=== PATIENT | male | born 1970 | race Native Hawaiian/Other Pacific Islander ===

== ENCOUNTER → 2018-01-15 | Outpatient (CLI) | payer OTHER ==
--- NOTE | 2018-01-15 17:23 | XR ---
EXAMINATION TYPE: XR chest 2V DATE OF EXAM: 01/15/2018 COMPARISON: NONE HISTORY: Chest pain TECHNIQUE: Frontal and lateral views of the chest are obtained. FINDINGS: Heart and mediastinum are normal. Lungs are clear. Diaphragm is normal. Bony thorax is int act. IMPRESSION: Normal chest.
== END | disposition home or self-care (01) ==
LOC: RADXRMAIN 16:55
PROVIDERS: ATTEND Physician Assistant
DX: R07.9 Chest pain, unspecified (principal)
CPT/HCPCS: 71046

== ENCOUNTER 2018-02-02 15:13 | Emergency (ER) | payer OTHER ==
[2018-02-02 15:25] VITALS: RESP 18
[2018-02-02] MEDS ORDERED: NITROGLYCERIN OINT 1 INCH/GM PACKET TOPICAL STA (15:43)
[2018-02-02] MEDS ORDERED: ASPIRIN 81 MG PO STA (15:43)
[2018-02-02] MEDS ORDERED: ONDANSETRON 4 MG/2 ML VIAL IVP STA (15:44)
--- NOTE | 2018-02-02 15:47 | ED ---
Chest Pain HPI - General Chief Complaint: Chest Pain Stated Complaint: Chest pain Time Seen by Provider: 02/02/18 15:38 Source: patient Mode of arrival: wheelchair Limitations: no limitations - History of Present Illness Initial Comments: This 47-year-old white male presents with a complaint of some chest pain. This is a pressure-like in nature and at times sharp. It is worse on the left side of his chest but is also diffuse at times. It has been intermittent over the last 2 weeks. He states that he followed up with his primary care physician and they were going to schedule him for an echocardiogram. He states that he does have a history of having a heart attack while under surgery several years ago but has never received any heart stents. He denies any other known cardiac disease. He's had some mild dyspnea, a mild cough, as well as some nausea and vomiting. He denies any production with this cough. She denies any known fevers at home although his temperature here is 100.0. He denies any leg pain or swelling or history of DVT or PE. 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 He denies any other complaints or modifying factors. - Related Data Home Medications Medication Instructions Recorded Confirmed metFORMIN HCL 1,000 mg PO BID 02/02/18 02/02/18 Allergies Allergy/AdvReac Type Severity Reaction Status Date / Time peanut Allergy Swelling Verified 02/02/18 17:44 tree nut Allergy Swelling Verified 02/02/18 17:44 Review of Systems ROS Statement: Those systems with pertinent positive or pertinent negative responses have been documented in the HPI. ROS Other: All systems not noted in ROS Statement are negative. Past Medical History Past Medical History: Diabetes Mellitus Additional Past Medical History / Comment(s): lung ca - had chemo 2 yrs ago and went into remission in 2014 History of Any Multi-Drug Resistant Organisms: None Reported Past Surgical History: Cholecystectomy Past Psychological History: No Psychological Hx Reported Smoking Status: Current every day smoker Past Alcohol Use History: None Reported Past Drug Use History: None Reported General Exam - General Exam Comments Initial Comments: GENERAL: The patient is well nourished and well hydrated. VITAL SIGNS: Heart rate, blood pressure, respiratory rate reviewed as recorded in nurse's notes. EYES: Pupils are round and reactive. Extraocular movements are intact. No conjunctival / lid redness or swelling. ENT: No external evidence of injury, swelling, or ecchymosis. Airway is patent. Throat is clear. NECK: Nontender. No swelling or evidence of injury. No subcutaneous emphysema. Trachea is midline. No thyroid mass. HEART: Regular rate and rhythm. Good peripheral pulses. LUNGS/CHEST: Breath sounds clear and equal bilaterally. No rales, rhonchi, or wheezes. No ecchymosis, subcutaneous emphysema, or tenderness. ABDOMEN: Abdomen soft without tenderness. No palpable masses or organomegaly. No peritoneal signs. No abdominal wall swelling or ecchymosis. EXTREMITIES: No extremity tenderness. Normal muscle tone and function. No thoracolumbar tenderness. No leg swelling. NEUROLOGIC: Sensation is grossly intact. Cranial nerve exam reveals face is symmetrical, tongue is midline, speech is clear. SKIN: No abrasions or ecchymosis is noted. No induration or masses noted. PSYCHIATRIC: Alert and oriented. Appropriate behavior and judgment. 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 All diagnostics are reviewed. An IV is started and he does receive Zofran 8 mg IV, aspirin, and Nitropaste. The EKG shows a normal sinus rhythm at a rate of 90. There is no acute ST-T wave changes identified. The CO intervals 154, QRS duration is 90, and the QTC intervals 433. The patient is feeling remarkably improved on recheck. The chest x-ray does not show any acute processes. The laboratories all essentially within normal limits or negative. Admission was offered however the patient would prefer to just have his troponin rechecked to rule out acute coronary syndrome and then follow up closely with primary care physician to obtain a stress test on an outpatient basis. Disposition Clinical Impression: Chest pain, Dyspnea, Nausea and vomiting Disposition: HOME SELF-CARE Condition: Good Additional Instructions: Please take one aspirin daily. Please follow-up with physician closely to schedule a stress test. Is patient prescribed a controlled substance at d/c from ED?: No Referrals: Wagner Retana DO [Primary Care Provider] - 1-2 days Time of Disposition: 18:22
[2018-02-02 16:01] LABS: Basophils # (A) 0.1 k/uL (0-0.2); Basophils % (A) 1 %; Eosinophils # (A) 0.5 k/uL (0-0.7); Eosinophils % (A) 7 %; HCT 45.4 % (39.0-53.0); HGB 16.1 gm/dL (13.0-17.5); Lymphocytes % (A) 38 %; MCHC 35.3 g/dL (31.0-37.0); MCV 87.8 fL (80.0-100.0); Mean Platelet Volume 7.4; Monocytes # (A) 0.3 k/uL (0-1.0); Monocytes % (A) 4 %; Neutrophils # (A) 3.9 k/uL (1.3-7.7); Neutrophils % (A) 50 %; Platelet Count 217 k/uL (150-450); RBC 5.18 m/uL (4.30-5.90); RDW 14.3 % (11.5-15.5); WBC 7.9 k/uL (3.8-10.6)
--- NOTE | 2018-02-02 16:09 | XR ---
EXAMINATION TYPE: XR chest 2V DATE OF EXAM: 02/02/2018 COMPARISON: 01/15/2018 HISTORY: Chest pain with history of lung cancer TECHNIQUE: Frontal and lateral views of the chest are obtained. FINDINGS: There is no focal air space opacity, pleural effusion, or pneumothorax seen. The cardiac silhouette size is within normal limits. The osseous structures are intact. Cholecystectomy clips a re noted within the right upper cortical. Minimal degenerative changes of the thoracic spine are note d. IMPRESSION: No acute cardiopulmonary process. The patient's known lung cancer is not appreciated. Th is may be treated.
[2018-02-02 16:11] LABS: ALT 44 U/L (21-72); AST 27 U/L (17-59); Albumin 4.2 g/dL (3.5-5.0); Alkaline Phosphatase 76 U/L (38-126); Anion Gap 14 mmol/L; Blood Urea Nitrogen 12 mg/dL (9-20); Calcium 9.3 mg/dL (8.4-10.2); Carbon Dioxide 26 mmol/L (22-30); Chloride 102 mmol/L (98-107); Glucose 149 mg/dL (74-99); Magnesium 1.9 mg/dL (1.6-2.3); Sodium 142 mmol/L (137-145); Total Bilirubin 0.5 mg/dL (0.2-1.3); Total Protein 6.7 g/dL (6.3-8.2)
[2018-02-02 16:18] LABS: Creatine Kinase 80 U/L (55-170)
[2018-02-02 16:25] LABS: D-Dimer 0.35 mg/L FEU (<0.60); Partial Thromboplastin Time 22.6 sec (22.0-30.0); Prothrombin Time 9.8 sec (9.0-12.0)
[2018-02-02 16:31] LABS: Creatine Kinase MB 0.3 ng/mL (0.0-2.4); Troponin I <0.012 ng/mL (0.000-0.034)
[2018-02-02 17:01] VITALS: BP 118/71
--- NOTE | 2018-02-02 18:24 | ED ---
Medical Decision Making - Lab Data Result diagrams: 02/02/18 15:40 02/02/18 15:40 Lab Results 02/02/18 02/02/18 02/02/18 Range/Units 15:40 15:40 15:40 WBC 7.9 (3.8-10.6) k/uL RBC 5.18 (4.30-5.90) m/uL Hgb 16.1 (13.0-17.5) gm/dL Hct 45.4 (39.0-53.0) % MCV 87.8 (80.0-100.0) fL MCH 31.0 (25.0-35.0) pg MCHC 35.3 (31.0-37.0) g/dL RDW 14.3 (11.5-15.5) % Plt Count 217 (150-450) k/uL Neutrophils % 50 % Lymphocytes % 38 % Monocytes % 4 % Eosinophils % 7 % Basophils % 1 % Neutrophils # 3.9 (1.3-7.7) k/uL Lymphocytes # 3.0 (1.0-4.8) k/uL Monocytes # 0.3 (0-1.0) k/uL Eosinophils # 0.5 (0-0.7) k/uL Basophils # 0.1 (0-0.2) k/uL PT (9.0-12.0) sec INR (<1.2) APTT (22.0-30.0) sec D-Dimer (<0.60) mg/L FEU Sodium 142 (137-145) mmol/L Potassium 4.0 (3.5-5.1) mmol/L Chloride 102 (98-107) mmol/L Carbon Dioxide 26 (22-30) mmol/L Anion Gap 14 mmol/L BUN 12 (9-20) mg/dL Creatinine 0.94 (0.66-1.25) mg/dL Est GFR (CKD-EPI)AfAm >90 (>60 ml/min/1.73 sqM) Est GFR (CKD-EPI)NonAf >90 (>60 ml/min/1.73 sqM) Glucose 149 H (74-99) mg/dL Calcium 9.3 (8.4-10.2) mg/dL Magnesium 1.9 (1.6-2.3) mg/dL Total Bilirubin 0.5 (0.2-1.3) mg/dL AST 27 (17-59) U/L ALT 44 (21-72) U/L Alkaline Phosphatase 76 (38-126) U/L Total Creatine Kinase 80 (55-170) U/L CK-MB (CK-2) 0.3 (0.0-2.4) ng/mL CK-MB (CK-2) Rel Index 0.4 Troponin I <0.012 (0.000-0.034) ng/mL NT-Pro-B Natriuret Pep pg/mL Total Protein 6.7 (6.3-8.2) g/dL Albumin 4.2 (3.5-5.0) g/dL 02/02/18 02/02/18 02/02/18 Range/Units 15:40 15:40 17:40 WBC (3.8-10.6) k/uL RBC (4.30-5.90) m/uL Hgb (13.0-17.5) gm/dL Hct (39.0-53.0) % MCV (80.0-100.0) fL MCH (25.0-35.0) pg MCHC (31.0-37.0) g/dL RDW (11.5-15.5) % Plt Count (150-450) k/uL Neutrophils % % Lymphocytes % % Monocytes % % Eosinophils % % Basophils % % Neutrophils # (1.3-7.7) k/uL Lymphocytes # (1.0-4.8) k/uL Monocytes # (0-1.0) k/uL Eosinophils # (0-0.7) k/uL Basophils # (0-0.2) k/uL PT 9.8 (9.0-12.0) sec INR 1.0 (<1.2) APTT 22.6 (22.0-30.0) sec D-Dimer 0.35 (<0.60) mg/L FEU Sodium (137-145) mmol/L Potassium (3.5-5.1) mmol/L Chloride (98-107) mmol/L Carbon Dioxide (22-30) mmol/L Anion Gap mmol/L BUN (9-20) mg/dL Creatinine (0.66-1.25) mg/dL Est GFR (CKD-EPI)AfAm (>60 ml/min/1.73 sqM) Est GFR (CKD-EPI)NonAf (>60 ml/min/1.73 sqM) Glucose (74-99) mg/dL Calcium (8.4-10.2) mg/dL Magnesium (1.6-2.3) mg/dL Total Bilirubin (0.2-1.3) mg/dL AST (17-59) U/L ALT (21-72) U/L Alkaline Phosphatase (38-126) U/L Total Creatine Kinase (55-170) U/L CK-MB (CK-2) (0.0-2.4) ng/mL CK-MB (CK-2) Rel Index Troponin I <0.012 (0.000-0.034) ng/mL NT-Pro-B Natriuret Pep 72 pg/mL Total Protein (6.3-8.2) g/dL Albumin (3.5-5.0) g/dL Disposition Clinical Impression: Chest pain, Dyspnea, Nausea and vomiting Disposition: HOME SELF-CARE Condition: Good Instructions: Chest Pain (ED) Additional Instructions: Please take one aspirin daily. Please follow-up with physician closely to schedule a stress test. Is patient prescribed a controlled substance at d/c from ED?: No Referrals: Wagner Retana DO [Primary Care Provider] - 1-2 days Time of Disposition: 18:23
[2018-02-02 18:44] VITALS: PULSE 84; TEMP 98
== END 2018-02-02 18:44 | disposition home or self-care (01) ==
LOC: EC 15:13
DX: R07.9 Chest pain, unspecified (principal); R06.00 Dyspnea, unspecified; R11.2 Nausea with vomiting, unspecified; E11.9 Type 2 diabetes mellitus without complications; F17.200 Nicotine dependence, unspecified, uncomplicated; Z91.018 Allergy to other foods; Z79.84 Long term (current) use of oral hypoglycemic drugs
CPT/HCPCS: 36415; 71046; 80053; 82550; 82553; 83735; 83880; 84484; 85025; 85379; 85610; 85730; 87040; 93005; 99285

== ENCOUNTER 2018-02-03 20:06 | Observation (INO) | payer OTHER ==
[2018-02-03 21:06] LABS: Basophils # (A) 0.1 k/uL (0-0.2); Basophils % (A) 1 %; Eosinophils # (A) 0.5 k/uL (0-0.7); Eosinophils % (A) 6 %; HCT 43.6 % (39.0-53.0); HGB 15.2 gm/dL (13.0-17.5); Lymphocytes # (A) 3.2 k/uL (1.0-4.8); Lymphocytes % (A) 40 %; MCH 30.7 pg (25.0-35.0); MCHC 34.9 g/dL (31.0-37.0); MCV 87.7 fL (80.0-100.0); Mean Platelet Volume 7.6; Monocytes # (A) 0.4 k/uL (0-1.0); Monocytes % (A) 5 %; Neutrophils # (A) 3.8 k/uL (1.3-7.7); Neutrophils % (A) 47 %; Platelet Count 207 k/uL (150-450); RBC 4.96 m/uL (4.30-5.90); RDW 14.4 % (11.5-15.5); WBC 8.1 k/uL (3.8-10.6)
[2018-02-03 21:15] LABS: ALT 41 U/L (21-72); AST 25 U/L (17-59); Albumin 4.1 g/dL (3.5-5.0); Alkaline Phosphatase 76 U/L (38-126); Anion Gap 14 mmol/L; Blood Urea Nitrogen 16 mg/dL (9-20); Calcium 9.5 mg/dL (8.4-10.2); Carbon Dioxide 24 mmol/L (22-30); Chloride 103 mmol/L (98-107); Glucose 179 mg/dL (74-99); Lipase 143 U/L (23-300); Magnesium 1.8 mg/dL (1.6-2.3); Potassium 3.9 mmol/L (3.5-5.1); Sodium 141 mmol/L (137-145); Total Bilirubin 0.3 mg/dL (0.2-1.3); Total Protein 6.4 g/dL (6.3-8.2)
--- NOTE | 2018-02-03 21:15 | XR ---
EXAMINATION TYPE: XR chest 2V DATE OF EXAM: 02/03/2018 COMPARISON: 02/02/2018 INDICATION: Chest pain TECHNIQUE: Frontal and lateral views of the chest are obtained. FINDINGS: The heart size is normal. The pulmonary vasculature is normal. The lungs are clear. IMPRESSION: 1. No acute pulmonary process.
[2018-02-03] MEDS ORDERED: RX INFO: IV CONTRAST WAS GIVEN 1 EACH MISC MISCELLANE PRN (21:16)
[2018-02-03 21:17] LABS: Partial Thromboplastin Time 23.3 sec (22.0-30.0); Prothrombin Time 9.8 sec (9.0-12.0)
--- NOTE | 2018-02-03 21:26 | ED ---
General Adult HPI - General Chief complaint: Chest Pain Stated complaint: Chest Pain Time Seen by Provider: 02/03/18 20:33 Source: patient, RN notes reviewed, old records reviewed Mode of arrival: ambulatory Limitations: no limitations - History of Present Illness Initial comments: 47-year-old male presents for evaluation of chest pain. Patient was seen in the emergency department yesterday and offered observation for further evaluation of his chest pain. He declined and was discharged after 2 negative troponins. His pain has persisted today and even worsened. Describes it as a sharp left-sided chest pain which goes to his shoulder and back. He has history of hypertension diabetes and remote history of lung cancer. He was treated for his lung cancer but has been lost to follow-up. He is still smoking currently. Patient denies abdominal pain. Denies vomiting he has had some nausea and diaphoresis. No known history of coronary artery disease. - Related Data Home Medications Medication Instructions Recorded Confirmed metFORMIN HCL 1,000 mg PO BID 02/02/18 02/03/18 Allergies Allergy/AdvReac Type Severity Reaction Status Date / Time peanut Allergy Swelling Verified 02/03/18 20:28 tree nut Allergy Swelling Verified 02/03/18 20:28 Review of Systems ROS Statement: Those systems with pertinent positive or pertinent negative responses have been documented in the HPI. ROS Other: All systems not noted in ROS Statement are negative. Past Medical History Past Medical History: Diabetes Mellitus Additional Past Medical History / Comment(s): lung ca - had chemo 2 yrs ago and went into remission in 2014 History of Any Multi-Drug Resistant Organisms: None Reported Past Surgical History: Cholecystectomy Past Psychological History: No Psychological Hx Reported Smoking Status: Current every day smoker Past Alcohol Use History: None Reported Past Drug Use History: None Reported General Exam Limitations: no limitations General appearance: alert, in no apparent distress Head exam: Present: atraumatic, normocephalic Eye exam: Present: normal appearance, PERRL, EOMI ENT exam: Present: normal exam Neck exam: Present: normal inspection. Absent: tenderness, meningismus Respiratory exam: Present: normal lung sounds bilaterally. Absent: respiratory distress, wheezes Cardiovascular Exam: Present: regular rate, normal rhythm GI/Abdominal exam: Present: soft. Absent: distended, tenderness, guarding Extremities exam: Present: normal inspection, normal capillary refill, other ( Normal pulse exam). Absent: pedal edema Back exam: Present: normal inspection. Absent: full ROM, tenderness Neurological exam: Present: alert, oriented X3, CN II-XII intact. Absent: motor sensory deficit Psychiatric exam: Present: normal affect, normal mood Skin exam: Present: warm, dry, intact. Absent: cyanosis, diaphoretic Course Vital Signs 02/03/18 20:19 Temperature 99.3 F Pulse Rate 95 Respiratory 18 Rate Blood Pressure 128/80 O2 Sat by Pulse 97 Oximetry EKG Findings - EKG Comments: EKG Findings:: EKG: Normal sinus rhythm, rate of 86, LA interval 158 QRS duration 88, QTC 414, no definitive signs of ischemia. Medical Decision Making - Medical Decision Making 47-year-old male who presents for evaluation of chest pain. Patient was seen in the emergency department yesterday, had 2 cardiac enzymes which were negative. He has had worsening pain today. Pain is atypical, sharp in nature. Patient does have history of lung cancer status post chemo but has not followed up in recent years. Exam is unremarkable, stable vital signs. CBC and CMP are obtained which are within normal limits. EKG is nonischemic. Troponin is negative. Chest negative for focal pneumonia or acute findings. Given the patient's history of cancer and repeat ER visit in the setting of atypical chest pain, CT angiography is obtained. CT is negative for acute process, no PE, no mass or dissection elevated. - Lab Data Result diagrams: 02/03/18 Unknown 02/03/18 Unknown Lab Results 02/03/18 02/03/18 02/03/18 Range/Units Unknown Unknown Unknown WBC 8.1 (3.8-10.6) k/uL RBC 4.96 (4.30-5.90) m/uL Hgb 15.2 (13.0-17.5) gm/dL Hct 43.6 (39.0-53.0) % MCV 87.7 (80.0-100.0) fL MCH 30.7 (25.0-35.0) pg MCHC 34.9 (31.0-37.0) g/dL RDW 14.4 (11.5-15.5) % Plt Count 207 (150-450) k/uL Neutrophils % 47 % Lymphocytes % 40 % Monocytes % 5 % Eosinophils % 6 % Basophils % 1 % Neutrophils # 3.8 (1.3-7.7) k/uL Lymphocytes # 3.2 (1.0-4.8) k/uL Monocytes # 0.4 (0-1.0) k/uL Eosinophils # 0.5 (0-0.7) k/uL Basophils # 0.1 (0-0.2) k/uL PT (9.0-12.0) sec INR (<1.2) APTT (22.0-30.0) sec Sodium 141 (137-145) mmol/L Potassium 3.9 (3.5-5.1) mmol/L Chloride 103 (98-107) mmol/L Carbon Dioxide 24 (22-30) mmol/L Anion Gap 14 mmol/L BUN 16 (9-20) mg/dL Creatinine 0.90 (0.66-1.25) mg/dL Est GFR (CKD-EPI)AfAm >90 (>60 ml/min/1.73 sqM) Est GFR (CKD-EPI)NonAf >90 (>60 ml/min/1.73 sqM) Glucose 179 H (74-99) mg/dL Calcium 9.5 (8.4-10.2) mg/dL Magnesium 1.8 (1.6-2.3) mg/dL Total Bilirubin 0.3 (0.2-1.3) mg/dL AST 25 (17-59) U/L ALT 41 (21-72) U/L Alkaline Phosphatase 76 (38-126) U/L Total Creatine Kinase 99 (55-170) U/L CK-MB (CK-2) 0.4 (0.0-2.4) ng/mL CK-MB (CK-2) Rel Index 0.4 Troponin I <0.012 (0.000-0.034) ng/mL NT-Pro-B Natriuret Pep pg/mL Total Protein 6.4 (6.3-8.2) g/dL Albumin 4.1 (3.5-5.0) g/dL Lipase 143 (23-300) U/L 02/03/18 02/03/18 Range/Units Unknown Unknown WBC (3.8-10.6) k/uL RBC (4.30-5.90) m/uL Hgb (13.0-17.5) gm/dL Hct (39.0-53.0) % MCV (80.0-100.0) fL MCH (25.0-35.0) pg MCHC (31.0-37.0) g/dL RDW (11.5-15.5) % Plt Count (150-450) k/uL Neutrophils % % Lymphocytes % % Monocytes % % Eosinophils % % Basophils % % Neutrophils # (1.3-7.7) k/uL Lymphocytes # (1.0-4.8) k/uL Monocytes # (0-1.0) k/uL Eosinophils # (0-0.7) k/uL Basophils # (0-0.2) k/uL PT 9.8 (9.0-12.0) sec INR 1.0 (<1.2) APTT 23.3 (22.0-30.0) sec Sodium (137-145) mmol/L Potassium (3.5-5.1) mmol/L Chloride (98-107) mmol/L Carbon Dioxide (22-30) mmol/L Anion Gap mmol/L BUN (9-20) mg/dL Creatinine (0.66-1.25) mg/dL Est GFR (CKD-EPI)AfAm (>60 ml/min/1.73 sqM) Est GFR (CKD-EPI)NonAf (>60 ml/min/1.73 sqM) Glucose (74-99) mg/dL Calcium (8.4-10.2) mg/dL Magnesium (1.6-2.3) mg/dL Total Bilirubin (0.2-1.3) mg/dL AST (17-59) U/L ALT (21-72) U/L Alkaline Phosphatase (38-126) U/L Total Creatine Kinase (55-170) U/L CK-MB (CK-2) (0.0-2.4) ng/mL CK-MB (CK-2) Rel Index Troponin I (0.000-0.034) ng/mL NT-Pro-B Natriuret Pep 77 pg/mL Total Protein (6.3-8.2) g/dL Albumin (3.5-5.0) g/dL Lipase (23-300) U/L Disposition Clinical Impression: Atypical chest pain Disposition: ADMITTED IP TO THIS [facility] Condition: Stable Is patient prescribed a controlled substance at d/c from ED?: No Referrals: Wagner Retana DO [Primary Care Provider] - 1-2 days Decision to Admit Reason: Admit from [facility] Decision Date: 02/03/18 Decision Time: 22:04
[2018-02-03 21:29] LABS: Creatine Kinase 99 U/L (55-170)
[2018-02-03 21:40] LABS: Creatine Kinase MB 0.4 ng/mL (0.0-2.4); Troponin I <0.012 ng/mL (0.000-0.034)
--- NOTE | 2018-02-03 22:08 | CT ---
CT CHEST FOR PULMONARY EMBOLISM. EXAMINATION TYPE: CT angio chest DATE OF EXAM: 02/03/2018 INDICATION: Left side chest pain, SOB CT DLP: 393.3 mGycm, Automated exposure control for dose reduction was used. CONTRAST: Patient injected with 70 mL of Isovue 370. COMPARISON: NONE TECHNIQUE: CT of the chest is performed on a spiral scan at 2 mm thick sections. Study is performed with intravenous contrast timed for evaluation for pulmonary embolism. This will limit additional po rtions of the evaluation. 3-D MIP images reconstructed by the technologist are reviewed on the compu ter in the coronal and sagittal planes. FINDINGS: No persistent filling defects are evident to suggest an acute pulmonary embolism. No mediastinal or hilar adenopathy enlarged by CT criteria is evident. The ascending aorta diameter at the level of the main pulmonary artery is 3.1 cm. The main pulmonary artery diameter at the bifur cation is 2.1 cm. Lung windows are clear. Limited CT section through the upper abdomen are unremarkable. IMPRESSIONS: 1. No acute pulmonary embolism.
[2018-02-03] MEDS ORDERED: IBUPROFEN 400 MG TAB PO PRN (22:10)
[2018-02-03] MEDS ORDERED: ACETAMINOPHEN TAB 325 MG TAB PO PRN (22:10)
[2018-02-03] MEDS ORDERED: ONDANSETRON 4 MG/2 ML VIAL IVP PRN (22:10)
[2018-02-03] MEDS ORDERED: MORPHINE SULFATE 4 MG/ML SYRINGE IV PRN (22:10)
[2018-02-03] MEDS ORDERED: NALOXONE 0.4 MG/ML 1 ML VIAL IV PRN (22:10)
[2018-02-03] MEDS ORDERED: ASPIRIN 325 MG TAB PO STA (22:11)
[2018-02-03 23:22] VITALS: BMI 28.7
[2018-02-04 04:06] LABS: Creatine Kinase 79 U/L (55-170)
[2018-02-04 04:20] LABS: Creatine Kinase MB 0.4 ng/mL (0.0-2.4); Troponin I <0.012 ng/mL (0.000-0.034)
[2018-02-04 10:34] LABS: Creatine Kinase 67 U/L (55-170)
[2018-02-04 10:47] LABS: Creatine Kinase MB 0.3 ng/mL (0.0-2.4); Troponin I <0.012 ng/mL (0.000-0.034)
[2018-02-04 11:18] VITALS: RESP 16
[2018-02-04 12:13] LABS: Glucose,Whole Blood 101 mg/dL (75-99)
[2018-02-04] MEDS: HEPARIN SODIUM,PORCINE 5,000 UNIT/ML 1 ML VIAL SQ SCH ×2 (15:44→20:18)
[2018-02-04] MEDS: metFORMIN 500 MG TAB PO SCH ×2 (15:44→20:19)
[2018-02-04] MEDS: ASPIRIN 81 MG PO SCH (15:44)
[2018-02-04] MEDS ORDERED: ALPRAZolam 0.25 MG TAB PO PRN (16:40)
[2018-02-04] MEDS ORDERED: TEMAZEPAM 15 MG CAP PO PRN (16:40)
[2018-02-04 17:10] LABS: Glucose,Whole Blood 126 mg/dL (75-99)
[2018-02-04] MEDS: INSULIN ASPART 100 UNIT/ML 1 ML 10 ML VIAL SQ SCH ×2 (17:11→20:18)
[2018-02-04 20:09] LABS: Glucose,Whole Blood 113 mg/dL (75-99)
--- NOTE | 2018-02-04 20:12 | HP ---
HISTORY AND PHYSICAL CHIEF COMPLAINT: Chest pain. HISTORY OF PRESENT ILLNESS: This 47-year-old gentleman with a past medical history of diabetes mellitus, lung cancer, history of cholecystectomy being followed by Dr. Wagner Retana in the outpatient setting, was complaining of chest pain. The chest pain is mostly situated in the left side of the chest and radiating to the front of the chest and also left upper arm. The patient also complaining of pain going to the back. There is no history of sweating or palpitation. The patient was admitted for further evaluation and treatment. A chest x-ray was done on admission which showed no acute pulmonary process and a CT of the chest showed no acute pulmonary embolism also. There is no history of any fever, rigors or chills. No history of headache, loss of consciousness, seizures. PAST MEDICAL HISTORY: History of diabetes, lung cancer. MEDICATIONS: Prior to admission include home medications are: Metformin. ALLERGIES: PEANUTS and TREE NUTS. FAMILY HISTORY: History of AICD, pacemaker and diabetes mellitus. SOCIAL HISTORY: History of smoking. No history of alcohol intake. REVIEW OF SYSTEMS: ENT: No diminished vision. No diminished hearing. CARDIOVASCULAR: As mentioned earlier. Respiratory: As mentioned earlier. GI no nausea or vomiting. : No dysuria. Nervous system: No numbness or weakness. Allergy/Immunology: No asthma or hayfever. Musculoskeletal as mentioned earlier. Hematology/Oncology: As mentioned earlier. Endocrine: Diabetes mellitus. CONSTITUTIONAL: As mentioned earlier. Dermatology: Negative. Rheumatology: Negative. Psychiatry: As mentioned earlier. PHYSICAL EXAM: Alert, oriented times three. Pulse 76, blood pressure 116/64, respirations 16, temperature 99 degrees, pulse ox 97% on room air. HEENT is conjunctivae normal. Oral mucosa moist. NECK is no jugular venous distention. No carotid bruit. No thyroid enlargement. CARDIOVASCULAR system: S1, S2. No S3, no S4. RESPIRATORY: Breath sounds diminished in the bases. No rhonchi. No crackles. ABDOMEN: Soft, nontender. No mass palpable. LEGS no edema and no swelling. NERVOUS SYSTEM: Higher functions as mentioned earlier. Moves all 4 limbs. No focal motor or sensory deficits. LYMPHATICS: No lymph nodes palpable in the neck, axillae or groin. SKIN no ulcer, rash or bleeding. LABS: CBC within normal limits. Glucose 179. Troponins are negative. EKG on admission showed normal sinus rhythm, no acute changes. ASSESSMENT: 1. Chest pain possible unstable angina. 2. Rule out musculoskeletal pain. 3. Diabetes type 2. 4. History of lung cancer. 5. History of cholecystectomy. 6. History of continued ongoing nicotine dependence. RECOMMENDATIONS AND DISCUSSION: In this 47-year-old gentleman who presented with multiple complex medical issues, we will monitor the patient closely, continue the current medications, management and symptomatic treatment. I would recommend unstable angina protocol. Otherwise cardiology consultation. Possible stress test. I would also recommend Accu-Cheks a.c. and at bedtime and resume the home medications, symptomatic treatment. Repeat labs. Overall prognosis guarded because of multiple complex medical issues and further recommendations to follow. Copy of dictation being forwarded to Dr. Retana who is the primary physician. MMMARINA / ALLISONN: [id number] /
--- NOTE | 2018-02-04 21:27 | CONS ---
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 He was recently, about 3 weeks ago, diagnosed with type 2 diabetes mellitus. His primary care physician is Dr. Wagner Retana. He came into the hospital because of an episode of chest discomfort. He was apparently seen in the emergency room on the of this month, had some nondescript chest tightness, pressure and was discharged after 2 negative troponins when he refused to be hospitalized. However, he came back again when the pain got a little worse today. It is more on the left side. It sometimes goes to the shoulder, randomly occurs, does not occur with activity. He has a history of type 2 diabetes recently diagnosed. History of lung cancer for which he has had chemotherapy, details are unavailable. He still smokes a pack a day. Denies chest pain at the time of my evaluation, resting comfortably. He also had some nausea, which he does not have at this time. PAST MEDICAL HISTORY: 1. Lung cancer, details unclear, had chemo and this was in [place]. 2. Recent diagnosis of type 2 diabetes mellitus. 3. No evidence of any prior myocardial infarction or CVA. 4. Cholecystectomy. MEDICATIONS: Metformin 1000 mg b.i.d. No known drug allergies. SOCIAL HISTORY: Patient smokes a pack a day and does not use alcohol. REVIEW OF SYSTEMS: Remarkable for some nondescript chest tightness unrelated to exertion, occasional joint pains, but no hematemesis or melena. No fever, chills or cough with expectoration. EXAMINATION: Blood pressure is 130/70, pulse rate is about 70 per minute and regular. HEENT: Unremarkable. Fundus was not examined by me. NECK: Supple. No JVD. I do not hear a carotid bruit. There is no thyromegaly. HEART: Reveals S1, S2 heard normally without a rub, murmur or gallop. LUNGS: Clear. Abdomen is soft, nontender. Lower extremities with normal pulses, no edema. Central nervous system is normal. EKG revealed normal sinus rhythm, within normal limits. LABORATORY DATA: Revealed that all the 3 troponins are normal. IMPRESSION: 1. Atypical chest pain. 2. Recent diagnosis of diabetes mellitus. 3. Obesity. 4. History of lung cancer for which he had chemotherapy in the past and still smokes. RECOMMENDATION: I am recommending that we will resume his metformin and aspirin 81 mg daily. I will perform an echocardiogram and a stress echo tomorrow. If these are normal, he can be discharged. I spent a lot of time with the patient and counselled him regarding the importance of quitting smoking altogether. The patient does not seem very motivated at this time. He will have a stress echo and echo tomorrow and if these are normal, he can be discharged. Thank you very much for the consult. AMBER / IJN: [id number] /
[2018-02-05 06:39] LABS: Glucose,Whole Blood 109 mg/dL (75-99)
[2018-02-05 07:24] LABS: Basophils % (A) 1 %; Eosinophils # (A) 0.4 k/uL (0-0.7); Eosinophils % (A) 6 %; HCT 47.9 % (39.0-53.0); HGB 16.3 gm/dL (13.0-17.5); Lymphocytes # (A) 1.8 k/uL (1.0-4.8); Lymphocytes % (A) 26 %; MCH 30.5 pg (25.0-35.0); MCV 89.8 fL (80.0-100.0); Mean Platelet Volume 7.5; Monocytes # (A) 0.3 k/uL (0-1.0); Monocytes % (A) 4 %; Neutrophils # (A) 4.2 k/uL (1.3-7.7); Neutrophils % (A) 62 %; Platelet Count 186 k/uL (150-450); RBC 5.33 m/uL (4.30-5.90); RDW 14.7 % (11.5-15.5); WBC 6.9 k/uL (3.8-10.6)
[2018-02-05 07:30] LABS: Anion Gap 12 mmol/L; Blood Urea Nitrogen 22 mg/dL (9-20); Calcium 8.6 mg/dL (8.4-10.2); Carbon Dioxide 24 mmol/L (22-30); Chloride 103 mmol/L (98-107); Glucose 101 mg/dL (74-99); Potassium 4.4 mmol/L (3.5-5.1); Sodium 139 mmol/L (137-145)
--- NOTE | 2018-02-05 08:18 | P.PN ---
Subjective Mr. Dinero is a pleasant 47-year-old male past medical history significant for diabetes mellitus and lung cancer with chemotherapy in [place]. He presented to the hospital with chest pain. He continues to feel discomfort in his chest that is non-specific with no specific aggravating or alleviating factors. Telemetry tracings have been unremarkable. Laboratory reviewed, hgb 16.3, plt 186, sodium 139, potassium 4.4, creatinine 0.85, cardiac enzymes negative x3. Blood pressure 116/58 heart rate 87 afebrile and maintaining oxygen saturation on room air. Objective - Vital Signs Vital signs: Vital Signs Temp 98.1 F 02/05/18 07:25 Pulse 87 02/05/18 07:25 Resp 16 02/05/18 07:25 BP 116/58 02/05/18 07:25 Pulse Ox 97 02/05/18 07:25 Intake & Output 02/04/18 02/05/18 02/05/18 18:59 06:59 18:59 Intake Total 476 Balance 476 Intake: Oral 476 Other: Voiding Method Toilet Toilet # Voids 2 2 - Exam GENERAL: Well-appearing, well-nourished and in no acute distress. NECK: Supple without JVD or thyromegaly. LUNGS: Breath sounds clear to auscultation bilaterally. Respiration equal and unlabored. No wheezes, rales or rhonchi. HEART: Regular rate and rhythm without murmurs, rubs or gallops. S1 and S2 heard. EXTREMITIES: Normal range of motion, no edema. No clubbing or cyanosis. Peripheral pulses intact and strong. - Labs CBC & Chem 7: 02/05/18 06:21 02/05/18 06:21 Labs: Abnormal Lab Results - Last 24 Hours (Table) 02/04/18 02/04/18 02/04/18 Range/Units 12:10 17:08 20:04 BUN (9-20) mg/dL Glucose (74-99) mg/dL POC Glucose (mg/dL) 101 H 126 H 113 H (75-99) mg/dL 02/05/18 02/05/18 Range/Units 06:21 06:37 BUN 22 H (9-20) mg/dL Glucose 101 H (74-99) mg/dL POC Glucose (mg/dL) 109 H (75-99) mg/dL Assessment and Plan Assessment: ASSESSMENT 1. Chest pain, atypical 2. Diabetes mellitus, new diagnosis recently 3. Chronic tobacco dependence PLAN We will perform an echocardiogram and doppler study to assess cardiac structure and function. Perform stress echocardiogram to assess for stress induced reversible ischemia. If stress testing is normal, he is stable from a cardiac perspective. If abnormal we will consider coronary angiography. Smoking cessation discussed. The above impression and plan of care have been discussed and directed by the signing physician. Vicky Gonzalez, nurse practitioner, acting as scribe for signing physician.
[2018-02-05] MEDS: INSULIN ASPART 100 UNIT/ML 1 ML 10 ML VIAL SQ SCH ×2 (11:01→15:59)
[2018-02-05] MEDS: metFORMIN 500 MG TAB PO SCH (11:09)
[2018-02-05] MEDS: ASPIRIN 81 MG PO SCH (11:09)
[2018-02-05] MEDS: HEPARIN SODIUM,PORCINE 5,000 UNIT/ML 1 ML VIAL SQ SCH (11:10)
--- NOTE | 2018-02-05 12:01 | ECHOF ---
Referral Reason:CP MEASUREMENTS -------- HEIGHT: 180.3 cm WEIGHT: 90.7 kg BP: 131/70 IVSd: 1.1 cm (0.6 - 1.1) LVIDd: 3.8 cm (3.9 - 5.3) LVPWd: 1.3 cm (0.6 - 1.1) IVSs: 1.6 cm LVIDs: 1.8 cm LVPWs: 1.7 cm Ao Diam: 3.0 cm (2.0 - 3.7) AV Cusp: 1.3 cm (1.5 - 2.6) LA Diam: 2.6 cm (2.7 - 3.8) MV EXCURSION: 11.800 mm (> 18.000) MV EF SLOPE: 82 mm/s (70 - 150) EPSS: 0.8 cm MV E Rolf: 0.77 m/s MV DecT: 146 ms MV A Rolf: 0.59 m/s MV E/A Ratio: 1.30 RAP: 5.00 mmHg RVSP: 8.59 mmHg FINDINGS -------- Sinus rhythm. This was a technically good study. The left ventricular size is normal. There is mild concentric left ventricular hypertrophy. Overa ll left ventricular systolic function is normal with, an EF between 55 - 60 %. The right ventricle is normal in size and function. The left atrium is normal in size. The right atrium is normal in size. Aortic valve is trileaflet and is mildly thickened. Mild mitral regurgitation is present. Mild tricuspid regurgitation present. The right ventricular systolic pressure, as measured by Doppl er, is 8.59mmHg. Pulmonic valve appears structurally normal. The aortic root size is normal. Normal inferior vena cava with normal inspiratory collapse consistent with estimated right atrial pre ssure of 5 mmHg. The pericardium is normal. CONCLUSIONS -------- 1. Sinus rhythm. 2. This was a technically good study. 3. The left ventricular size is normal. 4. There is mild concentric left ventricular hypertrophy. 5. Overall left ventricular systolic function is normal with, an EF between 55 - 60 %. 6. The right ventricle is normal in size and function. 7. The left atrium is normal in size. 8. The right atrium is normal in size. 9. Aortic valve is trileaflet and is mildly thickened. 10. Mild mitral regurgitation is present. 11. Mild tricuspid regurgitation present. 12. The right ventricular systolic pressure, as measured by Doppler, is 8.59mmHg. 13. Pulmonic valve appears structurally normal. 14. The aortic root size is normal. 15. Normal inferior vena cava with normal inspiratory collapse consistent with estimated right atrial pressure of 5 mmHg. 16. The pericardium is normal. LINE MAINTAINER: Marcelina Soares RDCS
[2018-02-05 12:12] LABS: Glucose,Whole Blood 192 mg/dL (75-99)
--- NOTE | 2018-02-05 12:34 | ECHOS ---
STRESS ECHOCARDIOGRAM INDICATIONS: Chest pain. BASELINE HEART RATE: 74 BASELINE BLOOD PRESSURE: 78/40 MAXIMUM HEART RATE: 149 MAXIMUM BLOOD PRESSURE: 153/67 85% MPHR: 149 100% MPHR: 175 METS: 9.9 MAXIMUM STAGE REACHED: III TOTAL EXERCISE TIME: 9:00 CLINICAL INFORMATION: Baseline EKG shows sinus rhythm, normal axis, normal intervals. Patient exercised on Han protocol for a total of 9 minutes achieving 10 METS, 85% of predicted maximal heart rate without chest pain or diagnostic ST-segment depression baseline echo shows normal left ventricular size wall motion systolic function postexercise there is normal hyperdynamic response of all segments of myocardium noted. CONCLUSIONS: 1. Good exercise tolerance. 2. Negative stress test by EKG criteria. 3. Negative stress echo. MMODL / IJN: [id number] /
[2018-02-05 15:22] LABS: Hemoglobin A1C 6.9 % (4.0-6.0)
[2018-02-05] MEDS ORDERED: NAPROXEN 250 MG TAB PO STA (15:25)
[2018-02-05] MEDS ORDERED: PANTOPRAZOLE 40 MG TABLET PO STA (15:25)
[2018-02-05 15:32] VITALS: BP 114/68; PULSE 91; TEMP 98.1
--- NOTE | 2018-02-05 23:24 | DS ---
DISCHARGE SUMMARY FINAL DIAGNOSES: 1. Left chest wall pain, possibly musculoskeletal. 2. Gastroesophageal reflux disease, controlled. 3. Diabetes mellitus type 2 on oral hypoglycemic. 4. History of lung cancer, status post chemotherapy. HOSPITAL COURSE: This patient presents with left-sided chest pain present for quite some time, rather constant. Chest x-ray was unremarkable. Chest CT today was negative for PE. The patient's reflux has been bothering him. The patient did undergo a stress echocardiogram that was negative. 2D echo was unremarkable and did not show any wall motion abnormality. We will try a short course of NSAIDs and also put the patient on PPIs. EXAMINATION: LUNGS: Fair entry. CARDIOVASCULAR: First and second sounds normal. CONSULTATION: Dr. Isaiah Murillo from Cardiology. DISCHARGE MEDICATIONS: 1. Metformin 1000 mg p.o. b.i.d. 2. Naproxen 250 mg p.o. b.i.d. 3. Prilosec 20 mg b.i.d. Follow with Dr. Isaiah Murillo in [address] Wagner Retana in 3 days. MMODL / IJN: [id number] /
== END 2018-02-05 16:32 | disposition home or self-care (01) ==
LOC: EC 20:06 → 6SEL 22:11 → 3OBS 02-04 11:00
PROVIDERS: ADMIT Hospitalist; ATTEND Hospitalist
DX: R07.89 Other chest pain (principal); K21.9 Gastro-esophageal reflux disease without esophagitis; E11.9 Type 2 diabetes mellitus without complications; F17.210 Nicotine dependence, cigarettes, uncomplicated; E66.9 Obesity, unspecified; Z68.28 Body mass index [BMI] 28.0-28.9, adult; Z90.49 Acquired absence of other specified parts of digestive tract; Z79.84 Long term (current) use of oral hypoglycemic drugs; Z91.010 Allergy to peanuts; Z91.018 Allergy to other foods; Z92.21 Personal history of antineoplastic chemotherapy; Z85.118 Personal history of other malignant neoplasm of bronchus and lung; Z83.3 Family history of diabetes mellitus; Z82.49 Family history of ischemic heart disease and other diseases of the circulatory system
CPT/HCPCS: 99285 ×2; 96372; 96374; 36415; 93005; 93306; 93351; 83880; 80053; 80048; 82550 ×2; 82553 ×2; 83690; 83735; 84484 ×2; 85025 ×2; 85610; 85730; 83036; 71046; 71275; G0378 ×3; J2270; J1644; Q9967

== ENCOUNTER 2018-08-13 16:43 | Observation (INO) | payer BC, OTHER ==
[2018-08-13] MEDS ORDERED: KETOROLAC 30 MG/ML 1 ML VIAL IVP STA (17:13)
[2018-08-13] MEDS ORDERED: SODIUM CHLORIDE 0.9% 1,000 ML IV STA ×2 (17:13)
--- NOTE | 2018-08-13 17:23 | ED ---
Chest Pain HPI - General Chief Complaint: Chest Pain Stated Complaint: Chest Pain Time Seen by Provider: 08/13/18 16:52 Source: patient, RN notes reviewed, old records reviewed Mode of arrival: ambulatory Limitations: no limitations - History of Present Illness MD Complaint: chest pain -: hour(s) Onset: during rest Pain Location: left chest, epigastric Pain Radiation: back Severity: moderate Severity scale (1-10): 7 Quality: tightness, sharp Consistency: constant Improves With: nothing Worsens With: exertion Context: new medications Anginal Symptoms: dyspnea Other Symptoms: palpitations Treatments Prior to Arrival: none - Related Data Home Medications Medication Instructions Recorded Confirmed metFORMIN HCL 1,000 mg PO BID 02/02/18 08/13/18 Ibuprofen [Motrin Ib] 400 mg PO Q6HR PRN 08/13/18 08/13/18 Allergies Allergy/AdvReac Type Severity Reaction Status Date / Time peanut Allergy Swelling Verified 08/13/18 17:04 tree nut Allergy Swelling Verified 08/13/18 17:04 Review of Systems ROS Statement: Those systems with pertinent positive or pertinent negative responses have been documented in the HPI. ROS Other: All systems not noted in ROS Statement are negative. Past Medical History Past Medical History: Diabetes Mellitus Additional Past Medical History / Comment(s): lung ca - had chemo 2 yrs ago and went into remission in 2014 History of Any Multi-Drug Resistant Organisms: None Reported Past Surgical History: Cholecystectomy Past Psychological History: No Psychological Hx Reported Smoking Status: Current every day smoker Past Alcohol Use History: None Reported Past Drug Use History: None Reported - Past Family History Mother Additional Family Medical History / Comment(s): DM Father Family Medical History: AICD/Pacemaker General Exam Limitations: no limitations General appearance: alert, in no apparent distress Head exam: Present: atraumatic, normocephalic, normal inspection Eye exam: Present: normal appearance, PERRL, EOMI. Absent: scleral icterus, conjunctival injection, periorbital swelling ENT exam: Present: normal exam, mucous membranes moist Neck exam: Present: normal inspection. Absent: tenderness, meningismus, lymphadenopathy Respiratory exam: Present: normal lung sounds bilaterally. Absent: respiratory distress, wheezes, rales, rhonchi, stridor Cardiovascular Exam: Present: normal rhythm, tachycardia, normal heart sounds. Absent: systolic murmur, diastolic murmur, rubs, gallop, clicks GI/Abdominal exam: Present: soft, normal bowel sounds. Absent: distended, tenderness, guarding, rebound, rigid Extremities exam: Present: normal inspection, full ROM, normal capillary refill. Absent: tenderness, pedal edema, joint swelling, calf tenderness Back exam: Present: normal inspection Neurological exam: Present: alert, oriented X3, CN II-XII intact Psychiatric exam: Present: normal affect, normal mood Skin exam: Present: warm, dry, intact, normal color. Absent: rash Course Vital Signs 08/13/18 08/13/18 08/13/18 16:45 17:32 18:00 Temperature 97.2 F L Pulse Rate 102 H 90 86 Respiratory 20 18 16 Rate Blood Pressure 122/75 135/93 135/93 O2 Sat by Pulse 98 98 98 Oximetry 08/13/18 19:29 Temperature Pulse Rate 80 Respiratory 18 Rate Blood Pressure 101/71 O2 Sat by Pulse 99 Oximetry - Reevaluation(s) Reevaluation #1: 08/13/18 19:10 medical record is reviewed Reevaluation #2: 08/13/18 19:11 patient states history of same w Pericarditis Reevaluation #3: 08/13/18 19:59 No improvement in pain currently Reevaluation #5: 08/13/18 19:59 Studies Chest x-rays negative for acute disease Chest Pain MDM - MDM 48 male for evaluation of chest pain, patient has history of chest pain, history of what he thinks is pericarditis, patient be admitted for cardiac observation Critical Care Time Critical Care Time: Yes Total Critical Care Time: 31 Disposition Clinical Impression: Atypical chest pain, Chest pain Disposition: ADMITTED IP TO THIS HOSP Condition: Undetermined Instructions: Chest Pain (ED) Is patient prescribed a controlled substance at d/c from ED?: No Referrals: Wagner Retana DO [Primary Care Provider] - 1-2 days
--- NOTE | 2018-08-13 17:33 | XR ---
EXAMINATION TYPE: XR chest 2V DATE OF EXAM: 08/13/2018 COMPARISON: 01/27/1718 HISTORY: Lung cancer. Chest pain TECHNIQUE: Frontal and lateral views of the chest are obtained. FINDINGS: Heart and mediastinum are normal. Lungs are clear of consolidation. There are no hilar mas ses. Costophrenic angles are clear. Bony thorax is intact. There are chest leads. IMPRESSION: No active cardiopulmonary disease. No change.
[2018-08-13 17:35] LABS: Basophils # (A) 0.1 k/uL (0-0.2); Basophils % (A) 1 %; Eosinophils # (A) 0.5 k/uL (0-0.7); Eosinophils % (A) 5 %; HCT 47.5 % (39.0-53.0); HGB 16.5 gm/dL (13.0-17.5); Lymphocytes # (A) 3.2 k/uL (1.0-4.8); Lymphocytes % (A) 34 %; MCH 30.3 pg (25.0-35.0); MCHC 34.6 g/dL (31.0-37.0); MCV 87.7 fL (80.0-100.0); Mean Platelet Volume 7.9; Monocytes # (A) 0.4 k/uL (0-1.0); Monocytes % (A) 4 %; Neutrophils # (A) 5.3 k/uL (1.3-7.7); Neutrophils % (A) 55 %; Platelet Count 201 k/uL (150-450); RBC 5.42 m/uL (4.30-5.90); RDW 14.4 % (11.5-15.5); WBC 9.6 k/uL (3.8-10.6)
[2018-08-13 17:45] LABS: ALT 38 U/L (21-72); AST 24 U/L (17-59); Albumin 4.2 g/dL (3.5-5.0); Alkaline Phosphatase 92 U/L (38-126); Anion Gap 9 mmol/L; Blood Urea Nitrogen 13 mg/dL (9-20); Calcium 9.1 mg/dL (8.4-10.2); Carbon Dioxide 27 mmol/L (22-30); Chloride 103 mmol/L (98-107); Glucose 158 mg/dL (74-99); Lipase 136 U/L (23-300); Magnesium 1.6 mg/dL (1.6-2.3); Partial Thromboplastin Time 23.6 sec (22.0-30.0); Sodium 139 mmol/L (137-145); Total Bilirubin 0.4 mg/dL (0.2-1.3); Total Protein 6.9 g/dL (6.3-8.2)
[2018-08-13 17:55] LABS: Creatine Kinase 65 U/L (55-170)
[2018-08-13 18:06] LABS: Creatine Kinase MB 0.3 ng/mL (0.0-2.4); Troponin I <0.012 ng/mL (0.000-0.034)
[2018-08-13] MEDS ORDERED: MORPHINE SULFATE 4 MG/ML SYRINGE IVP STA (19:57)
[2018-08-13] MEDS ORDERED: ASPIRIN 81 MG PO STA (19:57)
[2018-08-13] MEDS ORDERED: NITROGLYCERIN SL TABS 0.4 MG TAB SUBLINGUAL PRN (19:57)
[2018-08-13] MEDS ORDERED: MORPHINE SULFATE 4 MG/ML SYRINGE IVP PRN (19:57)
[2018-08-13] MEDS ORDERED: SODIUM CHLORIDE 0.9% 1,000 ML IV SCH (20:00)
[2018-08-13 22:03] LABS: Glucose,Whole Blood 172 mg/dL (75-99)
[2018-08-13] MEDS: INSULIN ASPART 100 UNIT/ML 1 ML 10 ML VIAL SQ SCH (22:10)
[2018-08-13] MEDS: KETOROLAC 30 MG/ML 1 ML VIAL IVP PRN (23:45)
[2018-08-13 23:49] LABS: Creatine Kinase 60 U/L (55-170)
[2018-08-13 23:54] LABS: Creatine Kinase MB 0.2 ng/mL (0.0-2.4); Troponin I <0.012 ng/mL (0.000-0.034)
[2018-08-14 00:35] LABS: Appearance,Urine Cloudy (Clear); Bilirubin,Urine Negative (Negative); Blood,Urine Negative (Negative); Color,Urine Yellow; Glucose,Urine (UA) Negative (Negative); Ketones,Urine Negative (Negative); Leukocyte Esterase,Urine Negative (Negative); Mucus,Urine Many /hpf; Nitrite,Urine Negative (Negative); Protein,Urine 1+ (Negative); RBC,Urine 1 /hpf (0-5); Specific Gravity,Urine 1.032 (1.001-1.035); Squamous Epithelial Cell,Urine <1 /hpf (0-4); WBC,Urine 3 /hpf (0-5)
[2018-08-14 03:31] VITALS: RESP 18
[2018-08-14 05:53] LABS: Creatine Kinase 53 U/L (55-170)
[2018-08-14 06:00] LABS: Cholesterol 228 mg/dL (<200); HDL Cholesterol 23 mg/dL (40-60)
[2018-08-14 06:06] LABS: Creatine Kinase MB 0.2 ng/mL (0.0-2.4); Troponin I <0.012 ng/mL (0.000-0.034)
[2018-08-14 06:14] LABS: Triglycerides 929 mg/dL (<150)
[2018-08-14 06:32] LABS: Glucose,Whole Blood 180 mg/dL (75-99)
[2018-08-14] MEDS ORDERED: INSULIN ASPART 100 UNIT/ML 1 ML 10 ML VIAL SQ SCH (07:30)
[2018-08-14 08:35] LABS: Hemoglobin A1C 7.2 % (4.0-6.0)
[2018-08-14] MEDS: INSULIN ASPART 100 UNIT/ML 1 ML 10 ML VIAL SQ SCH ×3 (08:55→17:37)
[2018-08-14] MEDS ORDERED: ASPIRIN 81 MG PO SCH (09:00)
[2018-08-14] MEDS ORDERED: metFORMIN 500 MG TAB PO SCH (09:00)
[2018-08-14] MEDS ORDERED: ATORVASTATIN 40 MG TAB PO SCH (09:00)
[2018-08-14] MEDS ORDERED: ASPIRIN 325 MG TAB PO SCH (09:00)
[2018-08-14] MEDS: KETOROLAC 30 MG/ML 1 ML VIAL IVP PRN (09:04)
--- NOTE | 2018-08-14 09:30 | CONS ---
CONSULTATION Mr. Dinero is a 48-year-old male with a history of chronic tobacco use, history of diabetes mellitus, who presented with symptoms of chest discomfort. The patient was in the hospital in January with symptoms of chest pain. At that time underwent a stress echocardiogram revealed no evidence of inducible ischemia. He is not very active physically. He had discomfort yesterday that persisted for few hours, worse with deep breathing or coughing. He continues to smoke on a regular basis in spite of the fact that he had diagnosis of lung cancer 3 years ago treated with chemotherapy while in [place]. The patient has a history of diabetes diagnosed in January. He has no history of documented hypertension or hyperlipidemia in the past. There is a history of coronary artery disease in his brother at young age. His father had a pacemaker. His coronary risk factors are remarkable for the smoking and diabetes. MEDICATIONS: His medications include metformin 1 gram twice a day and ibuprofen. REVIEW OF SYSTEMS: RESPIRATORY SYSTEM: He has a history of wheezing. He has a history of cough and dyspnea on exertion. GI SYSTEM: Remote history of ulcer. No GI bleeding. SYSTEM: No dysuria or hematuria. NERVOUS SYSTEM: No history of stroke or seizure. PHYSICAL EXAMINATION: He is a 48-year-old male, alert, oriented, in no apparent distress. Blood pressure 112/60 with the heart rate in the 70s. HEAD: Normocephalic. EYES: Sclerae anicteric. NECK: Good carotid upstroke. No bruit. No jugular venous distention. LUNGS: Decreased air exchange, no wheezes. HEART: Regular rate and rhythm. S1, S2. No S3. No rub or gallop. Chest wall with chest wall tenderness. ABDOMEN: Soft, nontender. Positive bowel sounds. No organomegaly. EXTREMITIES: No edema. Intact distal pulses. LAB DATA: Lab data revealed troponin less than 0.012. Triglycerides 929, cholesterol 228. BUN and creatinine 13 and 0.83. Potassium 4.0. Hemoglobin 16.5, white blood cell of 9.6. EKG revealed a sinus mechanism, normal axis with minor nonspecific ST-T wave changes. IMPRESSION: 1. Chest discomfort atypical for ischemic heart disease appears to be musculoskeletal in etiology. The patient had a stress test done in January and that was unremarkable. 2. Chronic tobacco use in spite of the history of lung cancer. 3. Diabetes. 4. Hyperlipidemia with significant hypertriglyceridemia. RECOMMENDATION: From the cardiac standpoint, I see no indication for further cardiac workup. I will add a statin to his regimen. I will check his hemoglobin A1c and TSH because of the significant elevation of his triglycerides. The patient denies any alcohol intake. Depending on his progress, further recommendation will be made. Thank you for this consult. I would expect that the patient should be able to be discharged home soon. AMBER / HERNANDEZ: [id number] /
--- NOTE | 2018-08-14 09:57 | ECHOF ---
Referral Reason:pericarditis MEASUREMENTS -------- HEIGHT: 180.3 cm WEIGHT: 90.7 kg BP: 112/67 RVIDd: 2.8 cm (< 3.3) IVSd: 1.2 cm (0.6 - 1.1) LVIDd: 4.3 cm (3.9 - 5.3) LVPWd: 1.1 cm (0.6 - 1.1) IVSs: 1.5 cm LVIDs: 1.7 cm LVPWs: 1.6 cm LAESV Index (A-L): 19.87 ml/m Ao Diam: 3.0 cm (2.0 - 3.7) AV Cusp: 2.1 cm (1.5 - 2.6) LA Diam: 3.4 cm (2.7 - 3.8) MV EXCURSION: 17.354 mm (> 18.000) MV EF SLOPE: 122 mm/s (70 - 150) EPSS: 1.2 cm MV E Rolf: 0.97 m/s MV DecT: 161 ms MV A Rolf: 0.68 m/s MV E/A Ratio: 1.42 RAP: 5.00 mmHg RVSP: 11.59 mmHg FINDINGS -------- Sinus rhythm. This was a technically good study. The left ventricular size is normal. There is borderline concentric left ventricular hypertrophy. Overall left ventricular systolic function is normal with, an EF between 55 - 60 %. The right ventricle is normal in size and function. Normal LA size by volume 22+/-6 ml/m2. The right atrial size is normal. The aortic valve is trileaflet, and appears structurally normal. No aortic stenosis or regurgitation. The mitral valve is normal. There is trace mitral regurgitation. Trace tricuspid regurgitation present. There is no evidence of pulmonary hypertension. The right ventricular systolic pressure, as measured by Doppler, is 11.59mmHg. Trace/mild (physiologic) pulmonic regurgitation. The aortic root size is normal. Normal inferior vena cava with normal inspiratory collapse consistent with estimated right atrial pre ssure of 5 mmHg. There is no pericardial effusion. CONCLUSIONS -------- 1. Sinus rhythm. 2. This was a technically good study. 3. The left ventricular size is normal. 4. There is borderline concentric left ventricular hypertrophy. 5. Overall left ventricular systolic function is normal with, an EF between 55 - 60 %. 6. Normal LA size by volume 22+/-6 ml/m2. 7. The right atrial size is normal. 8. The aortic valve is trileaflet, and appears structurally normal. No aortic stenosis or regurgitati on. 9. There is trace mitral regurgitation. 10. Trace tricuspid regurgitation present. 11. There is no evidence of pulmonary hypertension. 12. Trace/mild (physiologic) pulmonic regurgitation. 13. The aortic root size is normal. 14. Normal inferior vena cava with normal inspiratory collapse consistent with estimated right atrial pressure of 5 mmHg. 15. There is no pericardial effusion. CONSTRUCTION TRADES CONTRACTOR: Marcelina Soares RDCS
[2018-08-14 11:49] LABS: Glucose,Whole Blood 170 mg/dL (75-99)
[2018-08-14 15:36] VITALS: BP 139/80; PULSE 72; TEMP 97.8
--- NOTE | 2018-08-14 16:16 | CT ---
EXAMINATION TYPE: CT chest angio for PE DATE OF EXAM: 08/14/2018 COMPARISON: 02/03/2018 HISTORY: 48-year-old male Diffuse chest pain. TECHNIQUE: Contiguous axial scanning of the chest performed with IV Contrast, patient injected with 1 00 mL of Isovue 300. Coronal/sagittal MIP reconstructions performed. CT DLP: 349.8 mGycm Automated exposure control for dose reduction was used. FINDINGS: Heart normal size with trace anterior basilar pericardial fluid. Aorta normal caliber with a tortuous origin anatomy. There is heterogeneity of the pulmonary vasculature due to mixing. No definite pulmonary embolus is i dentified. No thoracic lymphadenopathy by CT size criteria. Mild diffuse bronchial wall thickening. Mild scattered centrilobular emphysema. There is a 5 mm right upper lobe pulmonary nodule, centrally, axial image 34. Additional right lower lobe nodularity measuring 6 mm and 4 mm, axial image 75 and 76. 4 mm peripheral subpleural left upper lobe pulmonary nodule, axial image 44. No consolidation or pleural effusion. Visualized upper abdomen shows cholecystectomy clips. Calcified granulomas within the spleen. Bones: No osseous destructive process. Endplate spondylosis lower thoracic spine. IMPRESSION: 1. SOME MIXING ARTIFACTS. NO DEFINITE PULMONARY EMBOLUS. 2. A FEW SCATTERED PULMONARY NODULES MEASURING UP TO 6 MM ARE STABLE FOR 6 MONTHS. ADDITIONAL 6-12 MO NTH FOLLOW-UP IS RECOMMENDED. 3. COPD WITH VERY MILD EMPHYSEMA.
[2018-08-14 16:49] LABS: Glucose,Whole Blood 126 mg/dL (75-99)
--- NOTE | 2018-08-14 17:19 | HP ---
HISTORY AND PHYSICAL DATE OF ADMISSION: 08/13/2018 DATE OF SERVICE: 08/14/2018 PRESENTING COMPLAINT: Chest pain. HISTORY OF PRESENTING COMPLAINT: Pleasant 48-year-old patient who was here in January of this year. The patient's chronic stable medical conditions include GERD, diabetes mellitus type 2, history of lung cancer, status post chemotherapy. 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 After driving all day towards later part of the evening, patient felt pain in the left part of the chest laterally, sharp stabbing, did go up to the neck and also into the jaw. The patient was slightly short of breath, did break out in a sweat, a bit clammy. There was no leg swelling. Because of these symptoms, decided to come in to rule out a cardiac cause. The patient in January of this year did have a negative stress test. The patient is a smoker. The patient occasionally does get anxious. The patient's initial troponin was negative. REVIEW OF SYSTEMS: CONSTITUTIONAL: None. HEENT none. RESPIRATORY: As above. CARDIOVASCULAR: As above. GASTROINTESTINAL: None. GENITOURINARY: None. MUSCULOSKELETAL: None. DERMATOLOGIC, HEMATOLOGIC AND LYMPHATIC: None. PSYCHIATRY: Occasionally anxious. NEUROLOGICAL none. PAST MEDICAL HISTORY: Past medical history of GERD, diabetes type 2, lung cancer, chemotherapy 2 years ago, viral meningitis. PAST SURGICAL HISTORY: Cholecystectomy, piece of metal removed from the right eye. 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 FAMILY HISTORY: Diabetes. MEDICATIONS: Home medications are: 1. Metformin 1000 mg b.i.d. 2. Motrin 400 mg q.6h p.r.n. ALLERGIES: TO PEANUT AND TREE NUTS. PHYSICAL EXAMINATION: VITAL SIGNS: Temperature 97.8, pulse 72, respiratory 18, blood pressure 139/80, pulse ox 96 percent on room air. GENERAL APPEARANCE: Average built, sitting up, not in distress. EYES: Pupils are equal. Conjunctivae normal. HEENT: External appearance of nose and ears normal. Oral cavity normal. NECK: JVD not raised. Mass not palpable. RESPIRATORY: Effort normal. LUNGS: Slightly decreased breath sounds. CARDIOVASCULAR: 1st and 2nd sounds normal. No edema. ABDOMEN: Soft, nontender. Liver and spleen not palpable. LYMPHATICS: No lymph nodes palpable in the neck and axilla. PSYCHIATRY: Alert and oriented x3. Mood and affect slightly anxious. NEUROLOGICAL: Pupils equal. Cranial nerves grossly intact. Power and sensation grossly intact. INVESTIGATIONS: White count 9.6, hemoglobin 16.5, potassium 4.0. BUN and creatinine is normal. Troponin times three is negative. Triglycerides 929. TSH normal. EKG tracing personally reviewed by me shows some nonspecific T-wave changes. Chest x-ray film personally reviewed by me shows some elevation of the right diaphragm. No obvious infiltrates. Chest x-ray report was also reviewed. No infiltrates reported. ASSESSMENT: 1. Left-sided chest pain sharp with associated shortness of breath perspiration, clammy, could be psychosomatic from attack of anxiety, rule out a cardiac cause. 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 2. Gastroesophageal reflux disease. 3. Diabetes mellitus type 2 on oral hypoglycemics. 4. Chronic nicotine dependence, patient is a cigarette smoker. PLAN: Cardiology was consulted who did order 2D echocardiogram. We will also order a chest angio to rule out a PE. Also give patient a nicotine patch. Care was discussed with the patient. Copy to Dr. Retana. MMODL / IJN: [id number] /
--- NOTE | 2018-08-15 01:06 | DS ---
DISCHARGE SUMMARY DATE OF ADMISSION: 08/13/2018 DATE OF DISCHARGE: 08/14/2018 FINAL DIAGNOSES: 1. Chest pain could be psychosomatic from anxiety episode. 2. Gastroesophageal reflux disease. 3. Diabetes mellitus type 2 on oral hypoglycemic. 4. Chronic nicotine dependence. Patient is a cigarette smoker. 5. Hypertriglyceridemia. HOSPITAL COURSE: This patient presented with left-sided chest pain. Troponins were negative. Chest CT was negative for PE. 2D echocardiogram was unremarkable. Patient did have a stress test about 6 months ago that was negative, felt to be possibly psychosomatic. On examination, temperature 97.8, pulse 72, respiratory 18, blood pressure 129/80. Chest CTA was negative. Triglycerides 929, cholesterol 228. CONSULTATION: Dr. Barnes from Cardiology. DISCHARGE MEDICATIONS: 1. Metformin 1000 mg b.i.d. 2. Ibuprofen 400 mg q.6 p.r.n. 3. Aspirin 81 mg a day. 4. Lipitor 40 mg a day. FOLLOWUP: Follow up with Dr. Retana in 1 week. Follow up with Dr. Florian in [address] scan of the chest. Copy to Dr. Retana. MMODL / IJN: [id number] /
== END 2018-08-14 17:33 | disposition home or self-care (01) ==
LOC: EC 16:43 → 1SOBS 19:57
PROVIDERS: ADMIT Hospitalist; ATTEND Hospitalist
DX: R07.89 Other chest pain (principal); R00.2 Palpitations; R06.02 Shortness of breath; R61 Generalized hyperhidrosis; K21.9 Gastro-esophageal reflux disease without esophagitis; E11.9 Type 2 diabetes mellitus without complications; Z79.84 Long term (current) use of oral hypoglycemic drugs; F17.210 Nicotine dependence, cigarettes, uncomplicated; E78.1 Pure hyperglyceridemia; Z86.79 Personal history of other diseases of the circulatory system; Z85.118 Personal history of other malignant neoplasm of bronchus and lung; Z92.21 Personal history of antineoplastic chemotherapy; Z82.49 Family history of ischemic heart disease and other diseases of the circulatory system; R05 Cough; R06.09 Other forms of dyspnea; E78.5 Hyperlipidemia, unspecified; Z86.61 Personal history of infections of the central nervous system; Z83.3 Family history of diabetes mellitus; Z91.018 Allergy to other foods; Z91.010 Allergy to peanuts
CPT/HCPCS: 99291 ×2; 96374 ×2; 96375 ×2; 96361 ×2; 96376 ×2; 36415; 93005; 93306; 80061; 80053; 84443; 82550 ×2; 82553 ×2; 83690; 83735; 84484 ×2; 85025; 85610; 85730; 81001; 83036; 71046; 71275; G0378 ×2; J2270; J1885 ×2; Q9967

== ENCOUNTER → 2019-03-06 | Outpatient (CLI) | payer BC, OTHER ==
[2019-03-06 14:26] LABS: HCT 47.5 % (39.0-53.0); HGB 15.7 gm/dL (13.0-17.5); MCH 29.6 pg (25.0-35.0); MCHC 33.1 g/dL (31.0-37.0); MCV 89.4 fL (80.0-100.0); Mean Platelet Volume 7.7; Platelet Count 200 k/uL (150-450); RBC 5.31 m/uL (4.30-5.90); RDW 14.4 % (11.5-15.5); WBC 8.8 k/uL (3.8-10.6)
== END | disposition home or self-care (01) ==
LOC: LABPAT 13:24
PROVIDERS: ATTEND Anesthesiology
DX: Z01.818 Encounter for other preprocedural examination (principal)
CPT/HCPCS: 36415; 85027

== ENCOUNTER → 2019-03-07 | Day surgery (SDC) | payer BC, OTHER ==
[2019-03-03 12:04] VITALS: BMI 29.8
[~2019-03-07] MED LIST: DEXAMETHASONE SOD PHOSPHATE 4 MG/ML 1 ML VIAL IVP ONE; GLYCOPYRROLATE 0.2 MG/ML 2 ML VIAL ONE; HEPARIN SODIUM,PORCINE 5,000 UNIT/ML 1 ML VIAL SQ ONE; HYDROcodone/APAP 7.5-325MG 1 EACH TAB PO ONE; INSULIN ASPART (NovoLOG) 100 UNIT/ML VIAL SQ ONE; KETOROLAC 30 MG/ML 1 ML VIAL ONE; LACTATED RINGERS 1,000 ML IV ONE; LACTATED RINGERS 1,000 ML IV SCH; LIDOCAINE 1% 20 ML VIAL (10MG/ML) FOR IV START INTRADERMA ONE; LIDOCAINE 1% INJ 10MG/ML (20 ML MDV) ONE; LIDOCAINE 1%-EPI 1:100,000 20 ML VIAL SQ ONE; MIDAZOLAM (PF) 2 MG/2 ML VIAL IVP ONE; NEOSTIGMINE 1 MG/ML 10 ML VIAL ONE; ONDANSETRON 4 MG/2 ML VIAL IVP ONE; PHENYLEPHRINE-0.9% NACL SYG 1 MG/10 ML SYRINGE ONE; PROPOFOL 10 MG/ML 20 ML VIAL IV ONE; ROCURONIUM BROMIDE 10 MG/ML 10 ML VIAL IV ONE; ROPIVACAINE 5 MG/ML 30 ML VIAL ONE; SUCCINYLCHOLINE CHLORIDE 100 MG/5 ML SYR IV ONE; ceFAZolin IN SWFI 2 GM/20 ML SYRINGE IVP ONE; fentaNYL (PF) 50 MCG/ML 2 ML AMP IVP ONE; fentaNYL (PF) 50 MCG/ML 2 ML AMP ONE
--- NOTE | 2019-03-07 06:19 | P.GSHP ---
History of Present Illness H&P Date: 03/07/19 CHIEF COMPLAINT: Ventral hernia HISTORY OF PRESENT ILLNESS: The patient is a 48-year-old male who presents with a history of swelling and pain along the abdomen from a hernia. Now he presents for surgical intervention. PAST MEDICAL HISTORY: Please see list. PAST SURGICAL HISTORY: Please see list. MEDICATIONS: Please see list. ALLERGIES: Please see list. SOCIAL HISTORY: No illicit drug use FAMILY HISTORY: No reports of Crohn disease or ulcerative colitis. REVIEW OF ORGAN SYSTEMS: CONSTITUTIONAL: No reports of fevers or chills. No reports of weight loss despite prior attempts. GI: Denies any blood in stools or constipation. PHYSICAL EXAM: VITAL SIGNS: Stable GENERAL: Well-developed pleasant male in no acute distress. HEENT: No scleral icterus. Extraocular movements grossly intact. Moist buccal mucosa. NECK: Supple without lymphadenopathy. CHEST: Unlabored respirations. Equal bilateral excursions. CARDIOVASCULAR: Regular rate and rhythm. Distal 2+ pulses. ABDOMEN: Soft, nondistended. Palpable defect of the abdomen. No peritoneal signs. MUSCULOSKELETAL: No clubbing, cyanosis, or edema. ASSESSMENT: 1. Ventral hernia PLAN: 1. Recommend proceeding with robotic ventral hernia repair with mesh. 2. Benefits and risks of surgical intervention was discussed including possibility of open technique. 3. DVT prophylaxis. 4. Antibiotic prophylaxis. Past Medical History Past Medical History: Chest Pain / Angina, Diabetes Mellitus, GERD/Reflux, Hyperlipidemia, Skin Disorder Additional Past Medical History / Comment(s): Eczema. Hx ulcers, viral mennigitis. "Chest cold with phlegm since Jul 2018, have been to Dr many times about it, but nothings been done about it." "Chronic chest pain, that Dr relates to acid reflux." States hx kidney problems but not sure what. History of Any Multi-Drug Resistant Organisms: None Reported Past Surgical History: Cholecystectomy Additional Past Surgical History / Comment(s): Piece of metal removed from right eye. Past Anesthesia/Blood Transfusion Reactions: Previous Problems w/ Anesthesia Additional Past Anesthesia/Blood Transfusion Reaction / Comment(s): Combative. Past Psychological History: Anxiety Additional Psychological History / Comment(s): Hx panic attacks. Smoking Status: Current every day smoker Past Alcohol Use History: None Reported Additional Past Alcohol Use History / Comment(s): Started smoking at age 15, smoked between 3/4 to 1.5 ppd, currently down to 6 cigarettes per day. Past Drug Use History: None Reported - Past Family History Mother Family Medical History: Diabetes Mellitus Additional Family Medical History / Comment(s): DM Father Family Medical History: AICD/Pacemaker Medications and Allergies Home Medications Medication Instructions Recorded Confirmed Type Cholestrol Medication 1 tab PO DAILY 03/03/19 03/03/19 History Prilosec (Unknown Dose) 1 tab PO HS 03/03/19 03/03/19 History Sertraline HCl [Zoloft] 100 mg PO HS 03/03/19 03/03/19 History Trulicity 1 dose SQ WEEKLY 03/03/19 03/03/19 History Allergies Allergy/AdvReac Type Severity Reaction Status Date / Time peanut Allergy Swelling Verified 03/03/19 12:04 Surgical Tape Allergy Rash/Hives Uncoded 03/03/19 12:04
[2019-03-07 06:37] LABS: Glucose,Whole Blood 164 mg/dL (75-99)
--- NOTE | 2019-03-07 07:16 | P.ANPRN ---
Procedure Note - Anesthesia - Nerve Block Performed Bilateral Rectus Abdominis Single Time Out Performed: Yes Date of Procedure: 03/07/19 Procedure Start Time: 06:52 Procedure Stop Time: 07:00 Location of Patient Procedure: PreOp Indication: Requested by physician Specifically requested for management of pain by DrLandry: Pinky Mathews Sedation Type: Sedate with meaningful contact maintained Preparation: Sterile Prep Position: Supine Needle Types: Pajunk Needle Gauge: 21 Technique: Ultrasound Injectate: 0.5% Ropivacaine (see comment for volume) (15+15) Blood Aspirated: No Pain Paresthesia on Injection Noted: No Resistance on Injection: Normal Events: Uneventful and Well Tolerated
[2019-03-07 09:20] VITALS: TEMP 97
--- NOTE | 2019-03-07 09:21 | P.PCN ---
Date of Procedure: 03/07/19 Description of Procedure: SURGEON: PINKY MATHEWS MD PREOPERATIVE DIAGNOSES: 1. Initial umbilical hernia with incarceration 2. Diabetes type 2, [id number] 3. Hyperlipidemia 4. Tobacco use 5. Depressive disorder POSTOPERATIVE DIAGNOSES: 1. Initial umbilical hernia with incarceration, 3 cm 2. Diabetes type 2, [id number] 3. Hyperlipidemia 4. Tobacco use 5. Depressive disorder OPERATION: 1. Robotic-assisted da Lexi Xi laparoscopic repair of initial incarcerated ventral hernia 3-cm with mesh, ventralight ST mesh 11.4 cm ANESTHESIA: General with local ESTIMATED BLOOD LOSS: 5 mL. SPECIMENS: None COMPLICATIONS: None. INDICATIONS: The patient is a 48-year-old male who presents ventral hernia of the umbilicus. Surgical intervention with laparoscopic versus robotic and open techniques were reviewed. Should tobacco cessation was counseled prior to surgery. Placement of mesh was also reviewed. Benefits and risks were thoroughly described. Informed consent was obtained. DESCRIPTION OF PROCEDURE: The patient was brought into the operating room and laid in supine position. After general induction, the abdomen had been prepped and draped in standard sterile fashion. Ioban draping was also placed. Prior to incision, a timeout protocol was confirmed with surgical team regarding the patient's name including procedures to be performed. The robot was primed prior to the procedure. A field block using local anesthetic was placed along hernia site including the proposed port sites. Initial incision was made with an #11 blade along the left upper quadrant. A 0 degree 5 mm laparoscopic trocar entry was performed and insufflated. An 8 mm ports x 3 were placed along the right lateral abdominal wall. Placements of the ports were 15 cm from the target anatomy and 10 cm apart. The da Lexi Xi robot was previously primed, prepped and draped then docked along the right side of the patient. I then sat at the robot Da Lexi Xi console where working arms of the robot including Bovie cautery connected to robotic scissors, vessel sealer, needle bobcat driver/labor, and graspers placed by the server service assistant. Fascial defect of 3 cm of the umbilicus was identified after cleaning the peritoneal fat of the abdominal wall and reducing an incarcerated omentum. A 12 mm port was placed along the left upper quadrant for placement of the mesh and for sutures. The incarcerated contents was reduced as the peritoneal fat was cleaned from the abdominal wall. Next, hemostasis was checked with cautery. The hernia defect was oversewn using #1 Stratafix with fascial imbrication. Next, ventralight ST mesh 11.4 cm was placed with the rough side towards the abdominal wall. 2-0 VLOC 9 inch sutures were used to fixate the mesh. A final endoscopic imaging was obtained. All instruments and pneumoperitoneum were evacuated from the abdominal cavity. The da Lexi Xi robot was undocked from the patient. I re-scrubbed into the case for closure of incisions. The fascia of the 12-mm port was probed and less than 8-mm in size. The incisions were reapproximated using 4-0 Monocryl in an interrupted subcuticular fashion. Liquid glue was applied to the skin after cleansing the skin with normal saline and dilute hydrogen peroxide. An abdominal binder was placed. An umbilical dressing was placed prior. At the end of the procedure, needle, sponge, and instrument count had been verified correct by regional vice president surgical sales. The patient was taken to the postanesthesia care unit in stable condition. FINDINGS: 1. Initial incarcerated umbilical 3-cm hernia Plan - Discharge Summary Discharge Rx Participant: No New Discharge Prescriptions: New Ibuprofen [Motrin] 600 mg PO Q8HR PRN #30 tab PRN Reason: Pain Acetaminophen [Tylenol] 325 mg PO Q4H #30 tab Continue Trulicity 1 dose SQ WEEKLY Sertraline HCl [Zoloft] 100 mg PO HS Cholestrol Medication 1 tab PO DAILY Prilosec (Unknown Dose) 1 tab PO HS Discharge Medication List Cholestrol Medication 1 tab PO DAILY 03/03/19 [History] Prilosec (Unknown Dose) 1 tab PO HS 03/03/19 [History] Sertraline HCl [Zoloft] 100 mg PO HS 03/03/19 [History] Trulicity 1 dose SQ WEEKLY 03/03/19 [History] Acetaminophen [Tylenol] 325 mg PO Q4H #30 tab 03/07/19 [Rx] Ibuprofen [Motrin] 600 mg PO Q8HR PRN #30 tab 03/07/19 [Rx] Follow up Appointment(s)/Referral(s): Pinky Mathews MD [STAFF PHYSICIAN] - 03/18/19 Patient Instructions/Handouts: Laparoscopic Herniorrhaphy (DC), Abdominal Binder (DC), How to Stop Smoking (ED) Activity/Diet/Wound Care/Special Instructions: May shower. No bath tub soaks until March 18. No lifting more than 4 pounds until March 18. Do not remove dressing at umbilicus until seen by surgeon. Wear abdominal binder for comfort. Please avoid tobacco smoking for the next 2 weeks for optimal healing. Please use ice for incisions. Discharge Disposition: HOME SELF-CARE
[2019-03-07 09:27] LABS: Glucose,Whole Blood 235 mg/dL (75-99)
[2019-03-07] MEDS: HYDROmorphone 1 MG/ML 1 ML SYRINGE IVP ONE ×2 (09:53→09:58)
[2019-03-07 09:55] VITALS: RESP 16
[2019-03-07 10:05] VITALS: PULSE 86
[2019-03-07 10:27] VITALS: BP 121/78
== END | disposition home or self-care (01) ==
LOC: OR 06:03
PROVIDERS: ATTEND Surgery Plastic and Reconstructive Surgery
DX: K42.0 Umbilical hernia with obstruction, without gangrene (principal); K43.6 Other and unspecified ventral hernia with obstruction, without gangrene; E11.9 Type 2 diabetes mellitus without complications; E78.5 Hyperlipidemia, unspecified; F41.9 Anxiety disorder, unspecified; F17.210 Nicotine dependence, cigarettes, uncomplicated; K21.9 Gastro-esophageal reflux disease without esophagitis; F32.9 Major depressive disorder, single episode, unspecified; Z83.3 Family history of diabetes mellitus; Z79.84 Long term (current) use of oral hypoglycemic drugs; Z79.899 Other long term (current) drug therapy; Z88.9 Allergy status to unspecified drugs, medicaments and biological substances; Z91.010 Allergy to peanuts
CPT/HCPCS: 49653; 64488; C1781; J1644; J1100; J2710; J2405; J2001; J3010; J1885; J1170; J2795; J2370; J0330; J2704; J0690; J2250

== ENCOUNTER 2020-07-04 15:36 | Emergency (ER) | payer BC, OTHER ==
[2020-07-04] MEDS ORDERED: SODIUM CHLORIDE 0.9% 500 ML 500 ML IV STA (15:58)
--- NOTE | 2020-07-04 16:06 | ED ---
General Adult HPI - General Chief complaint: Shortness of Breath Stated complaint: Weakness, TERRENCE Time Seen by Provider: 07/04/20 15:53 Source: patient, RN notes reviewed, old records reviewed Mode of arrival: ambulatory Limitations: no limitations - History of Present Illness Initial comments: 49-year-old male history of diabetes hypertension, hyperlipidemia presenting with chief complaint of abdominal pain. Patient patient has had abdominal pain for the past several days. He states he found a mass in his epigastrium which is tender. Additionally he states that he has had some dyspnea. Denies cough. He does also report myalgias. He states he is a known diabetic but has been off of his medication for several months because of insurance issues.he denies diarrhea. Denies fever. Denies sore throat. - Related Data Home Medications Medication Instructions Recorded Confirmed Cholestrol Medication 1 tab PO DAILY 03/03/19 03/07/19 Prilosec (Unknown Dose) 1 tab PO HS 03/03/19 03/07/19 Sertraline HCl [Zoloft] 100 mg PO HS 03/03/19 03/03/19 Trulicity 1 dose SQ WEEKLY 03/03/19 03/07/19 Previous Rx's Medication Instructions Recorded Acetaminophen [Tylenol] 325 mg PO Q4H #30 tab 03/07/19 Ibuprofen [Motrin] 600 mg PO Q8HR PRN #30 tab 03/07/19 Allergies Allergy/AdvReac Type Severity Reaction Status Date / Time peanut Allergy Swelling Verified 07/04/20 15:40 Surgical Tape Allergy Rash/Hives Uncoded 07/04/20 15:40 Review of Systems ROS Statement: Those systems with pertinent positive or pertinent negative responses have been documented in the HPI. ROS Other: All systems not noted in ROS Statement are negative. Past Medical History Past Medical History: Chest Pain / Angina, Diabetes Mellitus, GERD/Reflux, Hype rlipidemia, Skin Disorder Additional Past Medical History / Comment(s): Eczema. Hx ulcers, viral mennigitis. "Chest cold with phlegm since Jul 2018, have been to Dr many times about it, but nothings been done about it." "Chronic chest pain, that Dr relates to acid reflux." States hx kidney problems but not sure what. History of Any Multi-Drug Resistant Organisms: None Reported Past Surgical History: Cholecystectomy Additional Past Surgical History / Comment(s): Piece of metal removed from right eye. Past Anesthesia/Blood Transfusion Reactions: Previous Problems w/ Anesthesia Additional Past Anesthesia/Blood Transfusion Reaction / Comment(s): Combative. Past Psychological History: Anxiety Smoking Status: Current every day smoker Past Alcohol Use History: None Reported Past Drug Use History: None Reported - Past Family History Mother Family Medical History: Diabetes Mellitus Additional Family Medical History / Comment(s): DM Father Family Medical History: AICD/Pacemaker General Exam Limitations: no limitations General appearance: alert, in no apparent distress Head exam: Present: atraumatic, normocephalic Eye exam: Present: normal appearance, PERRL ENT exam: Present: normal exam Neck exam: Present: normal inspection. Absent: tenderness, meningismus Respiratory exam: Present: normal lung sounds bilaterally. Absent: respiratory distress, wheezes Cardiovascular Exam: Present: normal rhythm, tachycardia GI/Abdominal exam: Present: soft, tenderness (tenderness in epigastrium, suspect small mass.). Absent: distended Extremities exam: Present: normal inspection, normal capillary refill. Absent: pedal edema Neurological exam: Present: alert, oriented X3, CN II-XII intact. Absent: motor sensory deficit Psychiatric exam: Present: normal affect, normal mood Skin exam: Present: warm Course Vital Signs 07/04/20 07/04/20 07/04/20 15:37 16:28 16:40 Temperature 99.5 F Pulse Rate 122 H 87 Respiratory 26 H 18 18 Rate Blood Pressure 147/82 122/81 O2 Sat by Pulse 100 100 Oximetry 07/04/20 17:00 Temperature Pulse Rate 87 Respiratory 18 Rate Blood Pressure O2 Sat by Pulse 100 Oximetry EKG Findings - EKG Comments: EKG Findings:: JJ: Normal sinus rhythm, rate of 93, NJ interval 142, QRS duration 88, QTC 427, no ST segment elevation Medical Decision Making - Medical Decision Making 49-year-old malepresenting for evaluation of abdominal pain, and mild dyspnea. Patient does not appear dyspneic on exam. Hehas normal oxygenation. Chest x- ray performed negative for acute cardiopulmonary disease. Patient has EKG showing sinus rhythm without ST segment elevation. His CBC shows likely some hemoconcentration from dehydration as hemoglobin 17. Normal white blood cell count, normal x-rays, elevated blood glucose of 200 with a history of diabetes. Negative troponin I did perform CT as this patient has is epigastric abdominal pain which is negative for any acute intra-abdominal process, no mass, no specific findings. I discussed this patient as outpatient follow-up. He is feeling better with no complaints. He will follow-up with gastroenterology as an outpatient. He will follow with his primary regarding his elevated blood sugar. He was concerned that his symptoms could be related to coronavirus. I did perform a nasal swab is results are pending and will take 24-48 hours. He will quarantine himself until test results are available. - Lab Data Result diagrams: 07/04/20 16:15 07/04/20 16:15 Lab Results 07/04/20 07/04/20 07/04/20 Range/Units 16:06 16:15 16:15 WBC 8.4 (3.8-10.6) k/uL RBC 5.96 H (4.30-5.90) m/uL Hgb 17.7 H (13.0-17.5) gm/dL Hct 54.9 H (39.0-53.0) % MCV 92.1 (80.0-100.0) fL MCH 29.8 (25.0-35.0) pg MCHC 32.3 (31.0-37.0) g/dL RDW 14.7 (11.5-15.5) % Plt Count 207 (150-450) k/uL Neutrophils % 59 % Lymphocytes % 33 % Monocytes % 2 % Eosinophils % 4 % Basophils % 1 % Neutrophils # 4.9 (1.3-7.7) k/uL Lymphocytes # 2.7 (1.0-4.8) k/uL Monocytes # 0.2 (0-1.0) k/uL Eosinophils # 0.3 (0-0.7) k/uL Basophils # 0.1 (0-0.2) k/uL PT (9.0-12.0) sec INR (<1.2) APTT (22.0-30.0) sec D-Dimer (<0.60) mg/L FEU VBG pH 7.38 (7.31-7.41) VBG pCO2 45 (37-51) mmHg VBG HCO3 26 (24-28) mmol/L Sodium (137-145) mmol/L Potassium (3.5-5.1) mmol/L Chloride (98-107) mmol/L Carbon Dioxide (22-30) mmol/L Anion Gap mmol/L BUN (9-20) mg/dL Creatinine (0.66-1.25) mg/dL Est GFR (CKD-EPI)AfAm (>60 ml/min/1.73 sqM) Est GFR (CKD-EPI)NonAf (>60 ml/min/1.73 sqM) Glucose (74-99) mg/dL POC Glucose (mg/dL) 210 H (75-99) mg/dL POC Glu Medical Care Evaluation Specialist ID Renae Diaz Plasma Lactic Acid Osbaldo (0.7-2.0) mmol/L Calcium (8.4-10.2) mg/dL Total Bilirubin (0.2-1.3) mg/dL AST (17-59) U/L ALT (4-49) U/L Alkaline Phosphatase (38-126) U/L Creatine Kinase (55-170) U/L Troponin I (0.000-0.034) ng/mL NT-Pro-B Natriuret Pep pg/mL Total Protein (6.3-8.2) g/dL Albumin (3.5-5.0) g/dL Amylase (30-110) U/L Lipase (23-300) U/L Urine Color Urine Appearance (Clear) Urine pH (5.0-8.0) Ur Specific [place] (1.001-1.035) Urine Protein (Negative) Urine Glucose (UA) (Negative) Urine Ketones (Negative) Urine Blood (Negative) Urine Nitrite (Negative) Urine Bilirubin (Negative) Urine Urobilinogen (<2.0) mg/dL Ur Leukocyte Esterase (Negative) 07/04/20 07/04/20 07/04/20 Range/Units 16:15 16:15 16:15 WBC (3.8-10.6) k/uL RBC (4.30-5.90) m/uL Hgb (13.0-17.5) gm/dL Hct (39.0-53.0) % MCV (80.0-100.0) fL MCH (25.0-35.0) pg MCHC (31.0-37.0) g/dL RDW (11.5-15.5) % Plt Count (150-450) k/uL Neutrophils % % Lymphocytes % % Monocytes % % Eosinophils % % Basophils % % Neutrophils # (1.3-7.7) k/uL Lymphocytes # (1.0-4.8) k/uL Monocytes # (0-1.0) k/uL Eosinophils # (0-0.7) k/uL Basophils # (0-0.2) k/uL PT 10.7 (9.0-12.0) sec INR 1.0 (<1.2) APTT 25.3 (22.0-30.0) sec D-Dimer 0.25 (<0.60) mg/L FEU VBG pH (7.31-7.41) VBG pCO2 (37-51) mmHg VBG HCO3 (24-28) mmol/L Sodium 137 (137-145) mmol/L Potassium 3.9 (3.5-5.1) mmol/L Chloride 102 (98-107) mmol/L Carbon Dioxide 26 (22-30) mmol/L Anion Gap 9 mmol/L BUN 17 (9-20) mg/dL Creatinine 1.11 (0.66-1.25) mg/dL Est GFR (CKD-EPI)AfAm >90 (>60 ml/min/1.73 sqM) Est GFR (CKD-EPI)NonAf 79 (>60 ml/min/1.73 sqM) Glucose 211 H (74-99) mg/dL POC Glucose (mg/dL) (75-99) mg/dL POC Glu Medical Care Evaluation Specialist ID Plasma Lactic Acid Osbaldo 1.7 (0.7-2.0) mmol/L Calcium 9.5 (8.4-10.2) mg/dL Total Bilirubin 0.7 (0.2-1.3) mg/dL AST 25 (17-59) U/L ALT 24 (4-49) U/L Alkaline Phosphatase 91 (38-126) U/L Creatine Kinase 50 L (55-170) U/L Troponin I (0.000-0.034) ng/mL NT-Pro-B Natriuret Pep pg/mL Total Protein 8.0 (6.3-8.2) g/dL Albumin 4.8 (3.5-5.0) g/dL Amylase 67 (30-110) U/L Lipase 115 (23-300) U/L Urine Color Urine Appearance (Clear) Urine pH (5.0-8.0) Ur Specific [place] (1.001-1.035) Urine Protein (Negative) Urine Glucose (UA) (Negative) Urine Ketones (Negative) Urine Blood (Negative) Urine Nitrite (Negative) Urine Bilirubin (Negative) Urine Urobilinogen (<2.0) mg/dL Ur Leukocyte Esterase (Negative) 07/04/20 07/04/20 07/04/20 Range/Units 16:15 16:15 17:32 WBC (3.8-10.6) k/uL RBC (4.30-5.90) m/uL Hgb (13.0-17.5) gm/dL Hct (39.0-53.0) % MCV (80.0-100.0) fL MCH (25.0-35.0) pg MCHC (31.0-37.0) g/dL RDW (11.5-15.5) % Plt Count (150-450) k/uL Neutrophils % % Lymphocytes % % Monocytes % % Eosinophils % % Basophils % % Neutrophils # (1.3-7.7) k/uL Lymphocytes # (1.0-4.8) k/uL Monocytes # (0-1.0) k/uL Eosinophils # (0-0.7) k/uL Basophils # (0-0.2) k/uL PT (9.0-12.0) sec INR (<1.2) APTT (22.0-30.0) sec D-Dimer (<0.60) mg/L FEU VBG pH (7.31-7.41) VBG pCO2 (37-51) mmHg VBG HCO3 (24-28) mmol/L Sodium (137-145) mmol/L Potassium (3.5-5.1) mmol/L Chloride (98-107) mmol/L Carbon Dioxide (22-30) mmol/L Anion Gap mmol/L BUN (9-20) mg/dL Creatinine (0.66-1.25) mg/dL Est GFR (CKD-EPI)AfAm (>60 ml/min/1.73 sqM) Est GFR (CKD-EPI)NonAf (>60 ml/min/1.73 sqM) Glucose (74-99) mg/dL POC Glucose (mg/dL) (75-99) mg/dL POC Glu Medical Care Evaluation Specialist ID Plasma Lactic Acid Osbaldo (0.7-2.0) mmol/L Calcium (8.4-10.2) mg/dL Total Bilirubin (0.2-1.3) mg/dL AST (17-59) U/L ALT (4-49) U/L Alkaline Phosphatase (38-126) U/L Creatine Kinase (55-170) U/L Troponin I <0.012 (0.000-0.034) ng/mL NT-Pro-B Natriuret Pep 34 pg/mL Total Protein (6.3-8.2) g/dL Albumin (3.5-5.0) g/dL Amylase (30-110) U/L Lipase (23-300) U/L Urine Color Yellow Urine Appearance Clear (Clear) Urine pH 6.0 (5.0-8.0) Ur Specific [place] 1.032 (1.001-1.035) Urine Protein Trace H (Negative) Urine Glucose (UA) 1+ H (Negative) Urine Ketones Trace H (Negative) Urine Blood Negative (Negative) Urine Nitrite Negative (Negative) Urine Bilirubin Negative (Negative) Urine Urobilinogen <2.0 (<2.0) mg/dL Ur Leukocyte Esterase Negative (Negative) Disposition Clinical Impression: Abdominal pain Disposition: HOME SELF-CARE Condition: Fair Instructions (If sedation given, give patient instructions): Abdominal Pain (ED) Additional Instructions: please return with worsening or changing symptoms. Please follow up with gastroenterology. Please quarantine herself until coronavirus test results are available Is patient prescribed a controlled substance at d/c from ED?: No Referrals: Wagner Retana DO [Primary Care Provider] - 1-2 days Virgie Conley MD [STAFF PHYSICIAN] - 1-2 days Time of Disposition: 18:59
[2020-07-04 16:10] LABS: Glucose,Whole Blood 210 mg/dL (75-99)
[2020-07-04 16:29] VITALS: RESP 18
[2020-07-04 16:29] LABS: Basophils # (A) 0.1 k/uL (0-0.2); Basophils % (A) 1 %; Eosinophils # (A) 0.3 k/uL (0-0.7); Eosinophils % (A) 4 %; HCT 54.9 % (39.0-53.0); HGB 17.7 gm/dL (13.0-17.5); Lymphocytes # (A) 2.7 k/uL (1.0-4.8); Lymphocytes % (A) 33 %; MCH 29.8 pg (25.0-35.0); MCHC 32.3 g/dL (31.0-37.0); MCV 92.1 fL (80.0-100.0); Mean Platelet Volume 8.9; Monocytes # (A) 0.2 k/uL (0-1.0); Monocytes % (A) 2 %; Neutrophils # (A) 4.9 k/uL (1.3-7.7); Neutrophils % (A) 59 %; Platelet Count 207 k/uL (150-450); RBC 5.96 m/uL (4.30-5.90); RDW 14.7 % (11.5-15.5); WBC 8.4 k/uL (3.8-10.6)
[2020-07-04 16:30] LABS: VBG PH 7.38 (7.31-7.41)
[2020-07-04 16:40] LABS: ALT 24 U/L (4-49); AST 25 U/L (17-59); African American GFR (CKD) >90 (>60 ml/min/1.73 sqM); Albumin 4.8 g/dL (3.5-5.0); Alkaline Phosphatase 91 U/L (38-126); Amylase 67 U/L (30-110); Anion Gap 9 mmol/L; Blood Urea Nitrogen 17 mg/dL (9-20); Calcium 9.5 mg/dL (8.4-10.2); Carbon Dioxide 26 mmol/L (22-30); Chloride 102 mmol/L (98-107); Creatine Kinase 50 U/L (55-170); Glucose 211 mg/dL (74-99); Non-African American GFR(CKD) 79 (>60 ml/min/1.73 sqM); Potassium 3.9 mmol/L (3.5-5.1); Sodium 137 mmol/L (137-145); Total Bilirubin 0.7 mg/dL (0.2-1.3)
--- NOTE | 2020-07-04 16:40 | XR ---
EXAMINATION TYPE: XR chest 1V portable DATE OF EXAM: 07/04/2020 COMPARISON: 08/13/2018 HISTORY: Difficulty breathing. Lung cancer. TECHNIQUE: Single view FINDINGS: There is no heart failure nor confluent pneumonic infiltrate. Costophrenic angles are clear . There are chest leads. There are no hilar masses. IMPRESSION: No active cardiopulmonary disease. Normal heart. No change.
[2020-07-04 16:46] LABS: D-Dimer 0.25 mg/L FEU (<0.60); Partial Thromboplastin Time 25.3 sec (22.0-30.0); Prothrombin Time 10.7 sec (9.0-12.0)
[2020-07-04 18:02] LABS: Appearance,Urine Clear (Clear); Bilirubin,Urine Negative (Negative); Blood,Urine Negative (Negative); Color,Urine Yellow; Glucose,Urine (UA) 1+ (Negative); Ketones,Urine Trace (Negative); Leukocyte Esterase,Urine Negative (Negative); Nitrite,Urine Negative (Negative); Protein,Urine Trace (Negative); Specific Gravity,Urine 1.032 (1.001-1.035); Urobilinogen,Urine <2.0 mg/dL (<2.0)
--- NOTE | 2020-07-04 18:46 | CT ---
EXAMINATION TYPE: CT abdomen pelvis w con DATE OF EXAM: 07/04/2020 COMPARISON: None HISTORY: Epigastric abdominal pain. CT DLP: 931.3 mGycm Automated exposure control for dose reduction was used. CONTRAST: Performed with IV Contrast, patient injected with 100ml mL of Isovue 300. Lung bases are clear of consolidation. There is no pleural effusion. Heart size is normal. There is n o pericardial effusion. There is 5 mm low-density nodule lateral aspect right lower lobe. Nodule unch anged compared to chest CT scan 08/14/2018 and therefore benign. There are clips from cholecystectomy. Liver appears intact. Spleen is intact. There are small calcified splenic granulomata. Stomach appea rs normal. There is no pancreatic mass. The bile ducts are not dilated. There is no adrenal mass. Kidneys show satisfactory contrast opacification. There is no hydronephrosi s. Ureters are not dilated. Delayed images show normal renal excretion. There is no retroperitoneal a denopathy. Bladder distends smoothly. There is no inguinal hernia. There is no evidence of a pelvic mass. Appendix is inferior and appears normal. There is no mesenteri c edema. There is no ascites or free air. There is no bowel obstruction. Lumbar vertebra have normal alignment. Disc spaces are fairly normal. The posterior elements are inta ct. There is no compression fracture. Bony pelvis is intact. Hip joints appear normal. IMPRESSION: Negative CT scan abdomen and pelvis. Normal appendix. Old granulomatous disease.
[2020-07-04 19:14] VITALS: BP 115/70; PULSE 75
[2020-07-04 19:15] VITALS: TEMP 99.3
== END 2020-07-04 19:15 | disposition home or self-care (01) ==
LOC: EC 15:36
DX: R10.13 Epigastric pain (principal); R06.02 Shortness of breath; R53.1 Weakness; R10.816 Epigastric abdominal tenderness; E11.65 Type 2 diabetes mellitus with hyperglycemia; K21.9 Gastro-esophageal reflux disease without esophagitis; F41.9 Anxiety disorder, unspecified; E78.5 Hyperlipidemia, unspecified; I10 Essential (primary) hypertension; Z91.14 Patient's other noncompliance with medication regimen; F17.200 Nicotine dependence, unspecified, uncomplicated; Z79.899 Other long term (current) drug therapy; Z91.048 Other nonmedicinal substance allergy status; Z91.010 Allergy to peanuts
CPT/HCPCS: 99285; 36415; 93005; 85379; 83880; 80053; 82150; 82550; 82803; 83605; 83690; 84484; 85025; 85610; 85730; 81003; 71045; 74177; U0003; Q9967

== ENCOUNTER 2020-08-12 15:06 | Emergency (ER) | payer BC, OTHER ==
[2020-08-12] MEDS ORDERED: SODIUM CHLORIDE 0.9% 1,000 ML IV STA (15:51)
[2020-08-12] MEDS ORDERED: HYDROmorphone 0.5 MG/0.5 ML SYRINGE IVP STA (15:51)
[2020-08-12] MEDS ORDERED: ONDANSETRON 4 MG/2 ML VIAL IVP STA (15:51)
[2020-08-12] MEDS ORDERED: PANTOPRAZOLE 40 MG/10 ML VIAL IVP STA (15:51)
--- NOTE | 2020-08-12 15:52 | ED ---
Abdominal Pain HPI - General Chief Complaint: Abdominal Pain Stated Complaint: abn labs, abd pain Time Seen by Provider: 08/12/20 15:36 Source: patient Mode of arrival: ambulatory Limitations: no limitations - History of Present Illness Initial Comments: 50-year-old male presenting to emergency Department with a chief complaint of abdominal pain. Patient reports the pain started approximately one month ago but he has been evaluated in the emergency department with no significant findings. Patient states about 2 weeks ago he went to his primary care physician and had laboratory work performed. States several days ago he was contacted with the laboratory results by her primary care physician who diagnosed her with pancreatitis and she advised him to come to the emergency department for further evaluation. Patient states that he has not been able to come to the ED because he does not have medical insurance. He states that over the last few days he's had nausea with multiple episodes of nonbilious and nonbloody vomiting. States he is not able to keep anything down and feels dehydrated. He does report epigastric abdominal pain along with lower abdominal pain. Denies any night sweats fevers or chills. - Related Data Previous Rx's Medication Instructions Recorded Ondansetron Odt [Zofran Odt] 4 mg PO Q8HR PRN #20 tab 08/12/20 Allergies Allergy/AdvReac Type Severity Reaction Status Date / Time peanut Allergy Swelling Verified 08/12/20 15:34 Surgical Tape Allergy Rash/Hives Uncoded 07/04/20 15:40 Review of Systems ROS Statement: Those systems with pertinent positive or pertinent negative responses have been documented in the HPI. ROS Other: All systems not noted in ROS Statement are negative. Past Medical History Past Medical History: Chest Pain / Angina, Diabetes Mellitus, GERD/Reflux, Hyperlipidemia, Skin Disorder Additional Past Medical History / Comment(s): Eczema. Hx ulcers, viral mennigitis. "Chest cold with phlegm since Jul 2018, have been to Dr many times about it, but nothings been done about it." "Chronic chest pain, that Dr relates to acid reflux." States hx kidney problems but not sure what. History of Any Multi-Drug Resistant Organisms: None Reported Past Surgical History: Cholecystectomy Additional Past Surgical History / Comment(s): Piece of metal removed from right eye. Past Anesthesia/Blood Transfusion Reactions: Previous Problems w/ Anesthesia Additional Past Anesthesia/Blood Transfusion Reaction / Comment(s): Combative. Past Psychological History: Anxiety, Depression Smoking Status: Current every day smoker Past Alcohol Use History: None Reported Past Drug Use History: Marijuana - Past Family History Mother Family Medical History: Diabetes Mellitus Additional Family Medical History / Comment(s): DM Father Family Medical History: AICD/Pacemaker General Exam Limitations: no limitations General appearance: alert, in no apparent distress Head exam: Present: atraumatic, normocephalic, normal inspection Eye exam: Present: normal appearance, PERRL, EOMI Pupils: Present: normal accommodation ENT exam: Present: normal exam, normal oropharynx, mucous membranes dry, TM's normal bilaterally, normal external ear exam Neck exam: Present: normal inspection, full ROM. Absent: tenderness, lymphadenopathy, thyromegaly Respiratory exam: Present: normal lung sounds bilaterally. Absent: respiratory distress, wheezes, rales Cardiovascular Exam: Present: regular rate, normal rhythm, normal heart sounds. Absent: systolic murmur, diastolic murmur GI/Abdominal exam: Present: soft, tenderness (Epigastric and lower abdominal pain.), normal bowel sounds. Absent: distended, guarding, rebound, rigid Extremities exam: Present: normal inspection, full ROM, normal capillary refill. Absent: tenderness, pedal edema, joint swelling Back exam: Present: normal inspection, full ROM. Absent: tenderness, CVA tenderness (R), CVA tenderness (L) Neurological exam: Present: alert, oriented X3 Psychiatric exam: Present: normal affect, normal mood Skin exam: Present: warm, dry, intact, normal color Course Vital Signs 08/12/20 08/12/20 15:28 17:35 Temperature 99.0 F 98 F Pulse Rate 111 H 69 Respiratory 19 16 Rate Blood Pressure 126/83 128/74 O2 Sat by Pulse 97 97 Oximetry - Reevaluation(s) Reevaluation #1: 08/13/20 10:21 Medical records reviewed Medical Decision Making - Medical Decision Making 50-year-old male presenting to the emergency department with chief complaint of abdominal pain. On physical examination, patient has right upper quadrant epigastric abdominal tenderness. CBC reveals mild hemoconcentration. Patient had a CT of the abdomen and pelvis performed less than 1 month ago with no significant findings. At this time, a decision was made not to have a repeat CT. CMP is also unremarkable. Patient was not able to give a urine sample. Patient was given fluids antiemetics and analgesia. On reevaluation, patient does report improvement in symptoms. No signs of pancreatitis as he suggested. Patient did also mention that she could possibly of Crohn's as she was told that by the primary care physician. However, he has never been evaluated for. I gave the patient contact information for a GI specialist. Patient will be discharged with Tylenol 3 starter pack and Zofran. He was advised not to drive or operate heavy machinery when taking the medication. Strict return parameters were thoroughly discussed the patient was understanding and agreeable. Case discussed with physician. - Lab Data Result diagrams: 08/12/20 16:29 08/12/20 16:29 Lab Results 08/12/20 08/12/20 Range/Units 16:29 16:29 WBC 9.6 (3.8-10.6) k/uL RBC 5.93 H (4.30-5.90) m/uL Hgb 17.9 H (13.0-17.5) gm/dL Hct 52.0 (39.0-53.0) % MCV 87.7 (80.0-100.0) fL MCH 30.2 (25.0-35.0) pg MCHC 34.4 (31.0-37.0) g/dL RDW 14.6 (11.5-15.5) % Plt Count 206 (150-450) k/uL MPV 8.2 Neutrophils % 49 % Lymphocytes % 38 % Monocytes % 5 % Eosinophils % 6 % Basophils % 1 % Neutrophils # 4.7 (1.3-7.7) k/uL Lymphocytes # 3.6 (1.0-4.8) k/uL Monocytes # 0.5 (0-1.0) k/uL Eosinophils # 0.5 (0-0.7) k/uL Basophils # 0.1 (0-0.2) k/uL Sodium 138 (137-145) mmol/L Potassium 4.0 (3.5-5.1) mmol/L Chloride 103 (98-107) mmol/L Carbon Dioxide 28 (22-30) mmol/L Anion Gap 7 mmol/L BUN 24 H (9-20) mg/dL Creatinine 1.20 (0.66-1.25) mg/dL Est GFR (CKD-EPI)AfAm 82 (>60 ml/min/1.73 sqM) Est GFR (CKD-EPI)NonAf 71 (>60 ml/min/1.73 sqM) Glucose 101 H (74-99) mg/dL Calcium 9.9 (8.4-10.2) mg/dL Total Bilirubin 0.5 (0.2-1.3) mg/dL AST 23 (17-59) U/L ALT 18 (4-49) U/L Alkaline Phosphatase 83 (38-126) U/L Total Protein 7.7 (6.3-8.2) g/dL Albumin 4.6 (3.5-5.0) g/dL Amylase 64 (30-110) U/L Lipase 131 (23-300) U/L - EKG Data EKG Comments: Sinus rhythm no ST or T-wave changes Ventricular rate 74, MI 150, QRS 80, QTC 419. Disposition Clinical Impression: Abdominal pain, Nausea & vomiting Disposition: HOME SELF-CARE Condition: Stable Instructions (If sedation given, give patient instructions): Crohn Disease (ED), Abdominal Pain (ED) Additional Instructions: Take prescribed medication as directed. Follow up with a GI specialist. Return to emergency department if symptoms worsen. Prescriptions: Ondansetron Odt [Zofran Odt] 4 mg PO Q8HR PRN #20 tab PRN Reason: Nausea Is patient prescribed a controlled substance at d/c from ED?: No Referrals: Wagner Retana DO [Primary Care Provider] - 1-2 days Virgie Conley MD [STAFF PHYSICIAN] - 1-2 days Time of Disposition: 17:21
[2020-08-12 16:36] LABS: Basophils # (A) 0.1 k/uL (0-0.2); Basophils % (A) 1 %; Eosinophils # (A) 0.5 k/uL (0-0.7); Eosinophils % (A) 6 %; HGB 17.9 gm/dL (13.0-17.5); Lymphocytes # (A) 3.6 k/uL (1.0-4.8); Lymphocytes % (A) 38 %; MCH 30.2 pg (25.0-35.0); MCHC 34.4 g/dL (31.0-37.0); MCV 87.7 fL (80.0-100.0); Mean Platelet Volume 8.2; Monocytes # (A) 0.5 k/uL (0-1.0); Monocytes % (A) 5 %; Neutrophils # (A) 4.7 k/uL (1.3-7.7); Neutrophils % (A) 49 %; Platelet Count 206 k/uL (150-450); RBC 5.93 m/uL (4.30-5.90); RDW 14.6 % (11.5-15.5); WBC 9.6 k/uL (3.8-10.6)
[2020-08-12 16:45] LABS: Albumin 4.6 g/dL (3.5-5.0); Calcium 9.9 mg/dL (8.4-10.2); Total Bilirubin 0.5 mg/dL (0.2-1.3); Total Protein 7.7 g/dL (6.3-8.2)
[2020-08-12] MEDS ORDERED: ACET/COD 300 MG/30 MG STARTER PACK 6 TAB BTL PO STA (17:22)
[2020-08-12 17:36] VITALS: BP 128/74; PULSE 69; RESP 16; TEMP 98
== END 2020-08-12 17:35 | disposition home or self-care (01) ==
LOC: EC 15:06
DX: R10.13 Epigastric pain (principal); R10.30 Lower abdominal pain, unspecified; R11.2 Nausea with vomiting, unspecified; R10.816 Epigastric abdominal tenderness; F17.200 Nicotine dependence, unspecified, uncomplicated; Z88.8 Allergy status to other drugs, medicaments and biological substances; Z91.010 Allergy to peanuts; Z90.49 Acquired absence of other specified parts of digestive tract
CPT/HCPCS: 93005; 80053; 82150; 83690; 85025; 99284; 96374; 96375 ×2; 96361; J2405; C9113; J1170

== ENCOUNTER 2020-09-29 08:09 | Day surgery (SDC) | payer OTHER ==
[2020-09-28 10:49] VITALS: BMI 24.3
[~2020-09-29 08:09] MED LIST changes: -DEXAMETHASONE SOD PHOSPHATE 4 MG/ML 1 ML VIAL IVP ONE; -GLYCOPYRROLATE 0.2 MG/ML 2 ML VIAL ONE; -HEPARIN SODIUM,PORCINE 5,000 UNIT/ML 1 ML VIAL SQ ONE; -HYDROcodone/APAP 7.5-325MG 1 EACH TAB PO ONE; -INSULIN ASPART (NovoLOG) 100 UNIT/ML VIAL SQ ONE; -KETOROLAC 30 MG/ML 1 ML VIAL ONE; -LACTATED RINGERS 1,000 ML IV ONE; +LIDOCAINE 1% (10MG/ML) FOR IV START INTRADERMA PRN; -LIDOCAINE 1% 20 ML VIAL (10MG/ML) FOR IV START INTRADERMA ONE; -LIDOCAINE 1% INJ 10MG/ML (20 ML MDV) ONE; -LIDOCAINE 1%-EPI 1:100,000 20 ML VIAL SQ ONE; -MIDAZOLAM (PF) 2 MG/2 ML VIAL IVP ONE; -NEOSTIGMINE 1 MG/ML 10 ML VIAL ONE; -ONDANSETRON 4 MG/2 ML VIAL IVP ONE; -PHENYLEPHRINE-0.9% NACL SYG 1 MG/10 ML SYRINGE ONE; -PROPOFOL 10 MG/ML 20 ML VIAL IV ONE; -ROCURONIUM BROMIDE 10 MG/ML 10 ML VIAL IV ONE; -ROPIVACAINE 5 MG/ML 30 ML VIAL ONE; -SUCCINYLCHOLINE CHLORIDE 100 MG/5 ML SYR IV ONE; -ceFAZolin IN SWFI 2 GM/20 ML SYRINGE IVP ONE; -fentaNYL (PF) 50 MCG/ML 2 ML AMP IVP ONE; -fentaNYL (PF) 50 MCG/ML 2 ML AMP ONE
[2020-09-29 08:34] VITALS: TEMP 97.3
[2020-09-29 08:51] LABS: Glucose,Whole Blood 122 mg/dL (75-99)
[2020-09-29] MEDS ORDERED: PROPOFOL 10 MG/ML 20 ML VIAL IV ONE (08:58)
[2020-09-29] MEDS ORDERED: LIDOCAINE 1% INJ 10MG/ML (20 ML MDV) ONE (08:58)
[2020-09-29] MEDS ORDERED: MIDAZOLAM 2 MG/2 ML VIAL ONE (08:58)
[2020-09-29] MEDS ORDERED: fentaNYL (PF) 50 MCG/ML 2 ML AMP ONE (08:58)
--- NOTE | 2020-09-29 09:19 | P.PCN ---
Date of Procedure: 09/29/20 Procedure(s) Performed: Brief history: Patient is a pleasant 50-year-old white male scheduled for an elective upper endoscopy as well as colonoscopy as a part of evaluation of severe epigastric pain, nausea vomiting and altered bowel movements for the last 30 years duration. His symptoms have been progressively getting worse lately. He has been on omeprazole 40 mg daily with no change in his symptoms. Procedure performed: Esophagogastroduodenoscopy with biopsy Colonoscopy with biopsy and snare polypectomy Preoperative diagnosis: Severe epigastric pain/nausea vomiting Altered bowel movements Anesthesia: MAC Procedure: After informed consent was obtained from the patient was brought into the en doscopy unit and IV sedation was administered by anesthesia under continuous monitoring. Initially upper endoscopy was done. The Olympus GF 160 video endoscope was inserted inserted into the mouth and esophagus intubated without any difficulty and was gradually advanced into the stomach and duodenum and carefully examined. The bulb and second part of the duodenum appeared normal. Biopsies were done from the duodenum to rule out celiac disease. The scope was then withdrawn into the stomach adequately insufflated with air and upon careful examination the antrum had very mild gastritis and biopsies were done from this area. The body, cardia and fundus appeared normal. The scope was then withdrawn into the esophagus. The GE junction was located at 40 cm to the incisors. It appeared regular with no erythema erosions or ulcerations. Rest of the esophagus appeared normal. biopsies were done from the distal esophagus. Patient tolerated the procedure well. At this time the patient continued to remain sedation. Initial digital rectal examination was normal. Olympus CF 160 video colonoscope was then inserted into the rectum and gradually advanced to the cecum without any difficulty. Careful examination was performed as the scope was gradually being withdrawn. The prep was excellent. The cecum, ascending colon, transverse colon, descending colon, sigmoid colon and rectum appeared normal. In the distal sigmoid colon there was a 5 mm polyp that was removed by snare polypectomy. Also random biopsies were done from ascending and descending colon to rule out metastatic/collagenous colitis. Retroflexion was performed in the rectum and and small internal hemorrhoidse noted. Patient tolerated the procedure well. Impression: 1. Upper endoscopy revealed mild antral gastritis but no evidence of esophagitis or peptic ulcer disease 2. Colonoscopy revealed 5 mm distal sigmoid colon polyp status post polypectomy and small internal hemorrhoids. Recommendations: Findings of this examination were discussed with the patient as well as his family. He was advised to follow with the biopsy results and he'll be seen in office in one to 2 weeks. In the meantime he will continue with her current medications.
[2020-09-29 09:27] VITALS: RESP 16
[2020-09-29 09:38] VITALS: BP 127/86; PULSE 86
== END 2020-09-29 10:00 | disposition home or self-care (01) ==
LOC: ORWHC2ENDO 08:09
PROVIDERS: ATTEND Internal Medicine Gastroenterology
DX: K63.5 Polyp of colon (principal); K64.8 Other hemorrhoids; K29.50 Unspecified chronic gastritis without bleeding; K21.00 Gastro-esophageal reflux disease with esophagitis, without bleeding; K22.8 Other specified diseases of esophagus; K08.89 Other specified disorders of teeth and supporting structures; K08.409 Partial loss of teeth, unspecified cause, unspecified class; G89.29 Other chronic pain; R07.9 Chest pain, unspecified; F17.210 Nicotine dependence, cigarettes, uncomplicated; K44.9 Diaphragmatic hernia without obstruction or gangrene; F41.9 Anxiety disorder, unspecified; F32.9 Major depressive disorder, single episode, unspecified; Z79.899 Other long term (current) drug therapy; Z91.010 Allergy to peanuts; Z91.09 Other allergy status, other than to drugs and biological substances; Z87.19 Personal history of other diseases of the digestive system; Z90.49 Acquired absence of other specified parts of digestive tract; Z98.890 Other specified postprocedural states; Z87.898 Personal history of other specified conditions
CPT/HCPCS: 88305; 45380; 45385; 43239; J2250; J2001; J3010; J2704

== ENCOUNTER 2020-11-14 16:25 | Inpatient (IN) | payer MEDICAID, OTHER ==
--- NOTE | 2020-11-14 16:44 | ED ---
General Adult HPI - General Chief complaint: Psychiatric Symptoms Stated complaint: EPS eval Time Seen by Provider: 11/14/20 16:41 Source: patient Mode of arrival: ambulatory Limitations: no limitations - History of Present Illness Initial comments: Patient presents to the ED complaining of having suicidal ideations and requesting help. Patient states that he found out 2 days ago that his brother and have been having an affair, and he states that it is "tearing my family apart". Patient states that he has not drank in years, but he states that he had a lot of beers to drink yesterday in attempt to help him cope. Patient denies any alcohol use today, but he states that he did smoke some marijuana today. Patient denies any other illicit drug use. Patient states that he has had thoughts of slitting his wrists, but he denies doing so. Patient denies suicidal attempt. Patient states that he has also had thoughts of hurting his brother and . Patient denies trauma or injury, any pain, medication abuse or overdose, hallucinations, fever or chills, headache, focal neuro deficit, chest pain, dyspnea, dizziness, abdominal pain, nausea or vomiting, or any other symptoms or complaints. Patient states that he has been compliant with all of his psychiatric medications. - Related Data Home Medications Medication Instructions Recorded Confirmed Dulaglutide [Trulicity] 0.75 mg SQ Q7D 09/28/20 09/29/20 Gemfibrozil [Lopid] 600 mg PO BID 09/28/20 09/29/20 Omeprazole 40 mg PO DAILY 09/28/20 09/29/20 Sertraline HCl [Zoloft] 150 mg PO QAM 09/28/20 09/29/20 cloNIDine HCL [Catapres] 0.2 mg PO BID PRN 09/28/20 09/29/20 Allergies Allergy/AdvReac Type Severity Reaction Status Date / Time peanut Allergy Swelling Verified 11/14/20 16:30 Surgical Tape Allergy hernandez Uncoded 09/29/20 08:34 skin,paper tape is ok Review of Systems ROS Statement: Those systems with pertinent positive or pertinent negative responses have been documented in the HPI. ROS Other: All systems not noted in ROS Statement are negative. Past Medical History Past Medical History: Chest Pain / Angina, Diabetes Mellitus, GERD/Reflux, Hyperlipidemia, Skin Disorder Additional Past Medical History / Comment(s): had diagestive issues all my life, pain epigastric area after eating,constipaiton, hx pancreatitis,Eczema. Hx ulcers, viral mennigitis. "Chronic chest pain, that Dr relates to acid reflux." States hx kidney problems but not sure what. History of Any Multi-Drug Resistant Organisms: None Reported Past Surgical History: Cholecystectomy, Hernia Repair Additional Past Surgical History / Comment(s): Piece of metal removed from right eye,umbilical hernia repair Past Anesthesia/Blood Transfusion Reactions: Previous Problems w/ Anesthesia Additional Past Anesthesia/Blood Transfusion Reaction / Comment(s): Combative with anesthesia and has woken up twice during surgeries Past Psychological History: Anxiety, Depression Smoking Status: Current every day smoker Past Alcohol Use History: None Reported Past Drug Use History: None Reported - Past Family History Mother Family Medical History: Diabetes Mellitus Additional Family Medical History / Comment(s): DM Father Family Medical History: AICD/Pacemaker General Exam Limitations: no limitations General appearance: alert, in no apparent distress Head exam: Present: atraumatic, normocephalic Eye exam: Present: normal appearance, PERRL, EOMI ENT exam: Present: mucous membranes moist Neck exam: Present: other (Trachea is in midline) Respiratory exam: Present: normal lung sounds bilaterally. Absent: respiratory distress, wheezes, rales, rhonchi, stridor Cardiovascular Exam: Present: normal rhythm, tachycardia, normal heart sounds, other (Normal radial pulses bilaterally) GI/Abdominal exam: Present: soft. Absent: distended, tenderness, guarding Extremities exam: Present: normal inspection Neurological exam: Present: alert, oriented X3. Absent: motor sensory deficit Psychiatric exam: Present: anxious Skin exam: Present: warm, dry, intact, normal color Course Vital Signs 11/14/20 16:30 Temperature 99 F Pulse Rate 117 H Respiratory 18 Rate Blood Pressure 137/74 O2 Sat by Pulse 96 Oximetry Medical Decision Making - Medical Decision Making Patient was evaluated by EPS nurse in the ED, and she states that he will be admitted to the psychiatric unit and he will check himself in. Disposition Clinical Impression: Suicidal ideation Disposition: ADMITTED IP TO THIS [facility] Condition: Stable Is patient prescribed a controlled substance at d/c from ED?: No Referrals: Wagner Retana DO [Primary Care Provider] - 1-2 days Time of Disposition: 18:33
[2020-11-14 18:46] LABS: Amphetamine Screen,Urine Not Detected (NotDetected); Barbiturate Screen,Urine Not Detected (NotDetected); Benzodiazepines Screen,Urine Not Detected (NotDetected); Cocaine Screen,Urine Not Detected (NotDetected); Methadone Screen, Urine Not Detected (NotDetected); Opiate Screen,Urine Not Detected (NotDetected); Oxycodone Screen, Urine Not Detected (NotDetected); Phencyclidine Screen,Urine Not Detected (NotDetected); Tricyclic Antidepressant,Urine Not Detected (NotDetected); Urn Cannabinoid Scrn Detected (NotDetected)
[2020-11-14] MEDS ORDERED: ACETAMINOPHEN TAB 325 MG TAB PO PRN (19:35)
[2020-11-14] MEDS ORDERED: LORazepam 1 MG TAB PO PRN (19:35)
[2020-11-14] MEDS ORDERED: MAG HYDROX/AL HYDROX/SIMETH 30 ML CUP PO PRN (19:35)
[2020-11-14] MEDS ORDERED: MAGNESIUM HYDROXIDE 2,400 MG/10 ML CUP PO PRN (19:35)
[2020-11-14] MEDS ORDERED: cloNIDine HCL 0.2 MG TAB PO PRN (19:38)
[2020-11-14] MEDS ORDERED: LORazepam 2 MG/ML INJ IM PRN (19:39)
[2020-11-14] MEDS ORDERED: HALOPERIDOL LACTATE 5 MG/ML 1 ML VIAL IM PRN (19:39)
[2020-11-14] MEDS ORDERED: haloperidoL 5 MG TAB PO PRN (19:40)
[2020-11-14] MEDS: FENOFIBRATE 160 MG TAB PO SCH (21:20)
[2020-11-15 07:45] LABS: Basophils # (A) 0.1 k/uL (0-0.2); Basophils % (A) 1 %; Eosinophils # (A) 0.5 k/uL (0-0.7); Eosinophils % (A) 5 %; HCT 53.4 % (39.0-53.0); HGB 18.1 gm/dL (13.0-17.5); Lymphocytes # (A) 3.3 k/uL (1.0-4.8); Lymphocytes % (A) 31 %; MCH 31.5 pg (25.0-35.0); MCHC 33.9 g/dL (31.0-37.0); MCV 92.9 fL (80.0-100.0); Mean Platelet Volume 8.2; Monocytes # (A) 0.5 k/uL (0-1.0); Monocytes % (A) 5 %; Neutrophils # (A) 5.9 k/uL (1.3-7.7); Neutrophils % (A) 56 %; Platelet Count 193 k/uL (150-450); RBC 5.75 m/uL (4.30-5.90); RDW 14.8 % (11.5-15.5); WBC 10.4 k/uL (3.8-10.6)
[2020-11-15 07:58] LABS: ALT 37 U/L (4-49); AST 33 U/L (17-59); African American GFR (CKD) >90 (>60 ml/min/1.73 sqM); Albumin 4.8 g/dL (3.5-5.0); Alkaline Phosphatase 92 U/L (38-126); Anion Gap 9 mmol/L; Blood Urea Nitrogen 17 mg/dL (9-20); Calcium 9.9 mg/dL (8.4-10.2); Carbon Dioxide 31 mmol/L (22-30); Chloride 102 mmol/L (98-107); Cholesterol 298 mg/dL (<200); Glucose 128 mg/dL (74-99); HDL Cholesterol 43 mg/dL (40-60); LDL Cholesterol,Calculated 207 mg/dL (0-99); Non-African American GFR(CKD) >90 (>60 ml/min/1.73 sqM); Potassium 4.6 mmol/L (3.5-5.1); Sodium 142 mmol/L (137-145); Total Bilirubin 0.6 mg/dL (0.2-1.3); Triglycerides 241 mg/dL (<150)
[2020-11-15] MEDS: NICOTINE 14MG/24HR PATCH TRANSDERM SCH (09:07)
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
[2020-11-15] MEDS ORDERED: QUEtiapine 25 MG TAB PO PRN (15:37)
[2020-11-15 16:40] LABS: Hemoglobin A1C 5.4 % (4.0-6.0)
[2020-11-15] MEDS: SERTRALINE 50 MG TAB PO SCH (16:46)
[2020-11-15] MEDS: FENOFIBRATE 160 MG TAB PO SCH (21:26)
[2020-11-15] MEDS: QUEtiapine 50 MG TAB PO SCH (21:26)
--- NOTE | 2020-11-15 22:35 | P.CONS ---
History of Present Illness - Reason for Consult Consult date: 11/15/20 Medical management Requesting physician: Kt Fowler - Chief Complaint Upset - History of Present Illness Consultation: This is a pleasant 50-year-old patient who follows with Dr. Yazmin Retana. Chronic stable medical conditions include diabetes, GERD, hyperlipidemia severe GERD peptic ulcer disease. Patient been laid off at the [employer] for last 1 year. Patient discovered through his that she's been having an affair with his brother. Patient became extremely distraught and got very upset. He went on to say that he wanted to hurt his brother but late he did not meen the same. He was other depressive was suicidal and had called for help. His patient brought to the ER. Patient does smoke cigarettes. And does variable amount of marijuana every day. He does get wheezing sometimes short of breath. From his smoking. Has trouble sleeping. Has lost weight over a period of time. 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 The laid off for about a year. . Smokes anywhere from a pack to pack and a half a day since the age of 15. Now down to a few cigarettes a day. Denies alcohol. Does smoke marijuana anywhere from 1-10 joints a day. Physical examination: VITAL SIGNS: 97.4, 72, 16, 120/67, 97% room air GENERAL: BMI 25.1, sitting up in a chair, slightly anxious. EYES: Pupils equal. Conjunctiva normal. HEENT: External appearance of nose and ears normal, oral cavity grossly normal. NECK: JVD not raised; masses not palpable. HEART: First and second heart sounds are normal; no edema. LUNGS: Respiratory rate normal; clear to auscultation. ABDOMEN: Soft, nontender, liver spleen not palpable, no masses palpable. PSYCH: Alert and oriented x3; mood and affect anxiousl. NEUROLOGICAL: Cranial nerves grossly intact; no facial asymmetry, power and sensation grossly intact. LYMPHATICS: No lymph nodes palpable in the axilla and neck INVESTIGATIONS, reviewed in the clinical context: White count 10.4 hemoglobin 18.1 platelets 193 potassium 4.6 creatinine 0.98 LDL 207 Urine drug screen positive for marijuana Coronavirus [PCR]-not detected Assessment and plan: -Diabetes mellitus type 2, patient on Trulicity. Follow Accu-Cheks -Severe GERD continue with omeprazole. -Hyperlipidemia, patient on Lopid. Low-fat diet. -Chronic idiopathic insomnia. Probably multifactorial. -Chronic nicotine dependence patient cigarette smoker. Nicotine patch Patient to follow with PCP upon discharg Thank you Dr. Fowler. Smoke cessation counseling: This was done with the patient. Nicotine patch is being given. More than 3 minutes was spent for this Past Medical History Past Medical History: Chest Pain / Angina, Diabetes Mellitus, GERD/Reflux, Hyperlipidemia, Skin Disorder Additional Past Medical History / Comment(s): had diagestive issues all my life, pain epigastric area after eating,constipaiton, hx pancreatitis,Eczema. Hx ulcers, viral mennigitis. "Chronic chest pain, that Dr relates to acid reflux." States hx kidney problems but not sure what. History of Any Multi-Drug Resistant Organisms: None Reported Past Surgical History: Cholecystectomy, Hernia Repair Additional Past Surgical History / Comment(s): Piece of metal removed from right eye,umbilical hernia repair Past Anesthesia/Blood Transfusion Reactions: Previous Problems w/ Anesthesia Additional Past Anesthesia/Blood Transfusion Reaction / Comm: Combative with anesthesia and has woken up twice during surgeries Past Psychological History: Anxiety, Depression Additional Psychological History / Comment(s): Hx panic attacks. Smoking Status: Current every day smoker Past Alcohol Use History: None Reported Additional Past Alcohol Use History / Comment(s): Started smoking at age 15, smoked between 3/4 to 1.5 ppd, currently down to 6 cigarettes per day. Past Drug Use History: None Reported Additional Drug Use History / Comment(s): uses marijuana daily - Past Family History Mother Family Medical History: Diabetes Mellitus Additional Family Medical History / Comment(s): DM Father Family Medical History: AICD/Pacemaker Medications and Allergies Home Medications Medication Instructions Recorded Confirmed Type Dulaglutide [Trulicity] 0.75 mg SQ TH 09/28/20 11/14/20 History Gemfibrozil [Lopid] 600 mg PO BID 09/28/20 11/14/20 History Omeprazole 40 mg PO DAILY 09/28/20 11/14/20 History cloNIDine HCL [Catapres] 0.2 mg PO BID PRN 09/28/20 11/14/20 History Sertraline [Zoloft] 150 mg PO DAILY 11/14/20 11/14/20 History hydrOXYzine HCL [Atarax] 25 - 50 mg PO HS PRN 11/14/20 11/14/20 History Allergies Allergy/AdvReac Type Severity Reaction Status Date / Time peanut Allergy Swelling Verified 11/14/20 19:08 Surgical Tape Allergy hernandez Uncoded 11/14/20 19:08 skin,paper tape is ok Physical Exam Vitals: Vital Signs Temp Pulse Pulse Resp BP BP Pulse Ox 11/15/20 06:39 97.4 F L 72 16 120/67 11/14/20 20:13 97.5 F L 95 18 129/74 97 11/14/20 16:30 99 F 117 H 18 137/74 96 Intake and Output 11/14/20 11/15/20 11/15/20 22:59 06:59 14:59 Other: Weight 77.2 kg Results CBC & Chem 7: 11/15/20 06:59 11/15/20 06:59 Labs: Abnormal Lab Results - Last 24 Hours (Table) 11/14/20 11/15/20 11/15/20 Range/Units 18:00 06:59 06:59 Hgb 18.1 H (13.0-17.5) gm/dL Hct 53.4 H (39.0-53.0) % Carbon Dioxide 31 H (22-30) mmol/L Glucose 128 H (74-99) mg/dL Triglycerides 241 H (<150) mg/dL Cholesterol 298 H (<200) mg/dL LDL Cholesterol, Calc 207 H (0-99) mg/dL U Marijuana (THC) Screen Detected H (NotDetected)
[2020-11-15 23:42] LABS: Urine Alcohol Negative (Negative); Urine Barbiturate Negative (Negative); Urine Cocaine Negative (Negative); Urine Methadone Negative (Negative); Urine Opiates Negative (Negative); Urine Phencyclidine Negative (Negative)
[2020-11-16] MEDS: ATORVASTATIN 40 MG TAB PO SCH ×2 (00:12→20:55)
[2020-11-16] MEDS: INSULIN ASPART (NovoLOG) 100 UNIT/ML VIAL SQ SCH ×4 (00:12→17:54)
[2020-11-16] MEDS: PANTOPRAZOLE 40 MG TABLET PO SCH ×3 (00:13→17:53)
[2020-11-16 07:09] VITALS: TEMP 97.9
[2020-11-16 07:55] LABS: Glucose,Whole Blood 122 mg/dL (75-99)
[2020-11-16] MEDS: SERTRALINE 50 MG TAB PO SCH (08:36)
[2020-11-16] MEDS: NICOTINE 14MG/24HR PATCH TRANSDERM SCH (08:58)
--- NOTE | 2020-11-16 09:12 | P.PN ---
Progress Note - Text Progress Note Date: 11/16/20 Interval History: Patient was seen wandering the hallways and was directable and agreeable to sp nitak with ad copy writer in the office. Patient appears to have improvement in his irritability today. He appeared to be more cooperative with ad copy writer. He states that he was able to sleep "much better" last night and states that he wants to remain on the same dose of Seroquel. He claims that he feels more optimistic today about his future. He spoke about his children and missing them. He also spoke about wanting to quit using cigarettes once he leaves the hospital. He states that he has been talking with his and his brother over the phone who are being very supportive of him. He claims of a fair appetite. States that yesterday one of the patient's said some rude things to him in group and he "just walked away". At this time patient denies any suicidal or homical ideations, intent or plan. Patient denies any auditory, visual hallucinations and denies any paranoia or delusions. Patient denies any side effects from the medications and has been compliant with meds. Mental Status Exam: General Appearance: Patient appears to be normal stature, stated age is alert, appears to be less irritable today and attempts to cooperate. Patient appears to have improving hygiene and grooming. Behavior: Patient is seated without any agitated behavior. Less irritable today Speech: Patient's speech is fluent and nonpressured. Mood/Affect: Patient reports their mood is "better" however denies any depression or anxiety, affect is congruent Suicidality/Homicidality: Patient denies having any homicidal ideation intent or plan. Denies any suicidal ideations intent or plan Perceptions: Patient denies any visual hallucinations and denies any auditory hallucinations Though content/process: logical. Goal oriented. More future oriented today. Memory and concentration: AOX3, grossly intact for the purposes of this session Judgment and insight: Improving mildly Assessment Major depressive disorder, recurrent, without psychotic features History of PTSD Cannabis use disorder Alcohol abuse Nicotine dependence Plan: -Patient continues to meet criteria for inpatient psychiatric admission for symptom stabilization and safety. Patient has signed adult voluntary form and medication consent and was placed in patient's chart. -Medications: Continue Zoloft 150 mg daily for mood/anxiety, Seroquel 50 mg daily at bedtime for agitation/mood stabilization/insomnia. Continue with Seroquel 25 mg twice a day for agitation/irritability. -When necessary Ativan and Haldol for agitation/aggression. -NRT - nicotine patch -SW on board for discharge planning. Encouraged the patient to participate in milieu. campaign worker to get in touch with patient's brother and to ensure safety upon discharge and arrange for potential discharge tomorrow if patient does well overnight.
[2020-11-16 12:56] LABS: Glucose,Whole Blood 127 mg/dL (75-99)
[2020-11-16] MEDS: QUEtiapine 50 MG TAB PO SCH (20:55)
[2020-11-16] MEDS: FENOFIBRATE 160 MG TAB PO SCH (21:35)
[2020-11-17 07:18] VITALS: BP 135/82; PULSE 78; RESP 16
[2020-11-17] MEDS: NICOTINE 14MG/24HR PATCH TRANSDERM SCH (08:39)
[2020-11-17] MEDS: SERTRALINE 50 MG TAB PO SCH (08:40)
[2020-11-17] MEDS: PANTOPRAZOLE 40 MG TABLET PO SCH (08:40)
--- NOTE | 2020-11-17 08:56 | P.DS ---
Providers Date of admission: 11/14/20 19:32 Expected date of discharge: 11/17/20 Attending physician: Kt Fowler MD Consults: 11/14/20 19:35 Consult Physician Routine Consulting Provider: Oscar Physician Consult Reason/Comments: medical management Do you want consulting provider notified?: Yes Primary care physician: Wagner Retana - Discharge Diagnosis(es) (1) Major depressive disorder without psychotic features Current Visit: Yes Status: Acute Priority: High (2) History of posttraumatic stress disorder (PTSD) Current Visit: Yes Status: Acute Priority: Low (3) Cannabis use disorder, mild, abuse Current Visit: Yes Status: Acute Priority: Low (4) Alcohol abuse Current Visit: Yes Status: Acute Priority: Medium (5) Nicotine dependence Current Visit: Yes Status: Acute Priority: Low Hospital Course: Admission HPI: Admission note was completed by copy writer "Patient is a 50-year-old male, lives with his currently and 2 children in a house and is currently laid off and 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 Patient presented to the hospital yesterday with suicidal ideations after apparently he found out 2 days ago that his brother and were having an affair. Patient had reported in the ER that he had been drinking excessively yesterday to cope. He also mentioned thoughts of wanting to slit his wrist before coming into the hospital. Patient was seen today by copy writer and agreeable to speak in the office. Patient appeared to be fairly frustrated in the interview and irritable. She claims that he came in the hospital after him and his brother went to [place] for a night out however when he came back he states that his told him that she has been having an affair with his younger brother. He claims that he was very angry at that time and went over to his brother's house and got "very intoxicated and "drinking approximately 12 beers in less than one hour. He states that he has not drank alcohol for over 23 years. He states that he "couldn't handle anything emotionally" and claims that he was also acting "very irrational". He states that his brother who slept with his is "a big manipulator" and states that she was having homicidal thoughts towards him however not any longer. He claims that his called 911 on the patient and he states that he came with police as he needed help. He claims that today his mood is "okay" however continues to state that he feels frustrated and angry. He did mention ongoing irritability. He denies any anxiety today. He states that he has not talked to his brother for quite some time now. He states that his sleep has been poor at night. Patient denies any suicidal or homicidal ideations intent or plan. At this time patient denies any auditory or visual hallucinations. Patient admits to using cigarettes daily and marijuana daily. He claims that he recently had drank several beers in less than an hour." Hospital course: Upon admission to the unit patient was initially irritable and upset and depressed. Patient was however directable and agreeable to commence treatment and signed adult voluntary form. Patient got along well with other patients on the unit and followed unit protocol. Patient was compliant with the medications and denied any side effects throughout hospital course. Patient was started on Zoloft and titrated up to dose of 200 mg daily for mood/anxiety, Seroquel titrated to a dose of 50 mg daily at bedtime for agitation/mood stabilization/insomnia.. Patient spoke of his stressors and engaged in therapy both group and individual. Patient was also seen by medical team for history and physical exam. Throughout the course of the hospitalization patient gradually improved with regards to mood, anxiety, irritability, sleep and became more future oriented with improved insight and judgment. On the day of discharge patient denied any suicidal or homicidal ideations intent or plan denied any auditory or visual hallucinations. Patient endorsed wanting to live for his kids and family. The patient denied any access to guns or weapons. Patient denied any paranoia and did not endorse any delusions. Patient does have a significant history of substance abuse and was counseled on abstaining from all substances including alcohol and marijuana. Patient elected to do outpatient substance use treatment program through [facility]. Patient was also counseled on the medications and need for regular compliance and was encouraged to follow-up with their outpatient appointment for mental health and also for primary care. Prior to discharge a family meeting will be arranged by renal social worker with patients and brother to answer any questions and ensure safety upon discharge and ensure that there are no guns or weapons in the house. Mental status exam: General Appearance: Patient appears to be stated age is alert, pleasant, and cooperative. Patient is in no acute distress and has improved hygiene and grooming Behavior: Patient is calmly seated without any agitated behavior. Speech: Patient's speech is fluent and nonpressured. Mood/Affect: Patient reports their mood is "better", affect is congruent and euthymic. Suicidality/Homicidality: Patient denies having any suicidal or homicidal ideation intent or plan. Perceptions: Patient denies any auditory or visual hallucinations. Though content/process: There is no evidence of any delusional thought content and thought process is linear and goal-directed. more future oriented Memory and concentration: AOX3, grossly intact for the purposes of this session. Can spell "WORLD" backwards correctly. Judgment and insight: improved with guarded prognosis Impression: Major depressive disorder, recurrent, without psychotic features History of PTSD Cannabis use disorder Alcohol abuse Nicotine dependence Plan: -Continue with discharge today as patient has improved and stabilized psychiatrically and is not currently an imminent threat to himself and/or others. Patient will remain at chronically elevated risk for harm to self and/or others due to his impulsivity. -Continue medications: Zoloft 200 mg daily for mood/anxiety, Seroquel 50 mg daily at bedtime for agitation/mood stabilization/insomnia. -Patient was counseled on the need for medication compliance and appropriate follow-up at mental health and also primary care for medical issues. Patient verbalized understanding and agreed. -Social work to arrange for and conduct family meeting with patient's brother and to ensure safety upon discharge and answer any questions/concerns. Social work also to arrange for patients follow up appointments with [facility] for psychiatric care along with follow up with primary care provider. Patient will be continuing on with individual therapy at [facility]. -Patient counseled on abstaining from recreational drugs and marijuana and alcohol. Was informed/educated on the adverse effects on their physical and mental health. Patient verbally agreed and understood. Patient was offered substance abuse treatment however declined at this time. -Patient was instructed to return to the hospital or seek immediate medical care if their psychiatric or medical symptoms do worsen or reoccur. Allergies Allergy/AdvReac Type Severity Reaction Status Date / Time peanut Allergy Swelling Verified 11/14/20 19:08 Surgical Tape Allergy hernandez Uncoded 11/14/20 19:08 skin,paper tape is ok Laboratory Results WBC 10.4 k/uL (3.8-10.6) 11/15/20 06:59 RBC 5.75 m/uL (4.30-5.90) 11/15/20 06:59 Hgb 18.1 gm/dL (13.0-17.5) H 11/15/20 06:59 Hct 53.4 % (39.0-53.0) H 11/15/20 06:59 MCV 92.9 fL (80.0-100.0) 11/15/20 06:59 MCH 31.5 pg (25.0-35.0) 11/15/20 06:59 MCHC 33.9 g/dL (31.0-37.0) 11/15/20 06:59 RDW 14.8 % (11.5-15.5) 11/15/20 06:59 Plt Count 193 k/uL (150-450) 11/15/20 06:59 MPV 8.2 11/15/20 06:59 Neutrophils % 56 % 11/15/20 06:59 Lymphocytes % 31 % 11/15/20 06:59 Monocytes % 5 % 11/15/20 06:59 Eosinophils % 5 % 11/15/20 06:59 Basophils % 1 % 11/15/20 06:59 Neutrophils # 5.9 k/uL (1.3-7.7) 11/15/20 06:59 Lymphocytes # 3.3 k/uL (1.0-4.8) 11/15/20 06:59 Monocytes # 0.5 k/uL (0-1.0) 11/15/20 06:59 Eosinophils # 0.5 k/uL (0-0.7) 11/15/20 06:59 Basophils # 0.1 k/uL (0-0.2) 11/15/20 06:59 Sodium 142 mmol/L (137-145) 11/15/20 06:59 Potassium 4.6 mmol/L (3.5-5.1) 11/15/20 06:59 Chloride 102 mmol/L (98-107) 11/15/20 06:59 Carbon Dioxide 31 mmol/L (22-30) H 11/15/20 06:59 Anion Gap 9 mmol/L 11/15/20 06:59 BUN 17 mg/dL (9-20) 11/15/20 06:59 Creatinine 0.98 mg/dL (0.66-1.25) 11/15/20 06:59 Est GFR (CKD-EPI)AfAm >90 (>60 ml/min/1.73 sqM) 11/15/20 06:59 Est GFR (CKD-EPI)NonAf >90 (>60 ml/min/1.73 sqM) 11/15/20 06:59 Glucose 128 mg/dL (74-99) H 11/15/20 06:59 POC Glucose (mg/dL) 127 mg/dL (75-99) H 11/16/20 12:53 POC Glu [employer] Supervisor ID Chang Dykes 11/16/20 12:[address] Glu mg/dL 108 11/15/20 06:59 Hemoglobin A1c 5.4 % (4.0-6.0) 11/15/20 06:59 Calcium 9.9 mg/dL (8.4-10.2) 11/15/20 06:59 Total Bilirubin 0.6 mg/dL (0.2-1.3) 11/15/20 06:59 AST 33 U/L (17-59) 11/15/20 06:59 ALT 37 U/L (4-49) 11/15/20 06:59 Alkaline Phosphatase 92 U/L (38-126) 11/15/20 06:59 Total Protein 8.0 g/dL (6.3-8.2) 11/15/20 06:59 Albumin 4.8 g/dL (3.5-5.0) 11/15/20 06:59 Triglycerides 241 mg/dL (<150) H 11/15/20 06:59 Cholesterol 298 mg/dL (<200) H 11/15/20 06:59 LDL Cholesterol, Calc 207 mg/dL (0-99) H 11/15/20 06:59 HDL Cholesterol 43 mg/dL (40-60) 11/15/20 06:59 TSH 1.730 mIU/L (0.465-4.680) 11/15/20 06:59 Urine Opiates Screen Negative ng/mL (Negative) 11/15/20 17:23 Ur Oxycodone Screen Not Detected (NotDetected) 11/14/20 18:00 Urine Methadone Screen Negative ng/mL (Negative) 11/15/20 17:23 Ur Propoxyphene Screen Negative ng/mL (Negative) 11/15/20 17:23 Ur Barbiturates Screen Not Detected (NotDetected) 11/14/20 18:00 Urine Barbiturates Negative ng/mL (Negative) 11/15/20 17:23 U Tricyclic Antidepress Not Detected (NotDetected) 11/14/20 18:00 Ur Phencyclidine Scrn Negative ng/mL (Negative) 11/15/20 17:23 Ur Amphetamine Screen Negative ng/mL (Negative) 11/15/20 17:23 Ur Amphetamines Screen Not Detected (NotDetected) 11/14/20 18:00 U Methamphetamines Scrn Not Detected (NotDetected) 11/14/20 18:00 U Benzodiazepines Scrn Negative ng/mL (Negative) 11/15/20 17:23 Urine Cocaine Screen Negative ng/mL (Negative) 11/15/20 17:23 U Cannabinoids Screen Positive ng/mL (Negative) A 11/15/20 17:23 U Marijuana (THC) Screen Detected (NotDetected) H 11/14/20 18:00 Urine Alcohol Negative mg/dL (Negative) 11/15/20 17:23 Coronavirus (PCR) Not Detected (Not Detectd) 11/14/20 18:56 Vital Signs Temp 97.9 F 11/17/20 07:00 Pulse 78 11/17/20 07:00 Resp 16 11/17/20 07:00 BP 135/82 11/17/20 07:00 Pulse Ox 96 11/16/20 07:08 Patient Condition at Discharge: Stable Plan - Discharge Summary Discharge Rx Participant: No New Discharge Prescriptions: New Nicotine 14Mg/24Hr Patch [Habitrol] 1 patch TRANSDERM DAILY 14 Days patch Atorvastatin [Lipitor] 40 mg PO HS #0 tab Fenofibrate [Lofibra] 160 mg PO HS 30 Days tab QUEtiapine [SEROquel] 50 mg PO HS 30 Days tab Acetaminophen Tab [Tylenol] 650 mg PO Q4HR PRN tab PRN Reason: Pain/Discomfort Sertraline [Zoloft] 200 mg PO DAILY 30 Days tab Continue Dulaglutide [Trulicity] 0.75 mg SQ TH Discontinued cloNIDine HCL [Catapres] 0.2 mg PO BID PRN PRN Reason: panic attacks Omeprazole 40 mg PO DAILY Gemfibrozil [Lopid] 600 mg PO BID Sertraline [Zoloft] 150 mg PO DAILY hydrOXYzine HCL [Atarax] 25 - 50 mg PO HS PRN PRN Reason: Insomnia Discharge Medication List Dulaglutide [Trulicity] 0.75 mg SQ TH 09/28/20 [History] Acetaminophen Tab [Tylenol] 650 mg PO Q4HR PRN tab 11/17/20 [Rx] Atorvastatin [Lipitor] 40 mg PO HS #0 tab 11/17/20 [Rx] Fenofibrate [Lofibra] 160 mg PO HS 30 Days tab 11/17/20 [Rx] Nicotine 14Mg/24Hr Patch [Habitrol] 1 patch TRANSDERM DAILY 14 Days patch 11/17/20 [Rx] QUEtiapine [SEROquel] 50 mg PO HS 30 Days tab 11/17/20 [Rx] Sertraline [Zoloft] 200 mg PO DAILY 30 Days tab 11/17/20 [Rx] Follow up Appointment(s)/Referral(s): [facility] [Outside] - 11/18/20 8:00 pm (11-18-20 @ 8:00 with CONSTRUCTION EQUIPMENT OVERHAULER Enedina Drummond at [facility] office 11-18-20 @ 9:00 with Meena Fragoso at [facility] office) Wagner Retana DO [Primary Care Provider] - 1-2 days Activity/Diet/Wound Care/Special Instructions: Activity and diet as tolerated. Avoid the use of street drugs and alcohol. Take all medications as prescribed. When you are in need of refills on your medications please contact your medical provider and/or outpatient psychiatrist to have this done. Please go to scheduled outpatient appointment for aftercare treatment. If symptoms return or become worse, call the crisis line at and/or go to the nearest emergency room for evaluation. Discharge Disposition: HOME SELF-CARE
[2020-11-18] MEDS ORDERED: NON FORMULARY DRUG (Dulaglutide [Trulicity] 0.75 MG/0.5 ML Pen.Injctr) SQ SCH (09:00)
== END 2020-11-17 12:42 | disposition home or self-care (01) | DRG 885 ==
LOC: EC 16:25 → 3MHU 19:32
PROVIDERS: ADMIT Psychiatry & Neurology Psychiatry; ATTEND Psychiatry & Neurology Psychiatry
DX: F33.9 Major depressive disorder, recurrent, unspecified (principal); R45.851 Suicidal ideations; Z20.822 Contact with and (suspected) exposure to COVID-19; E78.5 Hyperlipidemia, unspecified; F10.10 Alcohol abuse, uncomplicated; F12.10 Cannabis abuse, uncomplicated; F17.210 Nicotine dependence, cigarettes, uncomplicated; F41.0 Panic disorder [episodic paroxysmal anxiety]; F43.10 Post-traumatic stress disorder, unspecified; F51.01 Primary insomnia; E11.9 Type 2 diabetes mellitus without complications; K21.9 Gastro-esophageal reflux disease without esophagitis; K27.9 Peptic ulcer, site unspecified, unspecified as acute or chronic, without hemorrhage or perforation; Z79.899 Other long term (current) drug therapy; Z83.3 Family history of diabetes mellitus; Z91.010 Allergy to peanuts; Z79.84 Long term (current) use of oral hypoglycemic drugs
CPT/HCPCS: 80053; 80061; 80306; 82075; 83036; 84443; 85025; 87635; 99285

== ENCOUNTER 2021-01-20 17:49 | Observation (INO) | payer OTHER ==
[2021-01-20] MEDS ORDERED: ONDANSETRON 4 MG/2 ML VIAL IVP STA (18:14)
[2021-01-20] MEDS ORDERED: MORPHINE SULFATE 4 MG/ML SYRINGE IV STA (18:14)
[2021-01-20] MEDS ORDERED: SODIUM CHLORIDE 0.9% 1,000 ML IV STA (18:14)
[2021-01-20] MEDS ORDERED: PANTOPRAZOLE 40 MG/10 ML VIAL IVP STA (18:18)
--- NOTE | 2021-01-20 18:22 | ED ---
Abdominal Pain HPI - General Chief Complaint: Abdominal Pain Stated Complaint: Abd/Back Pain Time Seen by Provider: 01/20/21 18:01 Source: patient, RN notes reviewed Mode of arrival: ambulatory Limitations: no limitations - History of Present Illness Initial Comments: Patient is a 50-year-old male that presents to emergency room complaining of abdominal pain for the last 2-3 days. He notes that he does have a history of chronic heartburn that is severe it causes him to be nauseous and vomiting. He notes that his recently got discharged with a urinary tract infection and was wondering. Possible that was passed on him. He was in no apparent distress or pain while sitting up in bed during exam and interview. He did note that his urine was a little bit concentrated he tries to drink 3-4 Gatorade rains per day. Patient did report a history of a kidney infection many years ago but no recent issues with kidney stones. He does have his appendix still. He denied any chest pain shortness breath headache diarrhea constipation fever fatigue chills. Patient does report history of pancreatitis. - Related Data Home Medications Medication Instructions Recorded Confirmed Dulaglutide [Trulicity] 0.75 mg SQ TH 09/28/20 11/14/20 Previous Rx's Medication Instructions Recorded Acetaminophen Tab [Tylenol] 650 mg PO Q4HR PRN tab 11/17/20 Atorvastatin [Lipitor] 40 mg PO HS #0 tab 11/17/20 Fenofibrate [Lofibra] 160 mg PO HS 30 Days tab 11/17/20 Nicotine 14Mg/24Hr Patch [Habitrol] 1 patch TRANSDERM DAILY 14 Days 11/17/20 patch QUEtiapine [SEROquel] 50 mg PO HS 30 Days tab 11/17/20 Sertraline [Zoloft] 200 mg PO DAILY 30 Days tab 11/17/20 Allergies Allergy/AdvReac Type Severity Reaction Status Date / Time peanut Allergy Swelling Verified 01/20/21 17:52 Surgical Tape Allergy hernandez Uncoded 01/20/21 17:52 skin,paper tape is ok Review of Systems ROS Statement: Those systems with pertinent positive or pertinent negative responses have been documented in the HPI. ROS Other: All systems not noted in ROS Statement are negative. Past Medical History Past Medical History: Chest Pain / Angina, Diabetes Mellitus, GERD/Reflux, Hyperlipidemia, Skin Disorder Additional Past Medical History / Comment(s): had diagestive issues all my life, pain epigastric area after eating,constipaiton, hx pancreatitis,Eczema. Hx ulcers, viral mennigitis. "Chronic chest pain, that Dr relates to acid reflux." States hx kidney problems but not sure what. History of Any Multi-Drug Resistant Organisms: None Reported Past Surgical History: Cholecystectomy, Hernia Repair Additional Past Surgical History / Comment(s): Piece of metal removed from right eye,umbilical hernia repair Past Anesthesia/Blood Transfusion Reactions: Previous Problems w/ Anesthesia Additional Past Anesthesia/Blood Transfusion Reaction / Comment(s): Combative with anesthesia and has woken up twice during surgeries Past Psychological History: Anxiety, Depression Smoking Status: Current every day smoker Past Alcohol Use History: None Reported Past Drug Use History: None Reported - Past Family History Mother Family Medical History: Diabetes Mellitus Additional Family Medical History / Comment(s): DM Father Family Medical History: AICD/Pacemaker General Exam Limitations: no limitations General appearance: alert, in no apparent distress Head exam: Present: atraumatic, normocephalic, normal inspection Eye exam: Present: normal appearance, PERRL, EOMI. Absent: scleral icterus, conjunctival injection, periorbital swelling Neck exam: Present: normal inspection Respiratory exam: Present: normal lung sounds bilaterally. Absent: respiratory distress, wheezes, rales, rhonchi, stridor Cardiovascular Exam: Present: regular rate, normal rhythm, normal heart sounds. Absent: systolic murmur, diastolic murmur, rubs, gallop, clicks GI/Abdominal exam: Present: soft, tenderness (Right lower quadrant right upper quadrant and suprapubic), normal bowel sounds. Absent: distended, guarding, rebound, rigid Extremities exam: Present: normal inspection, full ROM, normal capillary refill. Absent: tenderness, pedal edema, joint swelling, calf tenderness Neurological exam: Present: alert, oriented X3, CN II-XII intact Psychiatric exam: Present: normal affect, normal mood Skin exam: Present: warm, dry, intact, normal color. Absent: rash Course Vital Signs 01/20/21 01/20/21 17:50 18:52 Temperature 97.6 F 98.1 F Pulse Rate 117 H 107 H Respiratory 18 18 Rate Blood Pressure 129/76 115/84 O2 Sat by Pulse 97 97 Oximetry Medical Decision Making - Medical Decision Making 40-year-old male complaining of abdominal pain. Labs, 1 L normal saline, 4 g morphine, 4 mg of Zofran, 40 mg of Protonix, CT of abdomen and pelvis ordered. Labs: Lipase 880, rest of labs unremarkable. Case discussed with Dr. Cordero, wants to keep patient for observation Dr. Perry will accept the admit. - Lab Data Result diagrams: 01/20/21 18:40 01/20/21 18:40 Lab Results 01/20/21 01/20/21 01/20/21 Range/Units 18:40 18:40 18:40 WBC 9.3 (3.8-10.6) k/uL RBC 5.29 (4.30-5.90) m/uL Hgb 17.2 (13.0-17.5) gm/dL Hct 47.3 (39.0-53.0) % MCV 89.4 (80.0-100.0) fL MCH 32.4 (25.0-35.0) pg MCHC 36.3 (31.0-37.0) g/dL RDW 14.3 (11.5-15.5) % Plt Count 173 (150-450) k/uL MPV 8.0 Neutrophils % 61 % Lymphocytes % 26 % Monocytes % 5 % Eosinophils % 6 % Basophils % 1 % Neutrophils # 5.7 (1.3-7.7) k/uL Lymphocytes # 2.4 (1.0-4.8) k/uL Monocytes # 0.4 (0-1.0) k/uL Eosinophils # 0.6 (0-0.7) k/uL Basophils # 0.1 (0-0.2) k/uL Sodium 138 (137-145) mmol/L Potassium 3.8 (3.5-5.1) mmol/L Chloride 103 (98-107) mmol/L Carbon Dioxide 24 (22-30) mmol/L Anion Gap 11 mmol/L BUN 24 H (9-20) mg/dL Creatinine 1.16 (0.66-1.25) mg/dL Est GFR (CKD-EPI)AfAm 86 (>60 ml/min/1.73 sqM) Est GFR (CKD-EPI)NonAf 75 (>60 ml/min/1.73 sqM) Glucose 112 H (74-99) mg/dL Plasma Lactic Acid Osbaldo (0.7-2.0) mmol/L Calcium 9.7 (8.4-10.2) mg/dL Total Bilirubin 0.8 (0.2-1.3) mg/dL AST 38 (17-59) U/L ALT 50 H (4-49) U/L Alkaline Phosphatase 92 (38-126) U/L Total Protein 8.0 (6.3-8.2) g/dL Albumin 4.9 (3.5-5.0) g/dL Amylase 183 H (30-110) U/L Lipase 880 H (23-300) U/L Urine Color Dark Yellow Urine Appearance Cloudy (Clear) Urine pH 5.5 (5.0-8.0) Ur Specific [place] 1.027 (1.001-1.035) Urine Protein 2+ H (Negative) Urine Glucose (UA) Trace H (Negative) Urine Ketones Trace H (Negative) Urine Blood Small H (Negative) Urine Nitrite Negative (Negative) Urine Bilirubin 1+ H (Negative) Urine Urobilinogen 4.0 (<2.0) mg/dL Ur Leukocyte Esterase Trace H (Negative) Urine RBC 4 (0-5) /hpf Urine WBC 7 H (0-5) /hpf Ur Squamous Epith Cells 2 (0-4) /hpf Hyaline Casts 6 H (0-2) /lpf Urine Mucus Many H (None) /hpf 01/20/21 Range/Units 18:40 WBC (3.8-10.6) k/uL RBC (4.30-5.90) m/uL Hgb (13.0-17.5) gm/dL Hct (39.0-53.0) % MCV (80.0-100.0) fL MCH (25.0-35.0) pg MCHC (31.0-37.0) g/dL RDW (11.5-15.5) % Plt Count (150-450) k/uL MPV Neutrophils % % Lymphocytes % % Monocytes % % Eosinophils % % Basophils % % Neutrophils # (1.3-7.7) k/uL Lymphocytes # (1.0-4.8) k/uL Monocytes # (0-1.0) k/uL Eosinophils # (0-0.7) k/uL Basophils # (0-0.2) k/uL Sodium (137-145) mmol/L Potassium (3.5-5.1) mmol/L Chloride (98-107) mmol/L Carbon Dioxide (22-30) mmol/L Anion Gap mmol/L BUN (9-20) mg/dL Creatinine (0.66-1.25) mg/dL Est GFR (CKD-EPI)AfAm (>60 ml/min/1.73 sqM) Est GFR (CKD-EPI)NonAf (>60 ml/min/1.73 sqM) Glucose (74-99) mg/dL Plasma Lactic Acid Osbaldo 0.9 (0.7-2.0) mmol/L Calcium (8.4-10.2) mg/dL Total Bilirubin (0.2-1.3) mg/dL AST (17-59) U/L ALT (4-49) U/L Alkaline Phosphatase (38-126) U/L Total Protein (6.3-8.2) g/dL Albumin (3.5-5.0) g/dL Amylase (30-110) U/L Lipase (23-300) U/L Urine Color Urine Appearance (Clear) Urine pH (5.0-8.0) Ur Specific [place] (1.001-1.035) Urine Protein (Negative) Urine Glucose (UA) (Negative) Urine Ketones (Negative) Urine Blood (Negative) Urine Nitrite (Negative) Urine Bilirubin (Negative) Urine Urobilinogen (<2.0) mg/dL Ur Leukocyte Esterase (Negative) Urine RBC (0-5) /hpf Urine WBC (0-5) /hpf Ur Squamous Epith Cells (0-4) /hpf Hyaline Casts (0-2) /lpf Urine Mucus (None) /hpf - Radiology Data Radiology results: report reviewed, image reviewed CT of the abdomen and pelvis: No acute process. Disposition Clinical Impression: Pancreatitis Disposition: ADMITTED IP TO THIS [facility] Condition: Stable Is patient prescribed a controlled substance at d/c from ED?: No Referrals: Wagner Retana DO [Primary Care Provider] - 1-2 days Time of Disposition: 20:44
[2021-01-20 18:55] LABS: Basophils # (A) 0.1 k/uL (0-0.2); Basophils % (A) 1 %; Eosinophils # (A) 0.6 k/uL (0-0.7); Eosinophils % (A) 6 %; HCT 47.3 % (39.0-53.0); HGB 17.2 gm/dL (13.0-17.5); Lymphocytes # (A) 2.4 k/uL (1.0-4.8); Lymphocytes % (A) 26 %; MCH 32.4 pg (25.0-35.0); MCHC 36.3 g/dL (31.0-37.0); MCV 89.4 fL (80.0-100.0); Monocytes # (A) 0.4 k/uL (0-1.0); Monocytes % (A) 5 %; Neutrophils # (A) 5.7 k/uL (1.3-7.7); Neutrophils % (A) 61 %; Platelet Count 173 k/uL (150-450); RBC 5.29 m/uL (4.30-5.90); RDW 14.3 % (11.5-15.5); WBC 9.3 k/uL (3.8-10.6)
[2021-01-20 19:05] LABS: Albumin 4.9 g/dL (3.5-5.0); Calcium 9.7 mg/dL (8.4-10.2); Potassium 3.8 mmol/L (3.5-5.1); Total Bilirubin 0.8 mg/dL (0.2-1.3)
[2021-01-20 19:20] LABS: Appearance,Urine Cloudy (Clear); Bilirubin,Urine 1+ (Negative); Blood,Urine Small (Negative); Color,Urine Dark Yellow; Glucose,Urine (UA) Trace (Negative); Hyaline Casts,Urine 6 /lpf (0-2); Ketones,Urine Trace (Negative); Leukocyte Esterase,Urine Trace (Negative); Mucus,Urine Many /hpf; Nitrite,Urine Negative (Negative); PH, Urine 5.5 (5.0-8.0); Protein,Urine 2+ (Negative); RBC,Urine 4 /hpf (0-5); Specific Gravity,Urine 1.027 (1.001-1.035); Squamous Epithelial Cell,Urine 2 /hpf (0-4); WBC,Urine 7 /hpf (0-5)
--- NOTE | 2021-01-20 19:45 | CT ---
EXAMINATION TYPE: CT abdomen pelvis wo con DATE OF EXAM: 01/20/2021 COMPARISON: 07/04/2020 HISTORY: flank pain CT DLP: 554.7 mGycm Automated exposure control for dose reduction was used. TECHNIQUE: Helical acquisition of images was performed from the lung bases through the pelvis. FINDINGS: LUNG BASES: No acute findings. LIVER/GB: No significant abnormality is appreciated. PANCREAS: No significant abnormality is seen. SPLEEN: No significant abnormality is seen. ADRENALS: No significant abnormality is seen. KIDNEYS: No hydronephrosis or hydroureter. No calcifications. PERITONEAL CAVITY: No fluid or pneumoperitoneum. RETROPERITONEAL ADENOPATHY: None visualized REPRODUCTIVE ORGANS: No significant abnormality is seen URINARY BLADDER: No significant abnormality is seen. Distal ureters are unremarkable. PELVIC ADENOPATHY: None visualized. OSSEOUS STRUCTURES: No significant abnormality is seen. BOWEL: No significant abnormality is seen. Decubitus located at the level of the superior iliac renée t, with the appendix coursing caudally and medially, related to the anterior margin of the right psoa s IMPRESSION: No acute process.
[2021-01-20] MEDS ORDERED: NALOXONE 0.4 MG/ML 1 ML VIAL IV PRN (20:44)
[2021-01-20] MEDS ORDERED: ONDANSETRON 4 MG/2 ML VIAL IVP PRN (20:45)
[2021-01-20] MEDS ORDERED: MORPHINE SULFATE 4 MG/ML SYRINGE IV PRN (20:45)
[2021-01-20] MEDS: SODIUM CHLORIDE 0.9% 1,000 ML IV SCH (21:40)
[2021-01-20] MEDS ORDERED: QUEtiapine 50 MG TAB PO PRN (22:43)
[2021-01-20 22:54] LABS: Glucose,Whole Blood 81 mg/dL (75-99)
[2021-01-20] MEDS: QUEtiapine 100 MG TAB PO SCH (23:37)
[2021-01-21 07:08] LABS: Glucose,Whole Blood 87 mg/dL (75-99)
[2021-01-21] MEDS: INSULIN ASPART (NovoLOG) 100 UNIT/ML VIAL SQ SCH ×4 (08:13→20:26)
[2021-01-21] MEDS: SODIUM CHLORIDE 0.9% 1,000 ML IV SCH (10:34)
[2021-01-21 11:22] LABS: Glucose,Whole Blood 80 mg/dL (75-99)
[2021-01-21] MEDS ORDERED: FLUTICASONE 50MCG/SPRAY NASAL 16GM EA NOSTRIL PRN (15:50)
[2021-01-21] MEDS: PANTOPRAZOLE 40 MG/10 ML VIAL IVP SCH ×2 (16:09→21:00)
[2021-01-21] MEDS: VORTIOXETINE HYDROBROMIDE 20 MG TABLET PO SCH (16:19)
[2021-01-21 17:23] LABS: Glucose,Whole Blood 71 mg/dL (75-99)
--- NOTE | 2021-01-21 18:19 | HP ---
HISTORY AND PHYSICAL DATE OF SERVICE: 01/21/2021 CHIEF COMPLAINT: Abdominal pain. HISTORY OF PRESENT ILLNESS: This 50-year-old gentleman with a past medical history of previous pancreatitis, history of diabetes mellitus, GERD, hyperlipidemia, being followed by Dr. Wagner Retana in the outpatient setting, was admitted with abdominal pain. The patient was previously admitted to Inpatient [facility] for major depressive disorder without any psychotic features. There is no history of any fever, rigor or chills at this time. Patient is complaining of some abdominal pain which is mostly situated in the front of the abdomen, for the last 2-3 days. The patient also had chronic heartburn. The patient also had some UTI recently. The patient was found to have concentrated urine, and because of the abdominal pain the patient came to [facility] and was admitted for evaluation and treatment. Amylase was found to be 183, lipase 880. The patient was admitted for further evaluation and treatment. CT scan of the abdomen and pelvis was also done which showed no acute process at this time. There is no history of any fever, rigor or chills. No history of headache, loss of consciousness, seizures. The patient was taking Trulicity and Trintellix along with multiple other medications. PAST MEDICAL HISTORY: History of diabetes mellitus, GERD, hyperlipidemia, history of anxiety and depression. HOME MEDICATIONS: Vortioxetine, fluticasone, Lipitor, Seroquel, Remeron, doxepin, Seroquel, omeprazole, Trulicity. ALLERGIES: PEANUTS AND SURGICAL TAPE. FAMILY HISTORY: History of diabetes mellitus in the family. SOCIAL HISTORY: History of smoking. History of THC. REVIEW OF SYSTEMS: ENT: No diminished hearing. No diminished vision. CARDIOVASCULAR SYSTEM: No angina, palpitations. RESPIRATORY SYSTEM: No cough, hemoptysis. GI: As mentioned earlier. : No dysuria or retention. NERVOUS SYSTEM: No numbness, weakness. ALLERGY/IMMUNOLOGY: No asthma, hayfever. MUSCULOSKELETAL: As mentioned earlier. HEMATOLOGY/ONCOLOGY: No history of anemia. ENDOCRINE: No history of diabetes, hypothyroidism. CONSTITUTIONAL: As mentioned earlier. DERMATOLOGY: Negative. RHEUMATOLOGY: Negative. PSYCHIATRY: As mentioned earlier. PHYSICAL EXAMINATION: Patient alert and oriented x3. Pulse 74, blood pressure 126/77, respirations 16, temperature 97.7, pulse ox 97% on room air. HEENT: Conjunctivae normal. NECK: No jugular venous distention. NAUSEA CARDIOVASCULAR SYSTEM: S1, S2 muffled. RESPIRATORY SYSTEM: Breath sounds diminished at the bases. No rhonchi. No crackles. ABDOMEN: Soft. Mild diffuse tenderness present. LEGS: No edema. No swelling. NERVOUS SYSTEM: No focal deficit. LABS: CBC within normal limits. Glucose 112. Amylase 183, lipase 880. UA noted. ASSESSMENT: 1. Abdominal pain with possible acute pancreatitis. 2. History of previous acute pancreatitis. 3. History of urinary tract infection. 4. Diabetes mellitus, type 2. 5. Gastroesophageal reflux disease. 6. Hyperlipidemia. 7. History of constipation. 8. History of eczema. 9. History of cholecystectomy. 10.History of anxiety, depression. 11.History of panic attacks. 12.History of nicotine dependence. 13.History of tetrahydrocannabinol. 14.FULL CODE. RECOMMENDATIONS AND DISCUSSION: In this 50-year-old gentleman who presented with multiple complex medical issues, we will monitor the patient closely, continue the current medications, continue with symptomatic treatment. Keep the patient n.p.o. until the patient has some pain relief. Gastroenterology consultation. Resume the home medications. Guarded prognosis because of the multiple complex medical issues. Further recommendations to follow. A copy of this dictation is being forwarded to Dr. Wagner Retana, who is the primary physician. The Trulicity may be put on hold at this time and we will monitor the blood sugars closely. Further recommendations to follow. Trulicity has not been studied in patients with history of pancreatitis. MMODL / IJN: [id number] /
[2021-01-21 20:08] LABS: Glucose,Whole Blood 66 mg/dL (75-99)
[2021-01-21 20:48] LABS: Glucose,Whole Blood 73 mg/dL (75-99)
[2021-01-21] MEDS: QUEtiapine 100 MG TAB PO SCH (21:00)
[2021-01-21] MEDS ORDERED: MIRTAZAPINE 15 MG TAB PO SCH (21:00)
[2021-01-21] MEDS: DEXTROSE 5%-0.9% NACL 1,000 ML IV SCH (21:00)
[2021-01-21 22:37] LABS: Glucose,Whole Blood 85 mg/dL (75-99)
[2021-01-22 01:12] LABS: Glucose,Whole Blood 85 mg/dL (75-99)
[2021-01-22 01:50] LABS: African American GFR (CKD) 122.4 (60.0-200.0); Albumin 4.3 g/dL (3.80-4.90); Albumin/Globulin Ratio 2.15 (1.60-3.17); Anion Gap 12.6 mmol/L (4.00-12.00); BUN/Creat Ratio 23.75 Ratio (12.00-20.00); Calcium 8.3 mg/dL (8.7-10.3); Carbon Dioxide 17.4 mmol/L (21.6-31.8); Non-African American GFR(CKD) 105.6 (60.0-200.0); Total Bilirubin 0.6 mg/dL (0.2-1.2); Total Protein 6.3 g/dL (6.2-8.2)
[2021-01-22 03:11] VITALS: RESP 16
[2021-01-22 07:42] LABS: Glucose,Whole Blood 96 mg/dL (75-99)
[2021-01-22 08:02] VITALS: BP 137/82; PULSE 77; TEMP 98
[2021-01-22] MEDS: INSULIN ASPART (NovoLOG) 100 UNIT/ML VIAL SQ SCH ×2 (08:12→12:20)
[2021-01-22] MEDS: VORTIOXETINE HYDROBROMIDE 20 MG TABLET PO SCH (08:15)
[2021-01-22] MEDS: PANTOPRAZOLE 40 MG/10 ML VIAL IVP SCH (08:15)
[2021-01-22] MEDS: DEXTROSE 5%-0.9% NACL 1,000 ML IV SCH (08:16)
[2021-01-22 09:00] LABS: Basophils # (A) 0.07 X 10*3/uL (0.00-0.10); Eosinophils # (A) 0.32 X 10*3/uL (0.04-0.35); Eosinophils % (A) 4.5 %; HCT 44.7 % (39.6-50.0); HGB 14.9 g/dL (13.0-17.0); Lymphocytes # (A) 1.98 X 10*3/uL (0.90-5.00); Lymphocytes % (A) 27.8 %; MCH 30.6 pg (27.0-32.0); MCHC 33.3 g/dL (32.0-37.0); MCV 91.8 fL (80.0-97.0); Mean Platelet Volume 10.8 fL (9.5-12.2); Monocytes # (A) 0.47 X 10*3/uL (0.20-1.00); Monocytes % (A) 6.6 %; Neutrophils # (A) 4.23 X 10*3/uL (1.80-7.70); Neutrophils % (A) 59.4 %; Platelet Count 173 X 10*3/uL (140-440); RBC 4.87 X 10*6/uL (4.40-5.60); RDW 13.9 % (11.5-14.5); WBC 7.12 X 10*3/uL (4.50-10.00)
[2021-01-22 11:43] LABS: Glucose,Whole Blood 120 mg/dL (75-99)
--- NOTE | 2021-01-23 08:02 | DS ---
DISCHARGE SUMMARY DATE OF SERVICE: 01/22/2021 FINAL DIAGNOSES: 1. Abdominal pain with acute pancreatitis. 2. History of previous pancreatitis. 3. History of urinary tract infection. 4. Diabetes mellitus type 2. 5. History of gastroesophageal reflux disease. 6. Hyperlipidemia. 7. History of constipation. 8. History of eczema. 9. History of alopecia. 10.History of cholecystectomy. 11.History of anxiety, depression. 12.History of panic attacks. 13.History of nicotine dependence. 14.History of THC. 15.FULL CODE. DISCHARGE DISPOSITION: The patient will be discharged in stable condition with guarded prognosis. Total time 35 minutes. HISTORY OF PRESENT ILLNESS: This 50-year-old gentleman with a past medical history of multiple medical problems, being for Dr. Wagner Retana in the outpatient setting presented with features of acute pancreatitis. The patient treated symptomatically. Amylase land lipase normalized. CT scan of the abdomen and pelvis did not show any acute abnormality. The patient is able to tolerate p.o. fluids. The patient discharged in stable condition. Guarded prognosis On exam, vitals are stable. Cardiovascular system S1, S2. Abdomen soft, nontender. The patient also has some alopecia which for which I recommended Dermatology evaluation. Discharge diet is cardiac diet. Home medications are: 1. Fluticasone nasal spray as before. 2. Lipitor 20 mg daily. 3. Remeron 15 mg q.h.s. 4. Omeprazole 40 mg. 5. Seroquel 50 mg q.h.s. p.r.n. 6. Seroquel 100 mg q.h.s. 7. Doxepin 10 mg q.h.s. p.r.n. 8. Vortioxetine 20 mg p.o. daily. 9. Hold Trulicity. Accu-Cheks before meals and at bedtime. Follow up with Dr. Wagner Retana closely. Follow up with GI as recommended. Once again, the patient will be discharged in stable condition. Guarded prognosis. MMODL / IJN: [id number] /
== END 2021-01-22 13:20 ==
LOC: EC 17:49 → 6NMEDSUR 20:25
PROVIDERS: ADMIT Hospitalist; ATTEND Hospitalist
DX: K85.90 Acute pancreatitis without necrosis or infection, unspecified (principal); K21.9 Gastro-esophageal reflux disease without esophagitis; E11.9 Type 2 diabetes mellitus without complications; G89.29 Other chronic pain; R07.9 Chest pain, unspecified; L30.9 Dermatitis, unspecified; F32.9 Major depressive disorder, single episode, unspecified; F41.9 Anxiety disorder, unspecified; E78.5 Hyperlipidemia, unspecified; F17.200 Nicotine dependence, unspecified, uncomplicated; K59.00 Constipation, unspecified; F41.0 Panic disorder [episodic paroxysmal anxiety]; L65.9 Nonscarring hair loss, unspecified; Z20.822 Contact with and (suspected) exposure to COVID-19; Z79.899 Other long term (current) drug therapy; Z91.010 Allergy to peanuts; Z91.048 Other nonmedicinal substance allergy status; Z87.440 Personal history of urinary (tract) infections; Z90.49 Acquired absence of other specified parts of digestive tract; Z86.61 Personal history of infections of the central nervous system; Z86.59 Personal history of other mental and behavioral disorders; Z98.890 Other specified postprocedural states; Z83.3 Family history of diabetes mellitus; Z82.49 Family history of ischemic heart disease and other diseases of the circulatory system
CPT/HCPCS: 96376 ×2; 96361; 96374; 96375; 99285; 36415; 80053 ×2; 82150 ×2; 83605; 83690 ×2; 85025 ×2; 81001; 87040; 87086; 87635; 74176; G0378 ×3; J2270 ×2; J2405; C9113 ×3

== ENCOUNTER 2022-07-30 19:10 | Emergency (ER) | payer OTHER ==
[2022-07-30 19:40] VITALS: RESP 18; TEMP 97.6
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
[2022-07-30 20:32] VITALS: BP 127/77; PULSE 96
== END 2022-07-30 22:23 | disposition home or self-care (01) ==
LOC: EC 19:10
DX: R45.851 Suicidal ideations (principal); Z00.8 Encounter for other general examination; E11.9 Type 2 diabetes mellitus without complications; K21.9 Gastro-esophageal reflux disease without esophagitis; E78.5 Hyperlipidemia, unspecified; F17.200 Nicotine dependence, unspecified, uncomplicated; F32.A Depression, unspecified; L23.1 Allergic contact dermatitis due to adhesives; F41.9 Anxiety disorder, unspecified; Z79.02 Long term (current) use of antithrombotics/antiplatelets; Z79.810 Long term (current) use of selective estrogen receptor modulators (SERMs); Z79.83 Long term (current) use of bisphosphonates; Z91.010 Allergy to peanuts; Z79.899 Other long term (current) drug therapy
CPT/HCPCS: 82075; 99285

== ENCOUNTER 2023-04-20 15:16 | Inpatient (IN) | payer OTHER ==
[2023-04-20] MEDS ORDERED: SODIUM CHLORIDE 0.9% 1,000 ML IV ONE (16:37)
[2023-04-20] MEDS ORDERED: ONDANSETRON 4 MG/2 ML VIAL IVP STA (16:38)
[2023-04-20] MEDS ORDERED: DICYCLOMINE 10 MG/ML 2 ML AMP IM STA (16:56)
[2023-04-20 17:13] LABS: ALT 31 U/L (4-49); AST 28 U/L (17-59); African American GFR (CKD) 73 (>60 ml/min/1.73 sqM); Albumin 4.9 g/dL (3.5-5.0); Alkaline Phosphatase 121 U/L (38-126); Anion Gap 15 mmol/L; Blood Urea Nitrogen 28 mg/dL (9-20); Calcium 9.7 mg/dL (8.4-10.2); Carbon Dioxide 24 mmol/L (22-30); Chloride 100 mmol/L (98-107); Glucose 190 mg/dL (74-99); Non-African American GFR(CKD) 63 (>60 ml/min/1.73 sqM); Potassium 3.6 mmol/L (3.5-5.1); Sodium 139 mmol/L (137-145); Total Bilirubin 0.7 mg/dL (0.2-1.3); Total Protein 8.3 g/dL (6.3-8.2)
[2023-04-20 17:16] LABS: Basophils # (A) 0.1 k/uL (0-0.2); Basophils % (A) 1 %; Eosinophils # (A) 0.4 k/uL (0-0.7); Eosinophils % (A) 4 %; HCT 44.3 % (39.0-53.0); HGB 15.7 gm/dL (13.0-17.5); Lymphocytes # (A) 2.8 k/uL (1.0-4.8); Lymphocytes % (A) 25 %; MCH 30.9 pg (25.0-35.0); MCHC 35.5 g/dL (31.0-37.0); Mean Platelet Volume 8.6; Monocytes # (A) 0.6 k/uL (0-1.0); Monocytes % (A) 5 %; Neutrophils # (A) 7.3 k/uL (1.3-7.7); Neutrophils % (A) 64 %; Platelet Count 248 k/uL (150-450); Poikilocytosis Slight; WBC 11.3 k/uL (3.8-10.6)
--- NOTE | 2023-04-20 18:42 | CT ---
EXAMINATION TYPE: CT abdomen pelvis w con DATE OF EXAM: 04/20/2023 COMPARISON: 01/20/2021 HISTORY: 52-year-old male abdominal pain TECHNIQUE: Contiguous axial scanning of the abdomen and pelvis following administration of 100 ml Iso andra 300 IV contrast. Delayed images through the kidneys and coronal/sagittal reconstructions perform ed. CT DLP: 1118.5 mGycm Automated exposure control for dose reduction was used. FINDINGS: LUNG BASES: No significant abnormality is appreciated. LIVER/GB: Liver borderline enlarged at 17.8 cm with diminished attenuation. Portal venous system is p atent. No biliary ductal dilatation. Cholecystectomy clips. PANCREAS: No significant abnormality is seen. SPLEEN: Small calcified granulomas. ADRENALS: No significant abnormality is seen. KIDNEYS: No significant abnormality is seen. BOWEL: Small bowel loops are mildly distended and fluid-filled measuring up to 2.7 cm. There is a foc al area of equalization of small bowel content in the right mid abdomen, axial images 60 and correlat es 30. Possible transition point coronal image 33 and 34 very distal small bowel loops are relatively collapsed. No significant stool burden. Mild sigmoid diverticulosis. No pericolonic inflammatory matilda nge. Normal appendix. LYMPH NODES: No greater than 1cm abdominal or pelvic lymph nodes are appreciated. PELVIS: Mild circumferential bladder wall thickening. Left-sided pelvic phlebolith. No abnormal fluid collection in the pelvis or pelvic lymphadenopathy. OSSEOUS STRUCTURES: No significant abnormality is seen. Prominent anterior endplate spondylosis lowe r thoracic spine. OTHER: Mild atherosclerotic changes infrarenal abdominal aorta and common iliac arteries with fusifor m dilatation of the 2.4 cm but no oneida aneurysm. IMPRESSION: 1. POSSIBLE SMALL BOWEL TRANSITION POINT AT THE RIGHT MID ABDOMEN. DISTAL SMALL BOWEL LOOPS ARE RELAT IVELY COLLAPSED AND THERE IS MILD PROXIMAL FLUID DISTENTION UP TO 2.7 CM. UNABLE TO EXCLUDE EARLY DEV ELOPING SMALL BOWEL OBSTRUCTION. 2. BORDERLINE HEPATOMEGALY AT 17.8 CM WITH MILD TO MODERATE HEPATIC STEATOSIS. CORRELATE WITH LFT's, LIPID PROFILE, AND PATIENT RISK FACTORS. 3. Sigmoid diverticulosis without acute diverticulitis. 4. Mild circumferential bladder wall thickening could represent chronic bladder wall hypertrophy or c ystitis. Clinically correlate.
[2023-04-20] MEDS ORDERED: ONDANSETRON 4 MG/2 ML VIAL IVP PRN (19:09)
[2023-04-20] MEDS ORDERED: NALOXONE 0.4 MG/ML 1 ML VIAL IV PRN (19:09)
--- NOTE | 2023-04-20 19:09 | ED ---
General Adult HPI - General Chief complaint: Nausea/Vomiting/Diarrhea Stated complaint: vomiting Time Seen by Provider: 04/20/23 16:24 Source: patient, RN notes reviewed Mode of arrival: ambulatory Limitations: no limitations - History of Present Illness Initial comments: 52-year-old male with no significant past medical history presents to the emergency department with chief complaint of nausea and vomiting. He is also complaining of generalized abdominal pain that started on Sunday. He reports he recently Discharged from senior living on Sunday in his symptoms started. He denies any known sick contacts. He denies any known fevers, chills, sore throat, cough, chest pain, shortness of breath. Last bowel movement was this morning and diarrhea. He denies any melena, hematochezia. Denies any recent alcohol use or illicit drug use. Patient has a half a pack a day per smoker. - Related Data Home Medications Medication Instructions Recorded Confirmed Mirtazapine 15 mg PO HS 01/20/21 04/20/23 Atorvastatin Calcium [Lipitor] 80 mg PO HS 04/20/23 04/20/23 Omeprazole [PriLOSEC] 40 mg PO DAILY 04/20/23 04/20/23 Venlafaxine HCl ER [Effexor Xr] 150 mg PO DAILY 04/20/23 04/20/23 glipiZIDE [Glucotrol] 10 mg PO AC-BID 04/20/23 04/20/23 rOPINIRole HCL [Requip] 0.5 mg PO HS 04/20/23 04/20/23 Allergies Allergy/AdvReac Type Severity Reaction Status Date / Time peanut Allergy Swelling Verified 04/20/23 17:53 Surgical Tape Allergy hernandez Uncoded 04/20/23 17:53 skin,paper tape is ok Review of Systems ROS Statement: Those systems with pertinent positive or pertinent negative responses have been documented in the HPI. ROS Other: All systems not noted in ROS Statement are negative. Past Medical History Past Medical History: Chest Pain / Angina, Diabetes Mellitus, GERD/Reflux, Hyperlipidemia, Skin Disorder Additional Past Medical History / Comment(s): had diagestive issues all my life, pain epigastric area after eating,constipaiton, hx pancreatitis,Eczema. Hx ulcers, viral mennigitis. "Chronic chest pain, that Dr relates to acid reflux." States hx kidney problems but not sure what. History of Any Multi-Drug Resistant Organisms: None Reported Past Surgical History: Cholecystectomy, Hernia Repair Additional Past Surgical History / Comment(s): Piece of metal removed from right eye,umbilical hernia repair Past Anesthesia/Blood Transfusion Reactions: Previous Problems w/ Anesthesia Additional Past Anesthesia/Blood Transfusion Reaction / Comment(s): Combative with anesthesia and has woken up twice during surgeries Past Psychological History: Anxiety, Depression Smoking Status: Current every day smoker Past Alcohol Use History: None Reported Past Drug Use History: None Reported - Past Family History Mother Family Medical History: Diabetes Mellitus Additional Family Medical History / Comment(s): DM Father Family Medical History: AICD/Pacemaker General Exam - General Exam Comments Initial Comments: General: Alert, in no acute distress Head: atraumatic normocephalic. Eyes PERRL, EOMI intact, mucous membranes moist Respiratory: Lungs clear to auscultation bilaterally Cardiovascular: Heart rate regular rate and rhythm Abdominal: Soft without guarding or rebound, lysed abdominal tenderness Extremities: Normal inspection with full range of motion and normal capillary refill Neuroogic: alert and oriented 3, CN II-XII intact, able to ambulate with steady gait Skin: warm dry and intact with normal color Limitations: no limitations Course Vital Signs 04/20/23 15:25 Temperature 98.3 F Pulse Rate 122 H Respiratory 24 Rate Blood Pressure 123/72 O2 Sat by Pulse 98 Oximetry Medical Decision Making - Medical Decision Making Was pt. sent in by a medical professional or institution ([facility], DENIAL MANAGEMENT REPRESENTATIVE, urgent care, hospital, or senior living...) When possible be specific @ -[No] Did you speak to anyone other than the patient for history (EMS, parent, family, police, friend...)? What history was obtained from this source @ -[No] Did you review nursing and triage notes (agree or disagree)? Why? @ -[I reviewed and agree with nursing and triage notes] Were old charts reviewed (outside hosp., previous admission, EMS record, old EKG, old radiological studies, urgent care reports/EKG's, senior living records)? Report findings @ -[No old charts were reviewed] Differential Diagnosis (chest pain, altered mental status, abdominal pain women, abdominal pain men, vaginal bleeding, weakness, fever, dyspnea, syncope, headache, dizziness, GI bleed, back pain, seizure, CVA, palpatations, mental health, musculoskeletal)? @ -[not applicable] EKG interpreted by me (3pts min.). @ -[As above] X-rays interpreted by me (1pt min.). @ -[None done] CT interpreted by me (1pt min.). @ -CT reveals possible small bowel transition point at the right to mid abdomen there are distal small bowel loop that are relatively collapsed and mild fluid distention up to 2.7 cm. It is unable to exclude early small bowel obstruction. There is borderline hepatomegaly@17.8 cm Sigmoid diverticulosis without acute diverticulitis. U/S interpreted by me (1pt. min.). @ -[None done] What testing was considered but not performed or refused? (CT, X-rays, U/S, labs)? Why? @ -[None] What meds were considered but not given or refused? Why? @ -[None] Did you discuss the management of the patient with other professionals (p rofessionals i.e. , PA, DENIAL MANAGEMENT REPRESENTATIVE, lab, RT, psych nurse, hospice social worker, inpatient pharmacist, teacher, transport corps officer, protective services case worker)? Give summary @ -[No] Was smoking cessation discussed for >3mins.? @ -[No] Was critical care preformed (if so, how long)? @ -[No] Were there social determinants of health that impacted care today? How? (Homelessness, low income, unemployed, alcoholism, drug addiction, tr ansportation, low edu. Level, literacy, decrease access to med. care, senior living, rehab)? @ -[No] Was there de-escalation of care discussed even if they declined (Discuss DNR or withdrawal of care, Hospice)? DNR status @ -[No] What co-morbidities impacted this encounter? (DM, HTN, Smoking, COPD, CAD, Cancer, CVA, ARF, Chemo, Hep., AIDS, mental health diagnosis, sleep apnea, morbid obesity)? @ -[None] Was patient admitted / discharged? Hospital course, mention meds given and route, prescriptions, significant lab abnormalities, going to OR and other pertinent info. @ -Admission. This is a pleasant 52-year-old male with no significant past medical history who presents to the emergency department with nausea and vomiting. Patient had a thorough history and physical exam performed while in the emergency department. Heart rate regular rate and rhythm, lungs clear to auscultation bilaterally, abdomen generally tender. Patient had lab work and imaging performed which revealed possible small bowel obstruction. Patient updated on results and is agreeable with the plan for admission. NG tube will be placed. Patient will be admitted for fluid resuscitation to [facility] with consult to general surgery. He is discussed with Dr. King [facility] who agrees with plan of care Undiagnosed new problem with uncertain prognosis? @ -[No] Drug Therapy requiring intensive monitoring for toxicity (Heparin, Nitro, Insulin, Cardizem)? @ -[No] Were any procedures done? @ -[No] Diagnosis/symptom? @ -Nausea and vomiting - Small Bowel Obstruction Acute, or Chronic, or Acute on Chronic? @ -Acute Uncomplicated (without systemic symptoms) or Complicated (systemic symptoms)? @ -Uncomplicated Side effects of treatment? @ -[No] Exacerbation, Progression, or Severe Exacerbation? @ -[No] Poses a threat to life or bodily function? How? (Chest pain, USA, MD, pneumonia, PE, COPD, DKA, ARF, appy, cholecystitis, CVA, Diverticulitis, Homicidal, Layne cidal, threat to staff... and all critical care pts) @ -Moderate likelihood, increased risk for bowel perforation - Lab Data Result diagrams: 04/20/23 16:45 04/20/23 16:45 Lab Results 04/20/23 04/20/23 04/20/23 Range/Units 16:45 16:45 16:45 WBC 11.3 H (3.8-10.6) k/uL RBC 5.10 (4.30-5.90) m/uL Hgb 15.7 (13.0-17.5) gm/dL Hct 44.3 (39.0-53.0) % MCV 87.0 (80.0-100.0) fL MCH 30.9 (25.0-35.0) pg MCHC 35.5 (31.0-37.0) g/dL RDW 15.0 (11.5-15.5) % Plt Count 248 (150-450) k/uL MPV 8.6 Neutrophils % 64 % Lymphocytes % 25 % Monocytes % 5 % Eosinophils % 4 % Basophils % 1 % Neutrophils # 7.3 (1.3-7.7) k/uL Lymphocytes # 2.8 (1.0-4.8) k/uL Monocytes # 0.6 (0-1.0) k/uL Eosinophils # 0.4 (0-0.7) k/uL Basophils # 0.1 (0-0.2) k/uL Poikilocytosis Slight Sodium 139 (137-145) mmol/L Potassium 3.6 (3.5-5.1) mmol/L Chloride 100 (98-107) mmol/L Carbon Dioxide 24 (22-30) mmol/L Anion Gap 15 mmol/L BUN 28 H (9-20) mg/dL Creatinine 1.31 H (0.66-1.25) mg/dL Est GFR (CKD-EPI)AfAm 73 (>60 ml/min/1.73 sqM) Est GFR (CKD-EPI)NonAf 63 (>60 ml/min/1.73 sqM) Glucose 190 H (74-99) mg/dL Calcium 9.7 (8.4-10.2) mg/dL Total Bilirubin 0.7 (0.2-1.3) mg/dL AST 28 (17-59) U/L ALT 31 (4-49) U/L Alkaline Phosphatase 121 (38-126) U/L Total Protein 8.3 H (6.3-8.2) g/dL Albumin 4.9 (3.5-5.0) g/dL Influenza Type A (PCR) Not Detected (Not Detectd) Influenza Type B (PCR) Not Detected (Not Detectd) RSV (PCR) Not Detected (Not Detectd) SARS-CoV-2 (PCR) Not Detected (Not Detectd) Disposition Clinical Impression: Nausea and vomiting, Small bowel obstruction Disposition: ADMITTED IP TO THIS HOSP Referrals: Wagner Retana DO [Primary Care Provider] - 1-2 days Time of Disposition: 19:09
[2023-04-20] MEDS: SODIUM CHLORIDE 0.9% 1,000 ML IV SCH (19:23)
[2023-04-20] MEDS: NICOTINE 21MG/24HR PATCH TRANSDERM SCH (19:24)
--- NOTE | 2023-04-20 21:16 | XR ---
EXAMINATION TYPE: XR chest 1V DATE OF EXAM: 04/20/2023 COMPARISON: 07/04/2020 HISTORY: 52-year-old male NG tube placement check TECHNIQUE: Single frontal view of the chest is obtained. FINDINGS: The heart is normal size. Aorta and pulmonary vasculature within normal limits. No consoli dation or pleural effusion. NG tube courses below the diaphragm, satisfactorily. IMPRESSION: Satisfactory NG tube. No acute process seen.
[2023-04-21 07:10] LABS: Glucose,Whole Blood 173 mg/dL (70-110)
[2023-04-21] MEDS: NICOTINE 21MG/24HR PATCH TRANSDERM SCH (09:38)
[2023-04-21] MEDS: SODIUM CHLORIDE 0.9% 1,000 ML IV SCH (09:39)
[2023-04-21 10:17] LABS: Basophils # (A) 0.09 X 10*3/uL (0.00-0.10); Basophils % (A) 1.2 %; Eosinophils % (A) 5.5 %; HCT 41.5 % (39.6-50.0); HGB 13.7 d/dL (13.0-17.0); Lymphocytes # (A) 2.36 X 10*3/uL (0.90-5.00); Lymphocytes % (A) 32.4 %; MCH 29.8 pg (27.0-32.0); MCV 90.2 FL (80.0-97.0); Mean Platelet Volume 11.2 FL (9.5-12.2); Monocytes # (A) 0.59 X 10*3/uL (0.20-1.00); Monocytes % (A) 8.1 %; NRBC Per 100 WBC 0 X 10*3/uL (0.00-0.01); Neutrophils # (A) 3.78 X 10*3/uL (1.80-7.70); Platelet Count 227 X 10*3/uL (140-440); RDW 14.7 % (11.5-14.5); WBC 7.28 X 10*3/uL (4.50-10.00)
--- NOTE | 2023-04-21 10:27 | P.GSCN ---
History of Present Illness Consult date: 04/21/23 Reason for Consult: Abdominal pain History of present illness: 52-year-old male came to the hospital with complaints of nausea vomiting, diarrh ea, and sharp abdominal pain. Symptoms began on Sunday with diarrhea only. On Sunday the patient had episodes of diarrhea associated with numerous episodes of vomiting. He started been having some abdominal cramps and stabbing pains. This persisted on and Sunday morning and he came to the ER on Sunday for this. Since he is been here he has had no further diarrhea. He only had 1 episode of vomiting in the ER after arrival. Patient had a CAT scan performed showing mild small bowel dilation. Possible transition point described on CAT scan. Patient says his pain is improved today. He is afebrile. Creatinine and white blood cell slightly elevated on admission. White blood cell count normal today. He is hungry. History of EGD and colonoscopy by Dr. Francis 2 years ago. History of laparoscopic ventral hernia repair by Dr. Holman four years ago. Review of Systems The patient denies any acute changes in vision or hearing, no dysphagia or o dynophagia, no chest pain or shortness of breath, no dysuria or hematuria, no headache, no runny nose, no rectal bleeding or melena, no unexplained weight loss Past Medical History Past Medical History: Chest Pain / Angina, Diabetes Mellitus, GERD/Reflux, Hyp erlipidemia, Skin Disorder Additional Past Medical History / Comment(s): had diagestive issues all my life, pain epigastric area after eating,constipaiton, hx pancreatitis,Eczema. Hx ulcers, viral mennigitis. "Chronic chest pain, that relates to acid reflux." States hx kidney problems but not sure what. History of Any Multi-Drug Resistant Organisms: None Reported Past Surgical History: Cholecystectomy, Hernia Repair Additional Past Surgical History / Comment(s): Piece of metal removed from right eye,umbilical hernia repair Past Anesthesia/Blood Transfusion Reactions: Previous Problems w/ Anesthesia Additional Past Anesthesia/Blood Transfusion Reaction / Comm: Combative with anesthesia and has woken up twice during surgeries Past Psychological History: Anxiety, Depression Additional Psychological History / Comment(s): Hx panic attacks. Smoking Status: Current every day smoker Past Alcohol Use History: None Reported Additional Past Alcohol Use History / Comment(s): Started smoking at age 15, smoked between 3/4 to 1.5 ppd, currently down to 6 cigarettes per day. Past Drug Use History: None Reported Additional Drug Use History / Comment(s): . - Past Family History Mother Family Medical History: Diabetes Mellitus Additional Family Medical History / Comment(s): DM Father Family Medical History: AICD/Pacemaker Medications and Allergies Home Medications Medication Instructions Recorded Confirmed Type Mirtazapine 15 mg PO HS 01/20/21 04/20/23 History Atorvastatin Calcium [Lipitor] 80 mg PO HS 04/20/23 04/20/23 History Omeprazole [PriLOSEC] 40 mg PO DAILY 04/20/23 04/20/23 History Venlafaxine HCl ER [Effexor Xr] 150 mg PO DAILY 04/20/23 04/20/23 History glipiZIDE [Glucotrol] 10 mg PO AC-BID 04/20/23 04/20/23 History rOPINIRole HCL [Requip] 0.5 mg PO HS 04/20/23 04/20/23 History Allergies Allergy/AdvReac Type Severity Reaction Status Date / Time peanut Allergy Swelling Verified 04/20/23 17:53 Surgical Tape Allergy hernandez Uncoded 04/20/23 17:53 skin,paper tape is ok Surgical - Exam Vital Signs Temp Pulse Resp BP Pulse Ox 98.3 F 122 H 24 123/72 98 04/20/23 15:25 04/20/23 15:25 04/20/23 15:25 04/20/23 15:25 04/20/23 15:25 Physical exam: General: Well-developed, well-nourished HEENT: Normocephalic, sclerae nonicteric Abdomen: Mild diffuse tenderness, nondistended Extremities: No edema Neuro: Alert and oriented Results - Labs 04/21/23 05:26 04/20/23 16:45 Abnormal Lab Results - Last 24 Hours (Table) 04/20/23 04/20/23 04/21/23 Range/Units 16:45 16:45 05:26 WBC 11.3 H (3.8-10.6) k/uL RDW 14.7 H (11.5-14.5) % Eosinophils # 0.40 H (0.04-0.35) X 10*3/uL BUN 28 H (9-20) mg/dL Creatinine 1.31 H (0.66-1.25) mg/dL Glucose 190 H (74-99) mg/dL POC Glucose (mg/dL) (70-110) mg/dL Total Protein 8.3 H (6.3-8.2) g/dL 04/21/23 Range/Units 07:09 WBC (3.8-10.6) k/uL RDW (11.5-14.5) % Eosinophils # (0.04-0.35) X 10*3/uL BUN (9-20) mg/dL Creatinine (0.66-1.25) mg/dL Glucose (74-99) mg/dL POC Glucose (mg/dL) 173 H (70-110) mg/dL Total Protein (6.3-8.2) g/dL Diabetes panel 04/20/23 Range/Units 16:45 Sodium 139 (137-145) mmol/L Potassium 3.6 (3.5-5.1) mmol/L Chloride 100 (98-107) mmol/L Carbon Dioxide 24 (22-30) mmol/L BUN 28 H (9-20) mg/dL Creatinine 1.31 H (0.66-1.25) mg/dL Glucose 190 H (74-99) mg/dL Calcium 9.7 (8.4-10.2) mg/dL AST 28 (17-59) U/L ALT 31 (4-49) U/L Alkaline Phosphatase 121 (38-126) U/L Total Protein 8.3 H (6.3-8.2) g/dL Albumin 4.9 (3.5-5.0) g/dL Calcium panel 04/20/23 Range/Units 16:45 Calcium 9.7 (8.4-10.2) mg/dL Albumin 4.9 (3.5-5.0) g/dL Pituitary panel 04/20/23 Range/Units 16:45 Sodium 139 (137-145) mmol/L Potassium 3.6 (3.5-5.1) mmol/L Chloride 100 (98-107) mmol/L Carbon Dioxide 24 (22-30) mmol/L BUN 28 H (9-20) mg/dL Creatinine 1.31 H (0.66-1.25) mg/dL Glucose 190 H (74-99) mg/dL Calcium 9.7 (8.4-10.2) mg/dL Adrenal panel 04/20/23 Range/Units 16:45 Sodium 139 (137-145) mmol/L Potassium 3.6 (3.5-5.1) mmol/L Chloride 100 (98-107) mmol/L Carbon Dioxide 24 (22-30) mmol/L BUN 28 H (9-20) mg/dL Creatinine 1.31 H (0.66-1.25) mg/dL Glucose 190 H (74-99) mg/dL Calcium 9.7 (8.4-10.2) mg/dL Total Bilirubin 0.7 (0.2-1.3) mg/dL AST 28 (17-59) U/L ALT 31 (4-49) U/L Alkaline Phosphatase 121 (38-126) U/L Total Protein 8.3 H (6.3-8.2) g/dL Albumin 4.9 (3.5-5.0) g/dL Assessment and Plan (1) Nausea and vomiting Narrative/Plan: 52-year-old male with presentation regarding nausea vomiting, abdominal pain, and diarrhea. Suspect possible gastroenteritis. Check stool studies. Begin clear liquids. Repeat abdominal x-rays tomorrow. Will follow. Current Visit: Yes Status: Acute Code(s): R11.2 - NAUSEA WITH VOMITING, UNSPECIFIED SNOMED Code(s): 14881155
[2023-04-21 11:44] LABS: Glucose,Whole Blood 200 mg/dL (70-110)
[2023-04-21 11:51] LABS: BUN/Creat Ratio 21.44 Ratio (12.00-20.00); Blood Urea Nitrogen 19.3 mg/dL (9.0-27.0); Carbon Dioxide 25.4 mmol/L (21.6-31.8); Chloride 105 mmol/L (96-109); Glucose 174 mg/dL (70-110); Potassium 4.2 mmol/L (3.5-5.5); Sodium 142 mmol/L (135-145)
[2023-04-21] MEDS: HEPARIN SODIUM,PORCINE 5,000 UNIT/ML 1 ML VIAL SQ SCH ×2 (13:18→20:57)
--- NOTE | 2023-04-21 13:22 | HP ---
HISTORY AND PHYSICAL CHIEF COMPLAINT: Nausea, vomiting, and generalized abdominal pain. HISTORY OF PRESENT ILLNESS: This is a 52-year-old gentleman with a past medical history of diabetes mellitus type 2 and hyperlipidemia, being followed by Dr. Yazmin Retana in the outpatient, complaining of nausea, vomiting, and diffuse abdominal pain. The patient came to [facility] and CT scan of the abdomen and pelvis showed suspicious small bowel obstruction. He is being evaluated by Surgery at this time. The patient also had a laparoscopic ventral hernia repair by Dr. Mathews. There is no history of any fever, rigors, or chills. The patient also has some diarrhea. PAST MEDICAL HISTORY: Reviewed include diabetes mellitus type 2, hyperlipidemia, GERD. Rest of the history and rest of the chart is also reviewed. HOME MEDICATIONS: Reviewed include Requip. Dose and rest of medications reviewed. ALLERGIES: Peanuts and surgical tape. FAMILY HISTORY: History of diabetes mellitus. SOCIAL HISTORY: History of smoking continued ongoing. REVIEW OF SYSTEMS: Fourteen-point review is negative except as mentioned earlier. PHYSICAL EXAMINATION: VITAL SIGNS: Pulse 96, blood pressure 130/70, respirations 18. CHEST: Clear to auscultation. CARDIOVASCULAR: S1, S2. ABDOMEN: Soft, distended. Mild diffuse discomfort. LEGS: No edema. NERVOUS SYSTEM: Nonfocal. LABORATORY DATA: Accu-Cheks 200. Rest of the labs are noted. ASSESSMENT: 1. Abdominal pain, nausea, vomiting, diarrhea, possible partial small bowel obstruction. 2. Possible acute gastroenteritis. 3. Diabetes mellitus, type 2. 4. Gastroesophageal reflux disease. 5. Hyperlipidemia. RECOMMENDATIONS: Recommend to continue current management and continue symptomatic treatment. Otherwise, continue with symptomatic plan of treatment and closely follow with surgery. Resume the home medications once they are confirmed. Prognosis guarded. Further recommendations to follow. See orders for further details. MMODL / IJN: [id number] /
[2023-04-21] MEDS ORDERED: HYDROmorphone 0.5 MG/0.5 ML SYRINGE IVP PRN (15:31)
[2023-04-21] MEDS: HYDROcodone/APAP 5-325MG 1 EACH TAB PO PRN ×2 (15:43→19:52)
[2023-04-21 17:12] LABS: Glucose,Whole Blood 132 mg/dL (70-110)
[2023-04-21 20:03] LABS: Glucose,Whole Blood 152 mg/dL (70-110)
[2023-04-21] MEDS: MIRTAZAPINE 15 MG TAB PO SCH (20:57)
[2023-04-21] MEDS: ATORVASTATIN 80 MG TAB PO SCH (20:57)
[2023-04-22] MEDS: SODIUM CHLORIDE 0.9% 1,000 ML IV SCH ×3 (01:49→15:01)
[2023-04-22 07:10] LABS: Glucose,Whole Blood 134 mg/dL (70-110)
[2023-04-22] MEDS: PANTOPRAZOLE 40 MG TABLET PO SCH (08:17)
[2023-04-22] MEDS: VENLAFAXINE HCL ER 150 MG CAP PO SCH (08:17)
[2023-04-22] MEDS: HEPARIN SODIUM,PORCINE 5,000 UNIT/ML 1 ML VIAL SQ SCH ×2 (08:17→21:11)
[2023-04-22] MEDS: NICOTINE 21MG/24HR PATCH TRANSDERM SCH (08:21)
--- NOTE | 2023-04-22 08:29 | XR ---
EXAMINATION TYPE: XR abdomen 2V DATE OF EXAM: 04/22/2023 HISTORY: Pain. Technique: 3 views of the abdomen are submitted. Comparison: None. Findings: There is no convincing evidence of pneumoperitoneum. The Bowel gas pattern is nonspecific and nonobstructive. No sizable air-fluid levels are seen. No mass effects are noted. No renal calcifications are identified. IMPRESSION: 1. Nonspecific nonobstructive bowel gas pattern
--- NOTE | 2023-04-22 08:54 | P.PN ---
Subjective Progress Note Date: 04/22/23 Principal diagnosis: Abdominal pain Patient says his abdominal pain is improved today. He has not had any stools since admission. No further vomiting. Tolerating clear liquids. Today's x- rays show a nonspecific gas pattern. He is complaining more of left-sided back pain today. Says he has had pain in the kidneys in the past no dysuria or hematuria. Objective - Vital Signs Vital signs: Vital Signs Temp 97.6 F 04/22/23 07:10 Pulse 72 04/22/23 07:10 Resp 18 04/22/23 07:10 BP 138/81 04/22/23 07:10 Pulse Ox 99 04/22/23 07:10 FiO2 Intake & Output 04/21/23 04/22/23 04/22/23 18:59 06:59 18:59 Output Total 300 Balance -300 Output: Urine 300 Other: Voiding Method Toilet - Exam Abdomen: Soft, nondistended, mild mid abdominal tenderness - Labs CBC & Chem 7: 04/21/23 05:26 04/21/23 05:26 Labs: Abnormal Lab Results - Last 24 Hours (Table) 04/21/23 04/21/23 04/21/23 Range/Units 05:26 05:26 11:42 RDW 14.7 H (11.5-14.5) % Eosinophils # 0.40 H (0.04-0.35) X 10*3/uL BUN/Creatinine Ratio 21.44 H (12.00-20.00) Ratio Glucose 174 H (70-110) mg/dL POC Glucose (mg/dL) 200 H (70-110) mg/dL 04/21/23 04/21/23 04/22/23 Range/Units 17:11 20:02 07:09 RDW (11.5-14.5) % Eosinophils # (0.04-0.35) X 10*3/uL BUN/Creatinine Ratio (12.00-20.00) Ratio Glucose (70-110) mg/dL POC Glucose (mg/dL) 132 H 152 H 134 H (70-110) mg/dL Assessment and Plan (1) Nausea and vomiting Narrative/Plan: 52-year-old male with abdominal pain nausea vomiting and diarrhea. The symptoms have improved since admission. No further diarrhea. Advance to full liquid diet. Possible discharge tolerates and pain improves. Current Visit: Yes Status: Acute Code(s): R11.2 - NAUSEA WITH VOMITING, UNSPECIFIED SNOMED Code(s): 77040169
[2023-04-22 10:45] LABS: Basophils # (A) 0.03 X 10*3/uL (0.00-0.10); Basophils % (A) 0.7 %; Eosinophils # (A) 0.24 X 10*3/uL (0.04-0.35); Eosinophils % (A) 5.6 %; HCT 36.2 % (39.6-50.0); Lymphocytes # (A) 2.11 X 10*3/uL (0.90-5.00); Lymphocytes % (A) 49.4 %; MCH 29.6 pg (27.0-32.0); MCHC 33.1 d/dL (32.0-37.0); MCV 89.4 FL (80.0-97.0); Monocytes # (A) 0.31 X 10*3/uL (0.20-1.00); Monocytes % (A) 7.3 %; NRBC Per 100 WBC 0 X 10*3/uL (0.00-0.01); Neutrophils # (A) 1.55 X 10*3/uL (1.80-7.70); Neutrophils % (A) 36.3 %; Platelet Count 184 X 10*3/uL (140-440); RBC 4.05 X 10*6/uL (4.40-5.60); RDW 14.2 % (11.5-14.5); WBC 4.27 X 10*3/uL (4.50-10.00)
[2023-04-22 11:18] LABS: Glucose,Whole Blood 165 mg/dL (70-110)
[2023-04-22 11:50] LABS: BUN/Creat Ratio 12.25 Ratio (12.00-20.00); Blood Urea Nitrogen 9.8 mg/dL (9.0-27.0); Calcium 8.3 mg/dL (8.7-10.3); Carbon Dioxide 26.2 mmol/L (21.6-31.8); Chloride 107 mmol/L (96-109); Glucose 134 mg/dL (70-110); Potassium 3.7 mmol/L (3.5-5.5); Sodium 142 mmol/L (135-145)
[2023-04-22 17:03] LABS: Glucose,Whole Blood 125 mg/dL (70-110)
[2023-04-22 20:49] LABS: Glucose,Whole Blood 160 mg/dL (70-110)
[2023-04-22] MEDS: MIRTAZAPINE 15 MG TAB PO SCH (21:11)
[2023-04-22] MEDS: ATORVASTATIN 80 MG TAB PO SCH (21:11)
--- NOTE | 2023-04-22 23:29 | PN ---
PROGRESS NOTE DATE OF SERVICE: 04/22/2023 SUBJECTIVE: This is a 52-year-old gentleman, who was admitted with acute gastroenteritis versus acute small-bowel obstruction, is complaining of abdominal pain. No chest pain. No palpitations. No fever. The abdominal x-ray, which I reviewed showed nonspecific pattern. OBJECTIVE: VITAL SIGNS: Pulse is 72, blood pressure 130/81, respirations 18. CHEST: Clear to auscultation. CARDIOVASCULAR: S1, S2. ABDOMEN: Soft, obese. Mild diffuse disease. No guarding. No rigidity. NERVOUS SYSTEM: Nonfocal. LABORATORY DATA: Reviewed. ASSESSMENT: 1. Abdominal pain, nausea, vomiting, diarrhea, possibly acute gastroenteritis versus partial small bowel obstruction. 2. Diabetes mellitus, type 2. 3. Continued abdominal pain. 4. Gastroesophageal reflux disease. 5. Hyperlipidemia. RECOMMENDATIONS: Recommend to continue current management and continue symptomatic treatment. Continue with pain management. Otherwise advance diet per Surgery. I would recommend repeat labs. Further recommendations to follow. C diff also has been requested. MMODL / IJN: [id number] /
[2023-04-23 07:32] LABS: Glucose,Whole Blood 137 mg/dL (70-110)
[2023-04-23] MEDS: HEPARIN SODIUM,PORCINE 5,000 UNIT/ML 1 ML VIAL SQ SCH ×2 (08:52→21:35)
[2023-04-23] MEDS: PANTOPRAZOLE 40 MG TABLET PO SCH (08:52)
[2023-04-23] MEDS: NICOTINE 21MG/24HR PATCH TRANSDERM SCH (08:52)
[2023-04-23] MEDS: VENLAFAXINE HCL ER 150 MG CAP PO SCH (08:53)
--- NOTE | 2023-04-23 09:12 | P.PN ---
Subjective Progress Note Date: 04/23/23 Principal diagnosis: Abdominal pain Patient doing well today. Tolerated regular diet for dinner last night. No significant pain at this time. He says he is planning to go home today. No diarrhea. Objective - Vital Signs Vital signs: Vital Signs Temp 97.7 F 04/23/23 07:25 Pulse 74 04/23/23 07:25 Resp 18 04/23/23 07:25 BP 138/84 04/23/23 07:25 Pulse Ox 98 04/23/23 07:25 FiO2 Intake & Output 04/22/23 04/23/23 04/23/23 18:59 06:59 18:59 Intake Total 440 Output Total 800 Balance -800 440 Intake: Oral 440 Output: Urine 800 Other: Voiding Method Toilet Toilet # Voids 2 - Exam Abdomen: Soft, nondistended, nontender - Labs CBC & Chem 7: 04/22/23 05:45 04/22/23 05:45 Labs: Abnormal Lab Results - Last 24 Hours (Table) 04/22/23 04/22/23 04/22/23 Range/Units 05:45 05:45 11:17 WBC 4.27 L (4.50-10.00) X 10*3/uL RBC 4.05 L (4.40-5.60) X 10*6/uL Hgb 12.0 L (13.0-17.0) d/dL Hct 36.2 L (39.6-50.0) % Neutrophils # 1.55 L (1.80-7.70) X 10*3/uL Glucose 134 H (70-110) mg/dL POC Glucose (mg/dL) 165 H (70-110) mg/dL Calcium 8.3 L (8.7-10.3) mg/dL 04/22/23 04/22/23 04/23/23 Range/Units 17:02 20:46 07:30 WBC (4.50-10.00) X 10*3/uL RBC (4.40-5.60) X 10*6/uL Hgb (13.0-17.0) d/dL Hct (39.6-50.0) % Neutrophils # (1.80-7.70) X 10*3/uL Glucose (70-110) mg/dL POC Glucose (mg/dL) 125 H 160 H 137 H (70-110) mg/dL Calcium (8.7-10.3) mg/dL Assessment and Plan (1) Nausea and vomiting Narrative/Plan: Patient doing well at this time. Continue advancing diet. Discharge. Current Visit: Yes Status: Acute Code(s): R11.2 - NAUSEA WITH VOMITING, UNSPECIFIED SNOMED Code(s): 77328942
[2023-04-23 12:00] LABS: Glucose,Whole Blood 162 mg/dL (70-110)
[2023-04-23 14:40] LABS: BUN/Creat Ratio 11.29 Ratio (12.00-20.00); Blood Urea Nitrogen 7.9 mg/dL (9.0-27.0); Calcium 8.6 mg/dL (8.7-10.3); Carbon Dioxide 24.5 mmol/L (21.6-31.8); Chloride 108 mmol/L (96-109); Glucose 151 mg/dL (70-110); Potassium 3.6 mmol/L (3.5-5.5); Sodium 142 mmol/L (135-145)
[2023-04-23 15:01] LABS: Basophils # (A) 0.06 X 10*3/uL (0.00-0.10); Basophils % (A) 1.4 %; Eosinophils # (A) 0.19 X 10*3/uL (0.04-0.35); Eosinophils % (A) 4.3 %; HCT 36.4 % (39.6-50.0); HGB 12.6 d/dL (13.0-17.0); Lymphocytes # (A) 1.79 X 10*3/uL (0.90-5.00); Lymphocytes % (A) 40.3 %; MCH 30.3 pg (27.0-32.0); MCHC 34.6 d/dL (32.0-37.0); MCV 87.5 FL (80.0-97.0); Mean Platelet Volume 11.4 FL (9.5-12.2); Monocytes # (A) 0.23 X 10*3/uL (0.20-1.00); Monocytes % (A) 5.2 %; NRBC Per 100 WBC 0 X 10*3/uL (0.00-0.01); Neutrophils # (A) 2.14 X 10*3/uL (1.80-7.70); Neutrophils % (A) 48.1 %; Platelet Count 185 X 10*3/uL (140-440); RBC 4.16 X 10*6/uL (4.40-5.60); RDW 13.8 % (11.5-14.5); WBC 4.44 X 10*3/uL (4.50-10.00)
[2023-04-23] MEDS: SODIUM CHLORIDE 0.9% 1,000 ML IV SCH (17:07)
[2023-04-23 17:14] LABS: Glucose,Whole Blood 152 mg/dL (70-110)
[2023-04-23 20:30] LABS: Glucose,Whole Blood 224 mg/dL (70-110)
[2023-04-23] MEDS: MIRTAZAPINE 15 MG TAB PO SCH (21:34)
[2023-04-23] MEDS: ATORVASTATIN 80 MG TAB PO SCH (21:34)
--- NOTE | 2023-04-23 23:24 | P.PN ---
Subjective This is a pleasant 52 years old male with multiple medical problems He presents with signs symptoms of small bowel obstruction seen on CAT scan of t he abdomen and pelvis. Also he has some evidence with mild hepatomegaly with hepatic steatosis (patient informed with this problem and he agrees to follow up with GI as an outpatient) and urinary bladder wall thickening (patient informed with this problem as well and recommended follow-up with urologist Dr. Abdullahi as an outpatient and he agrees). He was treated symptomatically with IV fluids and bowel rest and pain management This morning he states that he tolerates diet well he still have some abdominal pain about 5/10 and he does not have bowel movement Vitals REVIEWED and looks stable Possible discharge in 24-48 hours Objective - Vital Signs Vital signs: Vital Signs Temp 98.0 F 04/23/23 11:17 Pulse 76 04/23/23 11:17 Resp 18 04/23/23 11:17 BP 123/71 04/23/23 11:17 Pulse Ox 99 04/23/23 11:17 FiO2 Intake & Output 04/22/23 04/23/23 04/23/23 18:59 06:59 18:59 Intake Total 440 Output Total 800 Balance -800 440 Intake: Oral 440 Output: Urine 800 Other: Voiding Method Toilet Toilet # Voids 2 - Exam GENERAL: The patient is alert and oriented x3, not in any acute distress. Well developed, well nourished. HEENT: Pupils are round and equally reacting to light. EOMI. No scleral icterus. No conjunctival pallor. Normocephalic, atraumatic. No pharyngeal erythema. No thyromegaly. CARDIOVASCULAR: S1 and S2 present. No murmurs, rubs, or gallops. PULMONARY: Chest is clear to auscultation, no wheezing , no crackles. ABDOMEN: Soft, nontender, nondistended, normoactive bowel sounds. No palpable organomegaly. MUSCULOSKELETAL: No joint swelling or deformity. EXTREMITIES: No cyanosis, clubbing, or pedal edema. NEUROLOGICAL: Gross neurological examination did not reveal any focal deficits. SKIN: No rashes. no petechiae. - Labs CBC & Chem 7: 04/23/23 06:30 04/23/23 06:30 Labs: Abnormal Lab Results - Last 24 Hours (Table) 04/22/23 04/22/23 04/23/23 Range/Units 17:02 20:46 07:30 POC Glucose (mg/dL) 125 H 160 H 137 H (70-110) mg/dL 04/23/23 Range/Units 11:57 POC Glucose (mg/dL) 162 H (70-110) mg/dL Assessment and Plan Assessment: Small bowel obstruction Abdominal no nausea vomiting and diarrhea most likely acute gastroenteritis, resolved Diabetes mellitus type 2 History of gastroesophageal reflux disease Hyperlipidemia Plan: Continue with normal saline Advance diet as tolerated Surgery team on the case Labs and medication were reviewed.. Continue same treatment. Continue with symptomatic treatment. Resume home medication. Monitor labs and vitals. DVT and GI prophylaxis. Further recommendations as per clinical course of the patient DVT prophylaxis: Subcutaneous heparin GI Prophylaxis: Ppi Possible discharge in 24-48
[2023-04-24] MEDS: SODIUM CHLORIDE 0.9% 1,000 ML IV SCH (04:32)
[2023-04-24 07:27] LABS: Glucose,Whole Blood 159 mg/dL (70-110)
[2023-04-24 08:47] VITALS: BP 160/90; PULSE 80; RESP 20; TEMP 97.8
[2023-04-24] MEDS: NICOTINE 21MG/24HR PATCH TRANSDERM SCH (09:13)
[2023-04-24] MEDS: PANTOPRAZOLE 40 MG TABLET PO SCH (09:13)
[2023-04-24] MEDS: VENLAFAXINE HCL ER 150 MG CAP PO SCH (09:13)
[2023-04-24] MEDS: HEPARIN SODIUM,PORCINE 5,000 UNIT/ML 1 ML VIAL SQ SCH (09:14)
[2023-04-24 12:55] LABS: Glucose,Whole Blood 144 mg/dL (70-110)
--- NOTE | 2023-04-24 21:25 | P.DS ---
Providers Date of admission: 04/20/23 19:10 Attending physician: Matt Perry Consults: 04/20/23 19:09 Consult Physician Routine Consulting Provider: Boo Flower Consult Reason/Comments: SBO Do you want consulting provider notified?: Yes Primary care physician: Wagner [facility] Course: Diagnoses: Small bowel obstruction, resolved Abdominal nausea vomiting and diarrhea most likely acute gastroenteritis, resolved Diabetes mellitus type 2 History of gastroesophageal reflux disease Hyperlipidemia Hospital course: This is a pleasant 52 years old male with multiple medical problems He presents with signs symptoms of small bowel obstruction seen on CAT scan of the abdomen and pelvis. Also he has some evidence with mild hepatomegaly with hepatic steatosis (patient informed with this problem and he agrees to follow up with GI as an outpatient) and urinary bladder wall thickening (patient informed with this problem as well and recommended follow-up with urologist Dr. Abdullahi as an outpatient and he agrees). He was treated symptomatically with IV fluids and bowel rest and pain management Patient showed interval improvement since yesterday his abdominal pain significantly improved, he had regular bowel movements, he tolerates diet well and no more nausea vomiting. Yesterday surgery team. Her for discharge and they confirmed with surgery team today who also cleared him for discharge today Patient agrees to go home today as he feels improved significantly. Patient denies any other new symptom Problems and management plan were discussed with the patient and he verbalized understanding and acceptance Patient was found stable and can be discharged home in guarded prognosis however he needs follow-up as an outpatient. Patient was instructed to follow up with PCP Dr. Retana within one week and patient agrees Patient instructed to follow-up with the surgeon Dr. Flower in 1-2 weeks after discharge and he agrees Physical exam Gen: patient is a AAOx3, no distress CVS: S1-S2, RRR, no murmur Lungs: B/L CTA, no wheezing Abdomen: soft, no distention, no tenderness, positive bowel sounds Extremity: no leg edema or induration Time spent more than 35 minutes Plan - Discharge Summary Discharge Rx Participant: No New Discharge Prescriptions: New Nicotine 21Mg/24Hr Patch [Habitrol] 1 patch TRANSDERM DAILY #3 patch Continue Mirtazapine 15 mg PO HS rOPINIRole HCL [Requip] 0.5 mg PO HS Venlafaxine HCl ER [Effexor XR] 150 mg PO DAILY Atorvastatin Calcium [Lipitor] 80 mg PO HS Omeprazole [PriLOSEC] 40 mg PO DAILY Discontinued glipiZIDE [Glucotrol] 10 mg PO AC-BID Discharge Medication List Mirtazapine 15 mg PO HS 01/20/21 [History] Atorvastatin Calcium [Lipitor] 80 mg PO HS 04/20/23 [History] Omeprazole [PriLOSEC] 40 mg PO DAILY 04/20/23 [History] Venlafaxine HCl ER [Effexor XR] 150 mg PO DAILY 04/20/23 [History] rOPINIRole HCL [Requip] 0.5 mg PO HS 04/20/23 [History] Nicotine 21Mg/24Hr Patch [Habitrol] 1 patch TRANSDERM DAILY #3 patch 04/24/23 [Rx] Follow up Appointment(s)/Referral(s): Boo Flower MD [Medical Doctor] - 1 Week (we recommend possible colonoscopy as outpatient) Virgie Conley MD [STAFF PHYSICIAN] - 2 Weeks (hepatic statosis, liver doctor ) Wagner Reatna DO [Primary Care Provider] - 1-2 days Igor Potter MD [STAFF PHYSICIAN] - 2 Weeks (urinary bladder wall thickeninig ) Patient Instructions/Handouts: Nicotine (Absorbed through the skin), Bowel Obstruction (DC) Activity/Diet/Wound Care/Special Instructions: Heart healthy diet, low carbohydrate diet 1600 k khris per day activity is restricted till you see your doctor Check your glucose 4 times a day before each meal and at bedtime, keep the results in a log book and bring it to your doctor on your appointment date If you have glucose less than 70 or more than 400 and call 911 and come to emergency room Discharge Disposition: HOME SELF-CARE
== END 2023-04-24 16:35 | disposition home or self-care (01) | DRG 249 ==
LOC: EC 15:16 → 5NMEDONC 19:10
PROVIDERS: ADMIT Hospitalist; ATTEND Hospitalist
DX: K52.9 Noninfective gastroenteritis and colitis, unspecified (principal); K56.609 Unspecified intestinal obstruction, unspecified as to partial versus complete obstruction; K57.32 Diverticulitis of large intestine without perforation or abscess without bleeding; R11.2 Nausea with vomiting, unspecified; E11.9 Type 2 diabetes mellitus without complications; Z20.822 Contact with and (suspected) exposure to COVID-19; F17.210 Nicotine dependence, cigarettes, uncomplicated; E78.5 Hyperlipidemia, unspecified; K21.9 Gastro-esophageal reflux disease without esophagitis; R16.0 Hepatomegaly, not elsewhere classified; L30.9 Dermatitis, unspecified; K76.0 Fatty (change of) liver, not elsewhere classified; Z87.11 Personal history of peptic ulcer disease; Z79.84 Long term (current) use of oral hypoglycemic drugs; Z79.899 Other long term (current) drug therapy; Z87.19 Personal history of other diseases of the digestive system; Z91.010 Allergy to peanuts; Z91.048 Other nonmedicinal substance allergy status; Z90.49 Acquired absence of other specified parts of digestive tract
CPT/HCPCS: 36415; 71045; 74019; 74177; 80048; 80053; 85025; 87045; 87046; 87636; 96361; 96372; 96374; 99285

== ENCOUNTER 2023-10-24 08:42 | Inpatient (IN) | payer OTHER ==
--- NOTE | 2023-10-24 09:22 | ED ---
General Adult HPI <Francisco J Watt - Last Filed: 10/24/23 09:57> - General Source: patient, RN notes reviewed Mode of arrival: ambulatory Limitations: no limitations <Anton Griggs - Last Filed: 10/24/23 10:23> - General Chief complaint: Abdominal Pain Stated complaint: Absesses tooth, burning in chest and throat Time Seen by Provider: 10/24/23 08:54 - History of Present Illness Initial comments: 53-year-old male presents emergency department chief complaint of abdominal pain, dental infection. He states has been dealing with abdominal flexion last week he has an appointment tomorrow with his dentist he states he has been taken Motrin frequently because of discomfort in which he states he has epigastric pain states he has a burning sensation radiates up into his chest he states he has a hiatal hernia and is on some sort of stomach protecting med. He states that he has been taking more Motrin as pain is stomachs been worsening which he then states he has been taking Motrin to control back pain. Patient denies any fevers or chills no change in bowel habits no dysuria (Anton Griggs) - Related Data Home Medications Medication Instructions Recorded Confirmed Atorvastatin Calcium [Lipitor] 80 mg PO HS 04/20/23 10/24/23 Albuterol Sulfate [Ventolin HFA] 2 puff INHALATION RT-Q4H PRN 10/24/23 10/24/23 Loratadine 10 mg PO DAILY 10/24/23 10/24/23 Venlafaxine HCl [Effexor XR] 225 mg PO DAILY 10/24/23 10/24/23 Allergies Allergy/AdvReac Type Severity Reaction Status Date / Time peanut Allergy Swelling Verified 10/24/23 08:51 Surgical Tape Allergy hernandez Uncoded 10/24/23 08:51 skin,paper tape is ok Review of Systems ROS Other: All systems not noted in ROS Statement are negative. <Francisco J Watt - Last Filed: 10/24/23 09:57> ROS Other: All systems not noted in ROS Statement are negative. <Anton Griggs - Last Filed: 10/24/23 10:23> ROS Statement: Those systems with pertinent positive or pertinent negative responses have been documented in the HPI. Past Medical History Past Medical History: Chest Pain / Angina, Diabetes Mellitus, GERD/Reflux, Hyperlipidemia, Skin Disorder Additional Past Medical History / Comment(s): had diagestive issues all my life, pain epigastric area after eating,constipaiton, hx pancreatitis,Eczema. Hx ulcers, viral mennigitis. "Chronic chest pain, that Dr relates to acid reflux." States hx kidney problems but not sure what. History of Any Multi-Drug Resistant Organisms: None Reported Past Surgical History: Cholecystectomy, Hernia Repair Additional Past Surgical History / Comment(s): Piece of metal removed from right eye,umbilical hernia repair Past Anesthesia/Blood Transfusion Reactions: Previous Problems w/ Anesthesia Additional Past Anesthesia/Blood Transfusion Reaction / Comment(s): Combative with anesthesia and has woken up twice during surgeries Past Psychological History: Anxiety, Depression Smoking Status: Current every day smoker Past Alcohol Use History: None Reported Past Drug Use History: None Reported - Past Family History Mother Family Medical History: Diabetes Mellitus Additional Family Medical History / Comment(s): DM Father Family Medical History: AICD/Pacemaker <Anton Griggs M - Last Filed: 10/24/23 10:23> General Exam Limitations: no limitations General appearance: alert, in no apparent distress Head exam: Present: atraumatic, normocephalic, normal inspection Eye exam: Present: normal appearance, PERRL, EOMI. Absent: scleral icterus, conjunctival injection, periorbital swelling ENT exam: Present: mucous membranes moist. Absent: normal oropharynx (No drainable abscess multiple missing teeth, dental fracture left lower) Neck exam: Present: normal inspection. Absent: tenderness, meningismus, lymphadenopathy Respiratory exam: Present: normal lung sounds bilaterally. Absent: respiratory distress, wheezes, rales, rhonchi, stridor Cardiovascular Exam: Present: normal rhythm, tachycardia, normal heart sounds. Absent: systolic murmur, diastolic murmur, rubs, gallop, clicks GI/Abdominal exam: Present: soft, tenderness (Epigastric), normal bowel sounds. Absent: distended, guarding, rebound, rigid Neurological exam: Present: alert Skin exam: Present: warm, dry, intact, normal color. Absent: rash <Anton Griggs M - Last Filed: 10/24/23 10:23> Course Vital Signs 10/24/23 08:47 Temperature 97.9 F Pulse Rate 115 H Respiratory 18 Rate Blood Pressure 123/73 O2 Sat by Pulse 98 Oximetry EKG Findings - EKG Results: EKG: interpreted by ERMD (Inferior ST elevation. There is some Q wave.), sinus rhythm, normal axis <Francisco J Watt - Last Filed: 10/24/23 09:57> Medical Decision Making - Lab Data Result diagrams: 10/24/23 09:27 <Francisco J Watt - Last Filed: 10/24/23 09:57> - Lab Data Result diagrams: 10/24/23 09:27 10/24/23 09:27 <Anton Griggs - Last Filed: 10/24/23 10:23> - Medical Decision Making 53-year-old male presents emergency department with epigastric and dental pain. Patient did have EKG done showing inferior ST elevation. Patient evaluated by myself. Patient admits to having some burning in his chest however mild. Patient does have history of diabetes and hypercholesterolemia. Patient has not been on his medication recently secondary to financial reasons. STEMI alert has been called at 9:55 AM. Patient will be admitted for heart catheterization. Radial and pedal pulses 2/4 throughout. (Francisco J Watt) Was pt. sent in by a medical professional or institution (, PA, STRATEGIES ANALYST, urgent care, hospital, or senior living...) When possible be specific @ -No Did you speak to anyone other than the patient for history (EMS, parent, family, police, friend...)? What history was obtained from this source @ -No Did you review nursing and triage notes (agree or disagree)? Why? @ -I reviewed and agree with nursing and triage notes Were old charts reviewed (outside hosp., previous admission, EMS record, old EKG, old radiological studies, urgent care reports/EKG's, senior living records)? Report findings @ -No old charts were reviewed Differential Diagnosis (chest pain, altered mental status, abdominal pain women, abdominal pain men, vaginal bleeding, weakness, fever, dyspnea, syncope, headache, dizziness, GI bleed, back pain, seizure, CVA, palpatations, mental health, musculoskeletal)? @ -Differential Abdominal Pain Men: Appendicitis, cholecystitis, diverticulosis, ischemic bowel, pancreatitis, hepatitis, UTI, gastroenteritis, AAA, incarcerated hernia, bowel obstruction, constipation, inflammatory bowel, hepatitis, peptic ulcer disease, splenic infarction, perforated viscus, testicular torsion, this is not meant to be an all-inclusive list EKG interpreted by me (3pts min.). @ -As above X-rays interpreted by me (1pt min.). @ -[Chest x-ray was ordered, was taken but was lost when sending to PACS system, x-ray tech went back to repeat x-ray and patient was in the dairy and food laboratory assistant [employer] Packer was notified that he needed an x-ray they stated that they were completed after his heart cath. CT interpreted by me (1pt min.). @ -None done U/S interpreted by me (1pt. min.). @ -None done What testing was considered but not performed or refused? (CT, X-rays, U/S, labs)? Why? @ -None What meds were considered but not given or refused? Why? @ -None Did you discuss the management of the patient with other professionals (professionals i.e. , PA, STRATEGIES ANALYST, lab, RT, psych nurse, nephrology social worker, risk lead, teacher, chief sales officer, case finisher)? Give summary @ -[Cardiology and EMH regarding EKG changes, STEMI and admission Was smoking cessation discussed for >3mins.? @ -No Was critical care preformed (if so, how long)? @ -No Were there social determinants of health that impacted care today? How? (Homelessness, low income, unemployed, alcoholism, drug addiction, transportation, low edu. Level, literacy, decrease access to med. care, skilled nursing, rehab)? @ -No Was there de-escalation of care discussed even if they declined (Discuss DNR or withdrawal of care, Hospice)? DNR status @ -No What co-morbidities impacted this encounter? (DM, HTN, Smoking, COPD, CAD, Cancer, CVA, ARF, Chemo, Hep., AIDS, mental health diagnosis, sleep apnea, morbid obesity)? @ -Diabetes, hypertension Was patient admitted / discharged? Hospital course, mention meds given and rout e, prescriptions, significant lab abnormalities, going to OR and other pertinent info. @ -[Admitted patient is a 53-year-old gentleman that presents emerged part for epigastric pain, dental infection. Patient had full set of labs, EKG ordered. Patient was complaining epigastric pain and EKG was ordered to rule out any other causes of symptoms for his epigastric pain EKG showed ST elevation with reciprocal changes. Patient states that he he does have some radiating symptoms from the stomach up. Denies any back pain. EKG was completed at 943 and handed to me at [address] elevation STEMI was called at this time. Awaiting callback from cardiology from cardiology. Dr. Conley was notified Undiagnosed new problem with uncertain prognosis? @ -No Drug Therapy requiring intensive monitoring for toxicity (Heparin, Nitro, Insulin, Cardizem)? @ -No Were any procedures done? @ -No Diagnosis/symptom? @ -[STEMI, epigastric pain, dental infection Acute, or Chronic, or Acute on Chronic? @ -Acute Uncomplicated (without systemic symptoms) or Complicated (systemic symptoms)? @ -[Complicated Side effects of treatment? @ -[No Exacerbation, Progression, or Severe Exacerbation? @ -No Poses a threat to life or bodily function? How? (Chest pain, USA, LA, pneumonia, PE, COPD, DKA, ARF, appy, cholecystitis, CVA, Diverticulitis, Homicidal, Suicidal, threat to staff... and all critical care pts) @ -[Yes ACS (Anton Griggs) - Lab Data Lab Results 10/24/23 10/24/23 10/24/23 Range/Units 09:27 09:27 09:27 WBC 13.3 H (3.8-10.6) k/uL RBC 5.46 (4.30-5.90) m/uL Hgb 16.2 (13.0-17.5) gm/dL Hct 47.2 (39.0-53.0) % MCV 86.4 (80.0-100.0) fL MCH 29.7 (25.0-35.0) pg MCHC 34.4 (31.0-37.0) g/dL RDW 14.9 (11.5-15.5) % Plt Count 207 (150-450) k/uL MPV 8.7 Neutrophils % 77 % Lymphocytes % 15 % Monocytes % 5 % Eosinophils % 1 % Basophils % 1 % Neutrophils # 10.3 H (1.3-7.7) k/uL Lymphocytes # 2.0 (1.0-4.8) k/uL Monocytes # 0.7 (0-1.0) k/uL Eosinophils # 0.1 (0-0.7) k/uL Basophils # 0.1 (0-0.2) k/uL Sodium 134 L (137-145) mmol/L Potassium 3.8 (3.5-5.1) mmol/L Chloride 102 (98-107) mmol/L Carbon Dioxide 26 (22-30) mmol/L Anion Gap 6 mmol/L BUN 14 (9-20) mg/dL Creatinine 0.74 (0.66-1.25) mg/dL Est GFR (CKD-EPI)AfAm >90 (>60 ml/min/1.73 sqM) Est GFR (CKD-EPI)NonAf >90 (>60 ml/min/1.73 sqM) Glucose 294 H (74-99) mg/dL Plasma Lactic Acid Osbaldo 1.2 (0.7-2.0) mmol/L Calcium 8.9 (8.4-10.2) mg/dL Total Bilirubin 0.9 (0.2-1.3) mg/dL AST 244 H (17-59) U/L ALT 48 (4-49) U/L Alkaline Phosphatase 117 (38-126) U/L Total Protein 6.5 (6.3-8.2) g/dL Albumin 3.8 (3.5-5.0) g/dL Lipase 51 (23-300) U/L Disposition <Francisco J Watt - Last Filed: 10/24/23 09:57> Time of Disposition: 09:49 <Anton Griggs - Last Filed: 10/24/23 10:23> Clinical Impression: STEMI (ST elevation myocardial infarction), Dental infection, Epigastric pain Disposition: ADMITTED IP TO THIS HOSP Condition: Serious
[2023-10-24] MEDS: FAMOTIDINE 20 MG/2 ML VIAL IV STA (09:31)
[2023-10-24] MEDS: SODIUM CHLORIDE 0.9% 2,000 ML IV STA (09:31)
[2023-10-24] MEDS: MAG HYDROX/AL HYDROX/SIMETH 30 ML, HYOSCYAMINE ELIXIR 10 ML PO STA (09:32)
[2023-10-24] MEDS: METOCLOPRAMIDE 5 MG/ML 2 ML VIAL IVP STA (09:33)
[2023-10-24 09:46] LABS: Basophils # (A) 0.1 k/uL (0-0.2); Basophils % (A) 1 %; Eosinophils # (A) 0.1 k/uL (0-0.7); Eosinophils % (A) 1 %; HCT 47.2 % (39.0-53.0); HGB 16.2 gm/dL (13.0-17.5); Lymphocytes % (A) 15 %; MCH 29.7 pg (25.0-35.0); MCHC 34.4 g/dL (31.0-37.0); MCV 86.4 fL (80.0-100.0); Mean Platelet Volume 8.7; Monocytes # (A) 0.7 k/uL (0-1.0); Monocytes % (A) 5 %; Neutrophils # (A) 10.3 k/uL (1.3-7.7); Neutrophils % (A) 77 %; Platelet Count 207 k/uL (150-450); RBC 5.46 m/uL (4.30-5.90); RDW 14.9 % (11.5-15.5); WBC 13.3 k/uL (3.8-10.6)
[2023-10-24] MEDS: HEPARIN SODIUM 1,000 UN/ML (10ML VL) IVP STA (10:01)
[2023-10-24] MEDS ORDERED: NITROGLYCERIN SL TABS 0.4 MG TAB SUBLINGUAL PRN (10:02)
[2023-10-24 10:03] LABS: ALT 48 U/L (4-49); AST 244 U/L (17-59); African American GFR (CKD) >90 (>60 ml/min/1.73 sqM); Albumin 3.8 g/dL (3.5-5.0); Alkaline Phosphatase 117 U/L (38-126); Anion Gap 6 mmol/L; Blood Urea Nitrogen 14 mg/dL (9-20); Calcium 8.9 mg/dL (8.4-10.2); Carbon Dioxide 26 mmol/L (22-30); Chloride 102 mmol/L (98-107); Glucose 294 mg/dL (74-99); Lipase 51 U/L (23-300); Non-African American GFR(CKD) >90 (>60 ml/min/1.73 sqM); Potassium 3.8 mmol/L (3.5-5.1); Sodium 134 mmol/L (137-145); Total Bilirubin 0.9 mg/dL (0.2-1.3); Total Protein 6.5 g/dL (6.3-8.2)
[2023-10-24] MEDS: ASPIRIN 81 MG PO STA (10:03)
[2023-10-24] MEDS: ATORVASTATIN 80 MG TAB PO STA (10:03)
[2023-10-24] MEDS: IV FLUID CONTINUATION 1,000 ML IV ONE (10:13)
[2023-10-24] MEDS ORDERED: fentaNYL (PF) 50 MCG/ML 2 ML AMP ONE (10:17)
[2023-10-24] MEDS: MIDAZOLAM 2 MG/2 ML VIAL IVP ONE (10:19)
[2023-10-24] MEDS: fentaNYL (PF) 50 MCG/ML 2 ML AMP IVP ONE (10:20)
[2023-10-24] MEDS: LIDOCAINE 1% INJ 10MG/ML (20 ML MDV) SQ ONE (10:22)
[2023-10-24] MEDS: VERAPAMIL SYRINGE (5 MG/10 ML) INTRAARTER ONE (10:29)
[2023-10-24] MEDS ORDERED: TICAGRELOR 90 MG TAB ONE (10:31)
[2023-10-24] MEDS: TICAGRELOR 90 MG TAB PO ONE (10:32)
--- NOTE | 2023-10-24 10:34 | P.CRDCN ---
History of Present Illness Consult date: 10/24/23 Reason for Consult (text): STEMI History of present illness: History of present illness: This is a 53-year-old male with no previous cardiac history, does not follow with a airplane woodworker. He denies having any cardiac testing done in the past. Patient presented to the hospital with midsternal type pain. He states he has had the pain ever since he was a child but yesterday brought him to his knees. He does state he has pain off to the left side of his chest. In general he has had chest pain for the past 7 days. He also has a dental infection that apparently is being addressed outpatient. He has a past medical history of hyperlipidemia, tobacco use and dependence, listed as diabetes but not on medication. Patient apparently has not been taking his medications recently due to financial reasons. He was blood pressure 123/73, heart rate 115, pulse ox 90% on room air. EKG ST elevation in inferior leads WBC 13.3, hemoglobin 16.2. Sodium 134, potassium 3.8, creatinine 0.74. Troponin 29.2. AST 244 other liver function test are normal. Glucose 294. Review Of Systems: At the time of my exam: CONSTITUTIONAL: Denies fever or chills. HEENT: Denies blurred vision, vision changes, or eye pain. Denies hemoptysis CARDIOVASCULAR: + chest pain. Denies orthopnea. Denies PND. Denies palpitations RESPIRATORY: Denies shortness of breath. GASTROINTESTINAL: Denies abdominal pain. Denies nausea or vomiting. HEMATOLOGIC: Denies bleeding disorders. GENITOURINARY: Denies any blood in urine. SKIN: Denies pruitis. Denies rash. Physical examination: Gen: This is a 53-year-old male appears to be uncomfortable. VS: reviewed HEENT: Head is atraumatic, normocephalic. Pupils equal, round. Sclerae is anicteric. NECK: Supple. No JVD. LUNGS: Clear to auscultation. No wheezes or rhonchi. No intercostal retractions. HEART: Regular rate and rhythm. No murmur. ABDOMEN: Soft No tenderness. EXTREMITIES: No pedal edema. No calf tenderness. Tether on right ankle. NEUROLOGICAL: Patient is awake, alert and oriented x3. Assessment: Acute inferior ST elevated myocardial infarction Hyperlipidemia Diabetes mellitus type 2 Tobacco use and dependence Noncompliance with medication Plan: Patient taken directly to the Digital Designer per protocol Obtain lipid panel, TSH, A1c and repeat troponins Patient will be started on daily aspirin 81 mg daily and Lipitor 80 mg daily. Patient will be started on the medications following cardiac catheterization Obtain 2-D echocardiogram and Doppler study to assess cardiac structure and function Further recommendations to follow based upon clinical course Thank you kindly for this consultation. Nurse practitioner note has been reviewed, I agree with documented findings and plan of care. Patient was seen and examined. Past Medical History Past Medical History: Chest Pain / Angina, Diabetes Mellitus, GERD/Reflux, Hyperlipidemia, Skin Disorder Additional Past Medical History / Comment(s): had diagestive issues all my life, pain epigastric area after eating,constipaiton, hx pancreatitis,Eczema. Hx ulcers, viral mennigitis. "Chronic chest pain, that Dr relates to acid reflux." States hx kidney problems but not sure what. History of Any Multi-Drug Resistant Organisms: None Reported Past Surgical History: Cholecystectomy, Hernia Repair Additional Past Surgical History / Comment(s): Piece of metal removed from right eye,umbilical hernia repair Past Anesthesia/Blood Transfusion Reactions: Previous Problems w/ Anesthesia Additional Past Anesthesia/Blood Transfusion Reaction / Comment(s): Combative with anesthesia and has woken up twice during surgeries Past Psychological History: Anxiety, Depression Smoking Status: Current every day smoker Past Alcohol Use History: None Reported Past Drug Use History: None Reported - Past Family History Mother Family Medical History: Diabetes Mellitus Additional Family Medical History / Comment(s): DM Father Family Medical History: AICD/Pacemaker Medications and Allergies Home Medications Medication Instructions Recorded Confirmed Type Atorvastatin Calcium [Lipitor] 80 mg PO HS 04/20/23 10/24/23 History Albuterol Sulfate [Ventolin HFA] 2 puff INHALATION RT-Q4H PRN 10/24/23 10/24/23 History Loratadine 10 mg PO DAILY 10/24/23 10/24/23 History Venlafaxine HCl [Effexor XR] 225 mg PO DAILY 10/24/23 10/24/23 History Allergies Allergy/AdvReac Type Severity Reaction Status Date / Time peanut Allergy Swelling Verified 10/24/23 08:51 Surgical Tape Allergy hernandez Uncoded 10/24/23 08:51 skin,paper tape is ok Physical Exam Vitals: Vital Signs Temp Pulse Resp BP Pulse Ox 10/24/23 08:47 97.9 F 115 H 18 123/73 98 Intake and Output 10/23/23 10/24/23 10/24/23 22:59 06:59 14:59 Other: Weight 86.183 kg Results 10/24/23 09:27 10/24/23 09:27 CBC 10/24/23 Range/Units 09:27 WBC 13.3 H (3.8-10.6) k/uL RBC 5.46 (4.30-5.90) m/uL Hgb 16.2 (13.0-17.5) gm/dL Hct 47.2 (39.0-53.0) % Plt Count 207 (150-450) k/uL Current Medications Generic Name Dose Route Start Last Admin Trade Name Freq PRN Reason Stop Dose Admin Sodium Chloride 2,000 mls @ 999 mls/hr 10/24/23 09:14 10/24/23 09:31 Saline 0.9% IV 10/24/23 11:14 999 mls/hr .Q2H1M STA Administration Intake and Output 10/23/23 10/24/23 10/24/23 22:59 06:59 14:59 Other: Weight 86.183 kg Patient Weight 10/25/23 06:59 Weight 86.183 kg 10/24/23 09:27
[2023-10-24] MEDS ORDERED: HEPARIN SODIUM 1,000 UN/ML (10ML VL) ONE (10:37)
[2023-10-24] MEDS: HEPARIN SODIUM 1,000 UN/ML (10ML VL) IV ONE ×2 (10:37→11:07)
[2023-10-24] MEDS: HEPARIN SODIUM 1,000 UN/ML (10ML VL) IVP ONE (10:53)
[2023-10-24] MEDS: SODIUM CHLORIDE 0.9% 1,000 ML IV ONE (10:58)
[2023-10-24] MEDS: IOPAMIDOL-370 100ML BTL INJ ONE ×2 (11:05→11:21)
[2023-10-24 11:48] LABS: Glucose,Whole Blood 216 mg/dL (70-110)
--- NOTE | 2023-10-24 11:49 | LTR ---
Dear Wagner: I performed cardiac catheterization on Ian Dinero, 1970. Ian presented to us as an acute inferior wall myocardial infarction, and underwent emergent cardiac catheterization that revealed a totally occluded proximal right coronary artery and will undergo angioplasty with stent placement of the same. [id number] / IJN: [id number] /
--- NOTE | 2023-10-24 11:55 | CC ---
CARDIAC CATHETERIZATION REPORT INDICATION: Acute inferior wall myocardial infarction. This is a 53-year-old gentleman with history of dyslipidemia, who presented to hospital with chest pain around 8:42 this morning. The EKG was done around 9:43 and a STEMI alert was paged around 9:54. The patient was evaluated in the emergency room expeditiously by my nurse practitioner and the patient arrived in the phlebotomy lab assistant around 10:13. There, he seemed comfortable at rest, stable hemodynamically, but still having chest discomfort, and his EKG showed evidence of prior inferior wall myocardial infarction. I was scrubbed in and proceeded to perform the cardiac catheterization. PROCEDURE NOTE: After obtaining informed consent, left heart catheterization and coronary angiogram were performed via the right radial artery using standard Alesha catheters. The patient received moderate conscious sedation. Total sedation time was 14 minutes. Right radial artery access was obtained using Seldinger technique, 6-Macedonian sheath was placed. Catheters and wires were floated into the ascending aorta under fluoroscopic guidance. The patient received verapamil and had already received heparin in the emergency room. FINDINGS: 1. Hemodynamics: Central aortic pressure is 100/60 mm. 2. Right coronary artery: Right coronary artery is totally occluded proximally. 3. Left main coronary artery is a normal-sized vessel and is free of stenosis, divides into left anterior descending coronary artery and circumflex coronary artery. LAD and its branches, circumflex coronary artery and its branches are free of significant stenosis. There are [id number] collaterals to the distal RCA. CONCLUSIONS: Acutely occluded right coronary artery, which is responsible for the acute inferior wall myocardial infarction. PLAN: Dr. Hunt was already scrubbed in, will proceed as expeditiously as possible with the right coronary stenting. MMODL / IJN: [id number] /
[2023-10-24] MEDS ORDERED: DEXTROSE 50% SYRINGE 50 ML IVP PRN ×4 (12:37→12:59)
[2023-10-24] MEDS ORDERED: ALBUTEROL NEBULIZED 2.5 MG/3 ML INHALATION PRN (12:54)
--- NOTE | 2023-10-24 13:00 | P.HPIM ---
History of Present Illness H&P Date: 10/24/23 History of present illness; patient is a 53-year-old gentleman past medical history significant for hyperlipidemia who presented to ER for chest pain. Patient stated that he was all right last night when he started experiencing chest pain that was central in location. Chest pain was burning in sensation, intermittent, nonradiating, no aggravating or relieving factors associated with this chest pain. Patient denies any nausea or vomiting associated with this chest pain. Patient did not seek any medical help last night but this morning this chest pain became worse and was much more severe in intensity. There was no complaint shortness of breath. No complaint of palpitation. There was no complaint of orthopnea or PND. Because of this chest pain, patient came to the ED Initial lab work done in the ER showed lab work done showed WBC 13.3, hemoglobin 16.2, platelet count 207, sodium 134, potassium 3.8, BUN 14, creatinine 0.74, glucose 294, troponin 29.2 EKG done in the ER showed ST segment elevation in inferior leads Patient was taken for emergent cardiac cath, patient underwent stenting in the RCA Patient admitted to internal medicine service in ICU REVIEW OF SYSTEMS: CONSTITUTIONAL: No fever, no malaise, no fatigue. HEENT: No recent visual problems or hearing problems. Denied any sore throat. CARDIOVASCULAR: As mentioned above PULMONARY: As mentioned above GASTROINTESTINAL: No diarrhea, no nausea, no vomiting, no abdominal pain. NEUROLOGICAL: No headaches, no weakness, no numbness. HEMATOLOGICAL: Denies any bleeding or petechiae. GENITOURINARY: Denies any burning micturition, frequency, or urgency. MUSCULOSKELETAL/RHEUMATOLOGICAL: Denies any joint pain, swelling, or any muscle pain. ENDOCRINE: Denies any polyuria or polydipsia. The rest of the 14-point review of systems is negative. PHYSICAL EXAMINATION: GENERAL: The patient is alert and oriented x3, not in any acute distress. Well developed, well nourished. HEENT: Pupils are round and equally reacting to light. EOMI. No scleral icterus. No conjunctival pallor. Normocephalic, atraumatic. No pharyngeal erythema. No thyromegaly. CARDIOVASCULAR: S1 and S2 present. No murmurs, rubs, or gallops. PULMONARY: Chest is clear to auscultation, no wheezing or crackles. ABDOMEN: Soft, nontender, nondistended, normoactive bowel sounds. No palpable organomegaly. MUSCULOSKELETAL: No joint swelling or deformity. EXTREMITIES: No cyanosis, clubbing, or pedal edema. NEUROLOGICAL: Gross neurological examination did not reveal any focal deficits. SKIN: No rashes. Assessment and plan Acute ST elevation [place] Hyperlipidemia Diabetes mellitus type 2 Tobacco use and dependence Noncompliance with medication Monitor vital signs Monitor CBC Monitor CMP Continue telemetry monitoring Status post cardiac cath with stenting of RCA Ordered TSH level check HbA1c level check lipid panel Ordered 2D echo Monitor blood sugar levels, continue sliding-scale insulin Continue postcardiac cath care per cardiology Continue aspirin, Lipitor Cardiology following Labs and medication were reviewed.. Continue same treatment. Continue with symptomatic treatment. Resume home medication. Monitor labs and vitals. DVT and GI prophylaxis. Further recommendations as per clinical course of the patient Dictation was produced using [employer] dictation software. please excuse any grammatical, word or spelling errors. Past Medical History Past Medical History: Chest Pain / Angina, Diabetes Mellitus, GERD/Reflux, Hyperlipidemia, Skin Disorder Additional Past Medical History / Comment(s): had diagestive issues all my life, pain epigastric area after eating,constipaiton, hx pancreatitis,Eczema. Hx ulcers, viral mennigitis. "Chronic chest pain, that Dr relates to acid reflux." States hx kidney problems but not sure what. History of Any Multi-Drug Resistant Organisms: None Reported Past Surgical History: Cholecystectomy, Hernia Repair Additional Past Surgical History / Comment(s): Piece of metal removed from right eye,umbilical hernia repair Past Anesthesia/Blood Transfusion Reactions: Previous Problems w/ Anesthesia Additional Past Anesthesia/Blood Transfusion Reaction / Comment(s): Combative with anesthesia and has woken up twice during surgeries Past Psychological History: Anxiety, Depression Smoking Status: Current every day smoker Past Alcohol Use History: None Reported Past Drug Use History: None Reported - Past Family History Mother Family Medical History: Diabetes Mellitus Additional Family Medical History / Comment(s): DM Father Family Medical History: AICD/Pacemaker Medications and Allergies Home Medications Medication Instructions Recorded Confirmed Type Atorvastatin Calcium [Lipitor] 80 mg PO HS 04/20/23 10/24/23 History Albuterol Sulfate [Ventolin HFA] 2 puff INHALATION RT-Q4H PRN 10/24/23 10/24/23 History Loratadine 10 mg PO DAILY 10/24/23 10/24/23 History Venlafaxine HCl [Effexor XR] 225 mg PO DAILY 10/24/23 10/24/23 History Allergies Allergy/AdvReac Type Severity Reaction Status Date / Time peanut Allergy Swelling Verified 10/24/23 08:51 Surgical Tape Allergy hernandez Uncoded 10/24/23 08:51 skin,paper tape is ok Physical Exam Vitals: Vital Signs Temp Pulse Resp BP Pulse Ox 10/24/23 10:07 106 H 18 131/89 97 10/24/23 10:00 105 H 18 120/84 98 10/24/23 09:55 114 H 18 123/83 97 10/24/23 09:45 108 H 18 123/79 98 10/24/23 08:47 97.9 F 115 H 18 123/73 98 Intake and Output 10/23/23 10/24/23 10/24/23 22:59 06:59 14:59 Intake Total 625 Balance 625 Intake: IV 550 Intake, IV Titration 75 Amount Sodium Chloride 0.9% 1, 75 000 ml @ 0 mls/hr IV .Issue -[facility] Rx#:[id number] Other: Weight 86.183 kg Results CBC & Chem 7: 10/24/23 09:27 10/24/23 09:27 Labs: Abnormal Lab Results - Last 24 Hours (Table) 10/24/23 10/24/23 10/24/23 Range/Units 09:27 09:27 09:27 WBC 13.3 H (3.8-10.6) k/uL Neutrophils # 10.3 H (1.3-7.7) k/uL Sodium 134 L (137-145) mmol/L Glucose 294 H (74-99) mg/dL POC Glucose (mg/dL) (70-110) mg/dL AST 244 H (17-59) U/L Troponin I 29.200 H* (0.000-0.034) ng/mL 10/24/23 10/24/23 Range/Units 11:47 12:08 WBC (3.8-10.6) k/uL Neutrophils # (1.3-7.7) k/uL Sodium (137-145) mmol/L Glucose (74-99) mg/dL POC Glucose (mg/dL) 216 H (70-110) mg/dL AST (17-59) U/L Troponin I 65.300 H* (0.000-0.034) ng/mL
[2023-10-24] MEDS ORDERED: RX INFO: IV CONTRAST WAS GIVEN 1 EACH MISC MISCELLANE PRN (13:22)
[2023-10-24] MEDS ORDERED: MAG HYDROX/AL HYDROX/SIMETH 30 ML CUP PO PRN (13:22)
[2023-10-24] MEDS ORDERED: ATROPINE SULFATE 0.1 MG/ML 10ML SYRINGE IV PRN (13:22)
[2023-10-24 16:38] LABS: Glucose,Whole Blood 256 mg/dL (70-110)
[2023-10-24] MEDS: INSULIN ASPART (NovoLOG) 100 UNIT/ML VIAL SQ SCH (17:03)
[2023-10-24] MEDS: PANTOPRAZOLE 40 MG TABLET PO SCH (17:03)
[2023-10-24] MEDS: SODIUM CHLORIDE 0.9% 1,000 ML in EMPTY BAG 1 BAG IV SCH (17:05)
[2023-10-24] MEDS: METOPROLOL TARTRATE 25 MG TAB PO SCH (18:34)
[2023-10-24] MEDS: TICAGRELOR 90 MG TAB PO SCH (20:03)
[2023-10-24 21:27] LABS: Glucose,Whole Blood 303 mg/dL (70-110)
[2023-10-24] MEDS: INSULIN DETEMIR (LEVEMIR) 100 UNIT/ML SYR SQ ONE (22:17)
--- NOTE | 2023-10-24 22:30 | P.PRCINT ---
Percutaneous Coronary Int. - Percutaneous Coronary Intervention Percutaneous Coronary Intervention: Procedures performed: Right coronary angiography, Penumbra aspiration thrombectomy IVUS RCA, PCI proximal to mid RCA with a 3.5 x 38mm XIence KEISHA, post dilated with a 4.5mm NC balloon, balloon angioplasty PDA, PLV with a 2.5mm balloon Procedure performed by: Dr Robby Hunt DO Indications: Late presenting inferior IA HPI: Patient is a pleasant 53 male with history of tobacco abuse who presented with a few weeks of chest pain and worsened this morning. EKG showed inferior STEMI. A diagnostic heart catheterization was performed by my partner to further assess, please see separate dictation for full details. I was asked to perform intervention to the RCA. There were some left to right collaterals with somewhat of an acute on chronic subacute presentation suspected. Conscious sedation: Conscious sedation was performed under the direct supervion of myself using Versed and Fentanyl for a total of 52 mins. Description of procedure: The risks, benefits and alternatives of heart catheterization and PCI were explained in detail to the patient before the procedure and informed consent was obtained. Patient had diagnostic coronary angiography performed by my partner and was left on the catheterization table. Patient had been prepped and draped in the usual fashion and a 6Fr sheath had been placed in the right radial artery previously. A decision was made to intervene on the RCA. Heparin was given for an ACT greater than 250. A 6Fr AL 0.75 guide was used to engage the RCA. A 0.014 BMW wire was initially attempted then a 0.014 whisper wire was able to be placed in the distal vessel. Given large thrombus burden, Penumbra aspiration thrombectomy was performed for 2 runs without much improvement. Therefore a 3.0 x 12mm balloon was used to predilate the lesion. Next predilation was performed with a 3.5mm NC balloon. Next IVUS showed more proximal diameter 4.5mm as well as IVUS catheter being intraluminal in the PDA and diffuse thrombus. Therefore additional attempts were made at Penumbra aspiration thrombectomy. Predilation of the PDA was performed with a 2.5mm balloon. There was shifting clot going into the PLV and therefore PLV was also dilated A 3.5 x 38mm Xience KEISHA stent was then placed from the proximal to mid RCA. The proximal and mid portion of the stent were post dilated with a 4.5 NC balloon. Repeat IVUS showed excellent stent apposition with no dissection. Angiograms were obtained in multiple views. Pre intervention there was 100% stenosis and TORSTEN 0 flow and post intervention there was 0% residual stenosis and TORSTEN 3 flow and no evidence of any dissection. The wire was then removed and final angiograms were obtained. The radial sheath was pulled and a TR band was placed with hemostasis achieved. The patient tolerated the procedure well. The patient was transferred to the post catheterization holding area in stable condition. SELECTIVE CORONARY ARTERIOGRAPHY: LEFT MAIN: Not imaged, see separate report LEFT ANTERIOR DESCENDING CORONARY ARTERY: Not imaged, see separate report, however left to right collateral previously noted to the PDA LEFT CIRCUMFLEX CORONARY ARTERY: Not imaged, see separate report RIGHT CORONARY ARTERY: The right coronary artery is a large caliber vessel which gives off a PDA and PLV branch and is the dominant vessel. There is 100% proximal RCA stenosis. Conclusions: 1. CAD as described above including 100% RCA stenosis 2. S/p PCI proximal to mid RCA with a 3.5 x 38mm XIence KEISHA, post dilated with a 4.5mm NC balloon, balloon angioplasty PDA, PLV with a 2.5mm balloon Plan: 1. Aggressive risk factor modifications per most recent ACC/AHA guidelines. 2. Continue dual antiplatelets for 12 months with aspirin and Brillinta. 3. Add Protonix given reports of black stools/ melena off and on in the past as well as GERD symptoms.
[2023-10-25 05:26] LABS: ALT 43 U/L (4-49); AST 165 U/L (17-59); African American GFR (CKD) >90 (>60 ml/min/1.73 sqM); Albumin 3.3 g/dL (3.5-5.0); Alkaline Phosphatase 89 U/L (38-126); Anion Gap 3 mmol/L; Blood Urea Nitrogen 15 mg/dL (9-20); Calcium 8.4 mg/dL (8.4-10.2); Carbon Dioxide 25 mmol/L (22-30); Chloride 107 mmol/L (98-107); Glucose 119 mg/dL (74-99); Magnesium 1.8 mg/dL (1.6-2.3); Non-African American GFR(CKD) >90 (>60 ml/min/1.73 sqM); Potassium 3.5 mmol/L (3.5-5.1); Sodium 135 mmol/L (137-145); Total Bilirubin 0.8 mg/dL (0.2-1.3); Total Protein 5.7 g/dL (6.3-8.2)
[2023-10-25 06:16] LABS: Glucose,Whole Blood 156 mg/dL (70-110)
[2023-10-25] MEDS ORDERED: ASPIRIN 81 MG PO SCH (09:00)
[2023-10-25] MEDS ORDERED: ASPIRIN 325 MG TAB PO SCH (09:00)
[2023-10-25] MEDS: ATORVASTATIN 80 MG TAB PO SCH (09:05)
[2023-10-25] MEDS: ASPIRIN 81 MG PO SCH (09:05)
[2023-10-25] MEDS: VENLAFAXINE HCL ER 75 MG CAP PO SCH (09:06)
[2023-10-25] MEDS: LORATADINE 10 MG TAB PO SCH (09:06)
[2023-10-25] MEDS ORDERED: DEXTROSE 50% SYRINGE 50 ML IVP PRN ×2 (10:20)
[2023-10-25 10:40] LABS: Chol/HDL Ratio 3.62 Ratio; LDL Cholesterol,Calculated 78.8 mg/dL (0.0-131.0)
--- NOTE | 2023-10-25 10:55 | PN ---
PROGRESS NOTE HISTORY OF PRESENT ILLNESS: Ian is a 53-year-old gentleman, who presented to hospital with acute inferior wall myocardial infarction, and underwent emergent cardiac catheterization and angioplasty of the right coronary artery. This morning, he is doing well and is free of symptoms. His peak troponin was 77. He is free of chest pain or difficulty in breathing. MEDICATIONS: Currently on: 1. Aspirin. 2. Lipitor. 3. Lopressor 25. 4. Brilinta. 5. Protonix. PHYSICAL EXAMINATION: GENERAL: Comfortable at rest. VITAL SIGNS: Stable. NECK: There is no jugular venous distention. Carotid upstroke is normal. There is no bruit. CHEST: Reveals good air entry bilaterally. HEART: Reveals first and second heart sounds. No gallop. No murmur. ABDOMEN: Soft. EXTREMITIES: Did not reveal any edema. Peripheral pulses are felt. ASSESSMENT AND PLAN: Acute inferior wall myocardial infarction, status post catheterization and angioplasty of right coronary artery. The patient is doing well. I will transfer him out of ICU, add Zestril, and I will obtain a 2D echo on him. MMODL / IJN: [id number] /
--- NOTE | 2023-10-25 11:23 | CA ---
Transthoracic Echo Report Name: Ian Dinero Age: 53 Gender: M : 1970 Exam Date: 10/25/2023 09:25 Exam Location: [facility] Ht (in): 69 Wt (lb): 190 Ordering Physician: Trena Gomez Attending/Referring Phys: [employer] Inspector Yash King RD Procedure CPT: Indications: LVF Cardiac Hx: Technical Quality: Fair Contrast 1: Definity Total Dose (mL): 2 Contrast 2: Total Dose (mL): MEASUREMENTS (Male / Female) Normal Values 2D ECHO LV Diastolic Diameter PLAX 4.4 cm 4.2 - 5.9 / 3.9 - 5.3 cm LV Systolic Diameter PLAX 3.4 cm IVS Diastolic Thickness 0.9 cm 0.6 - 1.0 / 0.6 - 0.9 cm LVPW Diastolic Thickness 1.1 cm 0.6 - 1.0 / 0.6 - 0.9 cm LV Relative Wall Thickness 0.5 RV Internal Dim ED PLAX 3.3 cm LVOT Diameter 2.2 cm Aortic Root Diameter 2.7 cm LA Systolic Diameter LX 2.2 cm 3.0 - 4.0 / 2.7 - 3.8 cm LV Diastolic Volume MOD 4C 47.9 cm??? LV Systolic Volume MOD 4C 24.7 cm??? LV Ejection Fraction MOD 4C 48.3 % LV Cardiac Index MOD 4C 1050.9 cm???/min???m??? LV Diastolic Length 4C 7.5 cm LV Systolic Length 4C 6.3 cm DOPPLER AV Peak Velocity 113.3 cm/s AV Peak Gradient 5.1 mmHg AV Mean Velocity 81.1 cm/s AV Mean Gradient 3.0 mmHg AV Velocity Time Integral 19.4 cm MV Peak Velocity 86.4 cm/s MV Peak Gradient 3.0 mmHg MV Mean Velocity 45.3 cm/s MV Mean Gradient 1.0 mmHg MV Velocity Time Integral 22.5 cm Mitral E Point Velocity 80.9 cm/s Mitral A Point Velocity 66.3 cm/s Mitral E to A Ratio 1.2 MV Deceleration Time 99.7 ms MV E' Velocity 8.6 cm/s Mitral E to MV E' Ratio 9.4 TR Peak Velocity 188.8 cm/s TR Peak Gradient 14.3 mmHg Right Ventricular Systolic Press 19.3 mmHg PV Peak Velocity 83.4 cm/s PV Peak Gradient 2.8 mmHg FINDINGS Left Ventricle Normal LV size and wall thickness. Posterior LV hypokenesis. Left ventricular ejection fraction is estimated at 45-50 %. Right Ventricle Normal right ventricular size. Right Atrium Normal right atrial size. Left Atrium Normal left atrial size. Mitral Valve Structurally normal mitral valve no mitral stenosis. No mitral regurgitation. Aortic Valve Trileaflet aortic valve. No aortic stenosis. No aortic regurgitation. Tricuspid Valve Structurally normal tricuspid valve. Mild TR. Pulmonic Valve Pulmonic valve not well visualized. No pulmonic regurgitation. Pericardium Normal pericardium. Aorta Normal size aortic root. CONCLUSIONS Left ventricular ejection fraction 45-50% with inferior, inferolateral hypokinesis No mitral regurgitation Mild tricuspid regurgitation No pericardial effusion Previewed by: Dr. Robby Hunt DO (Electronically Signed) Final Date: 25 October 2023 11:23
[2023-10-25 11:43] LABS: Glucose,Whole Blood 227 mg/dL (70-110)
--- NOTE | 2023-10-25 11:53 | P.PN ---
Subjective Progress Note Date: 10/25/23 patient is a 53-year-old gentleman past medical history significant for hyperlipidemia who presented to ER for chest pain. Patient stated that he was all right last night when he started experiencing chest pain that was central in location. Chest pain was burning in sensation, intermittent, nonradiating, no aggravating or relieving factors associated with this chest pain. Patient denies any nausea or vomiting associated with this chest pain. Patient did not seek any medical help last night but this morning this chest pain became worse and was much more severe in intensity. There was no complaint shortness of breath. No complaint of palpitation. There was no complaint of orthopnea or PND. Because of this chest pain, patient came to the ED Initial lab work done in the ER showed lab work done showed WBC 13.3, hemoglobin 16.2, platelet count 207, sodium 134, potassium 3.8, BUN 14, creatinine 0.74, glucose 294, troponin 29.2 EKG done in the ER showed ST segment elevation in inferior leads Patient was taken for emergent cardiac cath, patient underwent stenting in the RCA Patient admitted to internal medicine service in ICU 10/25. Patient seen and examined. S/p PCI proximal to mid RCA with a 3.5 x 38mm XIence KEISHA on 10/25. Denies any chest pain or shortness of breath. REVIEW OF SYSTEMS: CONSTITUTIONAL: No fever, no malaise,. CARDIOVASCULAR: No chest pain, no palpitations, no syncope. PULMONARY: No shortness of breath, no cough, GASTROINTESTINAL: No diarrhea, no nausea, no vomiting, no abdominal pain. NEUROLOGICAL: No headaches, no weakness, PHYSICAL EXAMINATION: GENERAL: The patient is alert and oriented x3, not in any acute distress. Well developed, well nourished. HEENT: Pupils are round and equally reacting to light. EOMI. No scleral icterus. No conjunctival pallor. Normocephalic, atraumatic. No pharyngeal erythema. No thyromegaly. CARDIOVASCULAR: S1 and S2 present. No murmurs, rubs, or gallops. PULMONARY: Chest is clear to auscultation, no wheezing or crackles. ABDOMEN: Soft, nontender, nondistended, normoactive bowel sounds. No palpable organomegaly. MUSCULOSKELETAL: No joint swelling or deformity. EXTREMITIES: No cyanosis, clubbing, or pedal edema. NEUROLOGICAL: Gross neurological examination did not reveal any focal deficits. SKIN: No rashes. Assessment and plan Acute ST elevation [place] Hyperlipidemia Diabetes mellitus type 2, HbA1c level is 9.6 Tobacco use and dependence Noncompliance with medication Monitor vital signs Monitor CBC Monitor CMP Continue telemetry monitoring Status post cardiac cath with stenting of RCA Monitor blood sugar levels, continue sliding-scale insulin, start Levemir 10 units twice a day Continue postcardiac cath care per cardiology Continue aspirin, Brilinta Lipitor Continue Lopressor Cardiology following Labs and medication were reviewed.. Continue same treatment. Continue with symptomatic treatment. Resume home medication. Monitor labs and vitals. DVT and GI prophylaxis. Further recommendations as per clinical course of the patient Dictation was produced using [employer] dictation software. please excuse any grammatical, word or spelling errors. Objective - Vital Signs Vital signs: Vital Signs Temp 98.0 F 10/25/23 08:00 Pulse 100 10/25/23 09:00 Resp 17 10/25/23 09:00 BP 105/67 10/25/23 09:00 Pulse Ox 95 10/25/23 09:00 FiO2 Intake & Output 10/24/23 10/25/23 10/25/23 18:59 06:59 18:59 Intake Total 1773 880 400 Output Total 0 250 Balance 1773 630 400 Weight 86.183 kg 86 kg Intake: IV 550 Intake, IV Titration 633 430 Amount Sodium Chloride 0.9% 1, 375 000 ml @ 0 mls/hr IV .STK -[facility] Rx#:[id number] Sodium Chloride 0.9% 1, 258 430 000 ml In Empty Bag 1 bag @ 1 ML/KG/HR 86.183 mls/ hr IV .[id number] [facility] Rx#: [id number] Oral 590 450 400 Output: Urine 0 250 Other: Voiding Method Toilet Urinal Urinal Urinal # Voids 1 # Bowel Movements 1 - Labs CBC & Chem 7: 10/24/23 09:27 10/25/23 04:04 Labs: Abnormal Lab Results - Last 24 Hours (Table) 10/24/23 10/24/23 10/24/23 Range/Units 09:27 11:47 12:08 Sodium (137-145) mmol/L Glucose (74-99) mg/dL POC Glucose (mg/dL) 216 H (70-110) mg/dL Hemoglobin A1c (<=6.0) % AST (17-59) U/L Troponin I 29.200 H* 65.300 H* (0.000-0.034) ng/mL Total Protein (6.3-8.2) g/dL Albumin (3.5-5.0) g/dL 10/24/23 10/24/23 10/24/23 Range/Units 12:08 15:01 16:37 Sodium (137-145) mmol/L Glucose (74-99) mg/dL POC Glucose (mg/dL) 256 H (70-110) mg/dL Hemoglobin A1c 9.7 H (<=6.0) % AST (17-59) U/L Troponin I 77.700 H* (0.000-0.034) ng/mL Total Protein (6.3-8.2) g/dL Albumin (3.5-5.0) g/dL 10/24/23 10/25/23 10/25/23 Range/Units 21:25 04:04 04:04 Sodium 135 L (137-145) mmol/L Glucose 119 H (74-99) mg/dL POC Glucose (mg/dL) 303 H (70-110) mg/dL Hemoglobin A1c 9.6 H (<=6.0) % AST 165 H (17-59) U/L Troponin I (0.000-0.034) ng/mL Total Protein 5.7 L (6.3-8.2) g/dL Albumin 3.3 L (3.5-5.0) g/dL 10/25/23 Range/Units 06:15 Sodium (137-145) mmol/L Glucose (74-99) mg/dL POC Glucose (mg/dL) 156 H (70-110) mg/dL Hemoglobin A1c (<=6.0) % AST (17-59) U/L Troponin I (0.000-0.034) ng/mL Total Protein (6.3-8.2) g/dL Albumin (3.5-5.0) g/dL
[2023-10-25 11:56] VITALS: BMI 28.0
[2023-10-25 16:41] LABS: Glucose,Whole Blood 136 mg/dL (70-110)
[2023-10-25 19:56] LABS: Glucose,Whole Blood 215 mg/dL (70-110)
[2023-10-25] MEDS: INSULIN DETEMIR (LEVEMIR) 100 UNIT/ML SYR SQ SCH (21:03)
[2023-10-26] MEDS: ZOLPIDEM 5 MG TAB PO PRN (01:00)
[2023-10-26 06:23] LABS: Glucose,Whole Blood 138 mg/dL (70-110)
[2023-10-26 11:44] LABS: Glucose,Whole Blood 156 mg/dL (70-110)
--- NOTE | 2023-10-26 13:13 | P.PN ---
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 He denies having any cardiac testing done in the past. Patient presented to the hospital with midsternal type pain. He states he has had the pain ever since he was a child but yesterday brought him to his knees. He does state he has pain off to the left side of his chest. In general he has had chest pain for the past 7 days. He also has a dental infection that apparently is being addressed outpatient. He has a past medical history of hyperlipidemia, tobacco use and dependence, listed as diabetes but not on medication. Patient apparently has not been taking his medications recently due to financial reasons. He was blood pressure 123/73, heart rate 115, pulse ox 90% on room air. EKG ST elevation in inferior leads WBC 13.3, hemoglobin 16.2. Sodium 134, potassium 3.8, creatinine 0.74. Troponin 29.2. AST 244 other liver function test are normal. Glucose 294. 2/16 On 10/24, patient underwent emergent cardiac catheterization and angioplasty of the right coronary artery. Following procedures, patient was transferred to the intensive care unit and has done well. He has been hemodynamically stable. Patient has been transferred out of the intensive care unit. He is found ambulating around the unit without any chest pain, shortness of breath, lightheadedness or dizziness. Echocardiogram reveals EF of 45 to 50% with inferior, inferior lateral hypokinesis. No mitral regurgitation. Mild tricuspid regurgitation. No pericardial effusion. Physical examination: Gen: This is a 53-year-old male appears to be uncomfortable. VS: reviewed HEENT: Head is atraumatic, normocephalic. Pupils equal, round. Sclerae is anicteric. NECK: Supple. No JVD. LUNGS: Clear to auscultation. No wheezes or rhonchi. No intercostal retractions. HEART: Regular rate and rhythm. No murmur. ABDOMEN: Soft No tenderness. EXTREMITIES: No pedal edema. No calf tenderness. Tether on right ankle. NEUROLOGICAL: Patient is awake, alert and oriented x3. Assessment: Acute inferior ST elevated myocardial infarction status post cardiac catheterization and angioplasty of the right coronary artery Hyperlipidemia Diabetes mellitus type 2 Tobacco use and dependence Noncompliance with medication Plan: Continue patient on aspirin, Lipitor, lisinopril, Lopressor and Brilinta. New prescriptions have been sent to his pharmacy. Monitor another 24 hours and plan for discharge in the morning Further recommendations to follow based upon clinical course Nurse practitioner note has been reviewed, I agree with documented findings and plan of care. Patient was seen and examined. Objective - Vital Signs Vital signs: Vital Signs Temp 98.0 F 10/26/23 11:04 Pulse 90 10/26/23 11:04 Resp 14 10/26/23 11:04 BP 106/70 10/26/23 11:04 Pulse Ox 98 10/26/23 11:04 FiO2 Intake & Output 10/25/23 10/26/23 10/26/23 18:59 06:59 18:59 Intake Total 918 20 240 Balance 918 20 240 Weight 86 kg Intake: IV 20 Invasive Line 1 10 Invasive Line 2 10 Oral 918 240 Other: Voiding Method Urinal Toilet Toilet # Voids 2 1 - Labs CBC & Chem 7: 10/24/23 09:27 10/25/23 04:04 Labs: Abnormal Lab Results - Last 24 Hours (Table) 10/25/23 10/25/23 10/26/23 Range/Units 16:40 19:55 06:21 POC Glucose (mg/dL) 136 H 215 H 138 H (70-110) mg/dL 10/26/23 Range/Units 11:42 POC Glucose (mg/dL) 156 H (70-110) mg/dL
--- NOTE | 2023-10-26 14:09 | P.PN ---
Subjective Progress Note Date: 10/26/23 patient is a 53-year-old gentleman past medical history significant for hyperlipidemia who presented to ER for chest pain. Patient stated that he was all right last night when he started experiencing chest pain that was central in location. Chest pain was burning in sensation, intermittent, nonradiating, no aggravating or relieving factors associated with this chest pain. Patient denies any nausea or vomiting associated with this chest pain. Patient did not seek any medical help last night but this morning this chest pain became worse and was much more severe in intensity. There was no complaint shortness of breath. No complaint of palpitation. There was no complaint of orthopnea or PND. Because of this chest pain, patient came to the ED Initial lab work done in the ER showed lab work done showed WBC 13.3, hemoglobin 16.2, platelet count 207, sodium 134, potassium 3.8, BUN 14, creatinine 0.74, glucose 294, troponin 29.2 EKG done in the ER showed ST segment elevation in inferior leads Patient was taken for emergent cardiac cath, patient underwent stenting in the RCA Patient admitted to internal medicine service in ICU 10/25. Patient seen and examined. S/p PCI proximal to mid RCA with a 3.5 x 38mm XIence KEISHA on 10/25. Denies any chest pain or shortness of breath. 10/26. Patient seen and examined. Continues to be chest pain-free. Denies any shortness of breath. Blood sugar better controlled. REVIEW OF SYSTEMS: CONSTITUTIONAL: No fever, no malaise,. CARDIOVASCULAR: No chest pain, no palpitations, no syncope. PULMONARY: No shortness of breath, no cough, GASTROINTESTINAL: No diarrhea, no nausea, no vomiting, no abdominal pain. NEUROLOGICAL: No headaches, no weakness, PHYSICAL EXAMINATION: GENERAL: The patient is alert and oriented x3, not in any acute distress. Well developed, well nourished. HEENT: Pupils are round and equally reacting to light. EOMI. No scleral icterus. No conjunctival pallor. Normocephalic, atraumatic. No pharyngeal erythema. No thyromegaly. CARDIOVASCULAR: S1 and S2 present. No murmurs, rubs, or gallops. PULMONARY: Chest is clear to auscultation, no wheezing or crackles. ABDOMEN: Soft, nontender, nondistended, normoactive bowel sounds. No palpable organomegaly. MUSCULOSKELETAL: No joint swelling or deformity. EXTREMITIES: No cyanosis, clubbing, or pedal edema. NEUROLOGICAL: Gross neurological examination did not reveal any focal deficits. SKIN: No rashes. Assessment and plan Acute ST elevation [place] Hyperlipidemia Diabetes mellitus type 2, HbA1c level is 9.6 Tobacco use and dependence Noncompliance with medication Monitor vital signs Monitor CBC Monitor CMP Continue telemetry monitoring Status post cardiac cath with stenting of RCA Monitor blood sugar levels, continue sliding-scale insulin, continue Levemir 10 units twice a day Continue postcardiac cath care per cardiology Continue aspirin, Brilinta Lipitor Continue Lopressor Cardiology following Labs and medication were reviewed.. Continue same treatment. Continue with symptomatic treatment. Resume home medication. Monitor labs and vitals. DVT and GI prophylaxis. Further recommendations as per clinical course of the patient Dictation was produced using [employer] dictation software. please excuse any grammatical, word or spelling errors. Objective - Vital Signs Vital signs: Vital Signs Temp 98.0 F 10/26/23 11:04 Pulse 90 10/26/23 11:04 Resp 14 10/26/23 11:04 BP 106/70 10/26/23 11:04 Pulse Ox 98 10/26/23 11:04 FiO2 Intake & Output 10/25/23 10/26/23 10/26/23 18:59 06:59 18:59 Intake Total 918 20 240 Balance 918 20 240 Weight 86 kg Intake: IV 20 Invasive Line 1 10 Invasive Line 2 10 Oral 918 240 Other: Voiding Method Urinal Toilet Toilet # Voids 2 1 - Labs CBC & Chem 7: 10/24/23 09:27 10/25/23 04:04 Labs: Abnormal Lab Results - Last 24 Hours (Table) 10/25/23 10/25/23 10/25/23 Range/Units 11:42 16:40 19:55 POC Glucose (mg/dL) 227 H 136 H 215 H (70-110) mg/dL 10/26/23 Range/Units 06:21 POC Glucose (mg/dL) 138 H (70-110) mg/dL
[2023-10-26 16:26] LABS: Glucose,Whole Blood 155 mg/dL (70-110)
[2023-10-26 20:06] LABS: Glucose,Whole Blood 224 mg/dL (70-110)
[2023-10-27 06:19] LABS: Glucose,Whole Blood 128 mg/dL (70-110)
[2023-10-27 09:03] VITALS: BP 112/75; PULSE 94; RESP 17; TEMP 98.3
--- NOTE | 2023-10-27 09:51 | P.PN ---
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 He denies having any cardiac testing done in the past. Patient presented to the hospital with midsternal type pain. He states he has had the pain ever since he was a child but yesterday brought him to his knees. He does state he has pain off to the left side of his chest. In general he has had chest pain for the past 7 days. He also has a dental infection that apparently is being addressed outpatient. He has a past medical history of hyperlipidemia, tobacco use and dependence, listed as diabetes but not on medication. Patient apparently has not been taking his medications recently due to financial reasons. He was blood pressure 123/73, heart rate 115, pulse ox 90% on room air. EKG ST elevation in inferior leads WBC 13.3, hemoglobin 16.2. Sodium 134, potassium 3.8, creatinine 0.74. Troponin 29.2. AST 244 other liver function test are normal. Glucose 294. 10/26 On 10/24, patient underwent emergent cardiac catheterization and angioplasty of the right coronary artery. Following procedures, patient was transferred to the intensive care unit and has done well. He has been hemodynamically stable. Patient has been transferred out of the intensive care unit. He is found ambulating around the unit without any chest pain, shortness of breath, lightheadedness or dizziness. Echocardiogram reveals EF of 45 to 50% with inferior, inferior lateral hypokinesis. No mitral regurgitation. Mild tricuspid regurgitation. No pericardial effusion. 10/27 Patient denies having any chest pain. No lightheadedness or dizziness, no shortness of breath. Patient's cardiac medications have been sent to his pharmacy yesterday. Blood pressure 112/75, pulse ox 90% on room air, heart rate 94. Physical examination: Gen: This is a 53-year-old male appears to be uncomfortable. VS: reviewed HEENT: Head is atraumatic, normocephalic. Pupils equal, round. Sclerae is anicteric. NECK: Supple. No JVD. LUNGS: Clear to auscultation. No wheezes or rhonchi. No intercostal retractions. HEART: Regular rate and rhythm. No murmur. ABDOMEN: Soft No tenderness. EXTREMITIES: No pedal edema. No calf tenderness. Tether on right ankle. NEUROLOGICAL: Patient is awake, alert and oriented x3. Assessment: Acute inferior ST elevated myocardial infarction status post cardiac catheterization and angioplasty of the right coronary artery Hyperlipidemia Diabetes mellitus type 2 Tobacco use and dependence Noncompliance with medication Plan: Continue patient on aspirin, Lipitor, lisinopril, Lopressor and Brilinta. New prescriptions have been sent to his pharmacy. Patient is cleared for discharge home and may follow-up with Dr. Elo Conley and 2 weeks. Nurse practitioner note has been reviewed, I agree with documented findings and plan of care. Patient was seen and examined. Objective - Vital Signs Vital signs: Vital Signs Temp 97.7 F 10/26/23 20:00 Pulse 89 10/27/23 04:00 Resp 18 10/27/23 04:00 BP 118/71 10/27/23 04:00 Pulse Ox 99 10/27/23 04:00 FiO2 Intake & Output 10/26/23 10/27/23 10/27/23 18:59 06:59 18:59 Intake Total 956 240 Balance 956 240 Intake: Oral 956 240 Other: Voiding Method Toilet Toilet # Voids 2 - Labs CBC & Chem 7: 10/24/23 09:27 10/25/23 04:04 Labs: Abnormal Lab Results - Last 24 Hours (Table) 10/26/23 10/26/23 10/26/23 Range/Units 11:42 16:25 20:05 POC Glucose (mg/dL) 156 H 155 H 224 H (70-110) mg/dL 10/27/23 Range/Units 06:18 POC Glucose (mg/dL) 128 H (70-110) mg/dL
--- NOTE | 2023-10-27 11:57 | P.DS ---
Providers Date of admission: 10/24/23 10:07 Expected date of discharge: 10/27/23 Attending physician: Matt Perry Consults: 10/24/23 10:02 Consult Physician Urgent Consulting Provider: Jose Conley Consult Reason/Comments: STEMI Do you want consulting provider notified?: Already Contacted 10/24/23 13:22 Consult Physician Routine Consulting Provider: [facility] Consult Reason/Comments: Post Interventional Patient Do you want consulting provider notified?: Already Contacted Primary care physician: Wagner Retana Hospital Course: Discharge diagnoses; Acute ST elevation [place] Hyperlipidemia Diabetes mellitus type 2, HbA1c level is 9.6 Tobacco use and dependence Noncompliance with medication Hospital course; patient is a 53-year-old gentleman past medical history significant for hyperlipidemia who presented to ER for chest pain. Patient stated that he was all right last night when he started experiencing chest pain that was central in location. Chest pain was burning in sensation, intermittent, nonradiating, no aggravating or relieving factors associated with this chest pain. Patient denies any nausea or vomiting associated with this chest pain. Patient did not seek any medical help last night but this morning this chest pain became worse and was much more severe in intensity. There was no complaint shortness of breath. No complaint of palpitation. There was no complaint of orthopnea or PND. Because of this chest pain, patient came to the ED Initial lab work done in the ER showed lab work done showed WBC 13.3, hemoglobin 16.2, platelet count 207, sodium 134, potassium 3.8, BUN 14, creatinine 0.74, glucose 294, troponin 29.2 EKG done in the ER showed ST segment elevation in inferior leads Patient was taken for emergent cardiac cath, patient underwent stenting in the RCA Patient admitted to internal medicine service in ICU 10/25. Patient seen and examined. S/p PCI proximal to mid RCA with a 3.5 x 38mm XIence KEISHA on 10/25. Denies any chest pain or shortness of breath. 10/26. Patient seen and examined. Continues to be chest pain-free. Denies any shortness of breath. Blood sugar better controlled. 10/27. Patient seen and examined. Cardiology recommended discharging patient on aspirin, Brilinta, Lopressor and lisinopril. Being discharged on Levemir 10 units twice a day and NovoLog sliding scale. Outpatient follow-up with cardiology and PCP PHYSICAL EXAMINATION: GENERAL: The patient is alert and oriented x3, not in any acute distress. Well developed, well nourished. HEENT: Pupils are round and equally reacting to light. EOMI. No scleral icterus. No conjunctival pallor. Normocephalic, atraumatic. No pharyngeal erythema. No thyromegaly. CARDIOVASCULAR: S1 and S2 present. No murmurs, rubs, or gallops. PULMONARY: Chest is clear to auscultation, no wheezing or crackles. ABDOMEN: Soft, nontender, nondistended, normoactive bowel sounds. No palpable organomegaly. MUSCULOSKELETAL: No joint swelling or deformity. EXTREMITIES: No cyanosis, clubbing, or pedal edema. NEUROLOGICAL: Gross neurological examination did not reveal any focal deficits. SKIN: No rashes. Dictation was produced using [employer] dictation software. please excuse any grammatical, word or spelling errors. Patient Condition at Discharge: Good Plan - Discharge Summary Discharge Rx Participant: No New Discharge Prescriptions: New Aspirin 81 mg PO DAILY tab Nitroglycerin Sl Tabs [Nitrostat] 0.4 mg SUBLINGUAL Q5M PRN #25 tab PRN Reason: Chest Pain Ticagrelor [Brilinta] 90 mg PO BID #180 tab Metoprolol Tartrate [Lopressor] 25 mg PO DAILY #180 tab lisinopriL [Zestril] 2.5 mg PO DAILY #90 tab Insulin Detemir (Levemir) [Levemir] 10 unit SQ BID@0700,2100 30 Days #1 each INSULIN ASPART (NovoLOG) [NovoLOG (formulary)] 0 unit SQ ACHS #1 each Continue Venlafaxine HCl [Effexor XR] 225 mg PO DAILY Albuterol Sulfate [Ventolin HFA] 2 puff INHALATION RT-Q4H PRN PRN Reason: Shortness Of Breath Atorvastatin Calcium [Lipitor] 80 mg PO HS Loratadine 10 mg PO DAILY Discharge Medication List Atorvastatin Calcium [Lipitor] 80 mg PO HS 04/20/23 [History] Albuterol Sulfate [Ventolin HFA] 2 puff INHALATION RT-Q4H PRN 10/24/23 [History] Loratadine 10 mg PO DAILY 10/24/23 [History] Venlafaxine HCl [Effexor XR] 225 mg PO DAILY 10/24/23 [History] Aspirin 81 mg PO DAILY tab 10/26/23 [Rx] Metoprolol Tartrate [Lopressor] 25 mg PO DAILY #180 tab 10/26/23 [Rx] Nitroglycerin Sl Tabs [Nitrostat] 0.4 mg SUBLINGUAL Q5M PRN #25 tab 10/26/23 [Rx] Ticagrelor [Brilinta] 90 mg PO BID #180 tab 10/26/23 [Rx] lisinopriL [Zestril] 2.5 mg PO DAILY #90 tab 10/26/23 [Rx] INSULIN ASPART (NovoLOG) [NovoLOG (formulary)] 0 unit SQ ACHS #1 each 10/27/23 [Rx] Insulin Detemir (Levemir) [Levemir] 10 unit SQ BID@0700,2100 30 Days #1 each 10/27/23 [Rx] Follow up Appointment(s)/Referral(s): Wagner Retana DO [Primary Care Provider] - 1-2 days Jose Conley MD [STAFF PHYSICIAN] - 1 Week Activity/Diet/Wound Care/Special Instructions: Patient has free Brillinta 1 month coupon at bedside. Discharge Disposition: HOME SELF-CARE
--- NOTE | 2023-10-29 21:47 | CDI ---
Documentation Clarification Form Date: 10/29/2023 09:36:47 PM From: Negin Morales Phone: Admit Date: 10/24/2023 10:07:00 AM Patient Name: Ian Dinero Visit Number: [id number] Discharge Date: 10/27/2023 10:53:00 AM ATTENTION: The Clinical Documentation Specialists (CDI) and [facility] Coding Staff appreciate your assistance in clarifying documentation. Please respond to the clarification below the line at the bottom and electronically sign. The CDI & [facility] Coding staff will review the response and follow-up if needed. Please note: Queries are made part of the Legal Health Record. If you have any questions, please contact the author of this message via ITS. Dr. Ole Garcia Your patient glucose results: 294 on Admission. Please clarify if there is an additional diagnosis and/or clinical significance related to this result. History/Risk Factors: 53yo M, acuteinferior STEMI, HLD, DMII, smoker, Rx noncompliance, depression, anxiety, GERD, TR Clinical indicators: Glucose: 10/24 216- 294 10/25 119-303 10/26 136- 227 10/27 128-224 Hemoglobin A1c 9.7 Treatment: Monitor blood sugar levels, continue sliding-scale insulin Is there an additional diagnosis and/or clinical significance related to the above diagnostic/radiology result? [ x] Type 2 diabetes mellitus with hyperglycemia [ ] Result is not clinically significant (no additional diagnosis) [ ] Other, please specify [ ] Unable to determine (Template Last Reviewed: October 2020) MTDD
== END 2023-10-27 10:53 | disposition home or self-care (01) | DRG 174 ==
LOC: EC 08:42 → 3SCARD 10:07 → 2SICU 11:23 → 3SCARD 10-25 16:14
PROVIDERS: ADMIT Hospitalist; ATTEND Hospitalist
PROC: B240ZZ3 Ultrasonography of Single Coronary Artery, Intravascular (ICD-10-PCS; 2023-10-24)
PROC: 027034Z Dilation of Coronary Artery, One Artery with Drug-eluting Intraluminal Device, Percutaneous Approach (ICD-10-PCS; principal; 2023-10-24 12:00)
PROC: 02C03ZZ Extirpation of Matter from Coronary Artery, One Artery, Percutaneous Approach (ICD-10-PCS; 2023-10-24 12:00)
PROC: 4A023N7 Measurement of Cardiac Sampling and Pressure, Left Heart, Percutaneous Approach (ICD-10-PCS; 2023-10-24 12:00)
PROC: B2111ZZ Fluoroscopy of Multiple Coronary Arteries using Low Osmolar Contrast (ICD-10-PCS; 2023-10-24 12:00)
DX: I21.19 ST elevation (STEMI) myocardial infarction involving other coronary artery of inferior wall (principal); I25.119 Atherosclerotic heart disease of native coronary artery with unspecified angina pectoris; E11.65 Type 2 diabetes mellitus with hyperglycemia; F32.A Depression, unspecified; I07.1 Rheumatic tricuspid insufficiency; E78.00 Pure hypercholesterolemia, unspecified; K21.9 Gastro-esophageal reflux disease without esophagitis; F17.210 Nicotine dependence, cigarettes, uncomplicated; K04.7 Periapical abscess without sinus; F41.9 Anxiety disorder, unspecified; K44.9 Diaphragmatic hernia without obstruction or gangrene; T46.6X6A Underdosing of antihyperlipidemic and antiarteriosclerotic drugs, initial encounter; T45.0X6A Underdosing of antiallergic and antiemetic drugs, initial encounter; T43.216A Underdosing of selective serotonin and norepinephrine reuptake inhibitors, initial encounter; Z82.49 Family history of ischemic heart disease and other diseases of the circulatory system; Z91.120 Patient's intentional underdosing of medication regimen due to financial hardship; Z79.899 Other long term (current) drug therapy; Z91.010 Allergy to peanuts; Z91.048 Other nonmedicinal substance allergy status
CPT/HCPCS: 36415; 80053; 80061; 83036; 83605; 83690; 83735; 84443; 84484; 85025; 92973; 92978; 93005; 93306; 93454; 96361; 96374; 96375; 99285; 99291

== ENCOUNTER 2023-12-02 20:57 | Observation (INO) | payer OTHER ==
[2023-12-02] MEDS: ONDANSETRON 4 MG/2 ML VIAL IVP STA (21:48)
[2023-12-02] MEDS: SODIUM CHLORIDE 0.9% 1,000 ML IV STA (21:48)
[2023-12-02] MEDS: MORPHINE SULFATE 4 MG/ML SYRINGE IVP STA (21:48)
[2023-12-02] MEDS: PANTOPRAZOLE 40 MG/10 ML VIAL IVP STA (21:48)
--- NOTE | 2023-12-02 21:54 | ED ---
Abdominal Pain HPI - General Chief Complaint: Abdominal Pain Stated Complaint: lump in chest abd pain Time Seen by Provider: 12/02/23 21:34 Source: patient, RN notes reviewed, old records reviewed Mode of arrival: ambulatory Limitations: no limitations - History of Present Illness Initial Comments: This is a 53-year-old male to the ER for evaluation of chest pain today. Patient has anterior chest pain epigastric chest pain that feels like prior recent [place], patient had a heart attack recently with stent placed this was a few months ago, patient has had no chest pain since that day and developed chest pain tonight. No shortness of breath or current diaphoresis. No recent fever cough or congestion, no illness or travel history MD Complaint: other (Chest pain with epigastric abdominal pain) -: hour(s) Location: epigastric Radiation: epigastric Migration to: epigastric Severity: moderate Severity scale (1-10): 4 Quality: aching Consistency: intermittent Improves With: nothing Worsens With: nothing Context: other Associated Symptoms: nausea Treatments Prior to Arrival: other (0) - Related Data Home Medications Medication Instructions Recorded Confirmed Atorvastatin Calcium [Lipitor] 80 mg PO HS 04/20/23 12/03/23 Albuterol Sulfate [Ventolin HFA] 2 puff INHALATION RT-Q4H PRN 10/24/23 12/03/23 Loratadine 10 mg PO DAILY 10/24/23 12/03/23 Venlafaxine HCl [Effexor XR] 225 mg PO DAILY 10/24/23 12/03/23 Aspirin EC [Ecotrin Low Dose] 81 mg PO DAILY 12/03/23 12/03/23 Empagliflozin [Jardiance] 10 mg PO DAILY 12/03/23 12/03/23 Famotidine 40 mg PO BID 12/03/23 12/03/23 INSULIN ASPART (NovoLOG) [NovoLOG See Protocol SQ ACHS 12/03/23 12/03/23 (formulary)] Insulin Detemir [Levemir Flexpen] 10 units SQ BID@0700,2100 12/03/23 12/03/23 lisinopriL [Zestril] 5 mg PO DAILY 12/03/23 12/03/23 Previous Rx's Medication Instructions Recorded Metoprolol Tartrate [Lopressor] 25 mg PO DAILY #180 tab 10/26/23 Nitroglycerin Sl Tabs [Nitrostat] 0.4 mg SUBLINGUAL Q5M PRN #25 tab 10/26/23 Ticagrelor [Brilinta] 90 mg PO BID #180 tab 10/26/23 Allergies Allergy/AdvReac Type Severity Reaction Status Date / Time peanut Allergy Swelling Verified 12/03/23 18:16 Surgical Tape Allergy hernandez Uncoded 12/02/23 21:10 skin,paper tape is ok Review of Systems ROS Statement: Those systems with pertinent positive or pertinent negative responses have been documented in the HPI. ROS Other: All systems not noted in ROS Statement are negative. Past Medical History Past Medical History: Chest Pain / Angina, Diabetes Mellitus, GERD/Reflux, Hyperlipidemia, Skin Disorder Additional Past Medical History / Comment(s): had diagestive issues all my life, pain epigastric area after eating,constipaiton, hx pancreatitis,Eczema. Hx ulcers, viral mennigitis. "Chronic chest pain, that Dr relates to acid reflux." States hx kidney problems but not sure what. Last Myocardial Infarction Date:: 10/24/2023 History of Any Multi-Drug Resistant Organisms: None Reported Past Surgical History: Cholecystectomy, Hernia Repair Additional Past Surgical History / Comment(s): Piece of metal removed from right eye,umbilical hernia repair Past Anesthesia/Blood Transfusion Reactions: Previous Problems w/ Anesthesia Additional Past Anesthesia/Blood Transfusion Reaction / Comment(s): Combative with anesthesia and has woken up twice during surgeries Past Psychological History: Anxiety, Depression Smoking Status: Current every day smoker Past Alcohol Use History: None Reported Past Drug Use History: None Reported - Past Family History Mother Family Medical History: Diabetes Mellitus Additional Family Medical History / Comment(s): DM Father Family Medical History: AICD/Pacemaker General Exam Limitations: no limitations General appearance: alert, in no apparent distress, anxious Head exam: Present: atraumatic, normocephalic, normal inspection Eye exam: Present: normal appearance, PERRL, EOMI. Absent: scleral icterus, conjunctival injection, periorbital swelling ENT exam: Present: normal exam, mucous membranes moist Neck exam: Present: normal inspection. Absent: tenderness, meningismus, lymphadenopathy Respiratory exam: Present: normal lung sounds bilaterally. Absent: respiratory distress, wheezes, rales, rhonchi, stridor Cardiovascular Exam: Present: normal rhythm, tachycardia, normal heart sounds. Absent: systolic murmur, diastolic murmur, rubs, gallop, clicks GI/Abdominal exam: Present: soft, normal bowel sounds. Absent: distended, tenderness, guarding, rebound, rigid Extremities exam: Present: normal inspection, full ROM, normal capillary refill. Absent: tenderness, pedal edema, joint swelling, calf tenderness Back exam: Present: normal inspection Neurological exam: Present: alert, oriented X3, CN II-XII intact Psychiatric exam: Present: normal affect, normal mood Skin exam: Present: warm, dry, intact, normal color. Absent: rash Course Vital Signs 12/02/23 12/02/23 12/02/23 21:08 22:10 22:57 Temperature 98.4 F Pulse Rate 109 H 90 86 Respiratory 18 16 18 Rate Blood Pressure 133/75 111/75 117/76 O2 Sat by Pulse 98 98 97 Oximetry 12/03/23 12/03/23 12/03/23 00:00 03:21 05:55 Temperature 98.1 F Pulse Rate 87 72 73 Respiratory 16 16 16 Rate Blood Pressure 121/86 101/67 114/71 O2 Sat by Pulse 99 98 97 Oximetry 12/03/23 09:17 Temperature Pulse Rate 84 Respiratory 18 Rate Blood Pressure 116/75 O2 Sat by Pulse 98 Oximetry - Reevaluation(s) Reevaluation #1: 12/03/23 00:56 Medical records reviewed Reevaluation #2: 12/03/23 00:56 Patient has episodic chest pain here in the ER improving Reevaluation #3: 12/03/23 00:56 Patient informed of results and questions answered Reevaluation #4: Was pt. sent in by a medical professional or institution (, PA, BENCH MANAGER, urgent care, hospital, or fci...) When possible be specific @ -no Did you speak to anyone other than the patient for history (EMS, parent, family, police, friend...)? What history was obtained from this source @ -no Did you review nursing and triage notes (agree or disagree)? Why? @ -agree Are old charts reviewed (outside hosp., previous admission, EMS record, old EKG, old radiological studies, urgent care reports/EKG's, fci records)? Report findings @ -yes Differential Diagnosis (chest pain, altered mental status, abdominal pain women, abdominal pain men, vaginal bleeding, weakness, fever, dyspnea, syncope, headache, dizziness, GI bleed, back pain, seizure, CVA, palpatations, mental health, musculoskeletal)? @ -prior EKG interpreted by me (3pts min.). @ -yes X-rays interpreted by me (1pt min.). @ -yes negative for acute disease CT interpreted by me (1pt min.). @ -no U/S interpreted by me (1pt. min.). @ -no What testing was considered but not performed or refused? (CT, X-rays, U/S, labs)? Why? @ -none What meds were considered but not given or refused? Why? @ -none Did you discuss the management of the patient with other professionals (pro fessionals i.e. , PA, BENCH MANAGER, lab, RT, psych nurse, social welfare research worker, stoner out, teacher, officer captain, case work aide)? Give summary @ -no Was smoking cessation discussed for >3mins.? @ -no Was critical care preformed (if so, how long)? @ -no Were there social determinants of health that impacted care today? How? (Homelessness, low income, unemployed, alcoholism, drug addiction, transportation, low edu. Level, literacy, decrease access to med. care, long-term, rehab)? @ -none Was there de-escalation of care discussed even if they declined (Discuss DNR or withdrawal of care, Hospice)? DNR status @ -no What co-morbidities impacted this encounter? (DM, HTN, Smoking, COPD, CAD, Cancer, CVA, ARF, Chemo, Hep., AIDS, mental health diagnosis, sleep apnea, morbid obesity)? @ -none Was patient admitted / discharged? Hospital course, mention meds given and route, prescriptions, significant lab abnormalities, going to OR and other pertinent info. @ - Undiagnosed new problem with uncertain prognosis? @ -no Drug Therapy requiring intensive monitoring for toxicity (Heparin, Nitro, Insulin, Cardizem)? @ -no Were any procedures done? @ -no Diagnosis/symptom? @ - Acute, or Chronic, or Acute on Chronic? @ -Acute Uncomplicated (without systemic symptoms) or Complicated (systemic symptoms)? @ -Complicated Side effects of treatment? @ -no Exacerbation, Progression, or Severe Exacerbation? @ -exacerbation Poses a threat to life or bodily function? How? (Chest pain, [place], [place], pneumonia, PE, COPD, DKA, ARF, appy, cholecystitis, CVA, Diverticulitis, Homicidal, Suicidal, threat to staff... and all critical care pts) @ -yes Reevaluation #5: Differential Chest Pain: Stable Angina, Unstable Angina, STEMI, NSTEMI Aortic Dissection, Pneumothorax, Musculoskeletal, Esophageal Spasm GERD, Cholecystitis, Pancreatitis, Zoster, this is not meant to be an all-inclusive list. - Consultations Consultation #1: Spoke with [facility] who agrees to admit this patient Medical Decision Making - Medical Decision Making 52-year-old male to the ER for evaluation of chest pain today. Patient [facility] for evaluation regards to persistent chest pain with history of recent ST elevation [place] with stent placed. Patient is having chest pain and shortness of breath although improved here in the ER, will admit for cardiology to see - Lab Data Result diagrams: 12/02/23 21:44 12/02/23 21:44 Lab Results 12/02/23 12/02/23 12/02/23 Range/Units 21:44 21:44 21:44 WBC 6.3 (3.8-10.6) k/uL RBC 5.15 (4.30-5.90) m/uL Hgb 15.3 (13.0-17.5) gm/dL Hct 45.6 (39.0-53.0) % MCV 88.5 (80.0-100.0) fL MCH 29.7 (25.0-35.0) pg MCHC 33.6 (31.0-37.0) g/dL RDW 15.1 (11.5-15.5) % Plt Count 174 (150-450) k/uL MPV 8.7 Neutrophils % 54 % Lymphocytes % 37 % Monocytes % 5 % Eosinophils % 1 % Basophils % 1 % Neutrophils # 3.4 (1.3-7.7) k/uL Lymphocytes # 2.3 (1.0-4.8) k/uL Monocytes # 0.3 (0-1.0) k/uL Eosinophils # 0.0 (0-0.7) k/uL Basophils # 0.1 (0-0.2) k/uL PT (10.0-12.5) sec INR (<1.2) APTT (22.0-30.0) sec Sodium 137 (137-145) mmol/L Potassium 4.0 (3.5-5.1) mmol/L Chloride 104 (98-107) mmol/L Carbon Dioxide 23 (22-30) mmol/L Anion Gap 10 mmol/L BUN 13 (9-20) mg/dL Creatinine 0.56 L (0.66-1.25) mg/dL Est GFR (CKD-EPI)AfAm >90 (>60 ml/min/1.73 sqM) Est GFR (CKD-EPI)NonAf >90 (>60 ml/min/1.73 sqM) Glucose 291 H (74-99) mg/dL Plasma Lactic Acid Osbaldo 2.0 (0.7-2.0) mmol/L Calcium 9.4 (8.4-10.2) mg/dL Phosphorus (2.5-4.5) mg/dL Magnesium (1.6-2.3) mg/dL Total Bilirubin 0.4 (0.2-1.3) mg/dL AST 23 (17-59) U/L ALT 23 (4-49) U/L Alkaline Phosphatase 107 (38-126) U/L Troponin I (0.000-0.034) ng/mL NT-Pro-B Natriuret Pep pg/mL Total Protein 7.0 (6.3-8.2) g/dL Albumin 4.3 (3.5-5.0) g/dL Amylase 63 (30-110) U/L Lipase 169 (23-300) U/L 12/02/23 12/02/23 12/02/23 Range/Units 23:41 23:55 23:55 WBC (3.8-10.6) k/uL RBC (4.30-5.90) m/uL Hgb (13.0-17.5) gm/dL Hct (39.0-53.0) % MCV (80.0-100.0) fL MCH (25.0-35.0) pg MCHC (31.0-37.0) g/dL RDW (11.5-15.5) % Plt Count (150-450) k/uL MPV Neutrophils % % Lymphocytes % % Monocytes % % Eosinophils % % Basophils % % Neutrophils # (1.3-7.7) k/uL Lymphocytes # (1.0-4.8) k/uL Monocytes # (0-1.0) k/uL Eosinophils # (0-0.7) k/uL Basophils # (0-0.2) k/uL PT 9.9 L (10.0-12.5) sec INR 0.9 (<1.2) APTT 19.9 L (22.0-30.0) sec Sodium (137-145) mmol/L Potassium (3.5-5.1) mmol/L Chloride (98-107) mmol/L Carbon Dioxide (22-30) mmol/L Anion Gap mmol/L BUN (9-20) mg/dL Creatinine (0.66-1.25) mg/dL Est GFR (CKD-EPI)AfAm (>60 ml/min/1.73 sqM) Est GFR (CKD-EPI)NonAf (>60 ml/min/1.73 sqM) Glucose (74-99) mg/dL Plasma Lactic Acid Osbaldo (0.7-2.0) mmol/L Calcium (8.4-10.2) mg/dL Phosphorus 2.8 (2.5-4.5) mg/dL Magnesium 1.7 (1.6-2.3) mg/dL Total Bilirubin (0.2-1.3) mg/dL AST (17-59) U/L ALT (4-49) U/L Alkaline Phosphatase (38-126) U/L Troponin I <0.012 (0.000-0.034) ng/mL NT-Pro-B Natriuret Pep 888 pg/mL Total Protein (6.3-8.2) g/dL Albumin (3.5-5.0) g/dL Amylase (30-110) U/L Lipase 167 (23-300) U/L - EKG Data -: EKG Interpreted by Me (EKG is sinus tachycardia 100 DC 150 QRS 105 QTc 403) - Radiology Data Radiology results: report reviewed (Chest x-ray is negative for acute disease), image reviewed Critical Care Time Critical Care Time: Yes Total Critical Care Time: 31 Disposition Clinical Impression: Chest pain, Epigastric pain Narrative: recent STEMI w Stent Placement Disposition: ADMITTED IP TO THIS [facility] Condition: Fair Is patient prescribed a controlled substance at d/c from ED?: No Time of Disposition: 00:10
[2023-12-02 21:56] LABS: Basophils # (A) 0.1 k/uL (0-0.2); Basophils % (A) 1 %; Eosinophils % (A) 1 %; HCT 45.6 % (39.0-53.0); HGB 15.3 gm/dL (13.0-17.5); Lymphocytes # (A) 2.3 k/uL (1.0-4.8); Lymphocytes % (A) 37 %; MCH 29.7 pg (25.0-35.0); MCHC 33.6 g/dL (31.0-37.0); MCV 88.5 fL (80.0-100.0); Mean Platelet Volume 8.7; Monocytes # (A) 0.3 k/uL (0-1.0); Monocytes % (A) 5 %; Neutrophils # (A) 3.4 k/uL (1.3-7.7); Neutrophils % (A) 54 %; Platelet Count 174 k/uL (150-450); RBC 5.15 m/uL (4.30-5.90); RDW 15.1 % (11.5-15.5); WBC 6.3 k/uL (3.8-10.6)
[2023-12-02 22:24] LABS: ALT 23 U/L (4-49); AST 23 U/L (17-59); African American GFR (CKD) >90 (>60 ml/min/1.73 sqM); Albumin 4.3 g/dL (3.5-5.0); Alkaline Phosphatase 107 U/L (38-126); Amylase 63 U/L (30-110); Anion Gap 10 mmol/L; Blood Urea Nitrogen 13 mg/dL (9-20); Calcium 9.4 mg/dL (8.4-10.2); Carbon Dioxide 23 mmol/L (22-30); Chloride 104 mmol/L (98-107); Glucose 291 mg/dL (74-99); Lipase 169 U/L (23-300); Non-African American GFR(CKD) >90 (>60 ml/min/1.73 sqM); Sodium 137 mmol/L (137-145); Total Bilirubin 0.4 mg/dL (0.2-1.3)
[2023-12-02 23:52] LABS: Magnesium 1.7 mg/dL (1.6-2.3); Phosphorus 2.8 mg/dL (2.5-4.5)
--- NOTE | 2023-12-02 23:52 | XR ---
EXAMINATION TYPE: XR chest 1V portable DATE OF EXAM: 12/02/2023 COMPARISON: Chest x-ray April 20, 2023 HISTORY: Chest pain TECHNIQUE: Single frontal view of the chest is obtained. FINDINGS: There is no focal air space opacity, pleural effusion, or pneumothorax seen. The cardiac silhouette size is within normal limits. The osseous structures are intact. IMPRESSION: No acute process.
[2023-12-02] MEDS: SODIUM CHLORIDE 0.9% 500 ML 500 ML IV STA (23:56)
[2023-12-03 00:25] LABS: INR 0.9 (<1.2); Prothrombin Time 9.9 sec (10.0-12.5)
[2023-12-03 00:41] LABS: Partial Thromboplastin Time 19.9 sec (22.0-30.0)
[2023-12-03] MEDS ORDERED: ONDANSETRON 4 MG/2 ML VIAL IVP PRN (00:53)
[2023-12-03] MEDS ORDERED: NALOXONE 0.4 MG/ML 1 ML VIAL IV PRN (00:53)
[2023-12-03] MEDS ORDERED: MORPHINE SULFATE 4 MG/ML SYRINGE IV PRN (00:53)
[2023-12-03] MEDS: SODIUM CHLORIDE 0.9% 1,000 ML IV SCH (01:06)
[2023-12-03 08:27] LABS: Glucose,Whole Blood 195 mg/dL (70-110)
[2023-12-03] MEDS: PANTOPRAZOLE 40 MG/10 ML VIAL IV SCH (08:50)
[2023-12-03] MEDS: ASPIRIN 81 MG PO SCH (08:51)
[2023-12-03] MEDS: TICAGRELOR 90 MG TAB PO SCH (08:51)
[2023-12-03] MEDS ORDERED: METOPROLOL TARTRATE 25 MG TAB PO SCH ×2 (09:00→21:00)
[2023-12-03] MEDS ORDERED: NITROGLYCERIN SL TABS 0.4 MG TAB SUBLINGUAL PRN (09:27)
[2023-12-03] MEDS ORDERED: ALPRAZolam 0.5 MG TAB PO PRN (09:27)
[2023-12-03] MEDS ORDERED: ALPRAZolam 0.25 MG TAB PO PRN (09:27)
[2023-12-03] MEDS: ASPIRIN 325 MG TAB PO STA (09:44)
--- NOTE | 2023-12-03 09:44 | P.CRDCN ---
History of Present Illness History of present illness: HISTORY OF PRESENT ILLNESS: This is a 53-year-old male with a past medical history significant for coronary artery disease with previous stenting, hypertension, hyperlipidemia, diabetes, and nicotine dependence. Patient follows in the office with Dr. Conley. We have been asked to see the patient in consultation for chest pain. Patient examined at the bedside. Patient was admitted to the hospital in October 2023. He underwent cardiac catheterization on 10/24/2023 with PCI of the proximal to mid RCA. He also underwent balloon angioplasty to the PDA and PLV. Patient states since his cardiac catheterization he has continued to have chest discomfort. He states the pain does not occur with exertion and can happen when he is just sitting watching TV. He states when he was here in October he had epigastric pain. He reports that this pain is not similar to the pain he experienced at that time. He states the pain now is mostly on the left side of his chest and into his armpit and shoulder. He states the pain will usually last for 1 to 2 hours and then go away on its own. He states he has never taken nitro for any of these episodes. He does report the pain is worse with deep inspiration. He states with deep inspiration the pain radiates across his entire chest. The patient does report he has been compliant with his medications including aspirin and Brilinta. He recently underwent a low-level stress test in the office and was cleared to begin cardiac rehab although he has not started this yet. He is a current cigarette smoker and states he is down to 2 cigarettes a day. He denies any drug use including marijuana. He denies any alcohol use. DIAGNOSTICS: - EKG reveals sinus mechanism with T wave inversions in inferior leads and V3V6. - Chest xray negative for acute process. - Laboratory data: WBC 6.3. Hemoglobin 15.3. Platelet count 174. Sodium 137. Potassium 4.0. BUN 13. Creatinine 0.56. Lactic acid 2.0. Troponin negative x 2. proBNP 888. - Current home cardiac medication list has not been updated at the time of examination - Most recent echocardiogram obtained in October 2023 revealed ejection fraction 45 to 50% with inferior and inferior lateral hypokinesis with mild TR - Cardiac catheterization history: 10/24/2023 with PCI of the proximal to mid RCA and angioplasty of the PDA and PLV REVIEW OF SYSTEMS: At the time of my exam: CONSTITUTIONAL: Denies fever or chills. HEENT: Denies blurred vision, vision changes, or eye pain. Denies hemoptysis CARDIOVASCULAR: Denies chest pain. Denies orthopnea. Denies PND. Denies palpitations RESPIRATORY: Denies shortness of breath. GASTROINTESTINAL: Denies abdominal pain. Denies nausea or vomiting. HEMATOLOGIC: Denies bleeding disorders. GENITOURINARY: Denies any blood in urine. SKIN: Denies pruitis. Denies rash. PHYSICAL EXAM: VITAL SIGNS: Reviewed. GENERAL: Well-developed in no acute distress. HEENT: Head is normocephalic. Pupils are equal, round. Sclerae anicteric. Mucous membranes of the mouth are moist. Neck supple. No JVD or thyromegaly LUNGS: Respirations even and unlabored. Lungs essentially clear to auscultation bilaterally. HEART: Regular rate and rhythm. S1 and S2 heard. ABDOMEN: Soft. Nondistended. Nontender. EXTREMITIES: Normal range of motion. No clubbing or cyanosis. Peripheral pulses intact. No lower extremity edema NEUROLOGIC: Awake and alert. Oriented x 3. ASSESSMENT: Chest pain, troponin negative x 2 Coronary artery disease with recent PCI of the proximal to mid RCA and angioplasty of the PDA and PLV, 10/24/2023 Mild ischemic cardiomyopathy, ejection fraction 45% Hypertension Hyperlipidemia Diabetes Nicotine dependence PLAN: An acute coronary but has been ruled out Obtain limited echo to assess LV function and assess for wall motion abnormalities Continue dual antiplatelet therapy with aspirin and Brilinta Continue high intensity statin Continue additional cardiac medications Patient to undergo cardiac catheterization today with Dr. Conley Further recommendations pending patient course Nurse practitioner note has been reviewed by physician. Signing provider agrees with the documented findings, assessment, and plan of care documented by SMOKE CONTROL SUPERVISOR as a scribe. Past Medical History Past Medical History: Chest Pain / Angina, Diabetes Mellitus, GERD/Reflux, Hyperlipidemia, Skin Disorder Additional Past Medical History / Comment(s): had diagestive issues all my life, pain epigastric area after eating,constipaiton, hx pancreatitis,Eczema. Hx ulcers, viral mennigitis. "Chronic chest pain, that Dr relates to acid reflux." States hx kidney problems but not sure what. Last Myocardial Infarction Date:: 10/24/2023 History of Any Multi-Drug Resistant Organisms: None Reported Past Surgical History: Cholecystectomy, Hernia Repair Additional Past Surgical History / Comment(s): Piece of metal removed from right eye,umbilical hernia repair Past Anesthesia/Blood Transfusion Reactions: Previous Problems w/ Anesthesia Additional Past Anesthesia/Blood Transfusion Reaction / Comment(s): Combative with anesthesia and has woken up twice during surgeries Past Psychological History: Anxiety, Depression Smoking Status: Current every day smoker Past Alcohol Use History: None Reported Past Drug Use History: None Reported - Past Family History Mother Family Medical History: Diabetes Mellitus Additional Family Medical History / Comment(s): DM Father Family Medical History: AICD/Pacemaker Medications and Allergies Home Medications Medication Instructions Recorded Confirmed Type Atorvastatin Calcium [Lipitor] 80 mg PO HS 04/20/23 10/24/23 History Albuterol Sulfate [Ventolin HFA] 2 puff INHALATION RT-Q4H PRN 10/24/23 10/24/23 History Loratadine 10 mg PO DAILY 10/24/23 10/24/23 History Venlafaxine HCl [Effexor XR] 225 mg PO DAILY 10/24/23 10/24/23 History Aspirin 81 mg PO DAILY tab 10/26/23 Rx Metoprolol Tartrate [Lopressor] 25 mg PO DAILY #180 tab 10/26/23 Rx Nitroglycerin Sl Tabs [Nitrostat] 0.4 mg SUBLINGUAL Q5M PRN #25 tab 10/26/23 Rx Ticagrelor [Brilinta] 90 mg PO BID #180 tab 10/26/23 Rx lisinopriL [Zestril] 2.5 mg PO DAILY #90 tab 10/26/23 Rx INSULIN ASPART (NovoLOG) [NovoLOG 0 unit SQ ACHS #1 each 10/27/23 Rx (formulary)] Insulin Detemir (Levemir) [Levemir] 10 unit SQ BID@0700,2100 30 Days 10/27/23 Rx #1 each Allergies Allergy/AdvReac Type Severity Reaction Status Date / Time peanut Allergy Swelling Verified 12/02/23 21:10 Surgical Tape Allergy hernandez Uncoded 12/02/23 21:10 skin,paper tape is ok Physical Exam Vitals: Vital Signs Temp Pulse Resp BP Pulse Ox 12/03/23 05:55 98.1 F 73 16 114/71 97 12/03/23 03:21 72 16 101/67 98 12/03/23 00:00 87 16 121/86 99 12/02/23 22:57 86 18 117/76 97 12/02/23 22:10 90 16 111/75 98 12/02/23 21:08 98.4 F 109 H 18 133/75 98 Intake and Output 12/02/23 12/03/23 12/03/23 22:59 06:59 14:59 Other: Weight 81.647 kg Results 12/02/23 21:44 12/02/23 21:44 Cardiac Enzymes 12/02/23 12/02/23 12/03/23 Range/Units 21:44 23:55 07:44 AST 23 (17-59) U/L Troponin I <0.012 <0.012 (0.000-0.034) ng/mL Coagulation 12/02/23 Range/Units 23:55 PT 9.9 L (10.0-12.5) sec APTT 19.9 L (22.0-30.0) sec CBC 12/02/23 Range/Units 21:44 WBC 6.3 (3.8-10.6) k/uL RBC 5.15 (4.30-5.90) m/uL Hgb 15.3 (13.0-17.5) gm/dL Hct 45.6 (39.0-53.0) % Plt Count 174 (150-450) k/uL Comprehensive Metabolic Panel 12/02/23 Range/Units 21:44 Sodium 137 (137-145) mmol/L Potassium 4.0 (3.5-5.1) mmol/L Chloride 104 (98-107) mmol/L Carbon Dioxide 23 (22-30) mmol/L BUN 13 (9-20) mg/dL Creatinine 0.56 L (0.66-1.25) mg/dL Glucose 291 H (74-99) mg/dL Calcium 9.4 (8.4-10.2) mg/dL AST 23 (17-59) U/L ALT 23 (4-49) U/L Alkaline Phosphatase 107 (38-126) U/L Total Protein 7.0 (6.3-8.2) g/dL Albumin 4.3 (3.5-5.0) g/dL Current Medications Generic Name Dose Route Start Last Admin Trade Name Freq PRN Reason Stop Dose Admin Aspirin 81 mg 12/03/23 09:00 Aspirin 81 Mg PO DAILY [facility] Atorvastatin Calcium 80 mg 12/03/23 21:00 Atorvastatin 80 Mg Tab PO HS [facility] Sodium Chloride 1,000 mls @ 20 mls/hr 12/03/23 01:00 12/03/23 01:06 Saline 0.9% IV 20 mls/hr .Q24H ELISA Administration Lisinopril 2.5 mg 12/03/23 09:00 Lisinopril 2.5 Mg Tab PO DAILY [facility] Metoprolol Tartrate 25 mg 12/03/23 21:00 Metoprolol Tartrate 25 Mg Tab PO BID [facility] Morphine Sulfate 4 mg 12/03/23 00:53 Morphine Sulfate 4 Mg/Ml Syringe IV Q4HR PRN Severe Pain (Scale 7 to 10) Naloxone HCl 0.2 mg 12/03/23 00:53 Naloxone 0.4 Mg/Ml 1 Ml Vial IV Q2M PRN Opioid Reversal Ondansetron HCl 4 mg 12/03/23 00:53 Ondansetron 4 Mg/2 Ml Vial IVP Q8HR PRN Nausea And Vomiting Pantoprazole Sodium 40 mg 12/03/23 09:00 Pantoprazole 40 Mg/10 Ml Vial IV DAILY [facility] Ticagrelor 90 mg 12/03/23 09:00 Ticagrelor 90 Mg Tab PO BID [facility] Intake and Output 12/02/23 12/03/23 12/03/23 22:59 06:59 14:59 Other: Weight 81.647 kg 12/02/23 21:44 12/02/23 21:44
[2023-12-03] MEDS: ATORVASTATIN 80 MG TAB PO STA (09:49)
[2023-12-03] MEDS: SODIUM CHLORIDE 0.9% 1,000 ML in EMPTY BAG 1 BAG IV SCH (09:49)
[2023-12-03] MEDS: METOPROLOL TARTRATE 25 MG TAB PO SCH (09:49)
[2023-12-03] MEDS: IV FLUID CONTINUATION 1,000 ML IV ONE (10:59)
[2023-12-03] MEDS ORDERED: fentaNYL (PF) 50 MCG/ML 2 ML AMP ONE (11:00)
[2023-12-03] MEDS: fentaNYL (PF) 50 MCG/1 ML VIAL IVP ONE (11:08)
[2023-12-03] MEDS: MIDAZOLAM 2 MG/2 ML VIAL IVP ONE (11:08)
[2023-12-03] MEDS ORDERED: ALBUTEROL NEBULIZED 2.5 MG/3 ML INHALATION PRN (11:11)
[2023-12-03] MEDS ORDERED: DEXTROSE 50% SYRINGE 50 ML IVP PRN ×2 (11:12)
[2023-12-03] MEDS: LIDOCAINE 1% INJ 10MG/ML (30 ML VIAL-PF) SQ ONE (11:29)
[2023-12-03] MEDS: IOPAMIDOL-370 100ML BTL INJ ONE (11:29)
[2023-12-03] MEDS ORDERED: RX INFO: IV CONTRAST WAS GIVEN 1 EACH MISC MISCELLANE PRN (11:42)
--- NOTE | 2023-12-03 13:58 | CC ---
CARDIAC CATHETERIZATION REPORT INDICATION: Unstable angina in a patient with recent coronary artery disease, status post angioplasty of right coronary artery. PROCEDURE NOTE: After obtaining informed consent, left heart catheterization and coronary angiogram were performed via the right femoral artery using standard Alesha catheters. The patient tolerated the procedure well without any obvious immediate complications. A femoral angiogram was performed, and Angio-Seal was deployed for hemostasis. The patient received moderate conscious sedation. Total sedation time was 21 minutes. I initially attempted right radial artery access, but was unsuccessful in passing the Glidewire through the needle. Hence, I decided to proceed with the femoral catheterization and the procedure was completed uneventfully. FINDINGS: 1. HEMODYNAMICS: Left ventricular end-diastolic pressure is 18 mm. There is no significant gradient across the aortic valve. 2. LEFT VENTRICULOGRAM: Left ventriculogram is not performed. 3. ANGIOGRAPHIC DATA: a.Right coronary artery: Right coronary artery is a large dominant vessel and is free of significant stenosis. The previously stented segment appears patent. b.Left main coronary artery is a normal-sized vessel and is free of stenosis. Divides into left anterior descending coronary artery and circumflex coronary artery. Circumflex coronary artery is a nondominant vessel and is free of significant stenosis. LAD shows a mild atherosclerotic plaque in its midportion. CONCLUSION: 1. Patent stent within the right coronary artery. 2. Mild nonobstructive disease involving LAD. PLAN: The patient's chest discomfort is noncardiac in origin. We will continue with the current aggressive medical therapy, watch him overnight and discharge him home tomorrow. MMODL / IJN: [id number] /
--- NOTE | 2023-12-03 14:16 | P.HPIM ---
History of Present Illness H&P Date: 12/03/23 Chief Complaint: Chest pain * 53-year-old gentleman with past medical history significant for coronary artery disease with history of PCI in October 2023 PCI of proximal to mid RCA, and balloon angioplasty of PDA, history of hypertension, history of diabetes mellitus, hyperlipidemia and nicotine dependence presents to the emergency department with complaints of chest pain * Workup initiated in ER included EKG which showed sinus rhythm ST segment changes and T wave inversions to lead V3 to V6, * Initial troponin obtained was negative, N-terminal proBNP 888, chest x-ray ob tained in ER negative for acute process. * Blood work obtained in ER include WBC count of 6.3 hemoglobin 15 platelet count of 174 sodium 137 potassium 4 BUN 13 creatinine 0.56. INR of 0.9 blood glucose of 195 * Consultation was obtained from cardiology for workup for chest pain * REVIEW OF SYSTEMS: Chest pain CONSTITUTIONAL: No fever, no malaise, no fatigue. HEENT: No recent visual problems or hearing problems. Denied any sore throat. CARDIOVASCULAR: Chest pain PULMONARY: No shortness of breath, no cough, no hemoptysis. GASTROINTESTINAL: No diarrhea, no nausea, no vomiting, no abdominal pain. NEUROLOGICAL: No headaches, no weakness, no numbness. HEMATOLOGICAL: Denies any bleeding or petechiae. GENITOURINARY: Denies any burning micturition, frequency, or urgency. MUSCULOSKELETAL/RHEUMATOLOGICAL: Denies any joint pain, swelling, or any muscle pain. ENDOCRINE: Denies any polyuria or polydipsia. PHYSICAL EXAMINATION: GENERAL: The patient is alert and oriented x3, not in any acute distress. Well developed, well nourished. HEENT: Pupils are round and equally reacting to light. EOMI. No scleral icterus. CARDIOVASCULAR: S1 and S2 present. No murmurs, rubs, or gallops. PULMONARY: Chest is clear to auscultation, no wheezing or crackles. ABDOMEN: Soft, nontender, nondistended, normoactive bowel sounds. No palpable organomegaly. MUSCULOSKELETAL: No joint swelling or deformity. EXTREMITIES: No cyanosis, clubbing, or pedal edema. NEUROLOGICAL: Gross neurological examination did not reveal any focal deficits. SKIN: No rashes. Past Medical History Past Medical History: Chest Pain / Angina, Diabetes Mellitus, GERD/Reflux, Hyperlipidemia, Skin Disorder Additional Past Medical History / Comment(s): had diagestive issues all my life, pain epigastric area after eating,constipaiton, hx pancreatitis,Eczema. Hx ulcers, viral mennigitis. "Chronic chest pain, that Dr relates to acid reflux." States hx kidney problems but not sure what. Last Myocardial Infarction Date:: 10/24/2023 History of Any Multi-Drug Resistant Organisms: None Reported Past Surgical History: Cholecystectomy, Hernia Repair Additional Past Surgical History / Comment(s): Piece of metal removed from right eye,umbilical hernia repair Past Anesthesia/Blood Transfusion Reactions: Previous Problems w/ Anesthesia Additional Past Anesthesia/Blood Transfusion Reaction / Comment(s): Combative with anesthesia and has woken up twice during surgeries Past Psychological History: Anxiety, Depression Smoking Status: Current every day smoker Past Alcohol Use History: None Reported Past Drug Use History: None Reported - Past Family History Mother Family Medical History: Diabetes Mellitus Additional Family Medical History / Comment(s): DM Father Family Medical History: AICD/Pacemaker Medications and Allergies Home Medications Medication Instructions Recorded Confirmed Type Atorvastatin Calcium [Lipitor] 80 mg PO HS 04/20/23 10/24/23 History Albuterol Sulfate [Ventolin HFA] 2 puff INHALATION RT-Q4H PRN 10/24/23 10/24/23 History Loratadine 10 mg PO DAILY 10/24/23 10/24/23 History Venlafaxine HCl [Effexor XR] 225 mg PO DAILY 10/24/23 10/24/23 History Aspirin 81 mg PO DAILY tab 10/26/23 Rx Metoprolol Tartrate [Lopressor] 25 mg PO DAILY #180 tab 10/26/23 Rx Nitroglycerin Sl Tabs [Nitrostat] 0.4 mg SUBLINGUAL Q5M PRN #25 tab 10/26/23 Rx Ticagrelor [Brilinta] 90 mg PO BID #180 tab 10/26/23 Rx lisinopriL [Zestril] 2.5 mg PO DAILY #90 tab 10/26/23 Rx INSULIN ASPART (NovoLOG) [NovoLOG 0 unit SQ ACHS #1 each 10/27/23 Rx (formulary)] Insulin Detemir (Levemir) [Levemir] 10 unit SQ BID@0700,2100 30 Days 10/27/23 Rx #1 each Allergies Allergy/AdvReac Type Severity Reaction Status Date / Time peanut Allergy Swelling Verified 12/02/23 21:10 Surgical Tape Allergy hernandez Uncoded 12/02/23 21:10 skin,paper tape is ok Physical Exam Vitals: Vital Signs Temp Pulse Resp BP Pulse Ox 12/03/23 09:17 84 18 116/75 98 12/03/23 05:55 98.1 F 73 16 114/71 97 12/03/23 03:21 72 16 101/67 98 12/03/23 00:00 87 16 121/86 99 12/02/23 22:57 86 18 117/76 97 12/02/23 22:10 90 16 111/75 98 12/02/23 21:08 98.4 F 109 H 18 133/75 98 Intake and Output 12/02/23 12/03/23 12/03/23 22:59 06:59 14:59 Other: Weight 81.647 kg Results CBC & Chem 7: 12/02/23 21:44 12/02/23 21:44 Labs: Abnormal Lab Results - Last 24 Hours (Table) 12/02/23 12/02/23 12/03/23 Range/Units 21:44 23:55 08:25 PT 9.9 L (10.0-12.5) sec APTT 19.9 L (22.0-30.0) sec Creatinine 0.56 L (0.66-1.25) mg/dL Glucose 291 H (74-99) mg/dL POC Glucose (mg/dL) 195 H (70-110) mg/dL Assessment and Plan Assessment: Assessment and plan * Coronary artery disease with unstable angina * History of coronary artery disease with PCI of RCA proximal to mid, angioplasty of PDA and PLV October 2023 * Ischemic cardiomyopathy * Hypertension * Diabetes mellitus type 2 * Hyperlipidemia * In regards to coronary artery disease and unstable angina, cardiology consulted continue patient on IV heparin, continue aspirin, Brilinta * Patient scheduled for cardiac catheterization during this hospital stay * To diabetes mellitus Accu-Cheks ACHS continue patient on correctional insulin and Lantus * In regards to hyperlipidemia, continue Lipitor * Status full code Time with Patient: Greater than 30
[2023-12-03] MEDS: SIMETHICONE 80 MG CHEWABLE PO SCH (17:05)
[2023-12-03] MEDS: INSULIN ASPART (NovoLOG) 100 UNIT/ML VIAL SQ SCH (17:05)
[2023-12-03 17:09] LABS: Glucose,Whole Blood 267 mg/dL (70-110)
[2023-12-03] MEDS: NICOTINE 21MG/24HR PATCH TRANSDERM SCH (17:31)
[2023-12-03 20:33] LABS: Glucose,Whole Blood 189 mg/dL (70-110)
[2023-12-03] MEDS: ATORVASTATIN 80 MG TAB PO SCH (22:02)
[2023-12-03] MEDS: INSULIN DETEMIR (LEVEMIR) 100 UNIT/ML SYR SQ SCH (22:03)
[2023-12-04 06:07] LABS: Glucose,Whole Blood 250 mg/dL (70-110)
[2023-12-04] MEDS ORDERED: HEPARIN SODIUM,PORCINE 10,000 UNIT in SODIUM CHLORIDE 0.9% 1,000 ML IRRIGATION PRN (07:00)
[2023-12-04] MEDS ORDERED: HEPARIN SODIUM,PORCINE (1 ML) 2,500 UNIT in SODIUM CHLORIDE 0.9% 250 ML IRRIGATION PRN (07:00)
[2023-12-04 08:44] VITALS: BP 108/70; PULSE 73; RESP 16; TEMP 97.7
[2023-12-04] MEDS: lisinopriL 5 MG TAB PO SCH (09:04)
--- NOTE | 2023-12-04 09:10 | CA ---
Transthoracic Echo Report Name: Ian Dinero Age: 53 Gender: M : 1970 Exam Date: 12/03/2023 17:48 Exam Location: [facility] Ht (in): 70 Wt (lb): 180 Ordering Physician: Janice Jacobs Attending/Referring Phys: [id number], Arlene Medical Practice Manager Massiel Sol RCS Procedure CPT: Indications: LV function, CP, recent stening 10/24/2023 Cardiac Hx: Technical Quality: Technically difficult study Contrast 1: Definity Total Dose (mL): 2 Contrast 2: Total Dose (mL): MEASUREMENTS (Male / Female) Normal Values 2D ECHO LV Diastolic Volume MOD BP 130.6 cm??? 67 - 155 / 56 - 104 cm??? LV Systolic Volume MOD BP 79.9 cm??? 22 - 58 / 19 - 49 cm??? LV Ejection Fraction MOD BP 38.9 % >= 55 % LV Cardiac Index MOD BP 2137.0 cm???/min???m??? LV Diastolic Volume MOD 4C 123.1 cm??? LV Systolic Volume MOD 4C 76.2 cm??? LV Ejection Fraction MOD 4C 38.1 % LV Cardiac Index MOD 4C 1972.9 cm???/min???m??? LV Diastolic Length 4C 9.3 cm LV Systolic Length 4C 8.2 cm LV Diastolic Volume MOD 2C 135.5 cm??? LV Systolic Volume MOD 2C 78.8 cm??? LV Ejection Fraction MOD 2C 41.8 % LV Cardiac Index MOD 2C 2386.6 cm???/min???m??? LV Diastolic Length 2C 9.6 cm LV Systolic Length 2C 8.7 cm FINDINGS Left Ventricle Left ventricular ejection fraction is estimated at 35-40 %. Moderately increased left ventricular systolic volume. Moderately decreased left ventricular ejection fraction. Inferior and inferoseptal hypokinesis Right Ventricle Right ventricle not well visualized. Right Atrium Right atrium not well visualized. Left Atrium Left atrium not well visualized. Mitral Valve Mitral valve not assessed. Aortic Valve Aortic valve not assessed. Tricuspid Valve Tricuspid valve not assessed. Pulmonic Valve Pulmonic valve not assessed. Pericardium No pericardial effusion. Aorta Aortic root and proximal ascending aorta not assessed. CONCLUSIONS Limited echo. Technically difficult study. Definity ECHO contrast used for improved visualization of the endocardial borders (inadequate visualization of two or more contiguous segments). Moderately impaired left ventricle systolic function with segmental wall motion abnormality consistent with prior myocardial infarction Previewed by: Dr. Ritesh Barnes MD (Electronically Signed) Final Date: 04 December 2023 09:09
--- NOTE | 2023-12-04 10:12 | P.PN ---
Subjective HISTORY OF PRESENT ILLNESS: This is a 53-year-old male with a past medical history significant for coronary artery disease with previous stenting, hypertension, hyperlipidemia, diabetes, and nicotine dependence. Patient follows in the office with Dr. Conley. We have been asked to see the patient in consultation for chest pain. Patient examined at the bedside. Patient was admitted to the hospital in October 2023. He underwent cardiac catheterization on 10/24/2023 with PCI of the proximal to mid RCA. He also underwent balloon angioplasty to the PDA and PLV. Patient states since his cardiac catheterization he has continued to have chest discomfort. He states the pain does not occur with exertion and can happen when he is just sitting watching TV. He states when he was here in October he had epigastric pain. He reports that this pain is not similar to the pain he experienced at that time. He states the pain now is mostly on the left side of his chest and into his armpit and shoulder. He states the pain will usually last for 1 to 2 hours and then go away on its own. He states he has never taken nitro for any of these episodes. He does report the pain is worse with deep inspiration. He states with deep inspiration the pain radiates across his entire chest. The patient does report he has been compliant with his medications including aspirin and Brilinta. He recently underwent a low-level stress test in the office and was cleared to begin cardiac rehab although he has not started this yet. He is a current cigarette smoker and states he is down to 2 cigarettes a day. He denies any drug use including marijuana. He denies any alcohol use. DIAGNOSTICS: - EKG reveals sinus mechanism with T wave inversions in inferior leads and V3V6. - Chest xray negative for acute process. - Laboratory data: WBC 6.3. Hemoglobin 15.3. Platelet count 174. Sodium 137. Potassium 4.0. BUN 13. Creatinine 0.56. Lactic acid 2.0. Troponin negative x 2. proBNP 888. - Current home cardiac medication list has not been updated at the time of examination - Most recent echocardiogram obtained in October 2023 revealed ejection fraction 45 to 50% with inferior and inferior lateral hypokinesis with mild TR - Cardiac catheterization history: 10/24/2023 with PCI of the proximal to mid RCA and angioplasty of the PDA and PLV 12/04/2023 Patient is status postcardiac catheterization yesterday with Dr. Conley revealing patent stent within the right coronary artery. Mild nonobstructive disease involving the LAD. Medical management was recommended. Patient examined this morning at the bedside. Patient continues to report occasional mild episodes of chest pain and shortness of breath. Patient's vital signs are stable. Right femoral cath site soft with no hematoma noted. Echocardiogram completed revealing ejection fraction 35 to 40%, and inferior and inferior septal hypokinesis. PHYSICAL EXAM: VITAL SIGNS: Reviewed. GENERAL: Well-developed in no acute distress. HEENT: Head is normocephalic. Pupils are equal, round. Sclerae anicteric. Mucous membranes of the mouth are moist. Neck supple. No JVD or thyromegaly LUNGS: Respirations even and unlabored. Lungs essentially clear to auscultation bilaterally. HEART: Regular rate and rhythm. S1 and S2 heard. ABDOMEN: Soft. Nondistended. Nontender. EXTREMITIES: Normal range of motion. No clubbing or cyanosis. Peripheral pulses intact. No lower extremity edema NEUROLOGIC: Awake and alert. Oriented x 3. ASSESSMENT: Chest pain, troponin negative x 2 Coronary artery disease with recent PCI of the proximal to mid RCA and angioplasty of the PDA and PLV, 10/24/2023 Ischemic cardiomyopathy, ejection fraction 35% Hypertension Hyperlipidemia Diabetes Nicotine dependence PLAN: Continue dual antiplatelet therapy with aspirin and Brilinta Continue high intensity statin Continue additional cardiac medications Add Aldactone 25 mg daily Patient is stable for discharge home today from a cardiac standpoint He is to follow-up outpatient with Dr. Conley Nurse practitioner note has been reviewed by physician. Signing provider agrees with the documented findings, assessment, and plan of care documented by FISHER CRAB as a scribe. Objective - Vital Signs Vital signs: Vital Signs Temp 97.7 F 12/04/23 08:19 Pulse 73 12/04/23 08:19 Resp 16 12/04/23 08:19 BP 108/70 12/04/23 08:19 Pulse Ox 99 12/04/23 08:46 FiO2 21 12/04/23 08:46 Intake & Output 12/03/23 12/04/23 12/04/23 18:59 06:59 18:59 Intake Total 600 Output Total 500 Balance 100 Weight 81.647 kg Intake: IV 600 Output: Urine 500 Other: # Voids 1 - Labs CBC & Chem 7: 12/02/23 21:44 12/02/23 21:44 Labs: Abnormal Lab Results - Last 24 Hours (Table) 12/03/23 12/03/23 12/04/23 Range/Units 17:07 20:31 06:06 POC Glucose (mg/dL) 267 H 189 H 250 H (70-110) mg/dL
[2023-12-04] MEDS: SPIRONOLACTONE 25 MG TAB PO SCH (11:07)
--- NOTE | 2023-12-04 11:46 | P.DS ---
Providers Date of admission: 12/03/23 00:53 Expected date of discharge: 12/04/23 Attending physician: Matt Perry Consults: 12/03/23 00:53 Consult Physician Routine Consulting Provider: Ritesh Barnes Consult Reason/Comments: cp Do you want consulting provider notified?: Yes Primary care physician: [facility] Course: * 53-year-old gentleman with past medical history significant for coronary artery disease with history of PCI in October 2023 PCI of proximal to mid RCA, and balloon angioplasty of PDA, history of hypertension, history of diabetes mellitus, hyperlipidemia and nicotine dependence presents to the emergency department with complaints of chest pain * Workup initiated in ER included EKG which showed sinus rhythm ST segment changes and T wave inversions to lead V3 to V6, * Initial troponin obtained was negative, N-terminal proBNP 888, chest x-ray obtained in ER negative for acute process. * Blood work obtained in ER include WBC count of 6.3 hemoglobin 15 platelet count of 174 sodium 137 potassium 4 BUN 13 creatinine 0.56. INR of 0.9 blood glucose of 195 * Consultation was obtained from cardiology for workup for chest pain * 12/04/23: Patient is seen s/p cardiac catheterization, patient had patent stent, chest pain resolved, chest pain was deemed noncardiac in origin patient was given simethicone with significant improvement. Cardiac medications adjusted dose of metoprolol changed to twice daily patient started on Aldactone as well prescription provided PHYSICAL EXAMINATION: GENERAL: The patient is alert and oriented x3, not in any acute distress. Well developed, well nourished. HEENT: Pupils are round and equally reacting to light. EOMI. No scleral icterus. CARDIOVASCULAR: S1 and S2 present. No murmurs, rubs, or gallops. PULMONARY: Chest is clear to auscultation, no wheezing or crackles. ABDOMEN: Soft, nontender, nondistended, normoactive bowel sounds. No palpable organomegaly. MUSCULOSKELETAL: No joint swelling or deformity. EXTREMITIES: No cyanosis, clubbing, or pedal edema. NEUROLOGICAL: Gross neurological examination did not reveal any focal deficits. SKIN: No rashes. Assessment and plan * Coronary artery disease with unstable angina * History of coronary artery disease with PCI of RCA proximal to mid, angioplasty of PDA and PLV October 2023 * Ischemic cardiomyopathy * Hypertension * Diabetes mellitus type 2 * Hyperlipidemia * In regards to coronary artery disease and unstable angina, cardiology consulted , s/p cardiac catheterization patient had patent stent to RCA * diabetes mellitus Accu-Cheks ACHS continue home regimen upon discharge * In regards to hyperlipidemia, continue Lipitor * In regards to hypertension continue Cozaar, metoprolol, Aldactone Patient Condition at Discharge: Fair Plan - Discharge Summary Discharge Rx Participant: No New Discharge Prescriptions: New Spironolactone [Aldactone] 25 mg PO DAILY 30 Days #30 tab Metoprolol Tartrate [Lopressor] 25 mg PO BID 30 Days #60 tab Simethicone Chew [Mylicon Chew] 40 mg PO QID 5 Days #20 tab Continue Venlafaxine HCl [Effexor XR] 225 mg PO DAILY Albuterol Sulfate [Ventolin HFA] 2 puff INHALATION RT-Q4H PRN PRN Reason: Shortness Of Breath Nitroglycerin Sl Tabs [Nitrostat] 0.4 mg SUBLINGUAL Q5M PRN #25 tab PRN Reason: Chest Pain INSULIN ASPART (NovoLOG) [NovoLOG (formulary)] See Protocol SQ ACHS Empagliflozin [Jardiance] 10 mg PO DAILY Atorvastatin Calcium [Lipitor] 80 mg PO HS Loratadine 10 mg PO DAILY Ticagrelor [Brilinta] 90 mg PO BID #180 tab Aspirin EC [Ecotrin Low Dose] 81 mg PO DAILY lisinopriL [Zestril] 5 mg PO DAILY Insulin Detemir [Levemir Flexpen] 10 units SQ BID@0700,2100 Famotidine 40 mg PO BID Discontinued Metoprolol Tartrate [Lopressor] 25 mg PO DAILY #180 tab Discharge Medication List Atorvastatin Calcium [Lipitor] 80 mg PO HS 04/20/23 [History] Albuterol Sulfate [Ventolin HFA] 2 puff INHALATION RT-Q4H PRN 10/24/23 [History] Loratadine 10 mg PO DAILY 10/24/23 [History] Venlafaxine HCl [Effexor XR] 225 mg PO DAILY 10/24/23 [History] Nitroglycerin Sl Tabs [Nitrostat] 0.4 mg SUBLINGUAL Q5M PRN #25 tab 10/26/23 [Rx] Ticagrelor [Brilinta] 90 mg PO BID #180 tab 10/26/23 [Rx] Aspirin EC [Ecotrin Low Dose] 81 mg PO DAILY 12/03/23 [History] Empagliflozin [Jardiance] 10 mg PO DAILY 12/03/23 [History] Famotidine 40 mg PO BID 12/03/23 [History] INSULIN ASPART (NovoLOG) [NovoLOG (formulary)] See Protocol SQ ACHS 12/03/23 [History] Insulin Detemir [Levemir Flexpen] 10 units SQ BID@0700,2100 12/03/23 [History] lisinopriL [Zestril] 5 mg PO DAILY 12/03/23 [History] Metoprolol Tartrate [Lopressor] 25 mg PO BID 30 Days #60 tab 12/04/23 [Rx] Simethicone Chew [Mylicon Chew] 40 mg PO QID 5 Days #20 tab 12/04/23 [Rx] Spironolactone [Aldactone] 25 mg PO DAILY 30 Days #30 tab 12/04/23 [Rx] Follow up Appointment(s)/Referral(s): Wagner Retana DO [Primary Care Provider] - 1-2 days Jose Conley MD [STAFF PHYSICIAN] - 12/11/23 3:45 pm Discharge Disposition: HOME SELF-CARE
[2023-12-04 11:48] LABS: ALT 30 U/L (10-49); AST 24 U/L (14-35); Alkaline Phosphatase 114 U/L (41-126); BUN/Creat Ratio 11.71 Ratio (12.00-20.00); Blood Urea Nitrogen 8.2 mg/dL (9.0-27.0); Calcium 8.8 mg/dL (8.7-10.3); Carbon Dioxide 23.1 mmol/L (21.6-31.8); Chloride 105 mmol/L (96-109); Globulin 2.1 g/dL (1.6-3.3); Glucose 201 mg/dL (70-110); Lipase 48 U/L (14-60); Magnesium 1.6 mg/dL (1.5-2.4); Phosphorus 2.3 mg/dL (2.4-5.1); Sodium 138 mmol/L (135-145); Total Bilirubin 0.4 mg/dL (0.3-1.2); Total Protein 6.1 g/dL (6.2-8.2)
[2023-12-04 12:16] LABS: Basophils # (A) 0.05 X 10*3/uL (0.00-0.10); Basophils % (A) 0.8 %; Eosinophils # (A) 0 X 10*3/uL (0.04-0.35); Eosinophils % (A) 0 %; HCT 42.7 % (39.6-50.0); HGB 14.3 g/dL (13.0-17.0); Lymphocytes # (A) 2.27 X 10*3/uL (0.90-5.00); Lymphocytes % (A) 38.2 %; MCH 29.2 pg (27.0-32.0); MCHC 33.5 g/dL (32.0-37.0); MCV 87.1 FL (80.0-97.0); Mean Platelet Volume 11.3 FL (9.5-12.2); Monocytes # (A) 0.39 X 10*3/uL (0.20-1.00); Monocytes % (A) 6.6 %; NRBC Per 100 WBC 0 X 10*3/uL (0.00-0.01); Neutrophils # (A) 3.16 X 10*3/uL (1.80-7.70); Neutrophils % (A) 53.1 %; Platelet Count 153 X 10*3/uL (140-440); RDW 14.6 % (11.5-14.5); WBC 5.95 X 10*3/uL (4.50-10.00)
== END 2023-12-04 12:54 | disposition home or self-care (01) ==
LOC: EC 20:57 → 6NMEDSUR 12-03 00:53
PROVIDERS: ADMIT Hospitalist; ATTEND Hospitalist
DX: I25.110 Atherosclerotic heart disease of native coronary artery with unstable angina pectoris (principal); I25.5 Ischemic cardiomyopathy; I10 Essential (primary) hypertension; E11.9 Type 2 diabetes mellitus without complications; E78.5 Hyperlipidemia, unspecified; Z95.5 Presence of coronary angioplasty implant and graft
CPT/HCPCS: 96376; 96361 ×2; 96365; 96375 ×2; 99285; 36415; 99152; 99153; 94760; 93458; 83880; 80053 ×2; 82150; 83605; 83690 ×2; 83735 ×2; 84100 ×2; 84484; 85025 ×2; 85610; 85730; 83036; 71045; G0378 ×2; C8924; C1760; C1769 ×2; C1894 ×2; S4990 ×2; J2250; J2270; J2405; J2001; Q9957; C9113 ×3; Q9967; J3010; 93005; 93308

== ENCOUNTER → 2024-01-23 | Outpatient (CLI) | payer OTHER ==
--- NOTE | 2024-01-28 23:32 | XR ---
EXAMINATION TYPE: XR lumbar spine 3V DATE OF EXAM: 01/23/2024 Comparison: None Clinical History: 53-year-old male M54.42 LUMBAGO WITH SCIATICA, LEFT SIDE Findings: Cholecystectomy clips. 5 lumbar type vertebral bodies. Mild endplate spondylosis throughout. Vertebra l body heights are preserved and alignment is maintained. Mild to moderate facet arthropathy lower megan mbar spine. Impression: [id number] facet arthropathy lower lumbar spine. No vertebral compression collapse or malalignm ent.
== END | disposition home or self-care (01) ==
LOC: LABWHC1 11:10
PROVIDERS: ATTEND Family Medicine
DX: M54.42 Lumbago with sciatica, left side (principal); M47.816 Spondylosis without myelopathy or radiculopathy, lumbar region
CPT/HCPCS: 72100

== ENCOUNTER 2024-02-17 12:14 | Emergency (ER) | payer OTHER ==
[2024-02-17 12:34] VITALS: TEMP 98.2
--- NOTE | 2024-02-17 12:45 | ED ---
SOB HPI - General Chief Complaint: Shortness of Breath Stated Complaint: SOB/Confusion Time Seen by Provider: 02/17/24 12:35 Source: patient Mode of arrival: ambulatory Limitations: no limitations - History of Present Illness Initial Comments: This patient is a 53-year-old man who presents to have evaluation for shortness of breath that started last night. He states that there has been some sternal chest tightness associated that he rates as mild. He did not notice worsening or relieving factors for the tightness. The patient states that he does get a nonproductive cough when he tries to sleep. Patient has not noted any leg swelling or pain. No change in urination or bowel movements. No fever or chills. MD Complaint: shortness of breath, cough, chest pain Onset/Timin -: days(s) Severity: mild Quality: other (Tightness) Consistency: constant Improves With: nothing Worsens With: nothing Associated Symptoms: chest pain, cough - Related Data Home Oxygen Therapy: No Home Medications Medication Instructions Recorded Confirmed Atorvastatin Calcium [Lipitor] 80 mg PO HS 04/20/23 02/17/24 Albuterol Sulfate [Ventolin HFA] 2 puff INHALATION RT-Q4H PRN 10/24/23 02/17/24 Loratadine 10 mg PO DAILY 10/24/23 02/17/24 Venlafaxine HCl [Effexor XR] 225 mg PO DAILY 10/24/23 02/17/24 Aspirin EC [Ecotrin Low Dose] 81 mg PO DAILY 12/03/23 02/17/24 Empagliflozin [Jardiance] 10 mg PO DAILY 12/03/23 02/17/24 Famotidine 40 mg PO BID 12/03/23 02/17/24 INSULIN ASPART (NovoLOG) [NovoLOG See Protocol SQ ACHS 12/03/23 02/17/24 (formulary)] Insulin Detemir [Levemir Flexpen] 10 units SQ BID@0700,2100 12/03/23 02/17/24 lisinopriL [Zestril] 5 mg PO DAILY 12/03/23 02/17/24 Metoprolol Tartrate [Lopressor] 25 mg PO DAILY 02/17/24 02/17/24 Nitroglycerin Sl Tabs [Nitrostat] 0.4 mg SL Q5M PRN 02/17/24 02/17/24 Previous Rx's Medication Instructions Recorded Ticagrelor [Brilinta] 90 mg PO BID #180 tab 10/26/23 Simethicone Chew [Mylicon Chew] 40 mg PO QID 5 Days #20 tab 12/04/23 Spironolactone [Aldactone] 25 mg PO DAILY 30 Days #30 tab 12/04/23 Allergies Allergy/AdvReac Type Severity Reaction Status Date / Time peanut Allergy Anaphylaxis Verified 02/17/24 15:35 Surgical Tape Allergy hernandez Uncoded 02/17/24 15:35 skin,paper tape is ok Review of Systems ROS Statement: Those systems with pertinent positive or pertinent negative responses have been documented in the HPI. ROS Other: All systems not noted in ROS Statement are negative. Constitutional: Denies: fever, chills, weakness Respiratory: Reports: cough, dyspnea. Denies: wheezes Cardiovascular: Reports: chest pain, orthopnea. Denies: palpitations, edema, syncope Gastrointestinal: Denies: abdominal pain, nausea, vomiting Genitourinary: Denies: dysuria, hematuria Musculoskeletal: Denies: back pain Skin: Denies: rash Neurological: Denies: headache, weakness, numbness Past Medical History Past Medical History: Chest Pain / Angina, Diabetes Mellitus, GERD/Reflux, Hyperlipidemia, Skin Disorder Additional Past Medical History / Comment(s): had diagestive issues all my life, pain epigastric area after eating,constipaiton, hx pancreatitis,Eczema. Hx ulcers, viral mennigitis. "Chronic chest pain, that Dr relates to acid reflux." States hx kidney problems but not sure what. Last Myocardial Infarction Date:: 10/24/2023 History of Any Multi-Drug Resistant Organisms: None Reported Past Surgical History: Cholecystectomy, Hernia Repair Additional Past Surgical History / Comment(s): Piece of metal removed from right eye,umbilical hernia repair Past Anesthesia/Blood Transfusion Reactions: Previous Problems w/ Anesthesia Additional Past Anesthesia/Blood Transfusion Reaction / Comment(s): Combative with anesthesia and has woken up twice during surgeries Past Psychological History: Anxiety, Depression Smoking Status: Current every day smoker Past Alcohol Use History: None Reported Past Drug Use History: None Reported - Past Family History Mother Family Medical History: Diabetes Mellitus Additional Family Medical History / Comment(s): DM Father Family Medical History: AICD/Pacemaker General Exam Limitations: no limitations General appearance: alert, in no apparent distress Head exam: Present: atraumatic, normocephalic Eye exam: Present: normal appearance. Absent: scleral icterus, conjunctival injection ENT exam: Present: mucous membranes dry Neck exam: Present: normal inspection, full ROM Respiratory exam: Present: wheezes (Trace expiratory wheeze). Absent: respiratory distress, rales, rhonchi, stridor, chest wall tenderness, accessory muscle use, decreased breath sounds, prolonged expiratory Cardiovascular Exam: Present: regular rate, tachycardia (Rate is 104 at my e xam), normal heart sounds. Absent: systolic murmur, diastolic murmur, rubs, gallop GI/Abdominal exam: Present: soft. Absent: distended, tenderness, guarding, rebound, rigid, mass, hernia Extremities exam: Present: normal inspection, normal capillary refill. Absent: pedal edema, calf tenderness Back exam: Present: normal inspection. Absent: CVA tenderness (R), CVA tenderness (L) Neurological exam: Present: alert Skin exam: Present: warm, dry, intact, normal color. Absent: rash Course Vital Signs 02/17/24 02/17/24 02/17/24 12:31 14:02 14:10 Temperature 98.2 F Pulse Rate 107 H 78 74 Respiratory 18 Rate Blood Pressure 131/81 O2 Sat by Pulse 96 Oximetry 02/17/24 16:12 Temperature Pulse Rate 92 Respiratory 16 Rate Blood Pressure 137/80 O2 Sat by Pulse 97 Oximetry Medical Decision Making - Medical Decision Making Patient had 2 view chest x-ray which I interpreted as negative for acute infiltrate, pneumothorax, congestive heart failure Patient is found to have hyperglycemia and has been mildly dehydrated from labs. He was feeling much better following fluids and small dose of insulin and he wanted to go home. Discussed appropriate further care and follow-up as well as return parameters. Was pt. sent in by a medical professional or institution (, PA, LOOM CHANGEOVER OPERATOR, urgent care, hospital, or skilled nursing...) When possible be specific @ -[No] Did you speak to anyone other than the patient for history (EMS, parent, family, police, friend...)? What history was obtained from this source @ -[No] Did you review nursing and triage notes (agree or disagree)? Why? @ -[I reviewed and agree with nursing and triage notes] Were old charts reviewed (outside hosp., previous admission, EMS record, old EKG, old radiological studies, urgent care reports/EKG's, skilled nursing records)? Report findings @ -[No old charts were reviewed] Differential Diagnosis (chest pain, altered mental status, abdominal pain women, abdominal pain men, vaginal bleeding, weakness, fever, dyspnea, syncope, headache, dizziness, GI bleed, back pain, seizure, CVA, palpatations, mental health, musculoskeletal)? @ -Differential Dyspnea: Coronary syndrome, arrhythmia, tamponade, asthma, COPD, pulmonary embolism, pneumonia, pneumothorax, pulmonary effusion, anaphylaxis, diabetic ketoacidosis, flailed chest, pulmonary contusion, diaphragmatic rupture, anemia, neuromuscular, this is not meant to be an all-inclusive list. EKG interpreted by me (3pts min.). @ -[As above] X-rays interpreted by me (1pt min.). @ -[I interpreted as above CT interpreted by me (1pt min.). @ -[None done] U/S interpreted by me (1pt. min.). @ -[None done] What testing was considered but not performed or refused? (CT, X-rays, U/S, labs)? Why? @ -[None] What meds were considered but not given or refused? Why? @ -[None] Did you discuss the management of the patient with other professionals (professionals i.e. , PA, LOOM CHANGEOVER OPERATOR, lab, RT, psych nurse, social worker psychiatric, chocolate maker, teacher, signals officer, case checker)? Give summary @ -[No] Was smoking cessation discussed for >3mins.? @ -[No] Was critical care preformed (if so, how long)? @ -[No] Were there social determinants of health that impacted care today? How? (Homelessness, low income, unemployed, alcoholism, drug addiction, transportation, low edu. Level, literacy, decrease access to med. care, residential, rehab)? @ -[No] Was there de-escalation of care discussed even if they declined (Discuss DNR or withdrawal of care, Hospice)? DNR status @ -[No] What co-morbidities impacted this encounter? (DM, HTN, Smoking, COPD, CAD, Cancer, CVA, ARF, Chemo, Hep., AIDS, mental health diagnosis, sleep apnea, morbid obesity)? @ -[None] Was patient admitted / discharged? Hospital course, mention meds given and route, prescriptions, significant lab abnormalities, going to OR and other pertinent info. @ -[See above Undiagnosed new problem with uncertain prognosis? @ -[No] Drug Therapy requiring intensive monitoring for toxicity (Heparin, Nitro, Insulin, Cardizem)? @ -[No] Were any procedures done? @ -[No] Diagnosis/symptom? @ -[Acute hyperglycemia Acute dehydration Dyspnea resolved Acute, or Chronic, or Acute on Chronic? @ -[Acute Uncomplicated (without systemic symptoms) or Complicated (systemic symptoms)? @ -[Uncomplicated Side effects of treatment? @ -[No] Exacerbation, Progression, or Severe Exacerbation? @ -[No] Poses a threat to life or bodily function? How? (Chest pain, [place], [place], pneumonia, PE, COPD, DKA, ARF, appy, cholecystitis, CVA, Diverticulitis, Homicidal, S uicidal, threat to staff... and all critical care pts) @ -[No] - Lab Data Result diagrams: 02/17/24 12:49 02/17/24 12:49 Lab Results 02/17/24 02/17/24 02/17/24 Range/Units 12:49 12:49 12:49 WBC 6.2 (3.8-10.6) k/uL RBC 5.13 (4.30-5.90) m/uL Hgb 15.1 (13.0-17.5) gm/dL Hct 45.3 (39.0-53.0) % MCV 88.3 (80.0-100.0) fL MCH 29.5 (25.0-35.0) pg MCHC 33.5 (31.0-37.0) g/dL RDW 15.1 (11.5-15.5) % Plt Count 184 (150-450) k/uL MPV 8.4 Neutrophils % 57 % Lymphocytes % 37 % Monocytes % 4 % Eosinophils % 0 % Basophils % 1 % Neutrophils # 3.5 (1.3-7.7) k/uL Lymphocytes # 2.3 (1.0-4.8) k/uL Monocytes # 0.3 (0-1.0) k/uL Eosinophils # 0.0 (0-0.7) k/uL Basophils # 0.1 (0-0.2) k/uL PT 9.8 L (10.0-12.5) sec INR 0.9 (<1.2) APTT 25.4 (22.0-30.0) sec D-Dimer 0.43 (<0.60) mg/L FEU Sodium 136 L (137-145) mmol/L Potassium 4.2 (3.5-5.1) mmol/L Chloride 106 (98-107) mmol/L Carbon Dioxide 23 (22-30) mmol/L Anion Gap 7 mmol/L BUN 16 (9-20) mg/dL Creatinine 0.74 (0.66-1.25) mg/dL Est GFR (CKD-EPI)AfAm >90 (>60 ml/min/1.73 sqM) Est GFR (CKD-EPI)NonAf >90 (>60 ml/min/1.73 sqM) Glucose 317 H (74-99) mg/dL POC Glucose (mg/dL) (70-110) mg/dL POC Glu Director Furniture ID Lactic Ac Sepsis Rflx Plasma Lactic Acid Osbaldo (0.7-2.0) mmol/L Calcium 8.8 (8.4-10.2) mg/dL Total Bilirubin 0.8 (0.2-1.3) mg/dL AST 20 (17-59) U/L ALT 19 (4-49) U/L Alkaline Phosphatase 111 (38-126) U/L Troponin I (0.000-0.034) ng/mL NT-Pro-B Natriuret Pep 210 pg/mL Total Protein 6.6 (6.3-8.2) g/dL Albumin 4.2 (3.5-5.0) g/dL Influenza Type A (PCR) (Not Detectd) Influenza Type B (PCR) (Not Detectd) RSV (PCR) (Not Detectd) SARS-CoV-2 (PCR) (Not Detectd) 02/17/24 02/17/24 02/17/24 Range/Units 12:49 12:49 12:49 WBC (3.8-10.6) k/uL RBC (4.30-5.90) m/uL Hgb (13.0-17.5) gm/dL Hct (39.0-53.0) % MCV (80.0-100.0) fL MCH (25.0-35.0) pg MCHC (31.0-37.0) g/dL RDW (11.5-15.5) % Plt Count (150-450) k/uL MPV Neutrophils % % Lymphocytes % % Monocytes % % Eosinophils % % Basophils % % Neutrophils # (1.3-7.7) k/uL Lymphocytes # (1.0-4.8) k/uL Monocytes # (0-1.0) k/uL Eosinophils # (0-0.7) k/uL Basophils # (0-0.2) k/uL PT (10.0-12.5) sec INR (<1.2) APTT (22.0-30.0) sec D-Dimer (<0.60) mg/L FEU Sodium (137-145) mmol/L Potassium (3.5-5.1) mmol/L Chloride (98-107) mmol/L Carbon Dioxide (22-30) mmol/L Anion Gap mmol/L BUN (9-20) mg/dL Creatinine (0.66-1.25) mg/dL Est GFR (CKD-EPI)AfAm (>60 ml/min/1.73 sqM) Est GFR (CKD-EPI)NonAf (>60 ml/min/1.73 sqM) Glucose (74-99) mg/dL POC Glucose (mg/dL) (70-110) mg/dL POC Glu Director Furniture ID Lactic Ac Sepsis Rflx Plasma Lactic Acid Osbaldo 2.4 H* (0.7-2.0) mmol/L Calcium (8.4-10.2) mg/dL Total Bilirubin (0.2-1.3) mg/dL AST (17-59) U/L ALT (4-49) U/L Alkaline Phosphatase (38-126) U/L Troponin I <0.012 (0.000-0.034) ng/mL NT-Pro-B Natriuret Pep pg/mL Total Protein (6.3-8.2) g/dL Albumin (3.5-5.0) g/dL Influenza Type A (PCR) Not Detected (Not Detectd) Influenza Type B (PCR) Not Detected (Not Detectd) RSV (PCR) Not Detected (Not Detectd) SARS-CoV-2 (PCR) Not Detected (Not Detectd) 02/17/24 02/17/24 02/17/24 Range/Units 12:53 13:54 15:15 WBC (3.8-10.6) k/uL RBC (4.30-5.90) m/uL Hgb (13.0-17.5) gm/dL Hct (39.0-53.0) % MCV (80.0-100.0) fL MCH (25.0-35.0) pg MCHC (31.0-37.0) g/dL RDW (11.5-15.5) % Plt Count (150-450) k/uL MPV Neutrophils % % Lymphocytes % % Monocytes % % Eosinophils % % Basophils % % Neutrophils # (1.3-7.7) k/uL Lymphocytes # (1.0-4.8) k/uL Monocytes # (0-1.0) k/uL Eosinophils # (0-0.7) k/uL Basophils # (0-0.2) k/uL PT (10.0-12.5) sec INR (<1.2) APTT (22.0-30.0) sec D-Dimer (<0.60) mg/L FEU Sodium (137-145) mmol/L Potassium (3.5-5.1) mmol/L Chloride (98-107) mmol/L Carbon Dioxide (22-30) mmol/L Anion Gap mmol/L BUN (9-20) mg/dL Creatinine (0.66-1.25) mg/dL Est GFR (CKD-EPI)AfAm (>60 ml/min/1.73 sqM) Est GFR (CKD-EPI)NonAf (>60 ml/min/1.73 sqM) Glucose (74-99) mg/dL POC Glucose (mg/dL) 320 H 229 H (70-110) mg/dL POC Glu Director Furniture ID Milbreath, Brad Milbreath, Brad Lactic Ac Sepsis Rflx Y Plasma Lactic Acid Osbaldo (0.7-2.0) mmol/L Calcium (8.4-10.2) mg/dL Total Bilirubin (0.2-1.3) mg/dL AST (17-59) U/L ALT (4-49) U/L Alkaline Phosphatase (38-126) U/L Troponin I (0.000-0.034) ng/mL NT-Pro-B Natriuret Pep pg/mL Total Protein (6.3-8.2) g/dL Albumin (3.5-5.0) g/dL Influenza Type A (PCR) (Not Detectd) Influenza Type B (PCR) (Not Detectd) RSV (PCR) (Not Detectd) SARS-CoV-2 (PCR) (Not Detectd) - EKG Data -: EKG Interpreted by Ms EKG shows normal: sinus rhythm, axis (Normal), intervals, QRS complexes (There are Q waves inferiorly consistent with previous inferior KS), ST-T waves (Anterior and lateral T inversions) Rate: tachycardia (101 bpm) When compared to previous EKG there are: no significant change Disposition Clinical Impression: Hyperglycemia Disposition: HOME SELF-CARE Condition: Good Instructions (If sedation given, give patient instructions): Diabetic Hyperglycemia (ED) Is patient prescribed a controlled substance at d/c from ED?: No Referrals: Wagner Retana DO [Primary Care Provider] - 1-2 days
[2024-02-17 13:02] LABS: Glucose,Whole Blood 320 mg/dL (70-110)
--- NOTE | 2024-02-17 13:11 | XR ---
EXAMINATION TYPE: XR chest 2V DATE OF EXAM: 02/17/2024 1:03 PM CLINICAL INDICATION:Male, 53 years old with history of difficulty breathing; [facility] COMPARISON: Chest radiographs from 12/02/2023 TECHNIQUE: XR chest 2V Frontal and lateral views of the chest. FINDINGS: Lungs/Pleura: There is no evidence of pleural effusion, focal consolidation, or pneumothorax. Pulmonary vascularity: Unremarkable. Heart/mediastinum: Cardiomediastinal silhouette is unremarkable. Musculoskeletal: No acute osseous pathology. IMPRESSION: No acute cardiopulmonary disease/process.
[2024-02-17 13:19] LABS: Basophils # (A) 0.1 k/uL (0-0.2); Basophils % (A) 1 %; Eosinophils % (A) 0 %; HCT 45.3 % (39.0-53.0); HGB 15.1 gm/dL (13.0-17.5); Lymphocytes # (A) 2.3 k/uL (1.0-4.8); Lymphocytes % (A) 37 %; MCH 29.5 pg (25.0-35.0); MCHC 33.5 g/dL (31.0-37.0); MCV 88.3 fL (80.0-100.0); Mean Platelet Volume 8.4; Monocytes # (A) 0.3 k/uL (0-1.0); Monocytes % (A) 4 %; Neutrophils # (A) 3.5 k/uL (1.3-7.7); Neutrophils % (A) 57 %; Platelet Count 184 k/uL (150-450); RBC 5.13 m/uL (4.30-5.90); RDW 15.1 % (11.5-15.5); WBC 6.2 k/uL (3.8-10.6)
[2024-02-17 13:37] LABS: ALT 19 U/L (4-49); AST 20 U/L (17-59); African American GFR (CKD) >90 (>60 ml/min/1.73 sqM); Albumin 4.2 g/dL (3.5-5.0); Alkaline Phosphatase 111 U/L (38-126); Anion Gap 7 mmol/L; Blood Urea Nitrogen 16 mg/dL (9-20); Calcium 8.8 mg/dL (8.4-10.2); Carbon Dioxide 23 mmol/L (22-30); Chloride 106 mmol/L (98-107); Glucose 317 mg/dL (74-99); Non-African American GFR(CKD) >90 (>60 ml/min/1.73 sqM); Potassium 4.2 mmol/L (3.5-5.1); Sodium 136 mmol/L (137-145); Total Bilirubin 0.8 mg/dL (0.2-1.3); Total Protein 6.6 g/dL (6.3-8.2)
[2024-02-17 13:39] LABS: INR 0.9 (<1.2); Partial Thromboplastin Time 25.4 sec (22.0-30.0); Prothrombin Time 9.8 sec (10.0-12.5)
[2024-02-17 13:45] LABS: NT-Pro-B-Type Natriuretic Pept 210 pg/mL
[2024-02-17] MEDS: ALBUTEROL NEBULIZED 2.5 MG/3 ML INHALATION STA (14:02)
[2024-02-17] MEDS: SODIUM CHLORIDE 0.9% 1,000 ML IV ONE (14:08)
[2024-02-17] MEDS: INSULIN REGULAR 100 UNIT/ML VIAL (IV) SQ STA (14:08)
[2024-02-17 15:17] LABS: Glucose,Whole Blood 229 mg/dL (70-110)
[2024-02-17 16:13] VITALS: BP 137/80; PULSE 92; RESP 16
== END 2024-02-17 16:22 | disposition home or self-care (01) ==
LOC: EC 12:14
DX: R73.9 Hyperglycemia, unspecified (principal); F17.200 Nicotine dependence, unspecified, uncomplicated; Z91.010 Allergy to peanuts; Z91.09 Other allergy status, other than to drugs and biological substances
CPT/HCPCS: 36415; 71046; 80053; 83605; 83880; 84484; 85025; 85379; 85610; 85730; 87636; 93005; 94640; 96360; 99285

== ENCOUNTER → 2024-02-21 | Outpatient (CLI) | payer OTHER ==
--- NOTE | 2024-02-21 14:25 | US ---
EXAMINATION TYPE: US mass soft tissue chest/back DATE OF EXAM: 02/21/2024 COMPARISON: NONE CLINICAL INDICATION: Male, 53 years old with history of R22.2 LOCALIZED SWELLING MASS LUMP; hard ridg e to the left of sternum, infraclavicular region, that patient has felt since AL in Oct, no open hear t procedures, did have stenting TECHNIQUE: Soft tissue scan FINDINGS: At area of hard ridge appears to be normal soft tissue and rib, no abnormality noted IMPRESSION: No focal mass or cysts in the area of clinical concern as directed by the patient. CT of the chest were useful if clinically indicated to definitively rule out focal abnormality.
== END | disposition home or self-care (01) ==
LOC: RADUSWWP 09:45
PROVIDERS: ATTEND Family Medicine
DX: R22.2 Localized swelling, mass and lump, trunk (principal)

== ENCOUNTER → 2024-04-14 | Outpatient (CLI) | payer OTHER ==
--- NOTE | 2024-05-07 12:04 | MR ---
EXAMINATION TYPE: MR lumbar spine wo con DATE OF EXAM: 04/28/2024 1:36 PM CLINICAL INDICATION: Male, 53 years old with history of M54.50 LOW BACK PAIN COMPARISON: 01/23/2024. TECHNIQUE: Multi planar, multi sequence imaging was performed utilizing: T1-weighted, T2-weighted, a nd turbo inversion recovery imaging of the lumbar spine. IV Contrast: cc . (None if empty) FINDINGS: Alignment: The lumbar vertebral bodies have preserved heights and alignment. Cord: The conus medullaris and the distal spinal cord appear unremarkable with regards to their signa l intensity and morphology. Bones/Discs: Mild degeneration changes throughout the spine with osteophyte formation and facet joint arthropathy. Disc desiccation at L5-S1. No abnormal inversion recovery signal to suggest bony edema. te T12-L1: No evidence of significant spinal canal stenosis or neural foraminal stenosis. L1-L2: No evidence of significant spinal canal stenosis or neural foraminal stenosis. L2-L3: No evidence of significant spinal canal stenosis or neural foraminal stenosis. L3-L4: No evidence of significant spinal canal stenosis or neural foraminal stenosis. L4-L5: No evidence of significant spinal canal stenosis or neural foraminal stenosis. L5-S1: The disc has a rounded posterior morphology with posterior annular fissure. No significant spi nal canal stenosis. Facet joint arthropathy with moderate to severe right and moderate left bilateral neural foraminal stenosis. No significant spinal canal or neural foraminal stenosis in the remainder of the visualized levels. Other findings: None. IMPRESSION: No definitive evidence of disc herniation or significant spinal canal stenosis. Mild disc degeneration with associated osteoarthritic changes. No foraminal stenosis worse at L5-S1 w ith moderate to severe right and moderate left stenosis.
== END | disposition home or self-care (01) ==
LOC: RADMRIMAIN 07:22
PROVIDERS: ATTEND Family Medicine
DX: M51.36 Other intervertebral disc degeneration, lumbar region (principal)
CPT/HCPCS: 72148

== ENCOUNTER 2024-06-25 20:14 | Observation (INO) | payer OTHER ==
[2024-06-25 20:19] VITALS: TEMP 98.4
[2024-06-25 20:46] LABS: Basophils # (A) 0.1 k/uL (0-0.2); Basophils % (A) 1 %; Eosinophils # (A) 0.1 k/uL (0-0.7); Eosinophils % (A) 1 %; HCT 47.6 % (39.0-53.0); HGB 16.4 gm/dL (13.0-17.5); Lymphocytes # (A) 3.2 k/uL (1.0-4.8); Lymphocytes % (A) 37 %; MCHC 34.5 g/dL (31.0-37.0); MCV 89.7 fL (80.0-100.0); Mean Platelet Volume 8.1; Monocytes # (A) 0.4 k/uL (0-1.0); Monocytes % (A) 4 %; Neutrophils # (A) 4.6 k/uL (1.3-7.7); Neutrophils % (A) 53 %; Platelet Count 227 k/uL (150-450); RDW 14.1 % (11.5-15.5); WBC 8.7 k/uL (3.8-10.6)
--- NOTE | 2024-06-25 20:53 | ED ---
Chest Pain HPI - General Chief Complaint: Chest Pain Stated Complaint: chest pain Time Seen by Provider: 06/25/24 20:20 Source: patient Mode of arrival: ambulatory Limitations: no limitations - History of Present Illness Initial Comments: 53-year-old male with past medical history of STEMI who presents to the emergency department reporting chest pain. States that he has had pain for the past 3 days which is located over the left side of his chest wall. States that the pain is now radiated into his left arm and jaw. The intense pain came on around 130 this afternoon. He does not have any nitro available. He did not take anything otherwise for the pain. Does admit to mild shortness of breath and nausea. He has missed several doses of his Brilinta which he was placed on in October for his stent. He denies fevers, chills or cough. No numbness, tingling or weakness in his extremities. No other alleviating, precipitating modifying factors - Related Data Home Medications Medication Instructions Recorded Confirmed Atorvastatin Calcium [Lipitor] 80 mg PO HS 04/20/23 06/26/24 Albuterol Sulfate [Ventolin HFA] 2 puff INHALATION RT-Q4H PRN 10/24/23 06/26/24 Loratadine 10 mg PO DAILY 10/24/23 06/26/24 Venlafaxine HCl [Effexor XR] 225 mg PO DAILY 10/24/23 06/26/24 Aspirin EC [Ecotrin Low Dose] 81 mg PO DAILY 12/03/23 06/26/24 Empagliflozin [Jardiance] 10 mg PO DAILY 12/03/23 06/26/24 Famotidine 40 mg PO BID 12/03/23 06/26/24 Insulin Detemir [Levemir Flexpen] 10 units SQ BID@0700,2100 12/03/23 06/26/24 lisinopriL [Zestril] 5 mg PO DAILY 12/03/23 06/26/24 Metoprolol Tartrate [Lopressor] 25 mg PO DAILY 02/17/24 06/26/24 Nitroglycerin Sl Tabs [Nitrostat] 0.4 mg SL Q5M PRN 02/17/24 06/26/24 Co-Q-10 100 mg PO DAILY 06/26/24 06/26/24 Triamcinolone 0.1% Cream [Kenalog 1 applicatio TOPICAL BID 06/26/24 06/26/24 0.1% Cream] Previous Rx's Medication Instructions Recorded Ticagrelor [Brilinta] 90 mg PO BID #180 tab 10/26/23 Spironolactone [Aldactone] 25 mg PO DAILY 30 Days #30 tab 12/04/23 Allergies Allergy/AdvReac Type Severity Reaction Status Date / Time peanut Allergy Anaphylaxis Verified 06/26/24 09:35 Surgical Tape Allergy hernandez Uncoded 06/26/24 09:35 skin,paper tape is ok Review of Systems ROS Statement: Those systems with pertinent positive or pertinent negative responses have been documented in the HPI. ROS Other: All systems not noted in ROS Statement are negative. Past Medical History Past Medical History: Chest Pain / Angina, Diabetes Mellitus, GERD/Reflux, Hyperlipidemia, Myocardial Infarction ([place]), Skin Disorder Additional Past Medical History / Comment(s): had diagestive issues all my life, pain epigastric area after eating,constipaiton, hx pancreatitis,Eczema. Hx ulcers, viral mennigitis. "Chronic chest pain, that Dr relates to acid reflux." States hx kidney problems but not sure what. Last Myocardial Infarction Date:: 10/24/2023 History of Any Multi-Drug Resistant Organisms: None Reported Past Surgical History: Cholecystectomy, Heart Catheterization With Stent, Hernia Repair Additional Past Surgical History / Comment(s): Piece of metal removed from right eye,umbilical hernia repair Past Anesthesia/Blood Transfusion Reactions: Previous Problems w/ Anesthesia Additional Past Anesthesia/Blood Transfusion Reaction / Comment(s): Combative with anesthesia and has woken up twice during surgeries Past Psychological History: Anxiety, Depression Smoking Status: Current every day smoker Past Alcohol Use History: None Reported Past Drug Use History: None Reported - Past Family History Mother Family Medical History: Diabetes Mellitus Additional Family Medical History / Comment(s): DM Father Family Medical History: AICD/Pacemaker General Exam Limitations: no limitations General appearance: alert, in no apparent distress Head exam: Present: atraumatic, normocephalic, normal inspection Eye exam: Present: normal appearance, PERRL, EOMI. Absent: scleral icterus, conjunctival injection, periorbital swelling ENT exam: Present: normal exam, mucous membranes moist Neck exam: Present: normal inspection. Absent: tenderness, meningismus, lymphadenopathy Respiratory exam: Present: chest wall tenderness (To palpation of the left chest wall). Absent: respiratory distress, wheezes, rales, rhonchi, stridor Cardiovascular Exam: Present: regular rate, normal rhythm, normal heart sounds. Absent: systolic murmur, diastolic murmur, rubs, gallop, clicks GI/Abdominal exam: Present: soft, normal bowel sounds. Absent: distended, tenderness, guarding, rebound, rigid Extremities exam: Present: normal inspection, full ROM, normal capillary refill. Absent: tenderness, pedal edema, joint swelling, calf tenderness Back exam: Present: normal inspection Neurological exam: Present: alert, oriented X3, CN II-XII intact Psychiatric exam: Present: normal affect, normal mood Skin exam: Present: warm, dry, intact, normal color. Absent: rash Course Vital Signs 06/25/24 06/25/24 06/25/24 20:17 21:21 22:03 Temperature 98.4 F Pulse Rate 109 H 88 Pulse Rate [ 95 Window And Door Installer ] Respiratory 20 11 L Rate Blood Pressure 162/85 144/87 O2 Sat by Pulse 99 98 Oximetry 06/26/24 06/26/24 06/26/24 00:07 01:20 02:52 Temperature Pulse Rate 87 78 71 Pulse Rate [ Window And Door Installer ] Respiratory 15 11 L 18 Rate Blood Pressure 117/75 107/65 118/80 O2 Sat by Pulse 97 Oximetry 06/26/24 06/26/24 06/26/24 05:00 06:00 13:00 Temperature Pulse Rate 73 67 96 Pulse Rate [ Window And Door Installer ] Respiratory 18 12 18 Rate Blood Pressure 118/81 105/75 137/96 O2 Sat by Pulse 96 Oximetry Chest Pain MDM - MDM Was pt. sent in by a medical professional or institution (, PA, CHART PICKER, urgent care, hospital, or fdc...) When possible be specific @ -No Did you speak to anyone other than the patient for history (EMS, parent, family, police, friend...)? What history was obtained from this source @ -No Did you review nursing and triage notes (agree or disagree)? Why? @ -I reviewed and agree with nursing and triage notes Were old charts reviewed (outside hosp., previous admission, EMS record, old EKG, old radiological studies, urgent care reports/EKG's, fdc records)? Report findings @ -Yes, I reviewed catheterization report from November 2023 Differential Diagnosis (chest pain, altered mental status, abdominal pain women, abdominal pain men, vaginal bleeding, weakness, fever, dyspnea, syncope, headache, dizziness, GI bleed, back pain, seizure, CVA, palpatations, mental health, musculoskeletal)? @ -Differential Chest Pain: Stable Angina, Unstable Angina, STEMI, NSTEMI Aortic Dissection, Pneumothorax, Musculoskeletal, Esophageal Spasm GERD, Cholecystitis, Pancreatitis, Zoster, this is not meant to be an all-inclusive list. EKG interpreted by me (3pts min.). @ -Yes and demonstrates sinus tachycardia with a rate of 102. SD interval 147. QRS 108. QTc of 382. No acute ST segment elevation. Q wave in lead II, 3, aVF X-rays interpreted by me (1pt min.). @ -Yes and demonstrates no acute process CT interpreted by me (1pt min.). @ -None done U/S interpreted by me (1pt. min.). @ -None done What testing was considered but not performed or refused? (CT, X-rays, U/S, labs)? Why? @ -None What meds were considered but not given or refused? Why? @ -None Did you discuss the management of the patient with other professionals (prof apolinar i.e. , PA, CH[employer] P[employer]ER, lab, RT, psych nurse, group social worker, ferry terminal supervisor, teacher, bomb squad officer, mental health case manager)? Give summary @ -Spoke with admitting physician, Dr. Perry Was smoking cessation discussed for >3mins.? @ -No Was critical care preformed (if so, how long)? @ -No Were there social determinants of health that impacted care today? How? (Homelessness, low income, unemployed, alcoholism, drug addiction, transportation, low edu. Level, literacy, decrease access to med. care, long term, rehab)? @ -No Was there de-escalation of care discussed even if they declined (Discuss DNR or withdrawal of care, Hospice)? DNR status @ -No What co-morbidities impacted this encounter? (DM, HTN, Smoking, COPD, CAD, Cancer, CVA, ARF, Chemo, Hep., AIDS, mental health diagnosis, sleep apnea, morbid obesity)? @ -Coronary artery disease Was patient admitted / discharged? Hospital course, mention meds given and route, prescriptions, significant lab abnormalities, going to OR and other pertinent info. @ -Upon arrival patient seen and evaluated in trauma 1. Thorough history and physical exam was performed.IV access was established. Laboratory studies are conducted. Chest x-ray was performed. Results are discussed with the patient. Due to his history of coronary disease I do feel that he should have serial troponins and a cardiology consultation. Patient was agreeable to this. Patient admitted to Dr. Perry in stable condition Undiagnosed new problem with uncertain prognosis? @ -Yes Drug Therapy requiring intensive monitoring for toxicity (Heparin, Nitro, Insulin, Cardizem)? @ -No Were any procedures done? @ -No Diagnosis/symptom? @ -Acute chest pain, history of coronary artery disease Acute, or Chronic, or Acute on Chronic? @ -Acute Uncomplicated (without systemic symptoms) or Complicated (systemic symptoms)? @ -Complicated Side effects of treatment? @ -No Exacerbation, Progression, or Severe Exacerbation? @ -No Poses a threat to life or bodily function? How? (Chest pain, [place], [place], pneumonia, PE, COPD, DKA, ARF, appy, cholecystitis, CVA, Diverticulitis, Homicidal, Suicidal, threat to staff... and all critical care pts) @ -Yes as patient does have a history of coronary artery disease Disposition Clinical Impression: Chest pain Disposition: ADMITTED IP TO THIS HOSP Condition: Stable Is patient prescribed a controlled substance at d/c from ED?: No Time of Disposition: 22:26 Decision to Admit Reason: Admit from EC Decision Date: 06/25/24 Decision Time: 22:27
[2024-06-25 21:09] LABS: ALT 20 U/L (4-49); African American GFR (CKD) >90 (>60 ml/min/1.73 sqM); Albumin 4.5 g/dL (3.5-5.0); Anion Gap 9 mmol/L; Blood Urea Nitrogen 20 mg/dL (9-20); Calcium 9.6 mg/dL (8.4-10.2); Carbon Dioxide 20 mmol/L (22-30); Chloride 109 mmol/L (98-107); Glucose 215 mg/dL (74-99); Lipase 133 U/L (23-300); Magnesium 1.7 mg/dL (1.6-2.3); Non-African American GFR(CKD) >90 (>60 ml/min/1.73 sqM); Sodium 138 mmol/L (137-145); Total Bilirubin 0.7 mg/dL (0.2-1.3)
[2024-06-25 21:13] LABS: AST 27 U/L (17-59); Alkaline Phosphatase 86 U/L (38-126); Potassium 4.1 mmol/L (3.5-5.1)
[2024-06-25 21:17] LABS: NT-Pro-B-Type Natriuretic Pept 170 pg/mL
[2024-06-25] MEDS: MORPHINE SULFATE 4 MG/ML SYRINGE IVP STA (21:18)
[2024-06-25 21:29] LABS: INR 0.9 (<1.2); Partial Thromboplastin Time 24.9 sec (22.0-30.0); Prothrombin Time 10.1 sec (10.0-12.5)
--- NOTE | 2024-06-25 21:49 | XR ---
EXAMINATION TYPE: XR chest 2V DATE OF EXAM: 06/25/2024 9:14 PM CLINICAL INDICATION: Male, 53 years old with history of Chest Pain; [facility] COMPARISON: Chest radiographs from 02/17/2024 TECHNIQUE: XR chest 2V Frontal view of the chest. FINDINGS: Lungs/Pleura: There is no evidence of pleural effusion, focal consolidation, or pneumothorax. Pulmonary vascularity: Unremarkable. Heart/mediastinum: Cardiomediastinal silhouette is unremarkable. Musculoskeletal: No acute osseous pathology. IMPRESSION: No acute cardiopulmonary disease/process. [facility] Baudilio Callahan, , 06/25/2024 9:47 PM
[2024-06-25] MEDS ORDERED: MORPHINE SULFATE 4 MG/ML SYRINGE IV PRN (22:27)
[2024-06-25] MEDS ORDERED: NALOXONE 0.4 MG/ML 1 ML VIAL IV PRN (22:27)
[2024-06-26 07:29] LABS: Basophils # (A) 0.1 k/uL (0-0.2); Basophils % (A) 1 %; Eosinophils # (A) 0.1 k/uL (0-0.7); Eosinophils % (A) 1 %; HCT 45.2 % (39.0-53.0); HGB 15.6 gm/dL (13.0-17.5); Lymphocytes # (A) 2.8 k/uL (1.0-4.8); Lymphocytes % (A) 42 %; MCH 30.2 pg (25.0-35.0); MCHC 34.5 g/dL (31.0-37.0); MCV 87.7 fL (80.0-100.0); Mean Platelet Volume 8.1; Monocytes # (A) 0.3 k/uL (0-1.0); Monocytes % (A) 5 %; Neutrophils # (A) 3.3 k/uL (1.3-7.7); Neutrophils % (A) 49 %; Platelet Count 171 k/uL (150-450); RBC 5.16 m/uL (4.30-5.90); RDW 14.6 % (11.5-15.5); WBC 6.7 k/uL (3.8-10.6)
[2024-06-26 07:45] LABS: African American GFR (CKD) >90 (>60 ml/min/1.73 sqM); Anion Gap 7 mmol/L; Blood Urea Nitrogen 15 mg/dL (9-20); Calcium 8.8 mg/dL (8.4-10.2); Carbon Dioxide 23 mmol/L (22-30); Chloride 108 mmol/L (98-107); Glucose 178 mg/dL (74-99); Non-African American GFR(CKD) >90 (>60 ml/min/1.73 sqM); Potassium 3.9 mmol/L (3.5-5.1); Sodium 138 mmol/L (137-145)
--- NOTE | 2024-06-26 09:18 | P.HPIM ---
Review of Systems Review of systems CONSTITUTIONAL: No fever, no malaise, no fatigue. HEENT: No recent visual problems or hearing problems. Denied any sore throat. CARDIOVASCULAR: No orthopnea, PND, no palpitations, no syncope. PULMONARY: No shortness of breath, no cough, no hemoptysis. GASTROINTESTINAL: No diarrhea, no nausea, no vomiting, no abdominal pain. Normoactive bowel sounds. NEUROLOGICAL: No headaches, no weakness, no numbness. HEMATOLOGICAL: Denies any bleeding or petechiae. GENITOURINARY: Denies any burning micturition, frequency, or urgency. MUSCULOSKELETAL/RHEUMATOLOGICAL: Denies any joint pain, swelling, or any muscle pain. ENDOCRINE: Denies any polyuria or polydipsia. Past Medical History Past Medical History: Chest Pain / Angina, Diabetes Mellitus, GERD/Reflux, Hyperlipidemia, Myocardial Infarction ([place]), Skin Disorder Additional Past Medical History / Comment(s): had diagestive issues all my life, pain epigastric area after eating,constipaiton, hx pancreatitis,Eczema. Hx ulcers, viral mennigitis. "Chronic chest pain, that Dr relates to acid reflux." States hx kidney problems but not sure what. Last Myocardial Infarction Date:: 10/24/2023 History of Any Multi-Drug Resistant Organisms: None Reported Past Surgical History: Cholecystectomy, Heart Catheterization With Stent, Hernia Repair Additional Past Surgical History / Comment(s): Piece of metal removed from right eye,umbilical hernia repair Past Anesthesia/Blood Transfusion Reactions: Previous Problems w/ Anesthesia Additional Past Anesthesia/Blood Transfusion Reaction / Comment(s): Combative with anesthesia and has woken up twice during surgeries Past Psychological History: Anxiety, Depression Smoking Status: Current every day smoker Past Alcohol Use History: None Reported Past Drug Use History: None Reported - Past Family History Mother Family Medical History: Diabetes Mellitus Additional Family Medical History / Comment(s): DM Father Family Medical History: AICD/Pacemaker Medications and Allergies Home Medications Medication Instructions Recorded Confirmed Type Atorvastatin Calcium [Lipitor] 80 mg PO HS 04/20/23 02/17/24 History Albuterol Sulfate [Ventolin HFA] 2 puff INHALATION RT-Q4H PRN 10/24/23 02/17/24 History Loratadine 10 mg PO DAILY 10/24/23 02/17/24 History Venlafaxine HCl [Effexor XR] 225 mg PO DAILY 10/24/23 02/17/24 History Ticagrelor [Brilinta] 90 mg PO BID #180 tab 10/26/23 02/17/24 Rx Aspirin EC [Ecotrin Low Dose] 81 mg PO DAILY 12/03/23 02/17/24 History Empagliflozin [Jardiance] 10 mg PO DAILY 12/03/23 02/17/24 History Famotidine 40 mg PO BID 12/03/23 02/17/24 History INSULIN ASPART (NovoLOG) [NovoLOG See Protocol SQ ACHS 12/03/23 02/17/24 History (formulary)] Insulin Detemir [Levemir Flexpen] 10 units SQ BID@0700,2100 12/03/23 02/17/24 History lisinopriL [Zestril] 5 mg PO DAILY 12/03/23 02/17/24 History Simethicone Chew [Mylicon Chew] 40 mg PO QID 5 Days #20 tab 12/04/23 02/17/24 Rx Spironolactone [Aldactone] 25 mg PO DAILY 30 Days #30 tab 12/04/23 02/17/24 Rx Metoprolol Tartrate [Lopressor] 25 mg PO DAILY 02/17/24 02/17/24 History Nitroglycerin Sl Tabs [Nitrostat] 0.4 mg SL Q5M PRN 02/17/24 02/17/24 History Allergies Allergy/AdvReac Type Severity Reaction Status Date / Time peanut Allergy Anaphylaxis Verified 02/17/24 15:35 Surgical Tape Allergy hernandez Uncoded 02/17/24 15:35 skin,paper tape is ok Physical Exam Vitals: Vital Signs Temp Pulse Pulse Resp BP Pulse Ox 06/26/24 06:00 67 12 105/75 06/26/24 05:00 73 18 118/81 06/26/24 02:52 71 18 118/80 06/26/24 01:20 78 11 L 107/65 97 06/26/24 00:07 87 15 117/75 06/25/24 22:03 88 11 L 144/87 98 06/25/24 21:21 95 06/25/24 20:17 98.4 F 109 H 20 162/85 99 Intake and Output 06/25/24 06/26/24 06/26/24 22:59 06:59 14:59 Other: Weight 86.183 kg GENERAL: The patient is alert and oriented x3, not in any acute distress. Well developed, well nourished. HEENT: Pupils are round and equally reacting to light. EOMI. No scleral icterus. No conjunctival pallor. Normocephalic, atraumatic. No pharyngeal erythema. No thyromegaly. CARDIOVASCULAR: S1 and S2 present. No murmurs, rubs, or gallops. PULMONARY: Chest is clear to auscultation, no wheezing , no crackles. ABDOMEN: Soft, nontender, nondistended, normoactive bowel sounds. No palpable organomegaly. MUSCULOSKELETAL: No joint swelling or deformity. EXTREMITIES: No cyanosis, clubbing, or pedal edema. NEUROLOGICAL: Gross neurological examination did not reveal any focal deficits. SKIN: No rashes. no petechiae. This is a pleasant 53 years old male with past medical history of coronary artery disease, he status post Stent placement on the right coronary artery on 11/2023 Presents because of chest pain and dyspnea of 2 hours duration, this is routine pain on course the chest to the left arm about 8-7/10 in severity with no precipitating or relieving factors He denies coughing, no GI/ symptoms, no headache weakness or dizziness He smokes currently 4 cigarettes/day as he explains and he wants nicotine patch 130 quit and he agrees. He denies alcohol or illicit drugs. Other than that he is hemodynamically stable and labs are unremarkable including CBC, BMP, LFT, INR Troponin x 3 are negative less than 0.012 BNP is 170 Chest x-ray is negative for acute process. Results CBC & Chem 7: 06/26/24 07:04 06/26/24 07:04 Labs: Abnormal Lab Results - Last 24 Hours (Table) 06/25/24 06/26/24 Range/Units 20:39 07:04 Chloride 109 H 108 H (98-107) mmol/L Carbon Dioxide 20 L (22-30) mmol/L Glucose 215 H 178 H (74-99) mg/dL Assessment and Plan Assessment: Chest pain, rule out coronary artery disease. Also check D-dimer to rule out pulmonary embolism Coronary artery disease status post PCI to RCA on dual antiplatelet therapy Hypertension Hyperlipidemia Nicotine dependence Plan: Continue with aspirin and Brilinta Continue with Lipitor Check D-dimer Cardiology consult Prognosis is guarded
[2024-06-26] MEDS: ASPIRIN 81 MG PO SCH (10:37)
[2024-06-26] MEDS: TICAGRELOR 90 MG TAB PO SCH (10:37)
--- NOTE | 2024-06-26 11:34 | P.CRDCN ---
History of Present Illness History of present illness: This is a 53-year-old male with a past medical history significant for coronary artery disease with previous stenting, hypertension, hyperlipidemia, diabetes, and nicotine dependence. Patient follows in the office with Dr. Conley. We have been asked to see the patient in consultation for chest pain. Patient examined at the bedside. Patient was admitted to the hospital in October 2023. He underwent cardiac catheterization on 10/24/2023 with PCI of the proximal to mid RCA. He also underwent balloon angioplasty to the PDA and PLV. Patient states he has been doing fairly well however over the last 3 days has been having intermittent left shoulder, neck pain radiating into his chest. This will come and go and usually last for a few hours. It did not go away and therefore presented to emergency department. He did get some morphine which did help with the pain temporarily however has somewhat come back. He denies anything strenuous or changed however does do a fair amount of strenuous work at his job. He denies any associated nausea or diaphoresis. He does state if he moves his shoulder will hurt in a particular position. He admits his original angina with his TX was more heartburn sensation. Troponins negative 3 and EKG showing normal sinus rhythm, normal axis, Q waves inferiorly with nonspecific ST depressions V5 V6 similar to prior. He underwent repeat heart catheterization November 2023 with patent stents and no other significant disease. REVIEW OF SYSTEMS: At the time of my exam: CONSTITUTIONAL: Denies fever or chills. HEENT: Denies blurred vision, vision changes, or eye pain. Denies hemoptysis CARDIOVASCULAR: +chest pain. Denies orthopnea. Denies PND. Denies palpitations RESPIRATORY: Denies shortness of breath. GASTROINTESTINAL: Denies abdominal pain. Denies nausea or vomiting. HEMATOLOGIC: Denies bleeding disorders. GENITOURINARY: Denies any blood in urine. SKIN: Denies pruitis. Denies rash. PHYSICAL EXAM: VITAL SIGNS: Reviewed. GENERAL: Well-developed in no acute distress. HEENT: Head is normocephalic. Pupils are equal, round. Sclerae anicteric. Mucous membranes of the mouth are moist. Neck supple. No JVD or thyromegaly LUNGS: Respirations even and unlabored. Lungs essentially clear to auscultation bilaterally. HEART: Regular rate and rhythm. S1 and S2 heard. +reproducible left shoulder pain with positioning ABDOMEN: Soft. Nondistended. Nontender. EXTREMITIES: Normal range of motion. No clubbing or cyanosis. Peripheral pulses intact. No lower extremity edema NEUROLOGIC: Awake and alert. Oriented x 3. ASSESSMENT: Reproducible chest pain, troponin negative x 2 Coronary artery disease with recent PCI of the proximal to mid RCA and angioplasty of the PDA and PLV, 10/24/2023 Ischemic cardiomyopathy Hypertension Hyperlipidemia Diabetes Nicotine dependence chronic systolic heart failure PLAN: An acute coronary but has been ruled out Continue dual antiplatelet therapy with aspirin and Brilinta Continue high intensity statin Continue additional cardiac medications Patient's chest pain is atypical and reproducible. His prior angina was more heartburn and symptoms not consistent with angina. Troponins normal and no further workup indicated as an inpatient. Stable for discharge home from a cardiac standpoint. Discussed importance of tobacco cessation. Resume all other cardiac medications. Past Medical History Past Medical History: Chest Pain / Angina, Diabetes Mellitus, GERD/Reflux, Hyperlipidemia, Myocardial Infarction (TX), Skin Disorder Additional Past Medical History / Comment(s): had diagestive issues all my life, pain epigastric area after eating,constipaiton, hx pancreatitis,Eczema. Hx ulcers, viral mennigitis. "Chronic chest pain, that Dr relates to acid reflux." States hx kidney problems but not sure what. Last Myocardial Infarction Date:: 10/24/2023 History of Any Multi-Drug Resistant Organisms: None Reported Past Surgical History: Cholecystectomy, Heart Catheterization With Stent, Hernia Repair Additional Past Surgical History / Comment(s): Piece of metal removed from right eye,umbilical hernia repair Past Anesthesia/Blood Transfusion Reactions: Previous Problems w/ Anesthesia Additional Past Anesthesia/Blood Transfusion Reaction / Comment(s): Combative with anesthesia and has woken up twice during surgeries Past Psychological History: Anxiety, Depression Smoking Status: Current every day smoker Past Alcohol Use History: None Reported Past Drug Use History: None Reported - Past Family History Mother Family Medical History: Diabetes Mellitus Additional Family Medical History / Comment(s): DM Father Family Medical History: AICD/Pacemaker Medications and Allergies Home Medications Medication Instructions Recorded Confirmed Type Atorvastatin Calcium [Lipitor] 80 mg PO HS 04/20/23 06/26/24 History Albuterol Sulfate [Ventolin HFA] 2 puff INHALATION RT-Q4H PRN 10/24/23 06/26/24 History Loratadine 10 mg PO DAILY 10/24/23 06/26/24 History Venlafaxine HCl [Effexor XR] 225 mg PO DAILY 10/24/23 06/26/24 History Ticagrelor [Brilinta] 90 mg PO BID #180 tab 10/26/23 06/26/24 Rx Aspirin EC [Ecotrin Low Dose] 81 mg PO DAILY 12/03/23 06/26/24 History Empagliflozin [Jardiance] 10 mg PO DAILY 12/03/23 06/26/24 History Famotidine 40 mg PO BID 12/03/23 06/26/24 History Insulin Detemir [Levemir Flexpen] 10 units SQ BID@0700,2100 12/03/23 06/26/24 History lisinopriL [Zestril] 5 mg PO DAILY 12/03/23 06/26/24 History Spironolactone [Aldactone] 25 mg PO DAILY 30 Days #30 tab 12/04/23 06/26/24 Rx Metoprolol Tartrate [Lopressor] 25 mg PO DAILY 02/17/24 06/26/24 History Nitroglycerin Sl Tabs [Nitrostat] 0.4 mg SL Q5M PRN 02/17/24 06/26/24 History Co-Q-10 100 mg PO DAILY 06/26/24 06/26/24 History Triamcinolone 0.1% Cream [Kenalog 1 applicatio TOPICAL BID 06/26/24 06/26/24 History 0.1% Cream] Allergies Allergy/AdvReac Type Severity Reaction Status Date / Time peanut Allergy Anaphylaxis Verified 06/26/24 09:35 Surgical Tape Allergy hernandez Uncoded 06/26/24 09:35 skin,paper tape is ok Physical Exam Vitals: Vital Signs Temp Pulse Pulse Resp BP Pulse Ox 06/26/24 06:00 67 12 105/75 06/26/24 05:00 73 18 118/81 06/26/24 02:52 71 18 118/80 06/26/24 01:20 78 11 L 107/65 97 06/26/24 00:07 87 15 117/75 06/25/24 22:03 88 11 L 144/87 98 06/25/24 21:21 95 06/25/24 20:17 98.4 F 109 H 20 162/85 99 Intake and Output 10/16/24 10/17/24 10/17/24 22:59 06:59 14:59 Other: Weight 86.183 kg Results 06/26/24 07:04 06/26/24 07:04 Cardiac Enzymes 06/25/24 06/25/24 06/26/24 Range/Units 20:39 20:39 00:51 AST 27 (17-59) U/L Troponin I <0.012 <0.012 (0.000-0.034) ng/mL 06/26/24 Range/Units 05:01 AST (17-59) U/L Troponin I <0.012 (0.000-0.034) ng/mL Coagulation 06/25/24 Range/Units 20:39 PT 10.1 (10.0-12.5) sec APTT 24.9 (22.0-30.0) sec CBC 06/25/24 06/26/24 Range/Units 20:39 07:04 WBC 8.7 6.7 (3.8-10.6) k/uL RBC 5.30 5.16 (4.30-5.90) m/uL Hgb 16.4 15.6 (13.0-17.5) gm/dL Hct 47.6 45.2 (39.0-53.0) % Plt Count 227 171 (150-450) k/uL Comprehensive Metabolic Panel 06/25/24 06/26/24 Range/Units 20:39 07:04 Sodium 138 138 (137-145) mmol/L Potassium 4.1 3.9 (3.5-5.1) mmol/L Chloride 109 H 108 H (98-107) mmol/L Carbon Dioxide 20 L 23 (22-30) mmol/L BUN 20 15 (9-20) mg/dL Creatinine 0.93 0.66 (0.66-1.25) mg/dL Glucose 215 H 178 H (74-99) mg/dL Calcium 9.6 8.8 (8.4-10.2) mg/dL AST 27 (17-59) U/L ALT 20 (4-49) U/L Alkaline Phosphatase 86 (38-126) U/L Total Protein 7.0 (6.3-8.2) g/dL Albumin 4.5 (3.5-5.0) g/dL Current Medications Generic Name Dose Route Start Last Admin Trade Name Freq PRN Reason Stop Dose Admin Aspirin 81 mg 06/26/24 09:15 06/26/24 10:37 Aspirin 81 Mg PO 81 mg DAILY ELISA Administration Atorvastatin Calcium 80 mg 06/26/24 21:00 Atorvastatin 80 Mg Tab PO HS ELISA Morphine Sulfate 4 mg 06/25/24 22:27 Morphine Sulfate 4 Mg/Ml Syringe IV Q4HR PRN Severe Pain (Scale 7 to 10) Naloxone HCl 0.2 mg 06/25/24 22:27 Naloxone 0.4 Mg/Ml 1 Ml Vial IV Q2M PRN Opioid Reversal Ticagrelor 90 mg 06/26/24 09:15 06/26/24 10:37 Ticagrelor 90 Mg Tab PO 90 mg BID [facility] Administration Intake and Output 06/25/24 06/26/24 06/26/24 22:59 06:59 14:59 Other: Weight 86.183 kg 06/26/24 07:04 06/26/24 07:04
[2024-06-26] MEDS ORDERED: ALBUTEROL NEBULIZED 2.5 MG/3 ML INHALATION PRN (12:51)
[2024-06-26] MEDS ORDERED: DEXTROSE 50% SYRINGE 50 ML IVP PRN ×2 (12:53)
[2024-06-26 13:02] VITALS: BP 137/96; PULSE 96; RESP 18
[2024-06-26 15:48] LABS: Chol/HDL Ratio 7.61 Ratio; HDL Cholesterol 28.5 mg/dL (40.00-60.00); VLDL Calculation 89.2 mg/dL (5.00-40.00)
[2024-06-26] MEDS ORDERED: INSULIN ASPART (NovoLOG) 100 UNIT/ML VIAL SQ SCH (17:30)
[2024-06-26] MEDS ORDERED: INSULIN DETEMIR (LEVEMIR) 100 UNIT/ML SYR SQ SCH (21:00)
[2024-06-26] MEDS ORDERED: ATORVASTATIN 80 MG TAB PO SCH (21:00)
[2024-06-27] MEDS ORDERED: METOPROLOL TARTRATE 25 MG TAB PO SCH (09:00)
[2024-06-27] MEDS ORDERED: LORATADINE 10 MG TAB PO SCH (09:00)
[2024-06-27] MEDS ORDERED: lisinopriL 5 MG TAB PO SCH (09:00)
[2024-06-27] MEDS ORDERED: VENLAFAXINE HCL ER 75 MG CAP PO SCH (09:00)
[2024-06-27] MEDS ORDERED: SPIRONOLACTONE 25 MG TAB PO SCH (09:00)
== END 2024-06-26 13:18 | disposition home or self-care (01) ==
LOC: EC 20:14 → 6NMEDSUR 22:32
PROVIDERS: ADMIT Hospitalist; ATTEND Hospitalist
DX: R07.89 Other chest pain (principal); I11.0 Hypertensive heart disease with heart failure; I50.22 Chronic systolic (congestive) heart failure; I25.5 Ischemic cardiomyopathy; I25.2 Old myocardial infarction; I25.10 Atherosclerotic heart disease of native coronary artery without angina pectoris; E11.9 Type 2 diabetes mellitus without complications; K21.9 Gastro-esophageal reflux disease without esophagitis; E78.5 Hyperlipidemia, unspecified; F17.210 Nicotine dependence, cigarettes, uncomplicated; F32.A Depression, unspecified; F41.9 Anxiety disorder, unspecified; Z95.5 Presence of coronary angioplasty implant and graft; Z79.899 Other long term (current) drug therapy; Z79.82 Long term (current) use of aspirin; Z79.84 Long term (current) use of oral hypoglycemic drugs; Z79.4 Long term (current) use of insulin; Z87.19 Personal history of other diseases of the digestive system; Z79.02 Long term (current) use of antithrombotics/antiplatelets
CPT/HCPCS: 96374; 99285; 36415; 93005; 85379; 83880; 80061; 80053; 80048; 83690; 83735; 84484 ×2; 85025 ×2; 85610; 85730; 83721; 71046; G0378 ×2; J2270

== ENCOUNTER 2024-10-01 11:09 | Emergency (ER) | payer OTHER ==
--- NOTE | 2024-10-01 11:27 | ED ---
URI HPI - General Chief Complaint: Upper Respiratory Infection Stated Complaint: Cough,Vomiting Time Seen by Provider: 10/01/24 11:11 Source: patient, RN notes reviewed Mode of arrival: ambulatory Limitations: no limitations - History of Present Illness Initial Comments: Patient is a 54 year old male with a past medical history of angina, DM, and GERD presenting for cough, shortness of breath, body aches, chills, vomiting, and fatigue x 3 days. Patient states that 2 days ago he started having a cough that led to him vomiting, followed by fatigue and body aches and chills. He states he "slept for 35 hours straight" and woke up feeling "sweaty", but did not take his temperature at home. He also endorses sinus pain and sore throat which he attributes to his coughing, as well as shortness of breath and feeling "pressure" when he breathes. He denies any hematemesis, diarrhea, abdominal pain, headache, chest pain. - Related Data Home Medications Medication Instructions Recorded Confirmed Atorvastatin Calcium [Lipitor] 80 mg PO HS 04/20/23 06/26/24 Albuterol Sulfate [Ventolin HFA] 2 puff INHALATION RT-Q4H PRN 10/24/23 06/26/24 Loratadine 10 mg PO DAILY 10/24/23 06/26/24 Venlafaxine HCl [Effexor XR] 225 mg PO DAILY 10/24/23 06/26/24 Aspirin EC [Ecotrin Low Dose] 81 mg PO DAILY 12/03/23 06/26/24 Empagliflozin [Jardiance] 10 mg PO DAILY 12/03/23 06/26/24 Famotidine 40 mg PO BID 12/03/23 06/26/24 Insulin Detemir [Levemir Flexpen] 10 units SQ BID@0700,2100 12/03/23 06/26/24 lisinopriL [Zestril] 5 mg PO DAILY 12/03/23 06/26/24 Metoprolol Tartrate [Lopressor] 25 mg PO DAILY 02/17/24 06/26/24 Nitroglycerin Sl Tabs [Nitrostat] 0.4 mg SL Q5M PRN 02/17/24 06/26/24 Co-Q-10 100 mg PO DAILY 06/26/24 06/26/24 Triamcinolone 0.1% Cream [Kenalog 1 applicatio TOPICAL BID 06/26/24 06/26/24 0.1% Cream] Previous Rx's Medication Instructions Recorded Ticagrelor [Brilinta] 90 mg PO BID #180 tab 10/26/23 Spironolactone [Aldactone] 25 mg PO DAILY 30 Days #30 tab 12/04/23 Allergies Allergy/AdvReac Type Severity Reaction Status Date / Time peanut Allergy Anaphylaxis Verified 06/26/24 09:35 Surgical Tape Allergy hernandez Uncoded 06/26/24 09:35 skin,paper tape is ok Review of Systems ROS Statement: Those systems with pertinent positive or pertinent negative responses have been documented in the HPI. ROS Other: All systems not noted in ROS Statement are negative. Past Medical History Past Medical History: Chest Pain / Angina, Diabetes Mellitus, GERD/Reflux, Hyperlipidemia, Myocardial Infarction (SD), Skin Disorder Additional Past Medical History / Comment(s): had diagestive issues all my life, pain epigastric area after eating,constipaiton, hx pancreatitis,Eczema. Hx ulcers, viral mennigitis. "Chronic chest pain, that Dr relates to acid reflux." States hx kidney problems but not sure what. Last Myocardial Infarction Date:: 10/24/2023 History of Any Multi-Drug Resistant Organisms: None Reported Past Surgical History: Cholecystectomy, Heart Catheterization With Stent, Hernia Repair Additional Past Surgical History / Comment(s): Piece of metal removed from right eye,umbilical hernia repair Past Anesthesia/Blood Transfusion Reactions: Previous Problems w/ Anesthesia Additional Past Anesthesia/Blood Transfusion Reaction / Comment(s): Combative with anesthesia and has woken up twice during surgeries Past Psychological History: Anxiety, Depression Smoking Status: Current every day smoker Past Alcohol Use History: None Reported Past Drug Use History: None Reported - Past Family History Mother Family Medical History: Diabetes Mellitus Additional Family Medical History / Comment(s): DM Father Family Medical History: AICD/Pacemaker General Exam Limitations: no limitations General appearance: alert Head exam: Present: atraumatic, normocephalic, normal inspection Eye exam: Present: normal appearance, PERRL, EOMI. Absent: scleral icterus, conjunctival injection, periorbital swelling ENT exam: Present: normal exam, mucous membranes dry Neck exam: Present: normal inspection. Absent: tenderness, meningismus, lymphadenopathy Respiratory exam: Present: rales (mild in [place]) Cardiovascular Exam: Present: normal rhythm, tachycardia GI/Abdominal exam: Present: soft, normal bowel sounds. Absent: distended, tenderness, guarding, rebound, rigid Neurological exam: Present: alert, oriented X3, CN II-XII intact Skin exam: Present: warm, intact, normal color, diaphoretic. Absent: rash Course Vital Signs 10/01/24 10/01/24 11:10 11:31 Temperature 98.3 F Pulse Rate 122 H Respiratory 20 22 Rate Blood Pressure 150/92 O2 Sat by Pulse 96 Oximetry Medical Decision Making - Medical Decision Making Was pt. sent in by a medical professional or institution (, WALKER, AMMUNITION ASSEMBLY LABORER, urgent care, hospital, or snf...) When possible be specific @ -No Did you speak to anyone other than the patient for history (EMS, parent, family, police, friend...)? What history was obtained from this source @ -No Did you review nursing and triage notes (agree or disagree)? Why? @ -I reviewed and agree with nursing and triage notes Were old charts reviewed (outside hosp., previous admission, EMS record, old EKG, old radiological studies, urgent care reports/EKG's, snf records)? Report findings @ -No old charts were reviewed Differential Diagnosis (chest pain, altered mental status, abdominal pain women, abdominal pain men, vaginal bleeding, weakness, fever, dyspnea, syncope, headache, dizziness, GI bleed, back pain, seizure, CVA, palpatations, mental health, musculoskeletal)? @ -COVID 19, RSV, influenza, pneumonia, acute bronchitis, URI, this list is not all inclusive EKG interpreted by me (3pts min.). @ -None X-rays interpreted by me (1pt min.). @ -Chest x-ray shows no acute cardiopulmonary process CT interpreted by me (1pt min.). @ -None done U/S interpreted by me (1pt. min.). @ -None done What testing was considered but not performed or refused? (CT, X-rays, U/S, labs )? Why? @ -None What meds were considered but not given or refused? Why? @ -None Did you discuss the management of the patient with other professionals (professionals i.e. , WALKER, AMMUNITION ASSEMBLY LABORER, lab, RT, psych nurse, health and social care teacher, principal law clerk, teacher, command and control officer, casework specialist)? Give summary @ -No Was smoking cessation discussed for >3mins.? @ -No Was critical care preformed (if so, how long)? @ -No Were there social determinants of health that impacted care today? How? (Homelessness, low income, unemployed, alcoholism, drug addiction, transportation, low edu. Level, literacy, decrease access to med. care, alf, rehab)? @ -No Was there de-escalation of care discussed even if they declined (Discuss DNR or withdrawal of care, Hospice)? DNR status @ -No What co-morbidities impacted this encounter? (DM, HTN, Smoking, COPD, CAD, Cancer, CVA, ARF, Chemo, Hep., AIDS, mental health diagnosis, sleep apnea, morbid obesity)? @ -None Was patient admitted / discharged? Hospital course, mention meds given and route, prescriptions, significant lab abnormalities, going to OR and other pertinent info. @ -Discharge patient is influenza A positive x-ray unremarkable patient discharged in stable condition with supportive treatment return parameters jenny. Undiagnosed new problem with uncertain prognosis? @ -No Drug Therapy requiring intensive monitoring for toxicity (Heparin, Nitro, Insulin, Cardizem)? @ -No Were any procedures done? @ -No Diagnosis/symptom? @ -Influenza A Acute, or Chronic, or Acute on Chronic? @ -Acute Uncomplicated (without systemic symptoms) or Complicated (systemic symptoms)? @ -Uncomplicated Side effects of treatment? @ -No Exacerbation, Progression, or Severe Exacerbation? @ -No Poses a threat to life or bodily function? How? (Chest pain, [place], SD, pneumonia, PE, COPD, DKA, ARF, appy, cholecystitis, CVA, Diverticulitis, Homicidal, Suicidal, threat to staff... and all critical care pts) @ -No - Lab Data Lab Results 10/01/24 Range/Units 11:28 Influenza Type A (PCR) Detected A (Not Detectd) Influenza Type B (PCR) Not Detected (Not Detectd) RSV (PCR) Not Detected (Not Detectd) SARS-CoV-2 (PCR) Not Detected (Not Detectd) Disposition Clinical Impression: Influenza A Disposition: HOME SELF-CARE Condition: Stable Instructions (If sedation given, give patient instructions): Influenza (ED) Additional Instructions: Please return to the Emergency Department if symptoms worsen or any other concerns. Is patient prescribed a controlled substance at d/c from ED?: No Referrals: Wagner Retana DO [Primary Care Provider] - 1-2 days Time of Disposition: 12:39
[2024-10-01] MEDS: ACETAMINOPHEN TAB 500 MG TAB PO STA (11:41)
--- NOTE | 2024-10-01 11:45 | XR ---
EXAMINATION TYPE: XR chest 2V DATE OF EXAM: 10/01/2024 CLINICAL HISTORY: Cough TECHNIQUE: Frontal and lateral views of the chest are obtained. COMPARISON: Prior chest x-ray June 25, 2024 FINDINGS: There is no suspicious new focal air space opacity, pleural effusion, or pneumothorax seen . Mild increased interstitial prominence bilaterally remains present. The cardiac silhouette size is within normal limits. The osseous structures are intact. Cholecystectomy clips are redemonstrated o n lateral view. IMPRESSION: No acute focal pulmonary infiltrate. [facility], , 10/01/2024 11:43 AM
[2024-10-01 12:29] LABS: Influenza A Detected (Not Detectd); Influenza B Not Detected (Not Detectd); RSV Not Detected (Not Detectd)
[2024-10-01 13:10] VITALS: BP 148/89; PULSE 96; RESP 18; TEMP 98.6
== END 2024-10-01 13:16 | disposition home or self-care (01) ==
LOC: EC 11:09
DX: J10.1 Influenza due to other identified influenza virus with other respiratory manifestations (principal); E11.9 Type 2 diabetes mellitus without complications; K21.9 Gastro-esophageal reflux disease without esophagitis; I20.9 Angina pectoris, unspecified; E78.5 Hyperlipidemia, unspecified; I25.2 Old myocardial infarction; F17.200 Nicotine dependence, unspecified, uncomplicated; Z91.010 Allergy to peanuts; Z91.048 Other nonmedicinal substance allergy status
CPT/HCPCS: 71046; 87636; 99284